=== PATIENT | male | born 1955 | race Caucasian/White ===

== ENCOUNTER → 2020-07-23 14:02 | Outpatient (BNVA) | payer OTHER, SELFPAY | PROVIDERS: PCP Internal Medicine; Visit Provider Internal Medicine Endocrinology, Diabetes & Metabolism | DX: E11.65 Type 2 diabetes mellitus with hyperglycemia (principal); E11.42 Type 2 diabetes mellitus with diabetic polyneuropathy; E78.5 Hyperlipidemia, unspecified; I10 Essential (primary) hypertension; E66.9 Obesity, unspecified | CPT/HCPCS: 82947; 99212 ==

== ENCOUNTER 2021-02-16 08:20 | Outpatient (REF) | payer MEDICARE, OTHER, SELFPAY ==
[2021-02-16 10:05] LABS: Alanine Aminotransferase 39 U/L (0-40); Albumin Level 4.1 g/dL (3.5-5.0); Alkaline Phosphatase 95 U/L (39-117); Anion Gap 13 (12-20); Aspartate Amino Transferase 29 U/L (5-37); Bilirubin Total 0.9 mg/dL (0.0-1.0); Blood Urea Nitrogen 14 mg/dL (9-16); Calcium 8.7 mg/dL (8.4-10.2); Carbon Dioxide 24 mmol/L (22-29); Chloride 108 mmol/L (96-108); Cholesterol 92 mg/dL; Estimated Glomerular Filt Rate > 60; Glucose Random 125 mg/dL (60-115); HDL Cholesterol 35 mg/dL; LDL Cholesterol Calculated 45 mg/dl; Potassium 4.4 mmol/L (3.3-5.1); Sodium 141 mmol/L (135-145); Total Protein 6.4 g/dL (6.5-8.0); Triglycerides 60 mg/dL
[2021-02-16 10:33] LABS: Creatinine Urine 103.01 mg/dL; Microalbum/Creatinine Ratio Ur 4.8 ug/mg cr
[2021-02-18 09:41] LABS: LDL Cholesterol Direct 45 mg/dL (<100)
== END 2021-02-16 08:21 | disposition home or self-care (01) ==
LOC: HO.LAB 08:20
PROVIDERS: PCP Internal Medicine; Visit Provider Internal Medicine Endocrinology, Diabetes & Metabolism
DX: E11.65 Type 2 diabetes mellitus with hyperglycemia (principal); E11.42 Type 2 diabetes mellitus with diabetic polyneuropathy; I12.9 Hypertensive chronic kidney disease with stage 1 through stage 4 chronic kidney disease, or unspecified chronic kidney disease; E78.5 Hyperlipidemia, unspecified; E66.9 Obesity, unspecified; Z68.32 Body mass index [BMI] 32.0-32.9, adult; Z79.84 Long term (current) use of oral hypoglycemic drugs; Z79.82 Long term (current) use of aspirin; Z79.899 Other long term (current) drug therapy
CPT/HCPCS: 36415; 80053; 80061; 82043; 82947; 83721; 99212

== ENCOUNTER → 2021-03-12 08:22 | Outpatient (REF) | payer MEDICARE, OTHER, SELFPAY ==
--- NOTE | ~2021-03-12 | NM_ITS ---
Lexiscan Myocardial perfusion study Indication: Coronary artery disease, history of bypass, assess for ischemia Technique: The patient was brought in for a Lexiscan perfusion study on 03/12/2021 and was injected 0.4 mg of Lexiscan intravenously. Within a minute of this injection 40 mCi of sestamibi was given intravenously. Images were obtained using the SPECT gamma camera interlaced with the gating device. Images were obtained in supine position. Resting perfusion study was performed on 03/13/2021. Patient was administered 40 mCi of sestamibi intravenously at rest. Images were then obtained in supine position. Total DLP 124mGy-cm. Images were processed with the software and compared side to side in short axis, horizontal long axis and vertical long axis views. Findings: Raw acquisition was reviewed. The stress perfusion study showed mildly diminished tracer uptake along the inferolateral wall. There is improvement with CT attenuation correction and hence suggestive of diaphragmatic attenuation artifact. The gated study shows normal LV systolic function with calculated LVEF of 64%. LV cavity is normal in size. The gated study shows normal wall thickening and contraction of segments. Resting study shows diminished tracer uptake along the inferolateral wall. Improvement with CT attenuation correction suggestive of diaphragmatic attenuation artifact. Gating at rest reveals normal wall motion with ejection fraction at 60%. The findings are consistent with no reversible defects. Fixed defect in the inferolateral wall suggestive of diaphragmatic artifact. NM/NM finesse perf SPECT rest & str Impression: 1. Myocardial perfusion imaging study shows likely normal perfusion. 2. Gated LVEF is 60% during stress and 60% during rest. 3. Transient ischemic dilatation not present. EKG component of the test reported separately.
--- NOTE | 2021-03-12 08:30 | CA_ITS ---
Transthoracic Echocardiogram Patient (Last, First, Middle): Dionne Haynes, Gender: Male Date of : 1955 Age: 65 Procedure Date: 03/12/2021 Procedure Type: Transthoracic Echocardiogram Location: OP Height: 185.42 cm Weight: 108.86 kg BSA: 2.33 m2 Heart Rate: bpm BP: 126 / 56 mmHg Cherry Cutter: Referring MD: Norberto Jacobson MD Symptoms: I25.10 CAD, I10 HTN, Z95.1 S/P CABG X 5 Study Quality: Fair ECG Rhythm: Sinus Conclusions: - The left ventricular systolic function is normal. The calculated ejection fraction is 56% by biplane method. - There is mildly decreased right ventricular systolic function. - There is mild calcification of the aortic valve. - There is mild mitral annular calcification. Findings Left Ventricle Normal left ventricular cavity size. There is mildly increased left ventricular wall thickness. The left ventricular systolic function is normal. The calculated ejection fraction is 56% by biplane method. There is no evidence of regional wall motion abnormalities. Diastolic function is normal for age. LV peak GLS -17.9%. Right Ventricle Normal right ventricular cavity size. There is mildly decreased right ventricular systolic function. TAPSE 1.42cm. Atria Both atria are normal in size. Aortic Valve There is a normal trileaflet aortic valve. There is mild calcification of the aortic valve. There is no aortic valve stenosis. There is no aortic valve regurgitation. Mitral Valve There is mild mitral annular calcification. There is trace mitral valve regurgitation. There is no mitral valve stenosis. Pulmonic Valve The pulmonic valve was not well visualized. Tricuspid Valve There is trace tricuspid valve regurgitation. The pulmonary artery systolic pressure is normal. Great Vessels The asc aorta is normal in size. Venous The inferior vena cava is normal in size and collapses greater than 50% with inspiration. Pericardium/Pleural There is no evidence of pericardial effusion. Prior Study Comparison Changes noted compared to prior study dated: 05/26/2018. Improved diastolic function. Measurements 2D Linear Measurements RVIDd: 3.10 RVIDd Index: 1.33 IVSd: 1.10 0.6-0.9/0.6-1.0 cm LVIDd: 5.33 3.9-5.3/4.2-5.9 cm LVIDd Index: 2.29 2.4-3.2/2.2-3.1 cm/m2 LVIDs: 3.64 2.0-3.6 cm LVPWd: 1.03 0.7-1.1 cm Ao Root: 4.00 2.1-3.5 cm LA Diam: 4.70 2.7-3.8/3.0-4.0 cm LAIDs Index: 2.02 1.5-2.3 cm/m2 LV Mass: 274.29 67-162/88-224 g LV Mass Index: 117.72 43-95/49-115 g/m2 LVOT Diam: 2.40 3.0+(-)1.3 cm 2D Systolic Function EF 4C: 51.10 >55% EF 2C: 64.60 >55% EF BiP: 56.40 >55% Mitral Valve MV Pk E: 0.75 MV PK A: 0.81 MV Decel Time: 295.00 E/A: 0.90 E'Lateral: 9.79 E'Medial: 6.42 E/E' Med: 11.70 E/E' Lat: 7.70 Aortic Valve AoV Pk Myles: 1.00 AoV Mn Myles: 0.73 AoV VTI: 0.18 AoV Pk Grad: 4.00 Aov Mn Grad: 2.00 ADDISON Cont.VTI: 4.64 LVOT LVOT Pk Myles: 0.78 LVOT Mn Myles: 0.56 LVOT VTI: 0.19 LVOT Pk Grad: 2.00 LVOT Mn Grad: 1.00 LVOT Diam: 2.40 LVOT Area: 4.52 Diastolic Function MV Pk E: 0.75 MV Pk A: 0.81 E/A: 0.90 E'Medial: 6.42 E/E' Med: 11.70 E' Laterial: 9.79 E/E' Lat: 7.70 Tricuspid Valve RA Press: 3.00 Great Vessels Aorta Ao Root-2D: 4.00 2.0-3.7 cm Ao Asc: 3.60 2.1-3.4 cm Ao Arch: 3.30 Updated in Other Vendor System with Status of Final Valentino Solano MD electronically signed on 03/12/2021 2:02:16 PM with status of Final
--- NOTE | 2021-03-12 09:30 | CA_ITS ---
Acquisition Time: 2021-03-12 09:35:41 Total Exercise Time: 00:09:00 Test Indications: Screening for CAD Medications: AMLODIPINE ASA ATORVASTATIN JARDIANCE LISINOPRIL/HCTZ METFORMIN METOPROLOL RYBELSUS Protocol: [place] Max HR: 116 BPM 74% of Pred: 155 BPM Max BP: 206/064 mmHG Max Work Load: 10.1 METS Exercise stress test with exercise 9 min of [place] protocol, achieving 72% MPHR, without anginal symptoms, with isolated PACs and one short run of atrial tachycardia, with hypertensive response to exercise with max BP 206/64, with nondiagnostic EKG for ischemia due to subotimal heart rate ( took Metoprolol this am). He was assisted to sitting position and when BP improved, testing changed to a pharmacological stress test with Lexsican injection, while kicking his legs, without anginal symptoms, without arrythmia, with normotensive response to injection, with nondiagnostic EKG for ischemia. Nuclear images pending. Test reviewed with Dr Ochoa. Referred By: Norberto Jacobson Overread By: PADDY MORSE
== END ==
LOC: HO.CARD 08:22
PROVIDERS: Visit Provider Internal Medicine Cardiovascular Disease
DX: I25.10 Atherosclerotic heart disease of native coronary artery without angina pectoris (principal); I10 Essential (primary) hypertension; E11.8 Type 2 diabetes mellitus with unspecified complications; Z95.1 Presence of aortocoronary bypass graft
CPT/HCPCS: 78452; 93017; 93306; 93356; A9500; J0280; J2785

== ENCOUNTER → 2021-04-02 10:18 | Outpatient (BNVA) | payer MEDICARE, OTHER, SELFPAY | PROVIDERS: PCP Internal Medicine; Referring Provider Internal Medicine; Visit Provider Internal Medicine Cardiovascular Disease | DX: I25.10 Atherosclerotic heart disease of native coronary artery without angina pectoris (principal); I10 Essential (primary) hypertension | CPT/HCPCS: 93005; 99212 ==

== ENCOUNTER → 2021-06-18 07:58 | Outpatient (BNVA) | payer MEDICARE, OTHER, SELFPAY | PROVIDERS: PCP Internal Medicine; Visit Provider Nurse Practitioner Gerontology | DX: E11.65 Type 2 diabetes mellitus with hyperglycemia (principal); E11.42 Type 2 diabetes mellitus with diabetic polyneuropathy; E78.5 Hyperlipidemia, unspecified; E66.9 Obesity, unspecified; I10 Essential (primary) hypertension | CPT/HCPCS: 82947; 83036; 99212 ==

== ENCOUNTER → 2021-06-24 07:55 | Outpatient (BNVA) | payer MEDICARE, OTHER, SELFPAY | PROVIDERS: PCP Internal Medicine; Visit Provider Registered Nurse Diabetes Educator | DX: E11.65 Type 2 diabetes mellitus with hyperglycemia (principal) | CPT/HCPCS: 99211 ==

== ENCOUNTER → 2021-09-02 08:02 | Outpatient (BNVA) | payer MEDICARE, OTHER, SELFPAY | PROVIDERS: PCP Internal Medicine; Visit Provider Registered Nurse Diabetes Educator | DX: E11.65 Type 2 diabetes mellitus with hyperglycemia (principal) | CPT/HCPCS: 99211 ==

== ENCOUNTER 2021-09-06 10:01 | Inpatient (IN) | payer OTHER, SELFPAY ==
--- NOTE | ~2021-09-06 | XR_ITS ---
EXAMINATION: 1. RADIOGRAPHS CHEST 2. RADIOGRAPHS RIGHT KNEE CLINICAL INFORMATION: Medical clearance. Right knee pain. Possible quadriceps tendon rupture. COMPARISON: Chest x-ray 10/07/2014 and right knee x-rays 10/04/2006 TECHNIQUE: Frontal view of the chest and 4 views of the right knee were obtained. FINDINGS: Chest: The cardiac silhouette is enlarged. Patient is status post sternotomy. The lungs are mildly hypoinflated. There is no lobar consolidation. No pleural effusion or pneumothorax. Degenerative changes of the spine and shoulders. Right knee: no fracture or dislocation. Joint spaces are well-maintained. Small suprapatellar joint effusion. Prominent osteophytes noted along the superior and inferior patellar poles. Small osteophytes noted involving the medial and lateral joint compartments. Vascular calcifications noted. XR/XR chest 1V IMPRESSION: -No acute pulmonary pathology. -Small suprapatellar joint effusion with degenerative changes of the knee.
--- NOTE | ~2021-09-06 | XR_ITS ---
EXAMINATION: 1. RADIOGRAPHS CHEST 2. RADIOGRAPHS RIGHT KNEE CLINICAL INFORMATION: Medical clearance. Right knee pain. Possible quadriceps tendon rupture. COMPARISON: Chest x-ray 10/07/2014 and right knee x-rays 10/04/2006 TECHNIQUE: Frontal view of the chest and 4 views of the right knee were obtained. FINDINGS: Chest: The cardiac silhouette is enlarged. Patient is status post sternotomy. The lungs are mildly hypoinflated. There is no lobar consolidation. No pleural effusion or pneumothorax. Degenerative changes of the spine and shoulders. Right knee: no fracture or dislocation. Joint spaces are well-maintained. Small suprapatellar joint effusion. Prominent osteophytes noted along the superior and inferior patellar poles. Small osteophytes noted involving the medial and lateral joint compartments. Vascular calcifications noted. XR/XR knee RT 4V IMPRESSION: -No acute pulmonary pathology. -Small suprapatellar joint effusion with degenerative changes of the knee.
[2021-09-06 10:06] VITALS: BP 142/55; PULSE 66; RESP 19; O2SAT 97; BMI 31.6
--- NOTE | 2021-09-06 10:53 | ED_ITS ---
HPI - Extremity Injury (Lower) General Chief Complaint: Extremity Injury, Lower Stated Complaint: fall Time Seen by Provider: 09/06/21 10:17 Source: patient and RN notes reviewed Mode of arrival: wheelchair Limitations: no limitations History of Present Illness HPI Narrative: Pt clearing deck this morning of snow and right leg slipped forward and twisted. pt fell tightness and pain in lower right thigh. pt. fell to the ground and unable to ambulate after. Brother helped slide him to truck and brought him to the ED. pt can not extend right lower leg. Other symptoms: none Related Data Home Medications Medication Instructions Recorded Confirmed aspirin 81 mg tablet,delayed 81 mg PO DAILY 07/23/20 09/06/21 release multivitamin 1 tab PO DAILY 09/06/21 09/06/21 Previous Rx's Medication Instructions Recorded lisinopril 20 1 tab PO DAILY #90 tab 07/28/20 mg-hydrochlorothiazide 12.5 mg tablet metoprolol succinate 100 mg 100 mg PO DAILY #90 tab 07/28/20 tablet,extended release 24 hr (Toprol XL) flash glucose sensor (FreeStyle #2 ea 10/21/20 Bo 14 Day Sensor) amlodipine 5 mg tablet 5 mg PO DAILY #90 tab 10/30/20 atorvastatin 80 mg tablet 80 mg PO BEDTIME #90 tab 10/30/20 blood sugar diagnostic (FreeStyle #100 ea 02/16/21 Lite Strips) lancets 28 gauge (FreeStyle #100 ea 02/16/21 Lancets) metformin 500 mg 24 hr 1,000 mg PO BID 90 Days #360 tab 02/16/21 tablet,extended release semaglutide 7 mg tablet (Rybelsus) 7 mg PO DAILY 90 Days #90 tab 02/16/21 empagliflozin 25 mg tablet 25 mg PO DAILY 90 Days #90 tab 09/03/21 (Jardiance) Allergies Allergy/AdvReac Type Severity Reaction Status Date / Time No Known Allergies Allergy Verified 06/18/21 08:21 [No Known Allergies*] N.K.D.A. Allergy Unknown Unknown Uncoded 06/18/21 08:21 Review of Systems Verdana 4l Review of Systems: Verdana 4d Verdana 4d Constitutional : No trauma, No Weight loss, No Fever, No Chills, ENT/Mouth : No Hearing loss, No Ear Pain, No Nasal Congestion, No Sinus Pain, No Hoarseness, No sore throat, No Rhinorrhea, No Swallowing Difficulty Cardiovascular : No ChestChest Pain, No SOB Respiratory : No Cough, No Dyspnea Gastrointestinal : No Nausea, No Vomiting, No Diarrhea, No abdominal Pain, Genitourinary : No Dysuria, No Urinary Frequency, No Hematuria, No Urinary or Bowel Incontinence/retention? Musculoskeletal : no Back pain, No neck pain, rigth LE pain and unable to extend rigth LE Skin : No Skin Lesions, No rash or signs of infection Neuro : No Weakness, No radiation, No Numbness, No Paresthesias, No headache, no loss of bowel or bladder incontinence, Psych : No SI/HI/thoughts of self injury Yes all other systems are reviewed and are negative PMFSH Past Medical History Attestation statement: The following information was validated with the patient. Medical History CAD (coronary artery disease) Diabetes type 2, uncontrolled Diabetic polyneuropathy associated with type 2 diabetes mellitus Dyslipidemia Hypertension Obesity (BMI 30-39.9) Surgical History H/O wisdom tooth extraction Hx of hernia repair Hx of removal of cyst Hx of umbilical hernia repair S/P CABG x 5 Family History Family History Mother Type 2 diabetes mellitus Father H/O heart artery stent Social History Social History Alcohol intake: never Patient Tobacco Use Status: Never used Tobacco Use of substances other than those prescribed or required for medical reasons: No Advance Directives: No Advance Directives Information Provided: No Physical Exam Verdana 4l Vital Signs: Verdana 4d Verdana 4d Vital Signs: Verdana 4d Verdana 4Bd Last Vital Signs Verdana 4d Customer Logistics Manager New 4d Customer Logistics Manager New 4d Pulse 66 09/06/21 10:06 Customer Logistics Manager New 4d Resp 19 09/06/21 10:06 Customer Logistics Manager New 4d BP 142/55 H 09/06/21 10:06 Pulse Ox 97 09/06/21 10:06 BMI result Body Mass Index 31.6 vital signs have been reviewed as normal and appeared to be correct.? Blood pressure elevated.? Heart rate normal.? Respiration rate normal.? Temperature normal.? Oxygen saturation normal. Appearance: Alert. Oriented X3. No acute distress. ? Head: Normal external exam. Normocephalic. Atraumatic.? Eyes: PERRLA. EOMI. Conjunctiva and sclera normal. Eyelids normal. ? ENT: EAC normal. Pharynx normal. Uvula midline. Moist mucous membranes. ? No trismus noted.? No drooling noted.? No muffled voice noted. Neck: Normal inspection. Neck supple. Normal ROM. CVS: Normal heart rate and rhythm. Heart sound normal. No murmurs noted. Respiratory: No respiratory distress. Painless inspiration. Breath sounds normal. No wheezes/rales/rhonchi noted. Chest nontender. ? No accessory muscle usage noted or decreased air movement noted. Abdomen: Soft and nontender. Back: ?.? Full range of motion noted. Skin: Skin warm and dry.? Normal skin color.? Normal skin turgor. No rashes/lesions/lacerations noted. Extremities: No lower extremity edema. ? Step off just proximal to right patella, mild tendernss, pt unable extend R lower extremity. Pt able to flex R lower extremity. Good pedal pulses equal bilat Neuro: Oriented X 3.? No motor deficit noted. No sensory deficit noted. Course Course Course Narrative: Discussed case with Dr. Lee who also saw the patient. Will consult with ortho for probable quadriceps tendon rupture, left. Pt in no pain and declines pain medication. 11am. [facility] 11: devorah pierre (ortho PA)in to see pt. Pt will be admitted awaiting surgery tomorrow. MDM - Extremity Injury (Lower) Lab Data Result diagrams: 09/06/21 11:40 09/06/21 11:40 Discharge Plan Discharge Clinical Impression: Quadriceps tendon rupture Patient Disposition: Admitted As Inpatient
--- NOTE | 2021-09-06 11:22 | ECG_ITS ---
Test Reason : Medical clearance Blood Pressure : / mmHG Vent. Rate : 056 BPM Atrial Rate : 056 BPM P-R Int : 292 ms QRS Dur : 098 ms QT Int : 464 ms P-R-T Axes : 024 -06 -03 degrees QTc Int : 447 ms Artifact in tracing Sinus bradycardia with 1st degree A-V block Inferior infarct (cited on or before 01-APR-2016) Intra-ventricular conduction delay Cannot exclude old anterior infarct Abnormal ECG When compared with ECG of 01-APR-2016 15:19, due to artifact, cannot compare Referred By: Renetta Puente Electronically Signed By:MERCEDES CARMEN
[2021-09-06 11:54] LABS: MANUAL DIFF FLAG NO
[2021-09-06 11:57] LABS: Basophils Absolute Auto 0.1 X10*3/uL (0.0-0.2); Basophils Percent Auto 0.7 % (0-2); Eosinophils Absolute Auto 0.2 X10*3/uL (0.0-0.4); Eosinophils Percent Auto 3.3 % (0-4); Hematocrit 43.3 % (42.0-52.0); Imm Gran Abs Auto 0.03 X10*3/uL (0.00-0.03); Imm Gran Pct Auto 0.4 % (0.0-0.4); Lymphocytes Absolute Auto 1.4 X10*3/uL (1.2-4.9); Lymphocytes Percent Auto 20.7 % (20-40); Mean Corpuscular HGB Conc 34.6 g/dl (31.0-36.0); Mean Corpuscular Hemoglobin 28.3 pg (27.0-33.0); Mean Corpuscular Volume 81.7 fL (80.0-98.0); Mean Platelet Volume 10.3 fL (9.4-12.4); Monocytes Absolute Auto 0.6 X10*3/uL (0.1-1.2); Monocytes Percent Auto 8.5 % (2-11); Neutrophils Absolute Auto 4.5 x10*3/uL (2.0-8.3); Neutrophils Percent Auto 66.4 % (45-73); Platelet Count 146 X10*3/uL (160-400); Red Cell Distribution Width 13.2 % (11.0-16.0); White Blood Count 6.7 X10*3/uL (4.8-10.8)
--- NOTE | 2021-09-06 11:57 | PHA.MEDREC ---
med rec complete, no issues Pharmacy Consult ? Medication Reconciliation Pharmacy has completed the medication reconciliation.
--- NOTE | 2021-09-06 12:00 | PC.NURSE ---
Patient to ER after stepping wrong while shoveling and reports tear. Patient had similar thing happen to left leg. Patient reports minimal pain at this time. Alert and oriented, respirations regular and even. Skin PWD. Ortho at bedside to assess. Patient to be admitted and to likely have surgery tomorrow. IV established and labs drawn. Patient reports comfort at this time. Will alert this RN if that changes.
[2021-09-06 12:03] LABS: Prothrombin Time 11.7 SEC (9.9-13.0)
[2021-09-06 12:17] LABS: Alanine Aminotransferase 58 U/L (0-40); Albumin Level 4.1 g/dL (3.5-5.0); Alkaline Phosphatase 84 U/L (39-117); Anion Gap 12 (12-20); Aspartate Amino Transferase 37 U/L (5-37); Bilirubin Total 1.1 mg/dL (0.0-1.0); Blood Urea Nitrogen 14 mg/dL (9-16); Calcium 9.3 mg/dL (8.4-10.2); Carbon Dioxide 26 mmol/L (22-29); Chloride 105 mmol/L (96-108); Creatinine Clr Calc Pharmacy 84.7; Estimated Glomerular Filt Rate > 60; Glucose Random 142 mg/dL (60-115); Potassium 4.3 mmol/L (3.3-5.1); Sodium 139 mmol/L (135-145); Total Protein 6.6 g/dL (6.5-8.0)
[2021-09-06 12:22] LABS: COVID-19 Test Negative (Negative)
--- NOTE | 2021-09-06 12:41 | P.HPOP_ITS ---
History of Present Illness History of Present Illness Date of Service: 09/06/21 Chief complaint: right quad tendon rupture Narrative: Dionne Haynes is a 66 year old male who presented to the ED after sustaining a fall onto his knees this morning while shoveling. He was unable to get up, so a friend helped him up and into a vehicle and brought him to the ED. While in the ED, he was unable to SLR and had a palpable defect. Orthopedics was called for consultation. He has a [facility] DMII A1C approx. 7. He almost mentions he had CABG x5 approx 4 years ago. He is retired. He is active. He had left quad tendon repair about 12 years ago. He will be admitted to Orthopedic service for surgical planning. Review of Systems Verdana 4l Review of Systems: Verdana 4d Negative , as per Verdana 4d HPI Verdana 4d [facility] Past Medical History Medical History CAD (coronary artery disease) Diabetes type 2, uncontrolled Diabetic polyneuropathy associated with type 2 diabetes mellitus Dyslipidemia Hypertension Obesity (BMI 30-39.9) Family History Family History Mother Type 2 diabetes mellitus Father H/O heart artery stent Surgical History Surgical History H/O wisdom tooth extraction Hx of hernia repair Hx of removal of cyst Hx of umbilical hernia repair S/P CABG x 5 Social History Social History Alcohol intake: never Patient Tobacco Use Status: Never used Tobacco Use of substances other than those prescribed or required for medical reasons: No Advance Directives: No Advance Directives Information Provided: No Meds Allergies Allergy/AdvReac Type Severity Reaction Status Date / Time No Known Allergies Allergy Verified 06/18/21 08:21 [No Known Allergies*] N.K.D.A. Allergy Unknown Unknown Uncoded 06/18/21 08:21 Active Medications: Current Medications Pharmacy Consult (Consult Rx Perform Med Rec) 1 each MISCELLANE ONCE PRN PRN Reason: Consult order Home Medications Medication Instructions Recorded Confirmed Last Taken Type aspirin 81 mg 81 mg PO DAILY 07/23/20 09/06/21 09/06/21 History tablet,delayed release multivitamin 1 tab PO DAILY 09/06/21 09/06/21 09/06/21 History Physical Exam Verdana 4l Vital Signs: Verdana 4d Verdana 4d Vital Signs: Verdana 4d Verdana 4Bd Last Vital Signs Verdana 4d Casing Crew Pusher New 4d Casing Crew Pusher New 4d Pulse 66 09/06/21 10:06 Casing Crew Pusher New 4d Resp 19 09/06/21 10:06 Casing Crew Pusher New 4d BP 142/55 H 09/06/21 10:06 Pulse Ox 97 09/06/21 10:06 BMI result Body Mass Index 31.6 Const: General: cooperative, healthy appearing, comfortable, no acute distress, well developed and alert Orientation/consciousness: patient oriented x3 HENMT: Head: Yes normal to inspection, Yes normocephalic and Yes atraumatic Eyes: General: appearance normal, both eyes and all related structures Neck: Neck: Yes normal visual inspection and Yes no lymphadenopathy Resp: Effort & Inspection: normal respiratory effort and able to speak in complete sentences Cardio: Rate: regular rate Peripheral pulses: Peripheral pulses 2+ throughout GI: Inspection: Yes normal to inspection Palpation (GI): Soft to palpation Skin: General skin exam: no rashes or lesions noted Neuro: General: patient oriented x3 Extrem: Other: Left knee surgical scar present Right knee skin intact, no open wounds. There is a palpable defect just above the patella and he is unable to SLR. Calf supple non tender, NVI. Psych: Appearance: grossly normal Mental Status: mental status grossly normal Results Labs Result Diagrams: 09/06/21 11:40 09/06/21 11:40 Labs: Abnormal lab results 09/06/21 09/06/21 Range/Units 11:40 11:40 Plt Count 146 L (160-400) X10*3/uL Random Glucose 142 H (60-115) mg/dL Total Bilirubin 1.1 H (0.0-1.0) mg/dL ALT 58 H (0-40) U/L H & H 09/06/21 Range/Units 11:40 Hgb 15.0 (14.0-18.0) g/dl Hct 43.3 (42.0-52.0) % Coagulation 09/06/21 Range/Units 11:40 INR 1.0 (0.9-1.1) All other labs normal. Diagnostic results Knee x-ray: image reviewed (small suprapatellar effusion with OA ) Assessment and Plan (1) Rupture of right quadriceps tendon: Status: Acute Plan I discussed the case with Dr Lopez and explained the extent of the injury to the patient and options available which include surgical intervention. I explained the procedure in detail along with the length of recovery and rehab course. I explained the risk, benefits and alternatives. Risk including, but not limited to infection, blood clots, bleeding, non union or malunion and nerv e/tissue damage to surrounding areas. I answered all their questions and with their understanding they have consented to move forward with Right quad tendon repair . The patient will be T&S, med clearance obtained and NPO after midnight. Quality Stroke Does the patient have a stroke diagnosis?: No VTE Prior VTE?: No VTE Risk Level:: Surgical - high VTE Device Contraindication: N/A - Device Ordered VTE Drug Contraindication: Treatment Not Indicated Procedures Date of Service Date of Service: 09/06/21
--- NOTE | 2021-09-06 13:19 | P.HPHOSP_ITS ---
History of Present Illness Date of Service: 09/06/21 Chief Complaint: knee tendon repture 66-year-old male who came to the hospital due tosliiped on ice and fall - has right knee pain, on x-ray found todjd- patient 15 years ago similar situation heparin with his left knee and he required repair that time. Patient denies any chest pain or shortness of breath or abdominal pain or fever or chills or cough or phlegm or palpitations or weakness or numbness. He has history of CAD and CABG- stress test last year was negative, patient is currently asymptomatic. He said he can walk without short of breath and can walk more than 6 blocks. can climbs 4flights of stairs. he also has sleep apnea and uses CPAP at home. Currently denies any respiratory issues. Past medical history: Diabetes, hypertension, hypercholesteremia, CAD, CABG, sleep apnea on CPAP. Social history: Denies any smoking history, recreational drug use. Occasionally uses alcohol. She he lives with his daughter currently, totally independent does not need any help with ADLs. Review of Systems Verdana 4l Review of Systems: Verdana 4d Verdana 4d as above. Verdana 4d [facility] Medical History CAD (coronary artery disease) Diabetes type 2, uncontrolled Diabetic polyneuropathy associated with type 2 diabetes mellitus Dyslipidemia Hypertension Obesity (BMI 30-39.9) Family History Mother Type 2 diabetes mellitus Father H/O heart artery stent Surgical History H/O wisdom tooth extraction Hx of hernia repair Hx of removal of cyst Hx of umbilical hernia repair S/P CABG x 5 Social History Alcohol intake: never Patient Tobacco Use Status: Never used Tobacco Use of substances other than those prescribed or required for medical reasons: No Advance Directives: No Advance Directives Information Provided: No Meds Allergies Allergy/AdvReac Type Severity Reaction Status Date / Time No Known Allergies Allergy Verified 06/18/21 08:21 [No Known Allergies*] N.K.D.A. Allergy Unknown Unknown Uncoded 06/18/21 08:21 Active Medications: Current Medications Pharmacy Consult (Consult Rx Perform Med Rec) 1 each MISCELLANE ONCE PRN PRN Reason: Consult order Home Medications Medication Instructions Recorded Confirmed Last Taken Type aspirin 81 mg 81 mg PO DAILY 07/23/20 09/06/21 09/06/21 History tablet,delayed release multivitamin 1 tab PO DAILY 09/06/21 09/06/21 09/06/21 History Physical Exam Verdana 4l Vital Signs and Narrative: Verdana 4d Verdana 4d Vital Signs: Verdana 4d Verdana 4Bd Last Vital Signs Verdana 4d Pipeline Dispatcher New 4d Pipeline Dispatcher New 4d Pulse 66 09/06/21 10:06 Pipeline Dispatcher New 4d Resp 19 09/06/21 10:06 Pipeline Dispatcher New 4d BP 142/55 H 09/06/21 10:06 Pulse Ox 97 09/06/21 10:06 BMI result Body Mass Index 31.6 Appearance: Alert.? Oriented X3.? not in distress.? Eyes: Pupils equal, round and reactive to light.? Sclera nonicteric.? ENT: Pharynx normal.? Moist mucous membranes. cvs: rrr, [id number] , no murmur res: clear to auscultation ,no rhonchii or wheezing abd: no rebound or guarding ,nt, bs present. ext pulses present , no cyanosis, right Lower extremity can move from side to side but can not able to lift yet Due to pain. neuro: axo3 , nonfocal. Results Labs CBC and Chem 7: 09/06/21 11:40 09/06/21 11:40 Labs: Laboratory Results - last 24 hr 09/06/21 09/06/21 09/06/21 11:40 11:40 11:40 MCV 81.7 MCH 28.3 MCHC 34.6 RDW 13.2 Plt Count 146 L MPV 10.3 Immature Gran % (Auto) 0.4 Neut % (Auto) 66.4 Lymph % (Auto) 20.7 [place] % (Auto) 8.5 Eos % (Auto) 3.3 Baso % (Auto) 0.7 Lymph # (Auto) 1.4 [place] # (Auto) 0.6 Eos # (Auto) 0.2 Baso # (Auto) 0.1 Abs Immat Gran (auto) 0.03 Absolute Neuts (auto) 4.5 Absolute Nucleated RBC 0.000 Nucleated RBC % (auto) 0.0 PT INR APTT Anion Gap 12 Estim Creat Clear Calc 84.7 Estimated GFR > 60 Random Glucose 142 H Calcium 9.3 D Total Bilirubin 1.1 H AST 37 ALT 58 H Alkaline Phosphatase 84 Total Protein 6.6 Albumin 4.1 COVID-19 (ZULMA) COVID-19 Clin Com Blood Type O Positive Antibody Screen NEGATIVE 09/06/21 09/06/21 11:40 11:47 MCV MCH MCHC RDW Plt Count MPV Immature Gran % (Auto) Neut % (Auto) Lymph % (Auto) [place] % (Auto) Eos % (Auto) Baso % (Auto) Lymph # (Auto) [place] # (Auto) Eos # (Auto) Baso # (Auto) Abs Immat Gran (auto) Absolute Neuts (auto) Absolute Nucleated RBC Nucleated RBC % (auto) PT 11.7 INR 1.0 APTT 32.0 Anion Gap Estim Creat Clear Calc Estimated GFR Random Glucose Calcium Total Bilirubin AST ALT Alkaline Phosphatase Total Protein Albumin COVID-19 (ZULMA) Negative COVID-19 Clin Com See Note Blood Type Antibody Screen ECG Attestation: I personally reviewed and interpreted this ECG as follows: ( seems similar to previous EKG, but poor baseline) Imaging Radiologist's Impressions: Impressions Knee X-Ray 09/06/21 11:25 IMPRESSION: -No acute pulmonary pathology. -Small suprapatellar joint effusion with degenerative changes of the knee. Chest X-Ray 09/06/21 11:30 IMPRESSION: -No acute pulmonary pathology. -Small suprapatellar joint effusion with degenerative changes of the knee. Assessment and Plan Plan 66-year-old male with history of diabetes, hypertension, hyperlipidemia, CAD, CABG, sleep apnea on CPAP.status post fall after slipping on the ice. 1. Right knee pain: X-ray shows:Small suprapatellar joint effusion with degenerative changes of the knee. pain control Patient has CAD and CABG but asymptomatic and stress test wasfine last year, EKG poor baseline but seems similar to before. Sleep apnea ramirez chest x-ray seems fine and patient is asymptomatic. his functional status also seems fine. patient is intermediate risk for given surgical procedure. 2. CAD/CABG:continue asa , statin , bb. 3. Hypertension:continue amlodipine , bb. 4. Diabetes:dm diet insulin with sliding scale coverage. 5. hlp:continue statin DVT prophylaxis: Quality Stroke Does the patient have a stroke diagnosis?: No VTE Prior VTE?: No VTE Risk Level:: Surgical - high VTE Device Contraindication: N/A - Device Ordered VTE Drug Contraindication: Treatment Not Indicated
--- NOTE | 2021-09-06 13:47 | PC.NURSE ---
Patient reports continued comfort. Given sandwich and water at this time. Will continue to monitor.
--- NOTE | 2021-09-06 16:46 | P.CONIM_ITS ---
History of Present Illness Data of Consult Service Date: 09/06/21 Requesting physician: Patel Lopez Primary Care Provider: Parker Peace MD [facility] Reason for consult: knee pain Chief Complaint: knee tendon repture ? 66-year-old male who came to the hospital due tosliiped on ice and fall - has right knee pain, on x-ray found todjd- patient? 15 years ago similar situation heparin with his left knee and he required repair that time. ? Patient denies any chest pain or shortness of breath or abdominal pain or fever or chills or cough or phlegm or palpitations or weakness or numbness. ? He has history of CAD and CABG- stress test last year was negative,? patient is currently asymptomatic.? He said he can walk? without short of breath and can walk more than? 6 blocks. ?can climbs 4flights of stairs. ?he also has sleep apnea and uses CPAP at home.? Currently denies any respiratory issues. ? Past medical history:? Diabetes, hypertension, hypercholesteremia, CAD, CABG, sleep apnea on CPAP. ? Social history:? Denies any smoking history,? recreational drug use. ? Occasionally uses alcohol. ? She he lives with his daughter currently, totally independent does not need any help with ADLs Review of Systems Verdana 4l Review of Systems: Verdana 4d Verdana 4d as above. Verdana 4d [facility] Medical History CAD (coronary artery disease) Diabetes type 2, uncontrolled Diabetic polyneuropathy associated with type 2 diabetes mellitus Dyslipidemia Hypertension Obesity (BMI 30-39.9) Family History Mother Type 2 diabetes mellitus Father H/O heart artery stent Pertinent family history: father and mother hx of heart dis. Surgical History H/O wisdom tooth extraction Hx of hernia repair Hx of removal of cyst Hx of umbilical hernia repair S/P CABG x 5 Social History Alcohol intake: never Patient Tobacco Use Status: Never used Tobacco Use of substances other than those prescribed or required for medical reasons: No Advance Directives: No Advance Directives Information Provided: No Meds Allergies Allergy/AdvReac Type Severity Reaction Status Date / Time No Known Allergies Allergy Verified 06/18/21 08:21 [No Known Allergies*] N.K.D.A. Allergy Unknown Unknown Uncoded 06/18/21 08:21 Active Medications: Current Medications Amlodipine Besylate (Amlodipine Besylate 5 Mg Tablet) 5 mg PO DAILY [facility]; Protocol Aspirin (Aspirin Enteric Coated 81 Mg Tablet.Dr) 81 mg PO DAILY [facility] Dextrose (Dextrose 50 % 25 Gm/50 Ml Syringe) 25 gm IVPUSH Q15M PRN; Protocol PRN Reason: per Hypoglycemia Standing Ord. Glucose (Glucose Gel 15 Gm Gel..Gram.) 15 gm PO Q15M PRN; Protocol PRN Reason: per Hypoglycemia Standing Ord. Insulin Human Lispro (Insulin Lispro 100 Unit/Ml 3 Ml Vial) 0 unit SUBCUT QIDACHS [facility]; Protocol Metoprolol Succinate (Metoprolol Succinate Er 100 Mg Tab.Er.24h) 100 mg PO DAILY [facility]; Protocol Multivitamins/Vitamin C (Multivitamin Tablet) 1 tab PO DAILY [facility] Non-Formulary Medication (Empagliflozin [Jardiance]) 25 mg PO DAILY [facility] Non-Formulary Medication (Semaglutide [Rybelsus]) 7 mg PO DAILY [facility] Pharmacy Consult (Consult Rx Perform Med Rec) 1 each MISCELLANE ONCE PRN PRN Reason: Consult order Pharmacy Consult (Consult Rx Perform Med Rec) 1 each MISCELLANE ONCE PRN PRN Reason: Consult order Home Medications Medication Instructions Recorded Confirmed Last Taken Type aspirin 81 mg 81 mg PO DAILY 07/23/20 09/06/21 09/06/21 History tablet,delayed release multivitamin 1 tab PO DAILY 09/06/21 09/06/21 09/06/21 History Physical Exam Verdana 4l Vital Signs and Narrative: Verdana 4d Verdana 4d Vital Signs: Verdana 4d Verdana 4Bd Last Vital Signs Verdana 4d Calender Machine Operator Helper New 4d Calender Machine Operator Helper New 4d Pulse 66 09/06/21 10:06 Calender Machine Operator Helper New 4d Resp 19 09/06/21 10:06 Calender Machine Operator Helper New 4d BP 142/55 H 09/06/21 10:06 Pulse Ox 97 09/06/21 10:06 BMI result Body Mass Index 31.6 Appearance: Alert.? Oriented X3.? not in distress.? Eyes: Pupils equal, round and reactive to light.? Sclera nonicteric.? ENT: Pharynx normal.? Moist mucous membranes. cvs: rrr, [id number] , no murmur res: clear to auscultation ,no rhonchii or wheezing abd: no rebound or guarding ,nt, bs present. ext pulses present , no cyanosis, right ? Lower extremity can move from side to side but can not able to lift yet? Due to pain. neuro: axo3 , nonfocal. Results Labs CBC and Chem 7: 09/06/21 11:40 09/06/21 11:40 Labs: Laboratory Results - last 24 hr 09/06/21 09/06/21 09/06/21 11:40 11:40 11:40 MCV 81.7 MCH 28.3 MCHC 34.6 RDW 13.2 Plt Count 146 L MPV 10.3 Immature Gran % (Auto) 0.4 Neut % (Auto) 66.4 Lymph % (Auto) 20.7 [place] % (Auto) 8.5 Eos % (Auto) 3.3 Baso % (Auto) 0.7 Lymph # (Auto) 1.4 [place] # (Auto) 0.6 Eos # (Auto) 0.2 Baso # (Auto) 0.1 Abs Immat Gran (auto) 0.03 Absolute Neuts (auto) 4.5 Absolute Nucleated RBC 0.000 Nucleated RBC % (auto) 0.0 PT INR APTT Anion Gap 12 Estim Creat Clear Calc 84.7 Estimated GFR > 60 Random Glucose 142 H Calcium 9.3 D Total Bilirubin 1.1 H AST 37 ALT 58 H Alkaline Phosphatase 84 Total Protein 6.6 Albumin 4.1 COVID-19 (ZULMA) COVID-19 Clin Com Blood Type O Positive Antibody Screen NEGATIVE 09/06/21 09/06/21 11:40 11:47 MCV MCH MCHC RDW Plt Count MPV Immature Gran % (Auto) Neut % (Auto) Lymph % (Auto) [place] % (Auto) Eos % (Auto) Baso % (Auto) Lymph # (Auto) [place] # (Auto) Eos # (Auto) Baso # (Auto) Abs Immat Gran (auto) Absolute Neuts (auto) Absolute Nucleated RBC Nucleated RBC % (auto) PT 11.7 INR 1.0 APTT 32.0 Anion Gap Estim Creat Clear Calc Estimated GFR Random Glucose Calcium Total Bilirubin AST ALT Alkaline Phosphatase Total Protein Albumin COVID-19 (ZULMA) Negative COVID-19 Clin Com See Note Blood Type Antibody Screen ECG Attestation: I personally reviewed and interpreted this ECG as follows: (seems similar to previous EKG, but poor baseline)) Imaging Radiologist's Impressions: Impressions Knee X-Ray 09/06/21 11:25 IMPRESSION: -No acute pulmonary pathology. -Small suprapatellar joint effusion with degenerative changes of the knee. Chest X-Ray 09/06/21 11:30 IMPRESSION: -No acute pulmonary pathology. -Small suprapatellar joint effusion with degenerative changes of the knee. Assessment and Plan (1) CAD (coronary artery disease): Status: Acute (2) Obesity (BMI 30-39.9): Status: Acute (3) Hypertension: Status: Acute (4) Dyslipidemia: Status: Acute (5) Diabetic polyneuropathy associated with type 2 diabetes mellitus: Status: Acute Plan 66-year-old male with history of? diabetes, hypertension, hyperlipidemia, CAD, CABG,? sleep apnea on CPAP.status post fall after slipping on the ice. 1. ? Right knee? pain: ? X-ray shows:Small suprapatellar joint effusion with degenerative changes of the knee. ?pain control ? Patient has CAD and CABG but asymptomatic and stress test wasfine? last year,? EKG poor baseline but seems similar to before. Sleep apnea ramirez chest x-ray seems fine and patient is asymptomatic. ?his functional status also seems fine. ?patient is intermediate risk for given surgical procedure. 2.? CAD/CABG:continue asa , statin , bb. 3. ? Hypertension:continue amlodipine , bb. 4. ? Diabetes:dm diet insulin with sliding scale coverage. 5. ? hlp:continue statin. 6. obesity: advised to lose weight, consider outpatient bariatric .evaluation. ? DVT prophylaxis:
[2021-09-06 17:35] LABS: Glucose, Whole Blood 142 mg/dL (60-115)
[2021-09-06 20:12] VITALS: BP 155/70; PULSE 56; RESP 16; TEMP 36.6; O2SAT 96
[2021-09-06 20:53] VITALS: BP 143/64; PULSE 57; RESP 18; TEMP 36.9; O2SAT 96
[2021-09-06 21:07] LABS: Glucose, Whole Blood 156 mg/dL (60-115)
[2021-09-06] MEDS: Sodium Chloride 0.45 % 1,000 ML 80 ML IVCONT (21:30)
[2021-09-06] MEDS: Docusate Sodium 100 MG CAPSULE PO (23:16)
[2021-09-07] VITALS (15 sets, daily range): BP systolic 123–165; BP diastolic 57–71; PULSE 50–73; RESP 14–20; TEMP 35.8–37.2; O2SAT 94–99
[2021-09-07 06:17] LABS: MANUAL DIFF FLAG NO
[2021-09-07 06:36] LABS: Anion Gap 10 (12-20); Blood Urea Nitrogen 15 mg/dL (9-16); Calcium 9.2 mg/dL (8.4-10.2); Carbon Dioxide 30 mmol/L (22-29); Chloride 105 mmol/L (96-108); Creatinine Clr Calc Pharmacy 84.7; Estimated Glomerular Filt Rate > 60; Glucose Fasting 117 mg/dL (60-99); Potassium 4.3 mmol/L (3.3-5.1); Sodium 141 mmol/L (135-145)
[2021-09-07 06:39] LABS: Basophils Absolute Auto 0.1 X10*3/uL (0.0-0.2); Basophils Percent Auto 0.9 % (0-2); Eosinophils Absolute Auto 0.3 X10*3/uL (0.0-0.4); Hematocrit 43.3 % (42.0-52.0); Imm Gran Abs Auto 0.03 X10*3/uL (0.00-0.03); Imm Gran Pct Auto 0.5 % (0.0-0.4); Lymphocytes Absolute Auto 1.8 X10*3/uL (1.2-4.9); Lymphocytes Percent Auto 26.8 % (20-40); Mean Corpuscular HGB Conc 34.6 g/dl (31.0-36.0); Mean Corpuscular Hemoglobin 28.5 pg (27.0-33.0); Mean Corpuscular Volume 82.2 fL (80.0-98.0); Mean Platelet Volume 10.8 fL (9.4-12.4); Monocytes Absolute Auto 0.7 X10*3/uL (0.1-1.2); Neutrophils Absolute Auto 3.7 x10*3/uL (2.0-8.3); Neutrophils Percent Auto 56.8 % (45-73); Platelet Count 150 X10*3/uL (160-400); Red Blood Count 5.27 X10*6/uL (4.60-5.80); Red Cell Distribution Width 13.2 % (11.0-16.0); White Blood Count 6.5 X10*3/uL (4.8-10.8)
[2021-09-07 07:43] LABS: Glucose, Whole Blood 136 mg/dL (60-115)
--- NOTE | 2021-09-07 08:08 | ECG_ITS ---
Test Reason : MED CLEARANCE Blood Pressure : / mmHG Vent. Rate : 055 BPM Atrial Rate : 055 BPM P-R Int : 314 ms QRS Dur : 108 ms QT Int : 394 ms P-R-T Axes : 007 -03 012 degrees QTc Int : 376 ms Sinus bradycardia with 1st degree A-V block Inferior infarct (cited on or before 01-APR-2016) Anterior infarct (cited on or before 06-SEP-2021) Abnormal ECG When compared with ECG of 06-SEP-2021 14:36, No significant changes seen Referred By: Renetta Puente Electronically Signed By:MERCEDES CARMEN
--- NOTE | 2021-09-07 09:37 | MHC.CM.PN ---
IMM 09/07/21, EMR REVIEWED PT ADMITTED W/R QUAD TENDON RUPTURE, PLAN FOR SURGERY TODAY, CM MET W/PT WHO IS A&OX4, PT REPORTS HIS DTR IS LIVING W/HIM SHE IS TAKING CARE OF PT'S 92YO MOTHER WHO LIVES NEXT DOOR, PT REPORTS HE USES A CPAP AND NO OTHER DME AND NO HOME SERVICES, PT REPORTS HE WOULD LIKE TO GO HOME AND DO THE OUTPT PT ONCE HE IS ABLE LIKE HE DID WHEN HE HAD A SIMILAR INJURY TO THE LEFT LEG. PT VERIFIES PCP ARIANA SMILEY AND UNSURE IF HE HAS A HCP HOWEVER REPORTED HE WILL CONSIDER COMPLETING A NEW HCP PRIOR TO D/C HOWEVER WANTED TIME TO THINK ABOUT IT, CM WILL REVISIT. D/C PLAN: HOME VS HOME W/SERVICES, FAMILY FOR TRANSPORT
[2021-09-07 10:51] LABS: Glucose, Whole Blood 141 mg/dL (60-115)
--- NOTE | 2021-09-07 12:50 | P.CONAN_ITS ---
[facility] Active Problems Active Problems: All Active Problems (Updated 09/06/21 @ 17:41 by LULI Michael) Quadriceps tendon rupture (Acute) Rupture of right quadriceps tendon (Acute) CAD (coronary artery disease) (Acute) Obesity (BMI 30-39.9) (Acute) Hypertension (Acute) Dyslipidemia (Acute) Diabetic polyneuropathy associated with type 2 diabetes mellitus (Acute) Diabetes type 2, uncontrolled (Acute) Past Medical History Medical History CAD (coronary artery disease) Diabetes type 2, uncontrolled Diabetic polyneuropathy associated with type 2 diabetes mellitus Dyslipidemia Hypertension Obesity (BMI 30-39.9) Family History Family History Mother Type 2 diabetes mellitus Father H/O heart artery stent Family history of problems with anesthesia: No Surgical History Surgical History H/O wisdom tooth extraction Hx of hernia repair Hx of removal of cyst Hx of umbilical hernia repair S/P CABG x 5 History of Problems with Anesthesia: No Social History Social History Household Members: Family Housing: House Alcohol intake: never Patient Tobacco Use Status: Never used Tobacco service: Yes Current occupational status: retired [employer] Allergies Allergy/AdvReac Type Severity Reaction Status Date / Time No Known Allergies Allergy Verified 06/18/21 08:21 [No Known Allergies*] N.K.D.A. Allergy Unknown Unknown Uncoded 06/18/21 08:21 Active Medications: Current Medications Acetaminophen (Acetaminophen 325 Mg Tablet) 650 mg PO Q6H PRN PRN Reason: Pain, Mild (Pain Scale 1-3) Amlodipine Besylate (Amlodipine Besylate 5 Mg Tablet) 5 mg PO DAILY [facility]ONATHAN; Protocol Last Admin: 09/07/21 09:33 Dose: Not Given Documented by: Aspirin (Aspirin Enteric Coated 81 Mg Tablet.) 81 mg PO DAILY [facility] Last Admin: 09/07/21 09:33 Dose: Not Given Documented by: Dextrose (Dextrose 50 % 25 Gm/50 Ml Syringe) 25 gm IVPUSH Q15M PRN; Protocol PRN Reason: per Hypoglycemia Standing Ord. Docusate Sodium (Docusate Sodium 100 Mg Capsule) 100 mg PO BID [facility] Last Admin: 09/07/21 09:34 Dose: Not Given Documented by: Glucose (Glucose Gel 15 Gm Gel..Gram.) 15 gm PO Q15M PRN; Protocol PRN Reason: per Hypoglycemia Standing Ord. Sodium Chloride () 1,000 mls @ 80 mls/hr IVCONT .[id number] [facility] Last Admin: 09/07/21 09:33 Dose: Not Given Documented by: Insulin Human Lispro (Insulin Lispro 100 Unit/Ml 3 Ml Vial) 0 unit SUBCUT QIDACHS [facility]; Protocol Last Admin: 09/07/21 11:12 Dose: Not Given Documented by: Metoprolol Succinate (Metoprolol Succinate Er 100 Mg Tab.Er.24h) 100 mg PO DAILY [facility]; Protocol Last Admin: 09/07/21 09:34 Dose: Not Given Documented by: Multivitamins/Vitamin C (Multivitamin Tablet) 1 tab PO DAILY [facility] Last Admin: 09/07/21 09:34 Dose: Not Given Documented by: Non-Formulary Medication (Empagliflozin [Jardiance]) 25 mg PO DAILY [facility] Non-Formulary Medication (Semaglutide [Rybelsus]) 7 mg PO DAILY [facility] Ondansetron HCl (Ondansetron Hcl 4 Mg/2 Ml Vial) 4 mg IVPUSH Q8H PRN PRN Reason: Nausea and Vomiting Oxycodone HCl (Oxycodone Hcl Immed Release 5 Mg Tablet) 5 mg PO Q4H PRN PRN Reason: Pain, Moderate (Pain Scale 4-6 Pharmacy Consult (Consult Rx Perform Med Rec) 1 each MISCELLANE ONCE PRN PRN Reason: Consult order Pharmacy Consult (Consult Rx Perform Med Rec) 1 each MISCELLANE ONCE PRN PRN Reason: Consult order Sodium Chloride (0.9 % Sodium Chloride Flush 3 Ml Syringe) 3 ml IVFLUSH QSHIFT [facility] Last Admin: 09/07/21 09:33 Dose: Not Given Documented by: Home Medications Medication Instructions Recorded Confirmed Last Taken Type aspirin 81 mg 81 mg PO DAILY 07/23/20 09/06/21 09/06/21 History tablet,delayed release multivitamin 1 tab PO DAILY 09/06/21 09/06/21 09/06/21 History Exam Exam Date and Time: September 07, 2021 1250 Height,Weight and Vital Signs: Height 6 ft 1 in Weight 108.862 kg Last Vital Signs Temp 98.1 F 09/07/21 12:46 Pulse 62 09/07/21 12:46 Resp 18 09/07/21 12:46 BP 155/67 H 09/07/21 12:46 Pulse Ox 97 09/07/21 12:46 Pertinent Lab Results Pertinent Lab Results: Laboratory Tests 09/06/21 09/06/21 09/06/21 11:40 11:40 11:40 WBC 6.7 RBC 5.30 Hgb 15.0 Hct 43.3 MCV 81.7 MCH 28.3 MCHC 34.6 RDW 13.2 Plt Count 146 L MPV 10.3 Immature Gran % (Auto) 0.4 Neut % (Auto) 66.4 Lymph % (Auto) 20.7 [place] % (Auto) 8.5 Eos % (Auto) 3.3 Baso % (Auto) 0.7 Lymph # (Auto) 1.4 [place] # (Auto) 0.6 Eos # (Auto) 0.2 Baso # (Auto) 0.1 Abs Immat Gran (auto) 0.03 Absolute Neuts (auto) 4.5 Absolute Nucleated RBC 0.000 Nucleated RBC % (auto) 0.0 PT INR APTT Sodium 139 Potassium 4.3 Chloride 105 Carbon Dioxide 26 Anion Gap 12 BUN 14 Creatinine 1.11 Estim Creat Clear Calc 84.7 Estimated GFR > 60 POC Glucose Random Glucose 142 H Fasting Glucose Calcium 9.3 D Total Bilirubin 1.1 H AST 37 ALT 58 H Alkaline Phosphatase 84 Total Protein 6.6 Albumin 4.1 COVID-19 (ZULMA) COVID-19 Clin Com Blood Type O Positive Antibody Screen NEGATIVE 09/06/21 09/06/21 09/06/21 11:40 11:47 17:24 WBC RBC Hgb Hct MCV MCH MCHC RDW Plt Count MPV Immature Gran % (Auto) Neut % (Auto) Lymph % (Auto) [place] % (Auto) Eos % (Auto) Baso % (Auto) Lymph # (Auto) [place] # (Auto) Eos # (Auto) Baso # (Auto) Abs Immat Gran (auto) Absolute Neuts (auto) Absolute Nucleated RBC Nucleated RBC % (auto) PT 11.7 INR 1.0 APTT 32.0 Sodium Potassium Chloride Carbon Dioxide Anion Gap BUN Creatinine Estim Creat Clear Calc Estimated GFR POC Glucose 142 H Random Glucose Fasting Glucose Calcium Total Bilirubin AST ALT Alkaline Phosphatase Total Protein Albumin COVID-19 (ZULMA) Negative COVID-19 [employer] See Note Blood Type Antibody Screen 09/06/21 09/07/21 09/07/21 21:02 05:13 05:13 WBC 6.5 RBC 5.27 Hgb 15.0 Hct 43.3 MCV 82.2 MCH 28.5 MCHC 34.6 RDW 13.2 Plt Count 150 L MPV 10.8 Immature Gran % (Auto) 0.5 H Neut % (Auto) 56.8 Lymph % (Auto) 26.8 [place] % (Auto) 11.0 Eos % (Auto) 4.0 Baso % (Auto) 0.9 Lymph # (Auto) 1.8 [place] # (Auto) 0.7 Eos # (Auto) 0.3 Baso # (Auto) 0.1 Abs Immat Gran (auto) 0.03 Absolute Neuts (auto) 3.7 Absolute Nucleated RBC 0.000 Nucleated RBC % (auto) 0.0 PT INR APTT Sodium 141 Potassium 4.3 Chloride 105 Carbon Dioxide 30 H Anion Gap 10 L BUN 15 Creatinine 1.11 Estim Creat Clear Calc 84.7 Estimated GFR > 60 POC Glucose 156 H Random Glucose Fasting Glucose 117 H Calcium 9.2 Total Bilirubin AST ALT Alkaline Phosphatase Total Protein Albumin COVID-19 (ZULMA) COVID-[employer] Compare Blood Type Antibody Screen 09/07/21 09/07/21 07:29 10:43 WBC RBC Hgb Hct MCV MCH MCHC RDW Plt Count MPV Immature Gran % (Auto) Neut % (Auto) Lymph % (Auto) [place] % (Auto) Eos % (Auto) Baso % (Auto) Lymph # (Auto) [place] # (Auto) Eos # (Auto) Baso # (Auto) Abs Immat Gran (auto) Absolute Neuts (auto) Absolute Nucleated RBC Nucleated RBC % (auto) PT INR APTT Sodium Potassium Chloride Carbon Dioxide Anion Gap BUN Creatinine Estim Creat Clear Calc Estimated GFR POC Glucose 136 H 141 H Random Glucose Fasting Glucose Calcium Total Bilirubin AST ALT Alkaline Phosphatase Total Protein Albumin COVID-19 (ZULMA) [employer] Blood Type Antibody Screen Airway Mallampati Class: II TM Dist: >3cm Neck ROM: Full Heart: rrr Lungs: cts Assessment and Plan Assessment Anesthesia Assessment: Anesthesia Plan Discussed and Chart Reviewed Final Anesthetic Review Family History of Problems with Anesthesia: No History of Problems with Anesthesia: No NPO: Yes ASA Class: III Final Preanesthetic Review: No Changes in Pt Med Stat, Meds/Allgs Chart Reviewed and Consent Obtained/Reviewed Patient Risk: Intermediate Procedure Risk: Intermediate Anesthetic Plan Anesthetic Plan: GA Disposition: Standard PACU
--- NOTE | 2021-09-07 13:26 | MHC.SHP ---
Pre-Procedural Eval Section A Date of Service: 09/07/21 The patient is an INPATIENT: Yes Changes since office visit: Yes Patient answered all questions; No Cold of Flu in the past 2 weeks, No New Medical Problems and No Changes in Medication The History & Physical has been completed within 30 days and I have reviewed it.: Yes Section B Chief Complaint: right quad tendon rupture Allergies: Allergies Allergy/AdvReac Type Severity Reaction Status Date / Time No Known Allergies Allergy Verified 06/18/21 08:21 [No Known Allergies*] N.K.D.A. Allergy Unknown Unknown Uncoded 06/18/21 08:21 Plan I have reviewed the history and physical and performed a pertinent physical examination on my patient. No changes have occurred unless specified.
--- NOTE | 2021-09-07 14:17 | P.PNIM_ITS ---
Subjective Subjective Date of Service: 09/07/21 Interval History: knee pain Review of Systems Still has knee pain, denies any chest pain or shortness of breath or abdominal pain or fever chills or cough or phlegm. Denies any new complaint of chest pain or shortness of breath or abdominal pain or fever or chills or nausea or vomiting Denies any cough Denies any weakness or numbness. Physical Exam Verdana 4l Vital Signs: Verdana 4d Verdana 4d Vital Signs: Verdana 4d Verdana 4Bd Last Vital Signs Verdana 4d It Support Technician New 4d It Support Technician New 4d Temp 98.1 F 09/07/21 12:46 It Support Technician New 4d Pulse 62 09/07/21 12:46 It Support Technician New 4d Resp 18 09/07/21 12:46 BP 155/67 H 09/07/21 12:46 Pulse Ox 97 09/07/21 12:46 BMI result Body Mass Index 31.6 Appearance: Alert.? Oriented X3.? not in distress.? Eyes: Pupils equal, round and reactive to light.? Sclera nonicteric.? ENT: Pharynx normal.? Moist mucous membranes. cvs: rrr, [id number] , no murmur res: clear to auscultation ,no rhonchii or wheezing abd: no rebound or guarding ,nt, bs present. ext pulses present , no cyanosis, right ? Lower extremity can move from side to side but can not able to lift yet? Due to pain. neuro: axo3 , nonfocal. Objective Data Active Medications Acetaminophen (Acetaminophen 325 Mg Tablet) 650 mg PO Q6H PRN PRN Reason: Pain, Mild (Pain Scale 1-3) Amlodipine Besylate (Amlodipine Besylate 5 Mg Tablet) 5 mg PO DAILY [facility]; Protocol Last Admin: 09/07/21 09:33 Dose: Not Given Documented by: DOMONIQUE Non-Admin Reason: NPO Aspirin (Aspirin Enteric Coated 81 Mg Tablet.) 81 mg PO DAILY [facility] Last Admin: 09/07/21 09:33 Dose: Not Given Documented by: DOMONIQUE Non-Admin Reason: NPO Dextrose (Dextrose 50 % 25 Gm/50 Ml Syringe) 25 gm IVPUSH Q15M PRN; Protocol PRN Reason: per Hypoglycemia Standing Ord. Docusate Sodium (Docusate Sodium 100 Mg Capsule) 100 mg PO BID [facility] Last Admin: 09/07/21 09:34 Dose: Not Given Documented by: DOMONIQUE Non-Admin Reason: NPO Fentanyl (Fentanyl Citrate/Pf 100 Mcg/2 Ml Vial) 50 mcg IVPUSH Q5M PRN; Protocol PRN Reason: Pain, Severe (Pain Scale 7-10) Glucose (Glucose Gel 15 Gm Gel..Gram.) 15 gm PO Q15M PRN; Protocol PRN Reason: per Hypoglycemia Standing Ord. Sodium Chloride () 1,000 mls @ 80 mls/hr IVCONT .[id number] [facility] Last Admin: 09/07/21 09:33 Dose: Not Given Documented by: DOMONIQUE Non-Admin Reason: IV Running Lactated Ringer's (Lr) 1,000 mls @ 50 mls/hr IVCONT .Q20H [facility] Promethazine HCl 12.5 mg/ (Sodium Chloride) 50.5 mls @ 202 mls/hr IV ONCE PRN PRN Reason: Nausea and Vomiting Insulin Human Lispro (Insulin Lispro 100 Unit/Ml 3 Ml Vial) 0 unit SUBCUT QIDACHS [facility]; Protocol Last Admin: 09/07/21 11:12 Dose: Not Given Documented by: DOMONIQUE Non-Admin Reason: No Insulin Coverage Metoprolol Succinate (Metoprolol Succinate Er 100 Mg Tab.Er.24h) 100 mg PO DAILY [facility]; Protocol Last Admin: 09/07/21 09:34 Dose: Not Given Documented by: DOMONIQUE Non-Admin Reason: NPO Multivitamins/Vitamin C (Multivitamin Tablet) 1 tab PO DAILY [facility] Last Admin: 09/07/21 09:34 Dose: Not Given Documented by: DOMONIQUE Non-Admin Reason: NPO Non-Formulary Medication (Empagliflozin [Jardiance]) 25 mg PO DAILY [facility] Non-Formulary Medication (Semaglutide [Rybelsus]) 7 mg PO DAILY [facility] Ondansetron HCl (Ondansetron Hcl 4 Mg/2 Ml Vial) 4 mg IVPUSH Q8H PRN PRN Reason: Nausea and Vomiting Oxycodone HCl (Oxycodone Hcl Immed Release 5 Mg Tablet) 5 mg PO Q4H PRN PRN Reason: Pain, Moderate (Pain Scale 4-6 Oxycodone HCl (Oxycodone Hcl Immed Release 5 Mg Tablet) 5 mg PO ONCE PRN PRN Reason: Pain, Severe (Pain Scale 7-10) Pharmacy Consult (Consult Rx Perform Med Rec) 1 each MISCELLANE ONCE PRN PRN Reason: Consult order Pharmacy Consult (Consult Rx Perform Med Rec) 1 each MISCELLANE ONCE PRN PRN Reason: Consult order Sodium Chloride (0.9 % Sodium Chloride Flush 3 Ml Syringe) 3 ml IVFLUSH QSHIFT [facility] Last Admin: 09/07/21 09:33 Dose: Not Given Documented by: DOMONIQUE Non-Admin Reason: IV Running Labs CBC & Chem 7: 09/07/21 05:13 09/07/21 05:13 Labs: Laboratory Results - last 24 hr 09/06/21 09/06/21 09/07/21 17:24 21:02 05:13 MCV 82.2 MCH 28.5 MCHC 34.6 RDW 13.2 Plt Count 150 L MPV 10.8 Immature Gran % (Auto) 0.5 H Neut % (Auto) 56.8 Lymph % (Auto) 26.8 [place] % (Auto) 11.0 Eos % (Auto) 4.0 Baso % (Auto) 0.9 Lymph # (Auto) 1.8 [place] # (Auto) 0.7 Eos # (Auto) 0.3 Baso # (Auto) 0.1 Abs Immat Gran (auto) 0.03 Absolute Neuts (auto) 3.7 Absolute Nucleated RBC 0.000 Nucleated RBC % (auto) 0.0 Anion Gap Estim Creat Clear Calc Estimated GFR POC Glucose 142 H 156 H Fasting Glucose Calcium 09/07/21 09/07/21 09/07/21 05:13 07:29 10:43 MCV MCH MCHC RDW Plt Count MPV Immature Gran % (Auto) Neut % (Auto) Lymph % (Auto) [place] % (Auto) Eos % (Auto) Baso % (Auto) Lymph # (Auto) [place] # (Auto) Eos # (Auto) Baso # (Auto) Abs Immat Gran (auto) Absolute Neuts (auto) Absolute Nucleated RBC Nucleated RBC % (auto) Anion Gap 10 L Estim Creat Clear Calc 84.7 Estimated GFR > 60 POC Glucose 136 H 141 H Fasting Glucose 117 H Calcium 9.2 Assessment and Plan (1) Rupture of right quadriceps tendon: Status: Acute (2) CAD (coronary artery disease): Status: Acute (3) Hypertension: Status: Acute (4) Dyslipidemia: Status: Acute Plan 66-year-old male with history of? diabetes, hypertension, hyperlipidemia, CAD, CABG,? sleep apnea on CPAP.status post fall after slipping on the ice. 1. ? Right knee? pain: ? X-ray shows:Small suprapatellar joint effusion with degenerative changes of the knee. ?pain control ? incentive geri. avoid agressive fluid rescusitation 2.? CAD/CABG:continue asa , statin , bb. 3. ? Hypertension:continue amlodipine , bb. 4. ? Diabetes:dm diet insulin with sliding scale coverage. 5. ? hlp:continue statin. 6. obesity: advised to lose weight, consider outpatient bariatric .evaluation. ? DVT prophylaxis: Quality Stroke Does the patient have a stroke diagnosis?: No VTE Prior VTE?: No VTE Risk Level:: Surgical - high VTE Device Contraindication: N/A - Device Ordered VTE Drug Contraindication: Treatment Not Indicated
--- NOTE | 2021-09-07 14:35 | P.BOP_ITS ---
Brief Operative Note Date of Service: 09/07/21 Pre-op diagnosis: right quad rupture Post-op diagnosis: same Procedure: right quad repair Implants: Crawford and nephew 4.75 helacoil x2 Surgeon: Patel Lopez MD Anesthesia: GETA and local Was an Webfed Offset Press Operator used for this Procedure?: No Estimated blood loss (mL): 100 IV fluids (mL): 800 Pathology: none sent Condition: stable Disposition: PACU
[2021-09-07] MEDS: Acetaminophen 325 MG TABLET 650 MG PO ×2 (14:53→23:11)
[2021-09-07] MEDS: oxyCODONE HCl Immed Release 5 MG TABLET PO (14:54)
[2021-09-07] MEDS: fentaNYL citrate/PF 100 MCG/2 ML VIAL 50 MCG IVPUSH ×2 (14:54→15:01)
[2021-09-07 16:11] LABS: Glucose, Whole Blood 146 mg/dL (60-115)
[2021-09-07] MEDS: 0.9 % Sodium Chloride Flush 3 ML SYRINGE IVFLUSH ×2 (16:43→23:17)
[2021-09-07 19:59] LABS: Glucose, Whole Blood 266 mg/dL (60-115)
[2021-09-07] MEDS: Docusate Sodium 100 MG CAPSULE PO (23:11)
[2021-09-07] MEDS: Insulin Lispro 100 UNIT/ML 3 ML VIAL SUBCUT (23:12)
[2021-09-08 02:56] VITALS: BP 143/66; PULSE 57; RESP 16; TEMP 36.4; O2SAT 98
[2021-09-08 05:52] LABS: MANUAL DIFF FLAG NO
[2021-09-08 06:12] LABS: Basophils Percent Auto 0.2 % (0-2); Eosinophils Percent Auto 0.1 % (0-4); Hematocrit 41.6 % (42.0-52.0); Hemoglobin 14.2 g/dl (14.0-18.0); Imm Gran Abs Auto 0.03 X10*3/uL (0.00-0.03); Imm Gran Pct Auto 0.3 % (0.0-0.4); Lymphocytes Absolute Auto 1.1 X10*3/uL (1.2-4.9); Mean Corpuscular HGB Conc 34.1 g/dl (31.0-36.0); Mean Corpuscular Hemoglobin 28.1 pg (27.0-33.0); Mean Corpuscular Volume 82.4 fL (80.0-98.0); Mean Platelet Volume 10.7 fL (9.4-12.4); Monocytes Absolute Auto 0.8 X10*3/uL (0.1-1.2); Monocytes Percent Auto 9.1 % (2-11); Neutrophils Absolute Auto 7.1 x10*3/uL (2.0-8.3); Neutrophils Percent Auto 78.3 % (45-73); Platelet Count 150 X10*3/uL (160-400); Red Blood Count 5.05 X10*6/uL (4.60-5.80); Red Cell Distribution Width 13.2 % (11.0-16.0); White Blood Count 9.1 X10*3/uL (4.8-10.8)
[2021-09-08 06:14] LABS: Anion Gap 10 (12-20); Blood Urea Nitrogen 13 mg/dL (9-16); Calcium 8.7 mg/dL (8.4-10.2); Carbon Dioxide 28 mmol/L (22-29); Chloride 105 mmol/L (96-108); Creatinine Clr Calc Pharmacy 85.4; Estimated Glomerular Filt Rate > 60; Glucose Fasting 148 mg/dL (60-99); Potassium 4.2 mmol/L (3.3-5.1); Sodium 139 mmol/L (135-145)
[2021-09-08 07:00] VITALS: BP 154/72; PULSE 58; RESP 20; TEMP 36.7; O2SAT 96
[2021-09-08 07:28] LABS: Glucose, Whole Blood 143 mg/dL (60-115)
--- NOTE | 2021-09-08 07:42 | P.PNOP_ITS ---
Subjective Subjective Date of Service: 09/08/21 Interval history: POD1 s/p Rt quad tendon repair with Dr. Lopez. Patient is resting comfortably in bed. No overnight events. Pain is well managed. No additional complaints. Physical Exam 2 Verdana 4l Vital Signs: Verdana 4d Verdana 4d Vital Signs: Verdana 4d Verdana 4Bd Last Vital Signs Verdana 4d Clinical Pharmacist New 4d Clinical Pharmacist New 4d Temp 98.0 F 09/08/21 07:00 Clinical Pharmacist New 4d Pulse 58 09/08/21 07:00 Clinical Pharmacist New 4d Resp 20 09/08/21 07:00 BP 154/72 H 09/08/21 07:00 Pulse Ox 96 09/08/21 07:00 BMI result Body Mass Index 31.6 Const: General: cooperative, healthy appearing and no acute distress Resp: Effort & Inspection: normal respiratory effort and able to speak in complete sentences Cardio: Rate: regular rate Peripheral pulses: Peripheral pulses 2+ throughout GI: Palpation (GI): Soft to palpation Skin: Lesions: no lesions Rashes: no rashes Extrem: Other: Right knee brace locked in extension. [place] intact. Aquacel is clean. dry, and in tact. Patient is able to move all digits. Sensation intact. Pedal pulse intact. Procedures Date of Service Date of Service: 09/08/21 Progress Note: A&P Assessment and plan (1) Quadriceps tendon rupture: Status: Acute Plan Continue pain mgmnt Begin Xerelto 10 po qd for dvt ppx begin PT for rt quad tendon repair Dispo planning-Pending PT eval, pain mgmnt Fall Risk Details Current Medications: Current Medications Acetaminophen (Acetaminophen 325 Mg Tablet) 650 mg PO Q6H PRN PRN Reason: Pain, Mild (Pain Scale 1-3) Last Admin: 09/07/21 23:11 Dose: 650 mg Documented by: Amlodipine Besylate (Amlodipine Besylate 5 Mg Tablet) 5 mg PO DAILY [facility]; Protocol Last Admin: 09/07/21 09:33 Dose: Not Given Documented by: Dextrose (Dextrose 50 % 25 Gm/50 Ml Syringe) 25 gm IVPUSH Q15M PRN; Protocol PRN Reason: per Hypoglycemia Standing Ord. Docusate Sodium (Docusate Sodium 100 Mg Capsule) 100 mg PO BID [facility] Last Admin: 09/07/21 23:11 Dose: 100 mg Documented by: Glucose (Glucose Gel 15 Gm Gel..Gram.) 15 gm PO Q15M PRN; Protocol PRN Reason: per Hypoglycemia Standing Ord. Cefazolin Sodium/Dextrose (Ancef) 2 gm in 50 mls @ 100 mls/hr IV POSTOP [facility] Insulin Human Lispro (Insulin Lispro 100 Unit/Ml 3 Ml Vial) 0 unit SUBCUT QIDACHS [facility]; Protocol Last Admin: 09/07/21 23:12 Dose: 6 unit Documented by: Metoprolol Succinate (Metoprolol Succinate Er 100 Mg Tab.Er.24h) 100 mg PO DAILY [facility]; Protocol Last Admin: 09/07/21 09:34 Dose: Not Given Documented by: Multivitamins/Vitamin C (Multivitamin Tablet) 1 tab PO DAILY [facility] Last Admin: 09/07/21 09:34 Dose: Not Given Documented by: Non-Formulary Medication (Empagliflozin [Jardiance]) 25 mg PO DAILY [facility] Non-Formulary Medication (Semaglutide [Rybelsus]) 7 mg PO DAILY [facility] Ondansetron HCl (Ondansetron Hcl 4 Mg/2 Ml Vial) 4 mg IVPUSH Q8H PRN PRN Reason: Nausea and Vomiting Oxycodone HCl (Oxycodone Hcl Immed Release 5 Mg Tablet) 5 mg PO Q4H PRN PRN Reason: Pain, Moderate (Pain Scale 4-6 Pharmacy Consult (Consult Rx Perform Med Rec) 1 each MISCELLANE ONCE PRN PRN Reason: Consult order Pharmacy Consult (Consult Rx Perform Med Rec) 1 each MISCELLANE ONCE PRN PRN Reason: Consult order Sodium Chloride (0.9 % Sodium Chloride Flush 3 Ml Syringe) 3 ml IVFLUSH [facility] Last Admin: 09/07/21 23:17 Dose: 3 ml Documented by: Sodium Chloride (0.9 % Sodium Chloride Flush 3 Ml Syringe) 3 ml IVFLUSH [facility] Last Admin: 09/08/21 01:33 Dose: Not Given Documented by: Time Spent With Patient Time: Total time spent is greater than 50% in coordination of care (as documented) at patient's floor/unit and/or counseling patient: Time with patient: less than 15 minutes Quality Stroke Does the patient have a stroke diagnosis?: No VTE Prior VTE?: No VTE Risk Level:: Surgical - high VTE Device Contraindication: N/A - Device Ordered VTE Drug Contraindication: Treatment Not Indicated
[2021-09-08] MEDS: amLODIPine Besylate 5 MG TABLET PO (07:52)
[2021-09-08] MEDS: Acetaminophen 325 MG TABLET 650 MG PO ×2 (07:52→14:55)
[2021-09-08] MEDS: Docusate Sodium 100 MG CAPSULE PO ×2 (07:53→20:10)
[2021-09-08] MEDS: 0.9 % Sodium Chloride Flush 3 ML SYRINGE IVFLUSH ×2 (07:53→16:44)
[2021-09-08] MEDS: Multivitamin TABLET 1 TAB PO (07:53)
[2021-09-08 11:00] VITALS: BP 128/76; PULSE 82; RESP 20; TEMP 37; O2SAT 96
[2021-09-08 11:20] LABS: Glucose, Whole Blood 249 mg/dL (60-115)
[2021-09-08] MEDS: Insulin Lispro 100 UNIT/ML 3 ML VIAL SUBCUT ×3 (11:56→20:28)
[2021-09-08] MEDS: oxyCODONE HCl Immed Release 5 MG TABLET PO ×2 (11:56→20:10)
--- NOTE | 2021-09-08 12:22 | MHC.CM.PN ---
REFERRAL SENT TO [facility] W/PT PERMISSION OT IS RECOMMENDING HOME W/SERVICES. PT WILL BE STAYING W/HIS MOTHER WHO LIVES NEXT DOOR ONCE HE IS DISCHARGED SO HE CAN STAY ON FIRST FLOOR AND UTILIZE ACEESIBLE BR, CM TO VERIFIY ADDRESS.
--- NOTE | 2021-09-08 13:57 | HO.POSTANES ---
Post Anesthesia Evaluation Post Anesthesia Evaluation Vital Signs: Vital Signs Temp Pulse Resp BP Pulse Ox 09/08/21 11:00 98.6 F 82 20 128/76 96 09/08/21 07:00 98.0 F 58 20 154/72 H 96 09/08/21 02:56 97.5 F 57 16 143/66 H 98 Anesthesia: General Mental Status: Awake Pain Control: Satisfactory Nausea/Vomiting: None Hydration: Adequate Anesthesia-Related Issues: No Anes. Related Issues
--- NOTE | 2021-09-08 14:29 | HE.PHANOTE ---
[facility] contacted RN, Constance, to see if patient could bring in Rybelsus and Jardiance. We do not have these medications on formulary.
[2021-09-08] MEDS: Rivaroxaban 10 MG TABLET PO (14:55)
[2021-09-08 15:56] VITALS: BP 144/67; PULSE 63; RESP 16; TEMP 36.6; O2SAT 95
[2021-09-08 16:37] LABS: Glucose, Whole Blood 156 mg/dL (60-115)
[2021-09-08 19:00] VITALS: BP 159/71; PULSE 65; RESP 17; TEMP 37; O2SAT 93
[2021-09-08 20:20] LABS: Glucose, Whole Blood 155 mg/dL (60-115)
[2021-09-08 23:00] VITALS: BP 151/69; PULSE 61; RESP 16; TEMP 36.8; O2SAT 97
[2021-09-09] MEDS: 0.9 % Sodium Chloride Flush 3 ML SYRINGE IVFLUSH ×2 (00:02→08:32)
[2021-09-09] MEDS: Acetaminophen 325 MG TABLET 650 MG PO (00:19)
[2021-09-09] MEDS: oxyCODONE HCl Immed Release 5 MG TABLET PO (00:19)
[2021-09-09 03:00] VITALS: BP 159/68; PULSE 61; RESP 18; TEMP 36.6; O2SAT 97
[2021-09-09 05:57] LABS: MANUAL DIFF FLAG NO
[2021-09-09 06:09] LABS: Basophils Percent Auto 0.7 % (0-2); Eosinophils Absolute Auto 0.1 X10*3/uL (0.0-0.4); Eosinophils Percent Auto 1.3 % (0-4); Hematocrit 39.2 % (42.0-52.0); Hemoglobin 13.3 g/dl (14.0-18.0); Imm Gran Abs Auto 0.02 X10*3/uL (0.00-0.03); Imm Gran Pct Auto 0.3 % (0.0-0.4); Lymphocytes Absolute Auto 1.7 X10*3/uL (1.2-4.9); Lymphocytes Percent Auto 28.9 % (20-40); Mean Corpuscular HGB Conc 33.9 g/dl (31.0-36.0); Mean Corpuscular Hemoglobin 28.2 pg (27.0-33.0); Mean Corpuscular Volume 83.2 fL (80.0-98.0); Mean Platelet Volume 10.1 fL (9.4-12.4); Monocytes Absolute Auto 0.8 X10*3/uL (0.1-1.2); Monocytes Percent Auto 12.5 % (2-11); Neutrophils Absolute Auto 3.4 x10*3/uL (2.0-8.3); Neutrophils Percent Auto 56.3 % (45-73); Platelet Count 128 X10*3/uL (160-400); Red Blood Count 4.71 X10*6/uL (4.60-5.80); Red Cell Distribution Width 13.4 % (11.0-16.0)
[2021-09-09 06:24] LABS: Anion Gap 9 (12-20); Blood Urea Nitrogen 15 mg/dL (9-16); Calcium 8.6 mg/dL (8.4-10.2); Carbon Dioxide 31 mmol/L (22-29); Chloride 104 mmol/L (96-108); Creatinine Clr Calc Pharmacy 83.2; Estimated Glomerular Filt Rate > 60; Glucose Fasting 120 mg/dL (60-99); Sodium 140 mmol/L (135-145)
[2021-09-09 06:30] VITALS: RESP 18
[2021-09-09 07:19] LABS: Glucose, Whole Blood 133 mg/dL (60-115)
[2021-09-09 07:34] VITALS: BP 157/69; PULSE 67; RESP 20; TEMP 36.2; O2SAT 95
--- NOTE | 2021-09-09 07:59 | P.DS_ITS ---
DS: Providers Provider Date of Service: 09/09/21 Date of admission: 09/06/21 11:16 Primary care physician: Parker Peace MD Consults: 09/06/21 11:16 Consult to Hospitalist Routine Consulting Provider: Hospitalist Reason For Exam: DIABETES, H/O CARDIAC BYPASS SURG, PRE OP CLEAR DS: Diagnosis Discharge Diagnosis (1) Quadriceps tendon rupture: Status: Acute DS: Summary Hospital Course Hospital Course: The patient underwent a successful right quad tendon repair, they were transferred to PACU and then to the floor to recover. During their stay, their vitals were stable, afebrile at 97.2. Labs were unremarkable, H/H 13.3/39.2. POD 1 they were started on Xarelto 10mg po QD for DVT ppx, they also received Physical Therapy services twice a day. Prior to discharge, their dressing was changed, incision clean dry and intact, new Aquacel dressing applied and the plan was to be discharged home. Time Spent with Patient Time attestation: Total time spent providing and/or coordinating discharge services: Discharge coordination time: Less than 30 minutes Quality: Stroke Does the patient have a stroke diagnosis?: No Physical Exam Verdana 4l Vital Signs: Verdana 4d Verdana 4d Vital Signs: Verdana 4d Verdana 4Bd Last Vital Signs Verdana 4d Comfort Station Supervisor New 4d Comfort Station Supervisor New 4d Temp 97.2 F 09/09/21 07:34 Comfort Station Supervisor New 4d Pulse 67 09/09/21 07:34 Comfort Station Supervisor New 4d Resp 20 09/09/21 07:34 BP 157/69 H 09/09/21 07:34 Pulse Ox 95 09/09/21 07:34 BMI result Body Mass Index 31.6 Const: General: cooperative, healthy appearing and no acute distress Resp: Effort & Inspection: normal respiratory effort and able to speak in complete sentences Cardio: Rate: regular rate Peripheral pulses: Peripheral pulses 2+ throughout GI: Palpation (GI): Soft to palpation Skin: Lesions: no lesions Rashes: no rashes Extrem: Other: Right knee incision is clean. dry, and intact. [place] intact. New Aquacel dressing applied. NVI. DS: Data Data Completed and Pending Labs on day of discharge: Laboratory Results - last 24 hr 09/08/21 09/08/21 09/08/21 11:14 16:05 19:59 WBC RBC Hgb Hct MCV MCH MCHC RDW Plt Count MPV Immature Gran % (Auto) Neut % (Auto) Lymph % (Auto) [place] % (Auto) Eos % (Auto) Baso % (Auto) Lymph # (Auto) [place] # (Auto) Eos # (Auto) Baso # (Auto) Abs Immat Gran (auto) Absolute Neuts (auto) Absolute Nucleated RBC Nucleated RBC % (auto) Sodium Potassium Chloride Carbon Dioxide Anion Gap BUN Creatinine Estim Creat Clear Calc Estimated GFR POC Glucose 249 H 156 H 155 H Fasting Glucose Calcium 09/09/21 09/09/21 09/09/21 05:34 05:34 07:07 WBC 6.0 RBC 4.71 Hgb 13.3 L Hct 39.2 L MCV 83.2 MCH 28.2 MCHC 33.9 RDW 13.4 Plt Count 128 L MPV 10.1 Immature Gran % (Auto) 0.3 Neut % (Auto) 56.3 Lymph % (Auto) 28.9 [place] % (Auto) 12.5 H Eos % (Auto) 1.3 Baso % (Auto) 0.7 Lymph # (Auto) 1.7 [place] # (Auto) 0.8 Eos # (Auto) 0.1 Baso # (Auto) 0.0 Abs Immat Gran (auto) 0.02 Absolute Neuts (auto) 3.4 Absolute Nucleated RBC 0.000 Nucleated RBC % (auto) 0.0 Sodium 140 Potassium 4.0 Chloride 104 Carbon Dioxide 31 H Anion Gap 9 L BUN 15 Creatinine 1.13 Estim Creat Clear Calc 83.2 Estimated GFR > 60 POC Glucose 133 H Fasting Glucose 120 H Calcium 8.6 Discharge Plan Discharge Patient Disposition: Home Health Service Discharge Diagnosis: s/p rt quad tendon repair Referrals: Parker Peace MD [Primary Care Provider] - 1 Week Nikia Gomes PA-C [Physician Plastics Bench Mechanic] - 2 Weeks (09/21/21 09:00 [facility] Nikia Gomes PA-C) Discharge Medications: New Xarelto 10 mg Tablet 10 mg PO DAILY@1400 42 Days Qty: 42 0RF acetaminophen 325 mg Tablet 650 mg PO Q6H PRN (Reason: Pain, Mild (Pain Scale 1-3)) 30 Days Qty: 240 0RF docusate sodium 100 mg Capsule 100 mg PO BID 30 Days Qty: 60 0RF oxycodone-acetaminophen [Percocet] 5-325 mg tablet 1 tab PO Q6H PRN (Reason: pain (scale score 7-10)) 7 Days Qty: 42 0RF Continued lisinopril-hydrochlorothiazide 20-12.5 mg tablet 1 tab PO DAILY Qty: 90 8RF metoprolol succinate [Toprol XL] 100 mg tablet extended release 24 hr 100 mg PO DAILY Qty: 90 8RF (DME) FreeStyle Bo 14 Day Sensor Kit See Rx Instructions .MEDSUPPLY Qty: 2 11RF Rx Instructions: every 14 days amlodipine 5 mg tablet 5 mg PO DAILY Qty: 90 8RF atorvastatin 80 mg tablet 80 mg PO BEDTIME Qty: 90 8RF Jardiance 25 mg tablet 25 mg PO DAILY 90 Days Qty: 90 1RF multivitamin Tablet 1 tab PO DAILY 0RF (DME) FreeStyle Lite Strips Strip See Rx Instructions .MEDSUPPLY Qty: 100 6RF Rx Instructions: 3 times a day metformin 500 mg tablet,ER adria.retention 24 hr 1,000 mg PO BID 90 Days Qty: 360 8RF Rybelsus 7 mg tablet 7 mg PO DAILY 90 Days Qty: 90 1RF (DME) lancets [FreeStyle Lancets] 28 gauge misc See Rx Instructions .MEDSUPPLY Qty: 100 5RF Rx Instructions: 3 times a day Discontinued aspirin 81 mg tablet,delayed release (DR/EC) 81 mg PO DAILY 0RF Discharge Orders: Discharge Order (Routine); Ordered 09/09/21 Ordered By: Mindi Park Diet: advance to usual diet Activity on Discharge: Use cane or walker Stand Alone Forms: Patient Portal Discharge page Care Plan Goals: restore fxn o right knee Health Concerns: None Plan of Treatment: Use walker for ambulation Limit stair climbing, No shower, No tub bath, No driving Continue anticoagulant Xarelto 10mg daily for 6 weeks Okay to wbat with brace locked in extension ---Brace 0-15 deg when not walking ( increase 15 degrees every week starting 09/21/21) ---slr/isometric quad sets Keep Aquacel dressing clean, dry and intact. Follow up with orthopedics in 2 weeks Assessment: stable for d/c
[2021-09-09] MEDS: Multivitamin TABLET 1 TAB PO (08:31)
[2021-09-09] MEDS: Metoprolol Succinate ER 100 MG TAB.ER.24H PO (08:31)
[2021-09-09] MEDS: amLODIPine Besylate 5 MG TABLET PO (08:31)
[2021-09-09] MEDS: Docusate Sodium 100 MG CAPSULE PO (08:31)
--- NOTE | 2021-09-09 08:58 | W.MHC.F2F ---
Service Date Service Date: 09/09/21 Encounter Date of encounter: 09/09/21 Reasons for Services Signs and symptoms assessed: Right knee pain, swelling , diff with ambulation Reason for physical therapy: home safety and mobility, therapeutic exercises, restore joint function, gait/transfer training, ADL training and energy conservation Reason for occupational therapy: home safety and mobility, therapeutic exercises, restore joint function, gait/transfer training, ADL training and energy conservation Overseeing Care: Patel Lopez Homebound: Leaving the home is medically contraindicated at this time without the asist of a device and/or another person due th the listed conditions above and below. Reason homebound: unsteady gait / fall risk, leg weakness, pain with ambulation, pain with transfers, poor balance / fall risk and unable to drive Homebound supporting statement: Pt. is considered home bound due to recent surgery. Unable to drive, poor balance, poor gait mechanics. Certification: Based on the above findings, I certify that this patient is confined to the home and needs intermittent intermediate care, physical therapy and/or speech therapy, or continues to need occupational therapy. The patient is under my care, and I have initiated the establishment of the plan of care. The patient will be followed by a physician who will periodically review the plan of care.
[2021-09-09 11:26] LABS: Glucose, Whole Blood 183 mg/dL (60-115)
[2021-09-09] MEDS: Insulin Lispro 100 UNIT/ML 3 ML VIAL SUBCUT (11:54)
[2021-09-09 12:00] VITALS: BP 120/65; PULSE 92; RESP 20; TEMP 36.2; O2SAT 96
--- NOTE | 2021-10-14 15:14 | P.OP_ITS ---
Operative Note Operative Note Date of Service: 09/09/21 Narrative: Pre-op diagnosis: right quad rupture Post-op diagnosis: same Procedure: right quad repair Implants: Crawford and nephew 4.75 helacoil x2 Surgeon: Patel Lopez MD Anesthesia: GETA and local Was an Tank Builder And Erector used for this Procedure?: No Estimated blood loss (mL): 100 IV fluids (mL): 800 Pathology: none sent Condition: stable Disposition: PACU Patient was brought to the operating room and placed supine on the surgical tab le. He was prepped and draped in standard sterile fashion and a time out was called to identify proper site, proper procedure and IV antibiotics per weight were administered. I began by making a midline incision form the middle of the patella proximal for about 8 cm. Copious hematoma and a avulsed quadriceps tendon was encountered upon incision. I debrided the patella and the tendon and then placed 2 helacoil double loaded Crawford and Nephew suture anchors into the body of the patella. Using a free needle a strand of each suture was stitched up and then back down the tendon using a Bee stitch. I then tied the sutures with the knee in hyper-extension. I then over sewed the tendon to the remaining fibers on the patella. The retinaculum was then closed where it had avulsed and the the knee was taken through ROM. Full extension and 120 deg of flexion without difficulty was obtained. I then irrigated copiously and closed with absorbable suture and dandre. The patietn was then placed in sterile dressing and a hinged knee brace locked in extension and extubated and brought to the recovery room in stable condition. There were no known complications.
== END 2021-09-09 12:39 | disposition home health service (06) | DRG 502 ==
LOC: HO.ED 10:34 → HO.EDOVER 11:29 → HO.S3 19:21
PROVIDERS: Physician Assistant; Physician Assistant Medical; Admitting Provider Orthopaedic Surgery; Emergency Provider Emergency Medicine; PCP Internal Medicine; Visit Provider Orthopaedic Surgery
PROC: 0LML0ZZ Reattachment of Right Upper Leg Tendon, Open Approach (ICD-10-PCS; principal; 2021-09-07 13:30)
DX: S76.111A Strain of right quadriceps muscle, fascia and tendon, initial encounter (principal); W00.0XXA Fall on same level due to ice and snow, initial encounter; Y93.H1 Activity, digging, shoveling and raking; I25.10 Atherosclerotic heart disease of native coronary artery without angina pectoris; E11.42 Type 2 diabetes mellitus with diabetic polyneuropathy; Z95.1 Presence of aortocoronary bypass graft; G47.30 Sleep apnea, unspecified; E78.5 Hyperlipidemia, unspecified; I10 Essential (primary) hypertension; E66.9 Obesity, unspecified; Z68.31 Body mass index [BMI] 31.0-31.9, adult; Z99.89 Dependence on other enabling machines and devices; Z20.822 Contact with and (suspected) exposure to COVID-19; Z79.84 Long term (current) use of oral hypoglycemic drugs; Z79.899 Other long term (current) drug therapy
CPT/HCPCS: 36415; 71045; 73564; 80048; 80053; 82947; 85025; 85610; 85730; 86850; 86900; 86901; 87635; 93005; 97110; 97116; 97162; 97165; 99285; C1713; J0690; J1100; J2250; J2405; J3010

== ENCOUNTER → 2021-09-21 08:54 | Outpatient (BNVA) | payer MEDICARE, OTHER, SELFPAY | PROVIDERS: PCP Internal Medicine; Visit Provider Physician Assistant | DX: S76.111D Strain of right quadriceps muscle, fascia and tendon, subsequent encounter (principal) | CPT/HCPCS: 99212 ==

== ENCOUNTER → 2021-10-08 08:02 | Outpatient (BNVA) | payer MEDICARE, OTHER, SELFPAY | PROVIDERS: PCP Internal Medicine; Visit Provider Nurse Practitioner Gerontology | DX: E11.65 Type 2 diabetes mellitus with hyperglycemia (principal); E11.42 Type 2 diabetes mellitus with diabetic polyneuropathy; E78.5 Hyperlipidemia, unspecified; E66.9 Obesity, unspecified; I10 Essential (primary) hypertension; Z68.30 Body mass index [BMI] 30.0-30.9, adult | CPT/HCPCS: 82947; 83036; 99212 ==

== ENCOUNTER → 2021-10-22 10:56 | Outpatient (BNVA) | payer MEDICARE, OTHER, SELFPAY | PROVIDERS: PCP Internal Medicine; Visit Provider Physician Assistant | DX: S76.111D Strain of right quadriceps muscle, fascia and tendon, subsequent encounter (principal) | CPT/HCPCS: 99212 ==

== ENCOUNTER → 2021-12-03 12:44 | Outpatient (BNVA) | payer MEDICARE, OTHER, SELFPAY | PROVIDERS: PCP Internal Medicine; Visit Provider Physician Assistant | DX: S76.111D Strain of right quadriceps muscle, fascia and tendon, subsequent encounter (principal) | CPT/HCPCS: 99212 ==

== ENCOUNTER 2022-01-05 08:36 | Outpatient (REF) | payer MEDICARE, OTHER, SELFPAY ==
[2022-01-05 10:32] LABS: Creatinine Urine 85.28 mg/dL; Microalbumin Urine < 5.0 mg/L
[2022-01-05 10:47] LABS: Alanine Aminotransferase 66 U/L (0-40); Albumin Level 4.1 g/dL (3.5-5.0); Alkaline Phosphatase 96 U/L (39-117); Anion Gap 14 (12-20); Aspartate Amino Transferase 36 U/L (5-37); Bilirubin Total 0.8 mg/dL (0.0-1.0); Blood Urea Nitrogen 17 mg/dL (9-16); Calcium 9.3 mg/dL (8.4-10.2); Carbon Dioxide 24 mmol/L (22-29); Chloride 106 mmol/L (96-108); Cholesterol 95 mg/dL; Estimated Glomerular Filt Rate > 60; Glucose Fasting 135 mg/dL (60-99); HDL Cholesterol 32 mg/dL; LDL Cholesterol Calculated 50 mg/dl; Potassium 4.7 mmol/L (3.3-5.1); Sodium 139 mmol/L (135-145); Total Protein 6.7 g/dL (6.5-8.0); Triglycerides 68 mg/dL
[2022-01-05 11:05] LABS: Prostate Specific Antigen Scr 0.55 ng/mL (<0.05-4.0); Thyroid Stimulating Hormone 1.99 uIU/mL (0.32-4.0)
[2022-01-06 09:57] LABS: LDL Cholesterol Direct 48 mg/dL (<100)
== END 2022-01-05 08:37 | disposition home or self-care (01) ==
LOC: HO.LAB 08:36
PROVIDERS: Absent Provider Nurse Practitioner Gerontology; PCP Internal Medicine; Visit Provider Internal Medicine
DX: Z00.00 Encounter for general adult medical examination without abnormal findings (principal); E11.65 Type 2 diabetes mellitus with hyperglycemia; Z12.5 Encounter for screening for malignant neoplasm of prostate
CPT/HCPCS: 36415; 80053; 80061; 82043; 83721; 84153; 84439; 84443

== ENCOUNTER 2022-01-12 09:00 | Outpatient (RCR) | payer MEDICARE, OTHER, SELFPAY ==
--- NOTE | 2021-09-21 10:58 | MHC.PT.EP ---
[facility] [place] Office [place] Office [place] Office [address] Bina Bowden [address] [phone] F: [phone] F: [phone] F: [phone] F: [phone] Physical Therapy Plan of Care Date of Evaluation: Date of Surgery: 09/09/21 Diagnosis: RIGHT QUAD RUPTURE AND REPAIR Assessment: Pt IS A PLEASANT 66 YO GENTLEMAN WHO PRESENTS S/P QUAD REPAIR 09/09/21. UPON EXAM HE DEMONSTRATES THE EXPECTED ROM AND STRENGTH DEFICITS, INCREASED EDEMA AND PAIN. FUNCTIONAL DEFICITS INCLUDE DECREASED ABILITY TO PERFORM AMBULATION, STAIRS, STATIC STANDING. HE REPORTS DECREASED ABILITY TO PERFORM HOMEMAKING AND SELF CARE TASKS, DECREASED ABILITY TO PERFORM COMMUNITY AND RECREATIONAL ACTIVITIES. Frequency and Duration: The patient will be seen 2 X WEEK FOR 12 WEEKS Short Term Goals: INITIATE HEP AND PROMOTE SELF MANAGEMENT OF SYMPTOMS General Intern Goals: FULL KNEE ROM IN 12 WEEKS FULL LE STRENGTH, EQUAL FRED, IN 12 WEEKS AMBULATION AD CHERRIE ON MULTIPLE SURFACES AND NO AD IN 12 WEEKS LEFS SCORE OF LESS THAN 20% DISABILITY Treatment Plan: Modalities to reduce pain, spasms and effusion. Manual therapy to restore motion and function. Therapeutic exercise to improve strength and flexibility. Neuromuscular re-education for posture and balance. Therapeutic activities to return to functional activities of daily living. Electronically signed by: CARMELA DUBOSE PT, DPT Please sign and return to therapist. Thank you for your referral.
--- NOTE | 2021-12-02 11:17 | MHC.PT.PR ---
[facility] [place] Office [place] Office [place] Office [address] Bina Bowden [address] [phone] F: [phone] F: [phone] F: [phone] F: [phone] Physical Therapy Progress Note Diagnosis: RIGHT QUAD RUPTURE AND REPAIR Date of Surgery: 09/07/21 Date of Evaluation: 09/21/21 Treatments to Date: 15 Cancellations to Date: 0 No Shows to Date: 0 Subjective: He reports not using brace at home anymore. He is going to the gym and using bike there as well. Pain Score and Location: 0 R knee Objective Measures: AROM: 0-5- 116* SLR: inconsistent and intermittent slight lag All exercises performed without brace Assessment: He continues to need cues to stay on task and perform SLR slowly with control. He will have an intermittent slight quad lag with SLR but not consistently. He has a small indentation proximal to patella which has been there since before surgery (per patient) and with quad set, there is no muscle hypertrophy there. However he demonstrates good VMMO activation and lateral quad still. We discussed HEP compliance and progressing weight as tolerated. He also lacks ~5 degrees knee extension now, which may be due to excessive genu varus with gait and static postures. Updated HEP and educated pt to trial leg press at gym as well with only body weight. He has f/u with ortho tomorrow. PT Plan: Continue with PT Frequency and Duration: The patient will be seen 2x/week for 5 more weeks Treatment Plan: Therapeutic Exercise Dynamic Therapeutic Activities Neuromuscular Re-ed Manual Therapies Joint Mobilization Taping Gait Home Exercise Program Patient Education Electrical Stimulation Hot or Cold Pack Reviewed/ Agreed with Student Documentation: Therapist: Thank you once again for your referral.
--- NOTE | 2022-02-24 08:49 | MHC.PT.DC ---
[facility] [place] Office [place] Office [place] Office [address] Bina Bowden [address] [phone] F: [phone] F: [phone] F: [phone] F: [phone] Physical Therapy Discharge Report Diagnosis: RIGHT QUAD RUPTURE AND REPAIR Date of Surgery: 09/07/21 Date of Evaluation: 09/21/21 Date of Discharge: 02/24/22 Treatments to Date: 20 Cancellations to Date: 0 No Shows to Date: 0 Discharge Status: Achieved Goals Improved Function Independent with HEP Discharge Summary: Pt appropriate for d/c secondary to meeting goals and I with HEP Electronically signed by: Shilpa Darden PT Please sign and return to therapist. Thank you for your referral.
== END 2022-02-24 08:50 | disposition home or self-care (01) ==
LOC: HO.PT 09:00
PROVIDERS: Visit Provider Physician Assistant
DX: S76.111D Strain of right quadriceps muscle, fascia and tendon, subsequent encounter (principal)
CPT/HCPCS: 97110; 97140; 97161; 97530

== ENCOUNTER → 2022-06-11 13:50 | Outpatient (BNVA) | payer MEDICARE, OTHER, SELFPAY | PROVIDERS: PCP Internal Medicine; Visit Provider Internal Medicine Cardiovascular Disease | DX: I25.10 Atherosclerotic heart disease of native coronary artery without angina pectoris (principal); I10 Essential (primary) hypertension | CPT/HCPCS: 93005; 99212 ==

== ENCOUNTER 2022-07-06 08:55 | Outpatient (REF) | payer MEDICARE, OTHER, SELFPAY ==
[2022-07-06 11:32] LABS: Cholesterol 112 mg/dL; HDL Cholesterol 37 mg/dL; LDL Cholesterol Calculated 58 mg/dl; Triglycerides 85 mg/dL
== END 2022-07-06 08:56 | disposition home or self-care (01) ==
LOC: HO.LAB 08:55
PROVIDERS: PCP Internal Medicine; Visit Provider Internal Medicine Cardiovascular Disease
DX: I25.10 Atherosclerotic heart disease of native coronary artery without angina pectoris (principal)
CPT/HCPCS: 36415; 80061

== ENCOUNTER 2023-03-21 10:23 | Outpatient (REF) | payer MEDICARE, OTHER, SELFPAY ==
[2023-03-21 10:38] LABS: MANUAL DIFF FLAG NO
[2023-03-21 10:48] LABS: Basophils Absolute Auto 0.1 X10*3/uL (0.0-0.2); Basophils Percent Auto 1.3 % (0-2); Eosinophils Absolute Auto 0.3 X10*3/uL (0.0-0.4); Eosinophils Percent Auto 5.4 % (0-4); Hematocrit 45.2 % (42.0-52.0); Hemoglobin 15.4 g/dl (14.0-18.0); Imm Gran Abs Auto 0.01 X10*3/uL (0.00-0.03); Imm Gran Pct Auto 0.2 % (0.0-0.4); Lymphocytes Absolute Auto 1.8 X10*3/uL (1.2-4.9); Lymphocytes Percent Auto 33.1 % (20-40); Mean Corpuscular HGB Conc 34.1 g/dl (31.0-36.0); Mean Corpuscular Hemoglobin 28.8 pg (27.0-33.0); Mean Corpuscular Volume 84.5 fL (80.0-98.0); Mean Platelet Volume 10.8 fL (9.4-12.4); Monocytes Absolute Auto 0.5 X10*3/uL (0.1-1.2); Monocytes Percent Auto 9.6 % (2-11); Neutrophils Absolute Auto 2.7 x10*3/uL (2.0-8.3); Neutrophils Percent Auto 50.4 % (45-73); Platelet Count 147 X10*3/uL (160-400); Red Blood Count 5.35 X10*6/uL (4.60-5.80); Red Cell Distribution Width 13.5 % (11.0-16.0); White Blood Count 5.3 X10*3/uL (4.8-10.8)
[2023-03-21 11:26] LABS: Estimated Average Glucose 163 mg/dL; Hemoglobin A1c % 7.3 %
[2023-03-21 11:57] LABS: Alanine Aminotransferase 33 U/L (0-40); Albumin Level 4.2 g/dL (3.5-5.0); Alkaline Phosphatase 101 U/L (39-117); Anion Gap 12 (12-20); Aspartate Amino Transferase 25 U/L (5-37); Bilirubin Total 0.7 mg/dL (0.0-1.0); Blood Urea Nitrogen 18 mg/dL (9-16); Calcium 9.4 mg/dL (8.4-10.2); Carbon Dioxide 26 mmol/L (22-29); Chloride 108 mmol/L (96-108); Cholesterol 118 mg/dL; Estimated Glomerular Filt Rate 55; Glucose Fasting 178 mg/dL (60-99); HDL Cholesterol 36 mg/dL; LDL Cholesterol Calculated 56 mg/dl; Potassium 4.2 mmol/L (3.3-5.1); Sodium 142 mmol/L (135-145); Triglycerides 130 mg/dL
[2023-03-21 13:06] LABS: Creatinine Urine 78.64 mg/dL; Microalbumin Urine < 5.0 mg/L
== END 2023-03-21 10:24 | disposition home or self-care (01) ==
LOC: HO.LAB 10:23
PROVIDERS: PCP Internal Medicine; Visit Provider Internal Medicine
DX: Z13.0 Encounter for screening for diseases of the blood and blood-forming organs and certain disorders involving the immune mechanism (principal); E78.5 Hyperlipidemia, unspecified; E11.69 Type 2 diabetes mellitus with other specified complication; E66.01 Morbid (severe) obesity due to excess calories; I10 Essential (primary) hypertension
CPT/HCPCS: 36415; 80053; 80061; 82043; 83036; 85025

== ENCOUNTER 2023-04-05 09:49 | Outpatient (AMB) | payer MEDICARE, OTHER, SELFPAY ==
--- NOTE | 2023-04-05 09:53 | A.OFFVIS_ITS ---
Intake Vital Signs 04/05/23 10:04 Height 6 ft 1 in Weight 238 lb BMI 31.4 BP 143/65 H Blood Pressure Location Rt brachial Position Sitting Pulse 61 Intake Visit Reasons: Sebaceous cyst Intake Note: Patient referred for cysts Lt post shoulder and lt lower back. Reports cyst on Lt post shoulder got infected 2wks ago. Completed Cephalexin course. Civil Engineering Assistant Required: No Accompanied by: Self / Same As Patient Allergies No Known Allergies [No Known Allergies*] Allergy (Verified 04/05/23 10:00) HPI HPI Comments History of Present Illness Details Patient has 2 sebaceous cysts involving his left upper lower back respectively. There are increasing size, become more symptomatic. He was to have them removed. The lower 1 was attempted to be removed at a [place] facility fee a few years ago but has recurred. Chart was reviewed patient evaluated. Status post CABG x4 4 years ago PFSH Medical History CAD (coronary artery disease) Diabetes type 2, uncontrolled Diabetic polyneuropathy associated with type 2 diabetes mellitus Dyslipidemia Hypertension Obesity (BMI 30-39.9) Quadriceps tendon rupture Surgical History H/O wisdom tooth extraction History of knee surgery Hx of hernia repair Hx of removal of cyst Hx of umbilical hernia repair S/P CABG x 5 Family History Mother Type 2 diabetes mellitus Father H/O heart artery stent Social History Household Members: Family Housing: House Alcohol intake: never Patient Tobacco Use Status: Never used Tobacco e-Cigarette/Vaping Use: Never Used Second Hand Smoke Exposure: No service: Yes Current occupational status: retired Current occupation: Rt handed Cognitive needs: Yes (cane) Hearing needs: No Vision needs: Yes (glasses) Physical Exam Vital Signs: Last Vital Signs Pulse 61 04/05/23 10:04 BP 143/65 H 04/05/23 10:04 BMI result Body Mass Index 31.4 Chest Other: Chest breath sounds bilaterally, HS 1 in 2 GI Other: Abdomen soft, corpulent, benign Back/Spine/Pelvis Other: Left upper back demonstrates approximately 4 x 3 cm large sebaceous cyst. Left lower back demonstrates approximately 3 x 2 cm sebaceous cyst with an overlying scar from previous excision attempt. Assessment & Plan Assessment & Plan (1) Sebaceous cyst: Code(s): L72.3 - Sebaceous cyst Plan Risks, benefits, alternatives of excision of sebaceous cyst of back x2 were revi ewed with the patient and included but not limited to bleeding, infection, recurrence, numbness, pain, scarring, seroma formation, wound dehiscence and the patient was to proceed. All questions were answered. Arrangements made for this. Coding Level of Care Code New Pt Level 4 (56967) Diagnoses Sebaceous cyst L72.3
[2023-04-05 10:04] VITALS: BP 143/65; PULSE 61; BMI 31.4
== END 2023-04-05 10:08 | disposition home or self-care (01) ==
PROVIDERS: PCP Internal Medicine; Visit Provider Surgery
DX: L72.3 Sebaceous cyst (principal)
CPT/HCPCS: 99204

== ENCOUNTER → 2023-04-05 09:49 | Outpatient (BNVA) | payer MEDICARE, OTHER, SELFPAY | PROVIDERS: PCP Internal Medicine; Visit Provider Surgery | DX: L72.3 Sebaceous cyst (principal) | CPT/HCPCS: 99202 ==

== ENCOUNTER 2023-04-14 08:43 | Day surgery (SDC) | payer MEDICARE, OTHER, SELFPAY ==
--- NOTE | 2023-04-13 10:11 | P.CONAN_ITS ---
Documented by User: Lacy Mcdonald NP 04/13/23 10:14 HPI - Anesthesia Eval Consult details Narrative: 67yo M for Left Wide Local Excision Sebaceous Cyst back X2 06/2022 Cardiology eval = stable with CAD and HTN optimized 03/2023 PCP eval = stable without changes to rx/tx PMFSH Active Problems Active Problems: All Active Problems (Updated 03/23/23 @ 10:57 by Parker Peace MD) Sebaceous cyst (Acute) Encounter for initial annual wellness visit (AWV) in Medicare patient (Acute) CAD (coronary artery disease) (Acute) Low back pain (Acute) Type 2 diabetes mellitus with hyperlipidemia (Acute) Obesity (Acute) Physical exam (Acute) Diabetic polyneuropathy associated with type 2 diabetes mellitus (Acute) Dyslipidemia (Acute) Hypertension (Acute) Rupture of right quadriceps tendon (Acute) Diabetes type 2, uncontrolled (Acute) Past Medical History Medical History Quadriceps tendon rupture CAD (coronary artery disease) Obesity (BMI 30-39.9) Hypertension Dyslipidemia Diabetic polyneuropathy associated with type 2 diabetes mellitus Diabetes type 2, uncontrolled Family History Family History Mother Type 2 diabetes mellitus Father H/O heart artery stent Family history of problems with anesthesia: No Surgical History Surgical History History of knee surgery Hx of umbilical hernia repair Hx of hernia repair H/O wisdom tooth extraction Hx of removal of cyst S/P CABG x 5 History of Problems with Anesthesia: No Social History Social History Household Members: Family Housing: House Alcohol intake: never Patient Tobacco Use Status: Never used Tobacco e-Cigarette/Vaping Use: Never Used Second Hand Smoke Exposure: No Use of substances other than those prescribed or required for medical reasons: No Are you DNR?: No Advance Directives: No Advance Directives Information Provided: Yes service: Yes Current occupational status: retired Current occupation: Rt handed Cognitive needs: Yes (cane) Hearing needs: No Vision needs: Yes (glasses) Meds Allergies Allergy/AdvReac Type Severity Reaction Status Date / Time No Known Allergies Allergy Verified 04/05/23 10:00 [No Known Allergies*] Home Medications Medication Instructions Recorded Confirmed Last Taken Type multivitamin 1 tab PO DAILY 09/06/21 03/23/23 09/06/21 History garlic 100 mg tablet 100 mg PO DAILY 04/05/23 Unknown History Exam Exam Date and Time: April 13, 2023 1011 Pertinent Lab Results Pertinent Lab Results: Laboratory Tests 03/21/23 03/21/23 10:36 10:36 WBC 5.3 Hgb 15.4 Hct 45.2 Plt Count 147 L Sodium 142 Potassium 4.2 Chloride 108 Carbon Dioxide 26 BUN 18 H Creatinine 1.30 Narrative Narrative: EKG 06/2022 normal sinus rhythm first-degree AV block with poor R-wave progression due to lead placement ECHO 2020 Conclusions: - The left ventricular systolic function is normal.? The ? calculated ejection fraction is 56% by biplane method. ? - There is mildly decreased right ventricular systolic function. - There is mild calcification of the aortic valve. ? - There is mild mitral annular calcification.?? NM finesse perf SPECT rest & str 2020 Impression: ? 1.? Myocardial perfusion imaging study shows likely normal perfusion. 2.? Gated LVEF is 60% during stress and 60% during rest. 3. Transient ischemic dilatation not present. ? EKG component of the test reported separately. Assessment and Plan Assessment Anesthesia Assessment: Chart Reviewed Final Anesthetic Review Family History of Problems with Anesthesia: No History of Problems with Anesthesia: No Documented by User: Hank Mina MD 04/14/23 10:42 [facility] Past Medical History Medical History Quadriceps tendon rupture CAD (coronary artery disease) Obesity (BMI 30-39.9) Hypertension Dyslipidemia Diabetic polyneuropathy associated with type 2 diabetes mellitus Diabetes type 2, uncontrolled Family History Family History Mother Type 2 diabetes mellitus Father H/O heart artery stent Surgical History Surgical History History of knee surgery Hx of umbilical hernia repair Hx of hernia repair H/O wisdom tooth extraction Hx of removal of cyst S/P CABG x 5 Social History Social History Household Members: Family Housing: House Alcohol intake: never Patient Tobacco Use Status: Never used Tobacco e-Cigarette/Vaping Use: Never Used Second Hand Smoke Exposure: No Use of substances other than those prescribed or required for medical reasons: No Are you DNR?: No Advance Directives: No Advance Directives Information Provided: Yes service: Yes Current occupational status: retired Current occupation: Rt handed Cognitive needs: Yes (cane) Hearing needs: No Vision needs: Yes (glasses) Meds Allergies Allergy/AdvReac Type Severity Reaction Status Date / Time No Known Allergies Allergy Verified 04/05/23 10:00 [No Known Allergies*] Home Medications Medication Instructions Recorded Confirmed Last Taken Type multivitamin 1 tab PO DAILY 09/06/21 03/23/23 09/06/21 History garlic 100 mg tablet 100 mg PO DAILY 04/05/23 Unknown History Exam Airway Mallampati Class: II TM Dist: >3cm Neck ROM: Full Loose/Missing/Broken Teeth: No Assessment and Plan Assessment Anesthesia Assessment: Anesthesia Plan Discussed Final Anesthetic Review NPO: Yes ASA Class: III Final Preanesthetic Review: No Changes in Pt Med Stat, Meds/Allgs Chart Reviewed, Consent Obtained/Reviewed and Anes Risks/Benef Reviewed Patient Risk: Intermediate Procedure Risk: Low Anesthetic Plan Anesthetic Plan: MAC: Disposition: Standard PACU
[2023-04-14 09:03] VITALS: BMI 32.1
[2023-04-14 09:09] VITALS: BP 142/56; PULSE 52; RESP 16; TEMP 36.4; O2SAT 95
[2023-04-14] MEDS: Lactated Ringers 1,000 ML 100 ML IVCONT (09:28)
[2023-04-14 09:32] LABS: Glucose, Whole Blood 156 mg/dL (60-115)
--- NOTE | 2023-04-14 11:49 | MHC.SHP ---
Pre-Procedural Eval Section A Date of Service: 04/14/23 The patient is an INPATIENT: No Changes since office visit: No Cold of Flu in the past 2 weeks, No New Medical Problems, No Changes in Medication and No Patient answered all questions The History & Physical has been completed within 30 days and I have reviewed it.: Yes Section B Chief Complaint: Sebaceous cyst Allergies: Allergies Allergy/AdvReac Type Severity Reaction Status Date / Time No Known Allergies Allergy Verified 04/05/23 10:00 [No Known Allergies*] Plan I have reviewed the history and physical and performed a pertinent physical examination on my patient. No changes have occurred unless specified. Time Spent With Patient Time: Total time managing care of this patient today ____ minutes.
--- NOTE | 2023-04-14 11:50 | P.OP_ITS ---
Operative Note Operative Note Date of Service: 04/14/23 Narrative: Preoperative diagnosis: [] sebaceous cyst left back x2 Postop diagnosis: [] same Procedure [] excision sebaceous cyst left back x2 Surgeon: [] Yobani Shuttle Veneering Supervisor: [] Type of Anesthesia: [] mass Indication for surgery: [] upper back lesion measured Approximately 5 x 3 cm. Lower back lesion measured approximately 5 x 3 cm. Findings: [] patient brought to the operating room, placed on operative table supine position, after adequate level of MAC anesthesia was induced, patient was placed in the right lateral decubitus position. Left back was prepped and draped in usual sterile fashion and each proposed incision site was infiltrated with 1% lidocaine/ 0.5% Marcaine.. Each sebaceous cyst was approached using a transverse bi- elliptical incision and carried down through skin, subcutaneous tissue, and undermined using Bovie. S each specimen was separately sent to pathology for permanent specimen taken. Wounds we were respectively irrigated, secured hemostasis, and closed using interrupted inverted dermal 3-0 Vicryl sutures followed by Steri-Strips and sterile dressings. Sponge, needle, and instrument counts reported correct. Patient tolerated the procedure well and emerged anesthesia stable condition. EBL minimal
[2023-04-14 11:55] VITALS: BP 135/50; PULSE 50; RESP 18; TEMP 37.2; O2SAT 96
[2023-04-14 12:10] VITALS: BP 135/56; PULSE 51; RESP 16; O2SAT 96
[2023-04-14 12:22] VITALS: BP 126/58; PULSE 50; RESP 16; TEMP 36.2; O2SAT 96
== END 2023-04-14 12:58 | disposition home or self-care (01) ==
PROVIDERS: PCP Internal Medicine; Visit Provider Surgery
PROC: (CPT 11406; principal; 2023-04-14 10:30)
DX: L72.0 Epidermal cyst (principal); I25.10 Atherosclerotic heart disease of native coronary artery without angina pectoris; I10 Essential (primary) hypertension; Z95.1 Presence of aortocoronary bypass graft; E11.42 Type 2 diabetes mellitus with diabetic polyneuropathy; Z79.84 Long term (current) use of oral hypoglycemic drugs; E66.9 Obesity, unspecified; Z68.31 Body mass index [BMI] 31.0-31.9, adult
CPT/HCPCS: 11406 ×2; 82947; 88304; J0690

== ENCOUNTER → 2023-04-14 08:43 | Outpatient (BNV) | payer MEDICARE, OTHER, SELFPAY | PROVIDERS: PCP Internal Medicine; Visit Provider Surgery | DX: L72.0 Epidermal cyst (principal) | CPT/HCPCS: 11406 ==

== ENCOUNTER 2023-04-25 09:59 | Outpatient (AMB) | payer MEDICARE, OTHER, SELFPAY ==
[2023-04-25 10:06] VITALS: BP 145/63; PULSE 60
--- NOTE | 2023-04-25 10:06 | MHC.OFFVIS ---
Intake Vital Signs 04/25/23 10:06 Weight 239 lb BP 145/63 H Blood Pressure Location Rt brachial Position Sitting Pulse 60 Intake Visit Reasons: S/P WLE sebaceous cyst Lt back x2 Intake Note: Patient here s/o exc on back X2. Reports both site on upper and lower back healing well. Denies oozing, pain or itch. Split Leather Mosser Required: No Accompanied by: Self / Same As Patient Allergies No Known Allergies [No Known Allergies*] Allergy (Verified 04/25/23 10:07) HPI HPI Comments History of Present Illness Details Patient presents for follow-up. He has no wound issues or complaints. Pathology was reviewed. [facility] Medical History Quadriceps tendon rupture CAD (coronary artery disease) Obesity (BMI 30-39.9) Hypertension Dyslipidemia Diabetic polyneuropathy associated with type 2 diabetes mellitus Diabetes type 2, uncontrolled Surgical History Hx of surgical procedure (04/14/23) History of knee surgery Hx of umbilical hernia repair Hx of hernia repair H/O wisdom tooth extraction Hx of removal of cyst S/P CABG x 5 Family History Mother Type 2 diabetes mellitus Father H/O heart artery stent Social History Household Members: Family Housing: House Alcohol intake: never Patient Tobacco Use Status: Never used Tobacco e-Cigarette/Vaping Use: Never Used Second Hand Smoke Exposure: No service: Yes Current occupational status: retired Current occupation: Rt handed Cognitive needs: Yes (cane) Hearing needs: No Vision needs: Yes (glasses) Physical Exam Vital Signs: Last Vital Signs Pulse 60 04/25/23 10:06 BP 145/63 H 04/25/23 10:06 Back/Spine/Pelvis Other: Both wounds clean dry and intact, healing very well, uneventfully. Assessment & Plan Assessment & Plan (1) Sebaceous cyst: Code(s): L72.3 - Sebaceous cyst Plan Patient has been given local instructions including avoiding strenuous activities for next 2-3 weeks and will otherwise follow up p.r.n.. Coding Level of Care Code Global (84207) Diagnoses Sebaceous cyst L72.3
== END 2023-04-25 10:21 | disposition home or self-care (01) ==
PROVIDERS: PCP Internal Medicine; Visit Provider Surgery
DX: L72.3 Sebaceous cyst (principal)
CPT/HCPCS: 99024

== ENCOUNTER → 2023-04-25 09:59 | Outpatient (BNVA) | payer MEDICARE, OTHER, SELFPAY | PROVIDERS: PCP Internal Medicine; Visit Provider Surgery ==

== ENCOUNTER 2023-04-26 14:06 | Emergency (ER) | payer MEDICARE, OTHER, SELFPAY ==
--- NOTE | ~2023-04-26 | XR_ITS ---
EXAMINATION: XR HAND, RIGHT CLINICAL INFORMATION: Laceration extends 10 COMPARISON: None available. TECHNIQUE: PA, lateral, and oblique views of the right hand. FINDINGS: Soft tissue injury base of thumb with tiny nonmetallic densities. No definite cortical disruption or displaced fracture. No dislocation or erosions. Mild interphalangeal joint space narrowings. Mild degenerative changes first carpometacarpal joint. Mild sclerosis and narrowing radiocarpal joint. Alignment maintained. XR/XR hand RT min 3V IMPRESSION: Thumb base laceration with small radiodensities. No definite bony involvement.
[2023-04-26 14:19] VITALS: BP 127/57; PULSE 59; RESP 15; TEMP 36.9; O2SAT 96
[2023-04-26 14:33] VITALS: BP 127/57; PULSE 59; RESP 15; TEMP 36.9; O2SAT 96; BMI 32.1
--- NOTE | 2023-04-26 14:39 | ED.UPPEXIN ---
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 Admits to taking ASA 81. Denies injury to other area, numbness, tingling, weakness. Tetanus up-to-date. MD complaint: injury to: hand Related Data Home Medications Medication Instructions Recorded Confirmed multivitamin 1 tab PO DAILY 09/06/21 03/23/23 garlic 100 mg tablet 100 mg PO DAILY 04/05/23 Previous Rx's Medication Instructions Recorded blood sugar diagnostic (FreeStyle #100 ea 02/16/21 Lite Strips) lancets 28 gauge (FreeStyle #100 ea 02/16/21 Lancets) acetaminophen 325 mg tablet 650 mg (2 x 325 mg) PO Q6H PRN 09/08/21 Pain, Mild (Pain Scale 1-3) 30 days #240 tabs metformin 500 mg 24 hr 1,000 mg (2 x 500 mg) PO BID 90 05/05/22 tablet,extended release days #360 tabs atorvastatin 80 mg tablet 80 mg PO BEDTIME #90 tabs 06/01/22 metoprolol succinate 100 mg 100 mg PO DAILY #90 tabs 09/01/22 tablet,extended release 24 hr (Toprol XL) amlodipine 5 mg tablet 5 mg PO DAILY #90 tabs 01/12/23 lisinopril 20 1 tab PO DAILY #90 tabs 01/12/23 mg-hydrochlorothiazide 12.5 mg tablet empagliflozin 25 mg tablet 25 mg PO DAILY 90 days #90 tabs 03/23/23 (Jardiance) flash glucose sensor (FreeStyle #2 ea 03/23/23 Bo 14 Day Sensor kit) cephalexin 500 mg capsule 500 mg PO QID 7 days #28 caps 04/26/23 Allergies Allergy/AdvReac Type Severity Reaction Status Date / Time No Known Allergies Allergy Verified 04/25/23 10:07 [No Known Allergies*] Review of Systems Review of Systems: Constitutional: No Fever, No Chills ENT/Mouth: No Ear Pain, No Nasal Congestion, No sore throat Cardiovascular: No Chest Pain, No SOB Respiratory: No Cough Gastrointestinal: No Nausea, No Vomiting, No Abdominal pain Genitourinary: No Dysuria, No Urinary Frequency, No Hematuria, No Flank Pain Musculoskeletal: +joint pain, No Myalgias, No Joint Swelling Skin: +laceration, No rash Neuro: No Weakness, No Numbness, No Paresthesias Yes all other systems are reviewed and are negative Constitutional: Constitutional: Reports as per [facility] Past Medical History Attestation statement: The following information was validated with the patient. Source: old records reviewed Medical History Quadriceps tendon rupture CAD (coronary artery disease) Obesity (BMI 30-39.9) Hypertension Dyslipidemia Diabetic polyneuropathy associated with type 2 diabetes mellitus Diabetes type 2, uncontrolled Surgical History Hx of surgical procedure (04/14/23) History of knee surgery Hx of umbilical hernia repair Hx of hernia repair H/O wisdom tooth extraction Hx of removal of cyst S/P CABG x 5 Family History Family History Mother Type 2 diabetes mellitus Father H/O heart artery stent Social History Social History Household Members: Family Housing: House Alcohol intake: never Patient Tobacco Use Status: Never used Tobacco e-Cigarette/Vaping Use: Never Used Second Hand Smoke Exposure: No service: Yes Current occupational status: retired Current occupation: Rt handed Cognitive needs: Yes (cane) Hearing needs: No Vision needs: Yes (glasses) Physical Exam Vital Signs: Vital Signs: Last Vital Signs Temp 98.4 F 04/26/23 14:33 Pulse 59 04/26/23 14:33 Resp 15 04/26/23 14:33 BP 127/57 L 04/26/23 14:33 Pulse Ox 96 04/26/23 14:33 O2 Del Method Room Air 04/26/23 14:33 BMI result Body Mass Index 32.1 Const: General: cooperative, healthy appearing and no acute distress Orientation/consciousness: patient oriented x3 Limitations: no limitations HEENT: Head: Yes normal to inspection and Yes atraumatic Ears: hearing grossly normal bilaterally General nose exam: Normal external nose present Face and sinus: Yes normal facial exam Eyes: General: appearance normal, both eyes and all related structures EOM: EOMs intact bilaterally Neck: Neck: Yes normal visual inspection and Yes no meningeal signs Resp: Effort & Inspection: normal respiratory effort and no respiratory distress Cardio: Rate: regular rate Peripheral pulses: radial pulses present and ulnar radial pulses present Skin: Rashes: no rashes Neuro: General: patient oriented x3, tone normal and no meningeal signs Cranial nerves: Yes CN's II-XII intact bilaterally Gait exam (Neuro): Normal gait present Extrem: Other: 6cm linear laceration noted to right MCP as depicted above. Tendon visible and disrupted. Bleeding controlled. PIP extension absent. Neurovascularly intact. Distal pulses intact. Cap refill WNL Course Course Course Narrative: - spoke with orthopedic LULI Obregon who recommended x-ray, irrigate, & close wound. Scheduled patient for an appointment in the office tomorrow at 08:45AM followed by surgery on XR hand RT min 3V IMPRESSION: Thumb base laceration with small radiodensities. No definite bony involvement. -Sutures placed by LULI Ayala. finger splint applied. Is to follow-up in the orthopedic office tomorrow. 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 on exam vital signs stable, NAD, nontoxic appearing, physical exam as noted above. Please refer to image. Laceration noted to right MCP with extensor tendon Lacerated. Neurovascular intact. Tetanus up-to-date plan: X-ray, consult Orthopedics Please refer to course for remaining clinical decision making, interpretation of labs/imaging results, and discussions with consultants and/or family members. Differential Diagnosis Differential Diagnoses: The differential diagnosis associated with the presentation includes As above Admission/Observation Consideration of admission/observation: Escalation of care including admission/observation considered Consult Healthcare Provider Management of the patient was discussed with: Senior Media Planner ( orthopedics) External Record Review External record reviewed: Inpatient record, Office record, Outpatient record, Prior outpatient labs, Prior outpatient radiology, Primary care record and Outside ED record Tests considered The following testing was considered but not selected: As above Prescription Management I considered prescription management with: Pain Medication and Antibiotic Chronic Conditions Patient?s care impacted by: Diabetes Procedures Laceration Laceration 1: Site: hand Side (If applicable): right Size (cm): 6 Description: linear Depth: simple, single layer Local Anesthetic: lidocaine 1% Amount of anesthesia used (mL): 5 Pre-repair: wound explored Skin layer closed with: nylon Size (cm): 4-0 Number of sutures: 10 Technique: simple, interrupted Discharge Plan Discharge Clinical Impression: Extensor tendon laceration, hand, open wound Patient Disposition: Home, Self-Care Instructions: Tendon Laceration (ED) Additional Instructions: you lacerated your extensor tendon your x-ray does not show any fracture YOU AN APPOINTMENT TOMORROW AT 08:45 IN THE ORTHOPEDIC OFFICE. SURGERY IS PLANNED FOR TUESDAY PLEASE TAKE KEFLEX WHICH IS AN ANTIBIOTIC PRESCRIBED Prescriptions: New cephalexin 500 mg capsule 500 mg PO QID 7 Days Qty: 28 0RF No Action metformin 500 mg tablet,ER adria.retention 24 hr 1,000 mg PO BID 90 Days Qty: 360 8RF atorvastatin 80 mg tablet 80 mg PO BEDTIME Qty: 90 8RF metoprolol succinate [Toprol XL] 100 mg tablet extended release 24 hr 100 mg PO DAILY Qty: 90 6RF amlodipine 5 mg tablet 5 mg PO DAILY Qty: 90 8RF lisinopril-hydrochlorothiazide 20-12.5 mg tablet 1 tab PO DAILY Qty: 90 8RF Jardiance 25 mg tablet 25 mg PO DAILY 90 Days Qty: 90 1RF multivitamin Tablet 1 tab PO DAILY acetaminophen 325 mg Tablet 650 mg PO Q6H PRN (Reason: Pain, Mild (Pain Scale 1-3)) 30 Days Qty: 240 0RF (DME) FreeStyle Bo 14 Day Sensor Kit See Rx Instructions .MEDSUPPLY Qty: 2 11RF Rx Instructions: every 14 days (DME) FreeStyle Lite Strips Strip See Rx Instructions .MEDSUPPLY Qty: 100 6RF Rx Instructions: 3 times a day (DME) lancets [FreeStyle Lancets] 28 gauge misc See Rx Instructions .MEDSUPPLY Qty: 100 5RF Rx Instructions: 3 times a day garlic 100 mg tablet 100 mg PO DAILY Referrals: [facility] Orthopedic Surgeons [Provider Group] - 1 day ( tomorrow in office)
--- NOTE | 2023-04-26 14:49 | PC.NURSE ---
wound was cleansed with NS, patted dry, covered with saline soaked gauze, bleeding controlled.
[2023-04-26] MEDS: Lidocaine HCl 1 % MPF 5 ML VIAL INFILTRATI (15:19)
== END 2023-04-26 17:12 | disposition home or self-care (01) ==
PROVIDERS: Emergency Provider Emergency Medicine; PCP Internal Medicine
DX: S66.221A Laceration of extensor muscle, fascia and tendon of right thumb at wrist and hand level, initial encounter (principal); S61.411A Laceration without foreign body of right hand, initial encounter; W29.3XXA Contact with powered garden and outdoor hand tools and machinery, initial encounter; E11.9 Type 2 diabetes mellitus without complications; I10 Essential (primary) hypertension; E78.5 Hyperlipidemia, unspecified; Y93.89 Activity, other specified; Y92.9 Unspecified place or not applicable; Y99.9 Unspecified external cause status
CPT/HCPCS: 12002; 29130; 73130; 99282; 99284

== ENCOUNTER 2023-04-27 08:40 | Outpatient (AMB) | payer MEDICARE, OTHER, SELFPAY ==
--- NOTE | 2023-04-27 08:44 | A.OFFVIS_ITS ---
Intake Vital Signs 04/27/23 08:57 Height 6 ft 1 in Weight 243 lb BMI 32.1 Intake Visit Reasons: FC - Right Thumb Exstensor Tendon - 04/26/23 Intake Note: Dionne a 67 year old right hand dominant male who presents today for an ED follow up of right thumb laceration. Patient reports while he was trimming branches his hand slipped causing a laceration to right hand. Currently he has mild pain. Denies numbness or tingling. Finds relief with ibuprofen. Allergies No Known Allergies [No Known Allergies*] Allergy (Verified 04/27/23 08:57) HPI FC - Right Thumb Exstensor Tendon - 04/26/23 HPI Details 67-year-old right hand dominant male who presents to the office today for an ED follow-up of right thumb injury s/p trimming branches with a chain saw when his hand slipped, causing a laceration on his right hand, 04/26/23. He continues to have swelling and mild pain in his thumb which is aggravated with ROM. He denies any numbness or tingling. He finds relief with ibuprofen. [facility] Medical History Quadriceps tendon rupture CAD (coronary artery disease) Obesity (BMI 30-39.9) Hypertension Dyslipidemia Diabetic polyneuropathy associated with type 2 diabetes mellitus Diabetes type 2, uncontrolled Surgical History Hx of surgical procedure (04/14/23) History of knee surgery Hx of umbilical hernia repair Hx of hernia repair H/O wisdom tooth extraction Hx of removal of cyst S/P CABG x 5 Family History Mother Type 2 diabetes mellitus Father H/O heart artery stent Social History Household Members: Family Housing: House Alcohol intake: never Patient Tobacco Use Status: Never used Tobacco e-Cigarette/Vaping Use: Never Used Second Hand Smoke Exposure: No service: Yes Current occupational status: retired Current occupation: Rt handed Cognitive needs: Yes (cane) Hearing needs: No Vision needs: Yes (glasses) Review of Systems Const All systems reviewed & are unremarkable except as noted in HPI and below Physical Exam Vital Signs: BMI result Body Mass Index 32.1 Extrem Other: Right thumb: Has a laceration with sutures over the dorsum in line with the radius. No active drainage, no redness. He is unable to abduct the thumb. He does have opposition intact. NVI. Results Reviewed Results Reviewed: xrays of the right hand show a sublte lucency along the thumb which may represent fracture Assessment & Plan Assessment & Plan (1) Laceration of extensor or abductor muscles, fascia and tendons of right thumb at forearm level, initial encounter: Code(s): S56.321A - Laceration of extensor or abductor muscles, fascia and tendons of right thumb at forearm level, initial encounter Plan I reviewed the case with Dr. Kaufman and this is something that would require surgical intervention to repair. I explained the extent of the injury and options to the patient which includes repair of the right thumb tendon. I did explain to her that this takes anywhere from 6-12 weeks to fully recover from as there needs to be a period of immobilization and then some potential physical therapy. I discussed with him the risks, benefits and alternatives to the procedure. Risks including, but not limited to infection, re-rupture of the tendon, stiffness. He does understand all this and would like to proceed with exploration right thumb tendon repair with irrigation and debridement with Dr. Ayana vallejo. He will be booked accordingly. Patient Instructions: Scribed for Nikia Gomes PA-C, by Baldemar Monroy medical office receptionist, on 04/27/2023 at 8:45 AM EULALIA. Nikia Bowles PA-C, have personally reviewed and agree with the information entered by the scribe. Coding Level of Care Code Est Pt Level 4 (02351) Diagnoses Laceration of extensor or abductor muscles, fascia and tendons of right thumb at forearm level, initial encounter S56.321A
[2023-04-27 08:57] VITALS: BMI 32.1
== END 2023-04-27 09:47 | disposition home or self-care (01) ==
PROVIDERS: PCP Internal Medicine; Visit Provider Physician Assistant
DX: S56.321A Laceration of extensor or abductor muscles, fascia and tendons of right thumb at forearm level, initial encounter (principal)
CPT/HCPCS: 99214

== ENCOUNTER → 2023-04-27 08:40 | Outpatient (BNVA) | payer MEDICARE, OTHER, SELFPAY | PROVIDERS: PCP Internal Medicine; Visit Provider Physician Assistant | DX: S56.321A Laceration of extensor or abductor muscles, fascia and tendons of right thumb at forearm level, initial encounter (principal) | CPT/HCPCS: 99212 ==

== ENCOUNTER 2023-04-28 05:57 | Day surgery (SDC) | payer MEDICARE, OTHER, SELFPAY ==
--- NOTE | 2023-04-27 12:27 | P.CONAN_ITS ---
Documented by User: Lacy Mcdonald NP 04/27/23 12:28 HPI - Anesthesia Eval Consult details Narrative: 67yo M for Right Thumb Exploration w/Extensor Tendon Repair, Right w/ irrigation and debriment s/p back cyst excision 04/15/23 with MAC 06/2022 Cardiology eval = stable with CAD and HTN optimized 03/2023 PCP eval = stable without changes to rx/tx PMFSH Active Problems Active Problems: All Active Problems (Updated 04/27/23 @ 09:20 by Nikia Gomes PA-C) Laceration of extensor or abductor muscles, fascia and tendons of right thumb at forearm level, initial encounter (Acute) Sebaceous cyst (Acute) Encounter for initial annual wellness visit (AWV) in Medicare patient (Acute) CAD (coronary artery disease) (Acute) Low back pain (Acute) Type 2 diabetes mellitus with hyperlipidemia (Acute) Obesity (Acute) Physical exam (Acute) Diabetic polyneuropathy associated with type 2 diabetes mellitus (Acute) Dyslipidemia (Acute) Hypertension (Acute) Rupture of right quadriceps tendon (Acute) Diabetes type 2, uncontrolled (Acute) Past Medical History Medical History Hx of sleep apnea Quadriceps tendon rupture CAD (coronary artery disease) Obesity (BMI 30-39.9) Hypertension Dyslipidemia Diabetic polyneuropathy associated with type 2 diabetes mellitus Diabetes type 2, uncontrolled Family History Family History Mother Type 2 diabetes mellitus Father H/O heart artery stent Family history of problems with anesthesia: No Surgical History Surgical History Hx of surgical procedure (04/14/23) History of knee surgery Hx of umbilical hernia repair Hx of hernia repair H/O wisdom tooth extraction Hx of removal of cyst S/P CABG x 5 History of Problems with Anesthesia: No Social History Social History Household Members: Family Housing: House Alcohol intake: never Patient Tobacco Use Status: Never used Tobacco e-Cigarette/Vaping Use: Never Used Second Hand Smoke Exposure: No Use of substances other than those prescribed or required for medical reasons: No Are you DNR?: No Advance Directives: No Advance Directives Information Provided: Yes service: Yes Current occupational status: retired Current occupation: Rt handed Cognitive needs: Yes (cane) Hearing needs: No Vision needs: Yes (glasses) Meds Allergies Allergy/AdvReac Type Severity Reaction Status Date / Time No Known Allergies Allergy Verified 04/28/23 06:14 [No Known Allergies*] Home Medications Medication Instructions Recorded Confirmed Last Taken Type multivitamin 1 tab PO DAILY 09/06/21 04/28/23 09/06/21 History garlic 100 mg tablet 100 mg PO DAILY 04/05/23 04/28/23 Unknown History Exam Exam Date and Time: April 27, 2023 1227 Pertinent Lab Results Pertinent Lab Results: Laboratory Tests 03/21/23 03/21/23 10:36 10:36 WBC 5.3 Hgb 15.4 Hct 45.2 Plt Count 147 L Sodium 142 Potassium 4.2 Chloride 108 Carbon Dioxide 26 BUN 18 H Creatinine 1.30 Narrative Narrative: EKG 06/2022 normal sinus rhythm first-degree AV block with poor R-wave progression due to lead placement ECHO 2020 Conclusions: - The left ventricular systolic function is normal.? The ? calculated ejection fraction is 56% by biplane method. ? - There is mildly decreased right ventricular systolic function. - There is mild calcification of the aortic valve. ? - There is mild mitral annular calcification.?? NM finesse perf SPECT rest & str 2020 Impression: ? 1.? Myocardial perfusion imaging study shows likely normal perfusion. 2.? Gated LVEF is 60% during stress and 60% during rest. 3. Transient ischemic dilatation not present. ? EKG component of the test reported separately. Assessment and Plan Assessment Anesthesia Assessment: Chart Reviewed Final Anesthetic Review Family History of Problems with Anesthesia: No History of Problems with Anesthesia: No Documented by User: Blossom Alaniz MD 04/28/23 07:35 [facility] Past Medical History Medical History Hx of sleep apnea Quadriceps tendon rupture CAD (coronary artery disease) Obesity (BMI 30-39.9) Hypertension Dyslipidemia Diabetic polyneuropathy associated with type 2 diabetes mellitus Diabetes type 2, uncontrolled Family History Family History Mother Type 2 diabetes mellitus Father H/O heart artery stent Surgical History Surgical History Hx of surgical procedure (04/14/23) History of knee surgery Hx of umbilical hernia repair Hx of hernia repair H/O wisdom tooth extraction Hx of removal of cyst S/P CABG x 5 Social History Social History Household Members: Family Housing: House Alcohol intake: never Patient Tobacco Use Status: Never used Tobacco e-Cigarette/Vaping Use: Never Used Second Hand Smoke Exposure: No Use of substances other than those prescribed or required for medical reasons: No Are you DNR?: No Advance Directives: No Advance Directives Information Provided: Yes service: Yes Current occupational status: retired Current occupation: Rt handed Cognitive needs: Yes (cane) Hearing needs: No Vision needs: Yes (glasses) Meds Allergies Allergy/AdvReac Type Severity Reaction Status Date / Time No Known Allergies Allergy Verified 04/28/23 06:14 [No Known Allergies*] Home Medications Medication Instructions Recorded Confirmed Last Taken Type multivitamin 1 tab PO DAILY 09/06/21 04/28/23 09/06/21 History garlic 100 mg tablet 100 mg PO DAILY 04/05/23 04/28/23 Unknown History Exam Airway Heart: rrr Lungs: cta Assessment and Plan Assessment Anesthesia Assessment: Anesthesia Plan Discussed Final Anesthetic Review NPO: Yes ASA Class: III Final Preanesthetic Review: No Changes in Pt Med Stat, Meds/Allgs Chart Reviewed, Consent Obtained/Reviewed and Anes Risks/Benef Reviewed Patient Risk: Intermediate Procedure Risk: Low Anesthetic Plan Anesthetic Plan: GA Disposition: Standard PACU
[2023-04-28] VITALS (7 sets, daily range): BP systolic 116–142; BP diastolic 54–60; PULSE 47–54; RESP 15–17; TEMP 36.4–36.5; O2SAT 91–98; BMI 31.7
[2023-04-28 06:47] LABS: Glucose, Whole Blood 131 mg/dL (60-115)
--- NOTE | 2023-04-28 09:45 | MHC.SHP ---
Pre-Procedural Eval Section A Date of Service: 04/28/23 The patient is an INPATIENT: No Changes since office visit: No Cold of Flu in the past 2 weeks, No New Medical Problems, No Changes in Medication and No Patient answered all questions The History & Physical has been completed within 30 days and I have reviewed it.: Yes Section B Chief Complaint: Laceration of extensor or abductor muscles, fascia Allergies: Allergies Allergy/AdvReac Type Severity Reaction Status Date / Time No Known Allergies Allergy Verified 04/28/23 06:14 [No Known Allergies*] Plan I have reviewed the history and physical and performed a pertinent physical examination on my patient. No changes have occurred unless specified. Time Spent With Patient Time: Total time managing care of this patient today ____ minutes.
--- NOTE | 2023-04-28 09:46 | W.PM.OPN ---
Operative Note Operative Note Date of Service: 04/28/23 Narrative: Operative Note Narrative: Preop diagnosis: Chainsaw injury to the radial aspect of his right hand with: 1. Extensor tendon lacerations to the thumb 2. Likely open fracture of the 1st metacarpal Postop diagnosis: Chainsaw injury to the radial aspect of his right hand with: 1. Extensor pollicis longus tendon laceration 2. Extensor pollicis brevis tendon laceration? 3. Open cortical fracture of the 1st metacarpal shaft Procedure: 1. I and D of wound including open 1st metacarpal shaft fracture 2. Repair of extensor pollicis longus tendon laceration 3. Repair of extensor pollicis brevis tendon laceration 4. Repair of 4 cm long laceration Surgeon: Shereen Kaufman MD Anesthesia: General Anesthesia [plus regional block] Findings: Lacerations of the EPL and EPB tendons. There was also an obliquely oriented cortical defect/fracture in the dorsal aspect of the 1st metacarpal caused by the chain saw. The wound appeared to be clean of debris. Implants: None Tourniquet time: 36 minutes EBL: 5.0 ml Specimen: None Drains: None Complications: None Disposition: Brought to the recovery room in stable condition Plan: Because of the open fracture I am extending his oral antibiotics Follow-up in about 7-10 days for wound check and possible suture removal. He will need to be placed in a short-arm thumb spica cast with the thumb placed and some extension until about 6 weeks postop Indications: The patient is a 67 year old man with a chain saw injury to the radial aspect of his right hand with clear tendon involvement and likely open fracture of the 1st metacarpal . The risks and benefits of operative treatment, including but not limited to risk of damage to blood vessels, nerves, tendons, infection, recurrence, persistent pain or numbness, incomplete resolution of preoperative symptoms, or need for further surgery were discussed with the patient and they wished to proceed with surgery. Procedure: Once consent was obtained patient was brought back to the operating suite and placed in the operating table in a supine position. . Perioperative antibiotics and anesthesia was administered by the anesthesia team. A tourniquet was applied to the proximal aspect of the right upper extremity and the limb was prepped and draped in a standard surgical fashion. The limb was elevated exsanguinated with Esmarch bandage and the tourniquet inflated to 250 mm of mercury for a total tourniquet time of 36 minutes. The sutures were removed from the 4.5 cm oblique laceration over the dorsal aspect of the patient's right 1st metacarpal. I then explored the wound and found the EPL and EPB tendons to be lacerated. The proximal ends of the tendon had withdrawn proximally. The wound extended down to the dorsal cortex of the 1st metacarpal. There was an oblique of violation of the a dorsal cortex of the 1st metacarpal where the changed soft struck the bone causing an open fracture. I made a carolina incision extending proximally creating a dorsally based flap of tissue through which 2 explore and identify the proximal ends of the tendons. This was done using a 15. Blade through the skin to the subcutaneous tissues. I then carefully dissected down into the subcutaneous layer using tenotomy scissors. Care was taken not to disturb any of the neurovascular structures. The proximal ends of the EPL and EPB tendons were withdrawn approximately 3 cm. These were then mobilized for repair. The wound was copiously irrigated and I debrided the soft tissues of the small amount of nonviable tissue. I also used a curette to debride the 1st metacarpal fracture. The wound was again copiously irrigated. Once satisfied with our I and D of then moved on to the repair of our 2 tendons. The EPL tendon was 1st brought out to length and secured there with a 25 gauge needle. I then performed a tendon repair using some 3-0 Ethibond suture and a 4 core suture technique. I then turned my attention to the EPB tendon which was more slender. This was also repaired using some 3-0 Ethibond using a modified Echols technique. At this point the tourniquet was deflated and hemostasis obtained with a brief period of local pressure and bipolar electrocautery. The wound was Againcopiously irrigated with normal saline. The skin edges were reapproximated with 5-0 nylon suture. The wound was infiltrated with some 0.5% plain ropivacaine for postop pain control and a sterile dressing and thumb spica splint holding the thumb in extension was applied. The patient appears to have tolerated the procedure well and with no complications. All digits were well vascularized conclusion of the case.
== END 2023-04-28 10:50 | disposition home or self-care (01) ==
PROVIDERS: PCP Internal Medicine; Visit Provider Orthopaedic Surgery
PROC: (CPT 26410; principal; 2023-04-28 07:30)
PROC: (CPT 26410; 2023-04-28 07:30)
DX: S56.321A Laceration of extensor or abductor muscles, fascia and tendons of right thumb at forearm level, initial encounter (principal); S62.24 Fracture of shaft of first metacarpal bone; W29.3XXA Contact with powered garden and outdoor hand tools and machinery, initial encounter; Y93.H2 Activity, gardening and landscaping; Y92.9 Unspecified place or not applicable; Y99.8 Other external cause status; I25.10 Atherosclerotic heart disease of native coronary artery without angina pectoris; I10 Essential (primary) hypertension; Z95.1 Presence of aortocoronary bypass graft; E78.5 Hyperlipidemia, unspecified; E11.42 Type 2 diabetes mellitus with diabetic polyneuropathy; Z79.84 Long term (current) use of oral hypoglycemic drugs; Z79.899 Other long term (current) drug therapy
CPT/HCPCS: 26410 ×2; 11044; 82947; J0131; J0690; J1100; J1885; J2405; J2795; J3010

== ENCOUNTER → 2023-04-28 05:57 | Outpatient (BNV) | payer MEDICARE, OTHER, SELFPAY | PROVIDERS: PCP Internal Medicine; Visit Provider Orthopaedic Surgery | DX: S66.221A Laceration of extensor muscle, fascia and tendon of right thumb at wrist and hand level, initial encounter (principal); S62.201B Unspecified fracture of first metacarpal bone, right hand, initial encounter for open fracture | CPT/HCPCS: 11010; 26418 ==

== ENCOUNTER 2023-05-04 13:55 | Outpatient (AMB) | payer MEDICARE, OTHER, SELFPAY ==
--- NOTE | 2023-05-04 14:00 | A.OFFVIS_ITS ---
Intake Vital Signs 05/04/23 14:01 Height 6 ft 1 in Weight 243 lb BMI 32.1 Intake Visit Reasons: PO RT thumb w/exten. tend. repair 04/28/23AR Intake Note: Dionne 67 yr old male presents today for his P/O visit of his right thumb w/ exten. tend. repair from 04/28/23. States he has no pain just little discomfort. Allergies No Known Allergies [No Known Allergies*] Allergy (Verified 05/04/23 14:01) HPI PO RT thumb w/exten. tend. repair 04/28/23AR HPI Details Dionne is a 67 year old right hand dominant man presents S/P right thumb open fracture I&D, EPL tendon repair, EPB tendon repair, and laceration repair, DOS: 04/28/23. This injury occurred from a chainsaw, DOI: 04/26/23. He says he is doing well and has only minimal discomfort. He says he managed his pain with ice and NSAIDs, and did not need any narcotic medication provided after surgery. He continues to take his oral Abx as instructed. He denies any numbness or tingling. He denies any fever or chills. [facility] Medical History Hx of sleep apnea Quadriceps tendon rupture CAD (coronary artery disease) Obesity (BMI 30-39.9) Hypertension Dyslipidemia Diabetic polyneuropathy associated with type 2 diabetes mellitus Diabetes type 2, uncontrolled Surgical History Hx of surgical procedure (04/14/23) History of knee surgery Hx of umbilical hernia repair Hx of hernia repair H/O wisdom tooth extraction Hx of removal of cyst S/P CABG x 5 Family History Mother Type 2 diabetes mellitus Father H/O heart artery stent Social History Household Members: Family Housing: House Alcohol intake: never Patient Tobacco Use Status: Never used Tobacco e-Cigarette/Vaping Use: Never Used Second Hand Smoke Exposure: No service: Yes Current occupational status: retired Current occupation: Rt handed Cognitive needs: Yes (cane) Hearing needs: No Vision needs: Yes (glasses) Review of Systems Const All systems reviewed & are unremarkable except as noted in HPI and below Physical Exam Vital Signs: BMI result Body Mass Index 32.1 Const General: cooperative, healthy appearing and no acute distress Orientation/consciousness: patient oriented x3 HEENT Head: Yes normocephalic and Yes atraumatic Eyes EOM: EOMs intact bilaterally Resp Effort & Inspection: normal respiratory effort and able to speak in complete sentences Cardio Jugular venous distension: no JVD Skin General skin exam: turgor normal Rashes: no rashes Neuro General: patient oriented x3 Extrem Other: The patient was alert oriented and in no acute distress The incision is healing well with no erythema drainage or evidence of infection. Good active flexion and extension of the fingers. We did not have him actively move the thumb today. Sensation is intact to the tips of the digits Cap refill is brisk Psych Appearance: grossly normal Affect: normal affect Attitude: cooperative Assessment & Plan Assessment & Plan (1) Laceration of extensor or abductor muscles, fascia and tendons of right thumb at forearm level, initial encounter: Code(s): S56.321A - Laceration of extensor or abductor muscles, fascia and tendons of right thumb at forearm level, initial encounter (2) Open fracture of first metacarpal bone of right hand: Code(s): S62.201B - Unspecified fracture of first metacarpal bone, right hand, initial encounter for open fracture Plan Assessment & Plan: 1. Right thumb 1st metacarpal shaft fracture, open cortical 2. Right thumb EPL tendon laceration 3. Right thumb EPB tendon laceration S/P: a. I&D b. EPL tendon repair c. EPB tendon repair d. Laceration repair DOS: 04/28/23 This was from a chainsaw injury, DOI: 04/26/23 The patient appears to be doing well post-operatively I educated him about the post-operative course I explained the signs and symptoms of infection, if the patient develops any new or worsening erythema, drainage, pain, or warmth they should contact the clinic or attend the ED. He will continue to take his PO Abx as instructed I discussed activity modifications, he is to lift nothing heavier than a cellphone for the next 5 weeks He was fitted for a new dressing and thumb spica splint, to be worn like a cast, for the next week He will perform finger ROM exercises at home. He is not to move his thumb at this time He will follow up next week for suture removal He should than be placed in a short arm thumb spica cast with his thumb held in extension for 4 more weeks. The cast should come just distal to the IP joint of the thumb to only allow little bit a wiggle at the IP joint No radiographs are needed for next visit. Let us get new radiographs three views of the right hand with attention to the thumb when he follows to have his cast removed. Scribed for Shereen Kaufman MD by Alex Samuel, medical service technician, on 05/04/23 at 2:30 PM, EST. Coding Level of Care Code Global (81197) Diagnoses Laceration of extensor or abductor muscles, fascia and tendons of right thumb at forearm level, initial encounter S56.321A Open fracture of first metacarpal bone of right hand S62.201B
[2023-05-04 14:01] VITALS: BMI 32.1
== END 2023-05-04 14:53 | disposition home or self-care (01) ==
PROVIDERS: PCP Internal Medicine; Visit Provider Orthopaedic Surgery
DX: S56.321A Laceration of extensor or abductor muscles, fascia and tendons of right thumb at forearm level, initial encounter (principal); S62.201B Unspecified fracture of first metacarpal bone, right hand, initial encounter for open fracture
CPT/HCPCS: 99024

== ENCOUNTER → 2023-05-04 13:55 | Outpatient (BNVA) | payer MEDICARE, OTHER, SELFPAY | PROVIDERS: PCP Internal Medicine; Visit Provider Orthopaedic Surgery ==

== ENCOUNTER 2023-05-12 13:43 | Outpatient (AMB) | payer MEDICARE, OTHER, SELFPAY ==
[2023-05-12 13:58] VITALS: BMI 32.1
--- NOTE | 2023-05-12 13:58 | MHC.OFFVIS ---
Intake Vital Signs 05/12/23 13:58 Height 6 ft 1 in Weight 243 lb BMI 32.1 Intake Visit Reasons: PO-RT thumb w/exten. tend. repair 04/28/23AR Intake Note: Dionne 67 year old male presents today for a post operative suture removal s/p right thumb I&D, extensor tendon repair, DOS 04/28/23. Patient reports he is doing well, he has a little discomfort at incision area. Allergies No Known Allergies [No Known Allergies*] Allergy (Verified 05/12/23 14:23) HPI PO-RT thumb w/exten. tend. repair 04/28/23AR HPI Details 67-year-old male who returns to the office today for post-op right thumb extensor tendon repair, 04/28/[address] Kaufman. He denies having any pain and is doing well overall. He has no concerns today. [facility] Medical History Hx of sleep apnea Quadriceps tendon rupture CAD (coronary artery disease) Obesity (BMI 30-39.9) Hypertension Dyslipidemia Diabetic polyneuropathy associated with type 2 diabetes mellitus Diabetes type 2, uncontrolled Surgical History Hx of surgical procedure (04/14/23) History of knee surgery Hx of umbilical hernia repair Hx of hernia repair H/O wisdom tooth extraction Hx of removal of cyst S/P CABG x 5 Family History Mother Type 2 diabetes mellitus Father H/O heart artery stent Social History Household Members: Family Housing: House Alcohol intake: never Patient Tobacco Use Status: Never used Tobacco e-Cigarette/Vaping Use: Never Used Second Hand Smoke Exposure: No service: Yes Current occupational status: retired Current occupation: Rt handed Cognitive needs: Yes (cane) Hearing needs: No Vision needs: Yes (glasses) Review of Systems Const All systems reviewed & are unremarkable except as noted in HPI and below Physical Exam Vital Signs: BMI result Body Mass Index 32.1 Extrem Other: Right thumb: Incision clean, dry and intact. No erythema, no drainage. Sensation is intact throughout. Office Procedures Casting/Splints 49558-Dmcd/Wrist Cast Application Procedure code (CPT) selection complete Assessment & Plan Assessment & Plan (1) Open fracture of first metacarpal bone of right hand: Code(s): S62.201B - Unspecified fracture of first metacarpal bone, right hand, initial encounter for open fracture Qualifiers: Encounter type: subsequent encounter Fracture healing: with routine healing (2) Laceration of extensor or abductor muscles, fascia and tendons of right thumb at forearm level, subsequent encounter: Code(s): S56.321D - Laceration of extensor or abductor muscles, fascia and tendons of right thumb at forearm level, subsequent encounter Plan Sutures removed today, steri strips applied. He was placed in a thumb spica cast up to the IP joint of the thumb. He will wear this for another 4 weeks at which point he will return to see Dr. Kaufman with new x-rays of the right hand with attention to the thumb out of the cast and reexamination. Patient Instructions: Scribed for Nikia Gomes PA-C, by Baldemar Monroy certified medical records coder, on 05/12/2023 at 1:45 PM EST. I, Nikia Gomes PA-C, have personally reviewed and agree with the information entered by the scribe. Coding Level of Care Code Global (55631) Diagnoses Open fracture of first metacarpal bone of right hand S62.201B Encounter type: subsequent encounter Fracture healing: with routine healing Laceration of extensor or abductor muscles, fascia and tendons of right thumb at forearm level, subsequent encounter S56.321D CPT Codes Casting - CPT: 60499-Qkts/Wrist Cast Application ([id number])
== END 2023-05-12 14:47 | disposition home or self-care (01) ==
PROVIDERS: PCP Internal Medicine; Visit Provider Physician Assistant
DX: S62.201B Unspecified fracture of first metacarpal bone, right hand, initial encounter for open fracture (principal); S56.32 Laceration of extensor or abductor muscles, fascia and tendons of thumb at forearm level
CPT/HCPCS: 29085; 99024

== ENCOUNTER → 2023-05-12 13:43 | Outpatient (BNVA) | payer MEDICARE, OTHER, SELFPAY | PROVIDERS: PCP Internal Medicine; Visit Provider Physician Assistant | DX: S62.201D Unspecified fracture of first metacarpal bone, right hand, subsequent encounter for fracture with routine healing (principal); S56.32 Laceration of extensor or abductor muscles, fascia and tendons of thumb at forearm level | CPT/HCPCS: 29085; 99212 ==

== ENCOUNTER 2023-06-07 13:42 | Outpatient (AMB) | payer MEDICARE, OTHER, SELFPAY ==
--- NOTE | 2023-06-07 13:49 | A.OFFPC_ITS ---
Vital Signs 06/07/23 13:50 Height 6 ft 1 in Weight 238 lb BMI 31.4 BP 142/60 H Blood Pressure Location Lt brachial Position Sitting Pulse 52 Pulse Source Pulse Oximeter Pulse Oximetry (%) 98 Oxygen Delivery Method Room Air Intake Visit Reasons: Sinus infection Professor Of Historical Theology: Not Required per policy Accompanied by: Self / Same As Patient Allergies No Known Allergies [No Known Allergies*] Allergy (Verified 06/07/23 13:50) Tobacco use date assessed: 06/07/23 Fall risk assessment: No Falls in past year Last assessed Fall Risk: 06/07/23 Dental Screening Dental Screen Date: 06/07/23 Did you have a dental visit in the last 12 months?: Yes Did you have a dental problem in the last 6 months where you did not have access to dental care?: No Was dental information given to patient?: Patient has dentist HPI Sinus infection HPI Details 1 week facial pressure and congestion PFSH Medical History Hx of sleep apnea Quadriceps tendon rupture CAD (coronary artery disease) Obesity (BMI 30-39.9) Hypertension Dyslipidemia Diabetic polyneuropathy associated with type 2 diabetes mellitus Diabetes type 2, uncontrolled Surgical History Hx of surgical procedure (04/14/23) History of knee surgery Hx of umbilical hernia repair Hx of hernia repair H/O wisdom tooth extraction Hx of removal of cyst S/P CABG x 5 Family History Mother Type 2 diabetes mellitus Father H/O heart artery stent Social History Household Members: Family Housing: House Alcohol intake: never Patient Tobacco Use Status: Never used Tobacco e-Cigarette/Vaping Use: Never Used Second Hand Smoke Exposure: No service: Yes Current occupational status: retired Current occupation: Rt handed Cognitive needs: Yes (cane) Hearing needs: No Vision needs: Yes (glasses) Questionnaire PHQ-9 Over the last 2 weeks, how often have you been bothered by any of the following problems? 1. Little interest or pleasure in doing things: not at all 2. Feeling down, depressed, or hopeless: not at all 3. Trouble falling or staying asleep, or sleeping too much: not at all 4. Feeling tired or having little energy: not at all 5. Poor appetite or overeating: not at all 6. Feeling bad about yourself - or that you are a failure or have let yourself or your family down: not at all 7. Trouble concentrating on things, such as reading the newspaper or watching television: not at all 8. Moving or speaking so slowly that other people could have noticed. Or the opposite - being so fidgety or restless that you have been moving around a lot more than usual: not at all 9. Thoughts that you would be better off or of hurting yourself in some way: not at all Total score: 0 Depression Screening Interpretation: Negative Depression Screening Done: Yes 03126 - PHQ-9 Billing: Yes Source: Developed by Drs. Tyrel Borrero, Vanna De Dios, Mello Major and colleagues, with an educational shabbir from [employer]. Thrive Questionnaire Date Thrive assessed: 06/07/23 I am a: Patient What is your living situation today?: I have a steady place to live Within the past 12 months, did the food you bought not last and you didn't have the money to get more?: Never true Within the past 12 months, did you worry whether your food would run out before you got money to buy more?: Never true Do you have trouble paying for medicines?: No Do you have trouble getting transportation to medical appointments?: No Do you have trouble paying your heating and electricity bill?: No Do you have trouble taking care of your child, family member or friend?: No Do you have trouble with day-to-day activities such as bathing, preparing meals, shopping, managing finances, etc.?: No Are you currently unemployed and looking for a job?: No Are you interested in more education?: No Please select the resources that you would like help with: None AUDIT C Alcohol Use Questionnaire (AUDIT-C) 1. How often do you have a drink containing alcohol?: Never Total Score: 0 Score Reviewed/Action Taken: Yes IRAIS-7 AMB Questionnaire IRAIS-7 Date IRAIS - 7 assessed: 06/07/23 Feeling nervous, anxious, or on edge: 0 = Not at all Not being able to stop or control worryin = Not at all Worrying too much about different things: 0 = Not at all Trouble relaxin = Not at all Being so restless that it is hard to sit still: 0 = Not at all Becoming easily annoyed or irritable: 0 = Not at all Feeling afraid as if something awful might happen: 0 = Not at all Total IRAIS-7 score (0-4 normal; 5-9 mild; 10-14 moderate; 15-21 severe): 0 Source: Developed by Drs. Tyrel Borrero, Vanna De Dios, Mello Major and colleagues, with an educational shabbir from [employer]. Review of Systems Const Denies chills, Denies headache(s) and Denies weight loss ENT Denies headache(s) Card Denies chest pain, Denies syncope, Denies irregular heart rhythm and Denies dyspnea Resp Denies chest congestion, Denies cough and Denies dyspnea GI Denies abdominal pain, Denies change in stool character, Denies nausea and Denies vomiting Musc Denies deformity and Denies joint swelling Neuro Denies syncope and Denies headache(s) Physical exam (Primary Care) Vital Signs: Last Vital Signs Pulse 52 06/07/23 13:50 BP 142/60 H 06/07/23 13:50 Pulse Ox 98 06/07/23 13:50 Oxygen Delivery Method Room Air 06/07/23 13:50 BMI result Body Mass Index 31.4 Tobacco/Smoking Status: Tobacco use Status Tobacco use date assessed 06/07/23 06/07/23 13:56 Patient Tobacco Use Status Never used Tobacco 06/07/23 13:56 e-Cigarette/Vaping Use Never Used 06/07/23 13:56 PHQ-9: PHQ-9 Score PHQ-9: Total score 0 06/07/23 13:56 Depression Screening Interpretation: Negative Thrive Assessment: Date of Thrive Assessment Date Thrive assessed 06/07/23 06/07/23 13:56 Const General: cooperative, comfortable, no acute distress and alert Neck Neck: Yes no lymphadenopathy Thyroid: Thyroid normal Resp Effort & Inspection: normal respiratory effort Auscultation: clear to auscultation bilaterally Percussion: percussion normal Cardio Jugular venous distension: no JVD Palpation: normal PMI Rate: regular rate Rhythm: regular rhythm Heart sounds: S1 normal heart sound present and S2 normal heart sound present GI Inspection: Yes normal to inspection Palpation (GI): No hepatosplenomegaly present Skin General skin exam: no rashes or lesions noted Extrem General: Yes no clubbing, cyanosis or edema Assessment and Plan Assessment & Plan (1) Sinusitis: Code(s): J32.9 - Chronic sinusitis, unspecified Plan: rx sent Medications: New azithromycin take 500 mg today (day 1), then 250 mg for 4 days (days 2-5) PO 6 tabs 0RF Coding Level of Care Code Est Pt Level 3 (13569) Diagnoses Sinusitis J32.9
[2023-06-07 13:50] VITALS: BP 142/60; PULSE 52; O2SAT 98; BMI 31.4
== END 2023-06-07 14:02 | disposition home or self-care (01) ==
PROVIDERS: PCP Internal Medicine; Visit Provider Internal Medicine
DX: J32.9 Chronic sinusitis, unspecified (principal)
CPT/HCPCS: 99213

== ENCOUNTER 2023-06-08 13:18 | Outpatient (AMB) | payer MEDICARE, OTHER, SELFPAY ==
--- NOTE | 2023-06-08 14:02 | A.OFFVIS_ITS ---
Intake Intake Visit Reasons: PO-RT thumb w/exten. tend. repair 04/28/23AR Intake Note: Dionne is a 67 year old male who presents today for a post operative follow up s/p Right Thumb EPL and EPB tendon repairs and washout of an open 1st metacarpal fracture following a chainsaw injury. Date of surgery 04/28/23. Cast off and xrays updated.Patient reports that he is doing well, he has had little to no pain. Denies numbness and tingling. No concerns. He is happy to have the cast off. Allergies No Known Allergies [No Known Allergies*] Allergy (Verified 06/07/23 13:50) HPI PO-RT thumb w/exten. tend. repair 04/28/23AR HPI Details Dionne is a 67 year old right hand dominant man presents S/P right thumb open fracture I&D, EPL tendon repair, EPB tendon repair, and laceration repair, DOS: 04/28/23. This injury occurred from a chainsaw, DOI: 04/26/23. He says he is doing well and has only minimal discomfort. He denies any numbness or tingling. He wants to know what his activity limitations are. [facility] Medical History Hx of sleep apnea Quadriceps tendon rupture CAD (coronary artery disease) Obesity (BMI 30-39.9) Hypertension Dyslipidemia Diabetic polyneuropathy associated with type 2 diabetes mellitus Diabetes type 2, uncontrolled Surgical History Hx of surgical procedure (04/14/23) History of knee surgery Hx of umbilical hernia repair Hx of hernia repair H/O wisdom tooth extraction Hx of removal of cyst S/P CABG x 5 Family History Mother Type 2 diabetes mellitus Father H/O heart artery stent Social History Household Members: Family Housing: House Alcohol intake: never Patient Tobacco Use Status: Never used Tobacco e-Cigarette/Vaping Use: Never Used Second Hand Smoke Exposure: No service: Yes Current occupational status: retired Current occupation: Rt handed Cognitive needs: Yes (cane) Hearing needs: No Vision needs: Yes (glasses) Physical Exam Const General: cooperative, healthy appearing and no acute distress Orientation/consciousness: patient oriented x3 HEENT Head: Yes normocephalic and Yes atraumatic Eyes EOM: EOMs intact bilaterally Resp Effort & Inspection: normal respiratory effort and able to speak in complete sentences Cardio Jugular venous distension: no JVD Skin General skin exam: turgor normal Rashes: no rashes Neuro General: patient oriented x3 Extrem Other: The patient was alert oriented and in no acute distress The incision is well-healed with no erythema drainage or evidence of infection. Good active flexion and extension of the fingers. Thumb ROM: He is able to demonstrate some early active flexion extension at the IP and MCP joints. He has also started to some circumduction at the thumb. Sensation is intact to the tips of the digits Cap refill is brisk Radiographs: 3 views of his right hand were taken and viewed by me today in clinic. No osteolysis or evidence of bone infection. Psych Appearance: grossly normal Affect: normal affect Attitude: cooperative Assessment & Plan Assessment & Plan (1) Laceration of extensor or abductor muscles, fascia and tendons of right thumb at forearm level, initial encounter: Code(s): S56.321A - Laceration of extensor or abductor muscles, fascia and tendons of right thumb at forearm level, initial encounter (2) Open fracture of first metacarpal bone of right hand: Code(s): S62.201B - Unspecified fracture of first metacarpal bone, right hand, initial encounter for open fracture Qualifiers: Encounter type: subsequent encounter Fracture healing: with routine healing Plan Assessment & Plan: 1. Right thumb 1st metacarpal shaft fracture, open cortical 2. Right thumb EPL tendon laceration 3. Right thumb EPB tendon laceration S/P: a. I&D b. EPL tendon repair c. EPB tendon repair d. Laceration repair DOS: 04/28/23 This was from a chainsaw injury, DOI: 04/26/23 The patient appears to be doing well post-operatively I discussed activity modification, he is able to use his hand for lightweight activities. I cautioned him not to do too much with his thumb for the next few weeks however He will perform wrist and finger ROM exercises at home. I ordered OT hand therapy to work on ROM and normalizing function He should avoid any underwater activities, or areas such as a sauna, for the next 5 days He can follow up in 4-6 weeks, prn Scribed for Shereen Kaufman MD by Alex Samuel, medical records receptionist, on 06/08/23 at 2:30 PM, EST. Orders: Orders OT Evaluation and Treatment Today S56.321A - Laceration of extensor or abductor muscles, fascia and tendons of right thumb at forearm level, initial encounter, S62.201B - Unspecified fracture of first metacarpal bone, right hand, initial encounter for open fracture Coding Level of Care Code Global (34455) Diagnoses Laceration of extensor or abductor muscles, fascia and tendons of right thumb at forearm level, initial encounter S56.321A Open fracture of first metacarpal bone of right hand S62.201B Encounter type: subsequent encounter Fracture healing: with routine healing
== END 2023-06-08 14:57 | disposition home or self-care (01) ==
PROVIDERS: PCP Internal Medicine; Visit Provider Orthopaedic Surgery
DX: S56.321A Laceration of extensor or abductor muscles, fascia and tendons of right thumb at forearm level, initial encounter (principal); S62.201B Unspecified fracture of first metacarpal bone, right hand, initial encounter for open fracture
CPT/HCPCS: 99024

== ENCOUNTER 2023-06-08 13:18 | Outpatient (REF) | payer MEDICARE, OTHER, SELFPAY ==
--- NOTE | ~2023-06-08 | XR_ITS ---
EXAMINATION: XR HAND, RIGHT CLINICAL INFORMATION: Pain in right hand Attention to thumb COMPARISON: None available. TECHNIQUE: PA, lateral, and oblique views of the right hand. FINDINGS: The bones are intact. No fracture. Alignment is anatomic. The radiocarpal joint is narrow. No erosions. 2 small ossific or calcific densities are seen adjacent to the radial base of the first metacarpal. Arterial calcification is noted. XR/XR hand RT min 3V IMPRESSION: 1. Mild degenerative change of the radiocarpal joint. 2. 2 small ossific or calcific densities are seen adjacent to the radial base of the first metacarpal. These are of uncertain etiology.
== END 2023-06-08 13:19 | disposition home or self-care (01) ==
LOC: HO.HOSX 13:18
PROVIDERS: PCP Internal Medicine; Visit Provider Orthopaedic Surgery
DX: S56.32 Laceration of extensor or abductor muscles, fascia and tendons of thumb at forearm level (principal); S62.241D Displaced fracture of shaft of first metacarpal bone, right hand, subsequent encounter for fracture with routine healing
CPT/HCPCS: 73130; 99212

== ENCOUNTER 2023-06-16 14:10 | Outpatient (AMB) | payer MEDICARE, OTHER, SELFPAY ==
[2023-06-16 14:19] VITALS: BP 116/80; PULSE 50; BMI 30.5
--- NOTE | 2023-06-16 14:19 | MHC.OFFVIS ---
Intake Vital Signs 06/16/23 14:19 Height 6 ft 1 in Weight 231 lb 7.766 oz BMI 30.5 BP 116/80 Blood Pressure Location Lt brachial Position Sitting Pulse 50 Intake Visit Reasons: 1 year follow up Intake Note: 1 year follow-up with ekg c/o leg weakness a few months ago got better after exercise Rehabilitation Services Aide Required: No Allergies No Known Allergies [No Known Allergies*] Allergy (Verified 06/07/23 13:50) HPI HPI Comments History of Present Illness Details Dionne comes for follow-up. Overall he has been doing well. Maintains activity with this tolerated. Taking all his medications. Head injury few weeks ago with requiring surgery to the right thumb tendons. Has doing well from that perspective. Back to exercise level with no exertional chest pain or shortness of breath. Taking all his medications. Last LDL well optimized at 56 mg/dL. Taking all his medications. [facility] Medical History Hx of sleep apnea Quadriceps tendon rupture CAD (coronary artery disease) Obesity (BMI 30-39.9) Hypertension Dyslipidemia Diabetic polyneuropathy associated with type 2 diabetes mellitus Diabetes type 2, uncontrolled Surgical History Hx of surgical procedure (04/14/23) History of knee surgery Hx of umbilical hernia repair Hx of hernia repair H/O wisdom tooth extraction Hx of removal of cyst S/P CABG x 5 Family History Mother Type 2 diabetes mellitus Father H/O heart artery stent Social History Household Members: Family Housing: House Alcohol intake: never Patient Tobacco Use Status: Never used Tobacco e-Cigarette/Vaping Use: Never Used Second Hand Smoke Exposure: No service: Yes Current occupational status: retired Current occupation: Rt handed Cognitive needs: Yes (cane) Hearing needs: No Vision needs: Yes (glasses) Review of Systems Const Denies chills, Denies fatigue, Denies fever(s), Denies frequent falls, Denies weakness, Denies weight gain and Denies weight loss ENT Denies dizziness Card Denies chest pain, Denies leg edema, Denies lightheadedness, Denies palpitations, Denies dyspnea, Denies dyspnea on exertion, Denies orthopnea and Denies other (loss of consciousness) Resp Denies cough, Denies dyspnea and Denies dyspnea on exertion GI Denies hematochezia and Denies change in stool character Musc Denies abnormal gait, Denies muscle weakness, Denies numbness, Denies radiating pain into limb and Denies tingling Neuro Denies abnormal gait, Denies dizziness, Denies frequent falls, Denies numbness, Denies tingling and Denies weakness Endo Denies fatigue and Denies palpitations Physical Exam Vital Signs: Last Vital Signs Pulse 50 06/16/23 14:19 BP 116/80 06/16/23 14:19 BMI result Body Mass Index 30.5 Const General: cooperative, comfortable, no acute distress, alert and awake Nutritional Appearance: obese Orientation/consciousness: patient oriented x3 Limitations: no limitations Neck Neck: Yes trachea midline, Yes supple and Yes no JVD Carotids: no bruits Chest Chest palpation & inspection: normal inspection of the chest and other (Well-healed sternotomy scar) Resp Effort & Inspection: normal respiratory effort Auscultation: clear to auscultation bilaterally Cardio Jugular venous distension: no JVD Palpation: normal PMI Rate: regular rate Rhythm: regular rhythm Heart sounds: S1 normal heart sound present, S2 normal heart sound present, no click, no gallops, no murmurs and no rubs Peripheral pulses: Peripheral pulses 2+ throughout GI Auscultation: normal bowel sounds Skin General skin exam: no rashes or lesions noted Neuro General: patient oriented x3 and no focal motor deficits Extrem General: Yes no clubbing, cyanosis or edema Psych Appearance: grossly normal Office Procedures EKG Details: EKG shows sinus bradycardia with first-degree AV block with poor R-wave progression most likely due to lead placement with nonspecific ST changes [id number], Complete Assessment & Plan Assessment & Plan (1) CAD (coronary artery disease): Code(s): I25.10 - Atherosclerotic heart disease of [place] coronary artery without angina pectoris Plan: Coronary artery disease with remote coronary bypass grafting with no recurrent symptoms. Myocardial perfusion imaging 5 years post was within normal limits. No further testing is needed at this point time. Advised to call me with any new symptoms. Continue aggressive medical therapy. Lifelong aspirin therapy is advised. Continue aggressive blood pressure control, see below. Continue aggressive diabetes management goal hemoglobin A1c less than 7%. LDL is well optimized at current point in time. Advised to maintain activity level as tolerated. (2) Hypertension: Code(s): I10 - Essential (primary) hypertension Plan: Hypertension which is currently well optimized advised to monitor blood pressure at home maintain a log. Goal blood pressure less than 130/84. Low-salt diet was discussed. Continue current therapy. Advised to maintain activity level as tolerated. Will follow up in the clinic in 1 year's time, sooner p.r.n.. Thank you for allowing me to partake in his care Coding Level of Care Code Est Pt Level 4 (14192) Diagnoses CAD (coronary artery disease) I25.10 Hypertension I10 CPT Codes EKG - CPT: [id number], Complete ([id number])
== END 2023-06-16 14:47 | disposition home or self-care (01) ==
PROVIDERS: Visit Provider Internal Medicine Cardiovascular Disease
DX: I25.10 Atherosclerotic heart disease of native coronary artery without angina pectoris (principal); I10 Essential (primary) hypertension
CPT/HCPCS: 93010; 99214

== ENCOUNTER → 2023-06-16 14:10 | Outpatient (BNVA) | payer MEDICARE, OTHER, SELFPAY | PROVIDERS: Visit Provider Internal Medicine Cardiovascular Disease | DX: I25.10 Atherosclerotic heart disease of native coronary artery without angina pectoris (principal); I10 Essential (primary) hypertension | CPT/HCPCS: 93005; 99212 ==

== ENCOUNTER 2023-07-27 08:30 | Outpatient (RCR) | payer MEDICARE, OTHER, SELFPAY ==
--- NOTE | 2023-06-22 10:48 | MHC.OT.EP ---
[address] [phone] Occupational Therapy Plan of Care Patient Name: Dionne Haynes Date of Evaluation: 06/22/23 Diagnosis: S/P EPL amd EPB tendon repairs and I+D 1st MC fracture. Pain Location: Denies pain right thumb Pain Score: 0 Pain Scale Used: Numeric (0 - 10) Aggravating Factors: Alleviating Factors: Assessment: Pt is a 67 yo male ,8 wks s/p right thumb MC laceration/fracture and EPL and EPB tendon repairs due to a chain saw injury. Pt presents with impairment in right thumb AROM primarily due to extensor tendons adhesion . Pt also with mild Dupuytrens at middle finger. Pt right dominant hand dextrerity is moderately functional with the FDT. He reports mimimal difficulty with daily activities such as pressing the Krowder button. Pt will benefit from OT to improve thumb AROM and hand dexterity Frequency and Duration: The patient will be seen 2 x wk, x 4 wks Short Term Goals: Demo indep with scar mobilization Demo indep with HEP Thumb radial abd with MCPj and IP jt in neutral FDT to moderately functional Report increased ease with daily activities Mcc Goals: Same as above Treatment Plan: Therapeutic Exercise Therapeutic Activity Home Exercise Program Patient Education Ultrasound Soft Tissue Mobilization Other (see comments) Scar management Electronically Signed By: Adrienne Pires OT CHT CLT Please Sign and return to therapist. Thank you once again for your referral.
--- NOTE | 2023-07-27 09:26 | MHC.OT.DC ---
[address] [phone] F: [phone] Occupational Therapy Discharge Note Patient Name: Dionne Haynes Provider: Shereen Kaufman Diagnosis: S/P EPL amd EPB tendon repairs and I+D 1st MC fracture. Date of Surgery: 04/28/23 Date of Evaluation: 06/22/23 Date of Discharge: 07/27/23 Treatments to Date: 8 Cancellations to Date: No Shows to Date: Discharge Status: Achieved Goals Improved Function Independent with HEP Discharge Summary: Pt is 12 wks s/p EPL and EPB tendon repair. ROM , strength and functional dexterity are all WFL. Con't limitation in thumb ext due to tendon adhesion. Pt is independent with his HEP , including scar mobilization and has begun resistive ex He reports no difficulty with daily activity except unable to hold storm door handle and press button due to limited active extension. Electronically Signed By: Adrienne Pires OT CHT CLT Reviewed/agree with student documentation: N/A Therapist: Please Sign and return to therapist, thank you for your referral.
== END 2023-07-27 09:27 | disposition home or self-care (01) ==
LOC: HO.OT 08:30
PROVIDERS: PCP Internal Medicine; Visit Provider Orthopaedic Surgery
DX: S62.201D Unspecified fracture of first metacarpal bone, right hand, subsequent encounter for fracture with routine healing (principal); S56.32 Laceration of extensor or abductor muscles, fascia and tendons of thumb at forearm level
CPT/HCPCS: 97035; 97110; 97140; 97165

== ENCOUNTER 2023-09-23 08:09 | Outpatient (AMB) | payer MEDICARE, OTHER, SELFPAY ==
[2023-09-23 08:34] VITALS: BP 132/68; PULSE 53; O2SAT 99; BMI 32.1
--- NOTE | 2023-09-23 08:34 | MHC.PC.OV ---
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5 mg 1 tab PO DAILY metformin ER 1,000 mg (2 x 500 mg) PO BID 90 days metoprolol succinate ER (Toprol XL) 100 mg PO DAILY multivitamin 1 tab PO DAILY Tobacco use date assessed: 09/23/23 Fall risk assessment: No Falls in past year Last assessed Fall Risk: 09/23/23 Dental Screening Dental Screen Date: 09/23/23 Did you have a dental visit in the last 12 months?: Yes Did you have a dental problem in the last 6 months where you did not have access to dental care?: No Was dental information given to patient?: Patient has dentist HPI 6mth f/u HPI Details DM HTN and hyperlipidemia; on vacation with dietary indiscretion [facility] Medical History Hx of sleep apnea Quadriceps tendon rupture CAD (coronary artery disease) Obesity (BMI 30-39.9) Hypertension Dyslipidemia Diabetic polyneuropathy associated with type 2 diabetes mellitus Diabetes type 2, uncontrolled Surgical History Hx of surgical procedure (04/14/23) History of knee surgery Hx of umbilical hernia repair Hx of hernia repair H/O wisdom tooth extraction Hx of removal of cyst S/P CABG x 5 Family History Mother Type 2 diabetes mellitus Father H/O heart artery stent Social History Household Members: Family Housing: House Alcohol intake: never Patient Tobacco Use Status: Never used Tobacco e-Cigarette/Vaping Use: Never Used Second Hand Smoke Exposure: No service: Yes Current occupational status: retired Current occupation: Rt handed Cognitive needs: Yes (cane) Hearing needs: No Vision needs: Yes (glasses) Questionnaire PHQ-9 Over the last 2 weeks, how often have you been bothered by any of the following problems? 1. Little interest or pleasure in doing things: not at all 2. Feeling down, depressed, or hopeless: not at all 3. Trouble falling or staying asleep, or sleeping too much: not at all 4. Feeling tired or having little energy: not at all 5. Poor appetite or overeating: not at all 6. Feeling bad about yourself - or that you are a failure or have let yourself or your family down: not at all 7. Trouble concentrating on things, such as reading the newspaper or watching television: not at all 8. Moving or speaking so slowly that other people could have noticed. Or the opposite - being so fidgety or restless that you have been moving around a lot more than usual: not at all 9. Thoughts that you would be better off or of hurting yourself in some way: not at all Total score: 0 Depression Screening Interpretation: Negative Depression Screening Done: Yes 16616 - PHQ-9 Billing: Yes Source: Developed by Drs. Tyrel Borrero, Vanna De Dios, Mello Major and colleagues, with an educational shabbir from [employer]. Thrive Questionnaire Date Thrive assessed: 09/23/23 I am a: Patient What is your living situation today?: I have a steady place to live Within the past 12 months, did the food you bought not last and you didn't have the money to get more?: Never true Within the past 12 months, did you worry whether your food would run out before you got money to buy more?: Never true Do you have trouble paying for medicines?: No Do you have trouble getting transportation to medical appointments?: No Do you have trouble paying your heating and electricity bill?: No Do you have trouble taking care of your child, family member or friend?: No Do you have trouble with day-to-day activities such as bathing, preparing meals, shopping, managing finances, etc.?: No Are you currently unemployed and looking for a job?: No Are you interested in more education?: No Please select the resources that you would like help with: None THRIVE Score: 0 AUDIT C Alcohol Use Questionnaire (AUDIT-C) 1. How often do you have a drink containing alcohol?: Never Total Score: 0 Score Reviewed/Action Taken: Yes IRAIS-7 AMB Questionnaire IRAIS-7 Date IRAIS - 7 assessed: 09/23/23 Feeling nervous, anxious, or on edge: 0 = Not at all Not being able to stop or control worryin = Not at all Worrying too much about different things: 0 = Not at all Trouble relaxin = Not at all Being so restless that it is hard to sit still: 0 = Not at all Becoming easily annoyed or irritable: 0 = Not at all Feeling afraid as if something awful might happen: 0 = Not at all Total IRAIS-7 score (0-4 normal; 5-9 mild; 10-14 moderate; 15-21 severe): 0 Source: Developed by Drs. Tyrel Borrero, Vanna De Dios, Mello Major and colleagues, with an educational shabbir from [employer]. IRAIS-7 Assessment Billing IRAIS-7 Assessment Tool: IRAIS-7 Assessment 88118 Review of Systems Const Denies chills, Denies headache(s) and Denies weight loss ENT Denies headache(s) Card Denies chest pain, Denies syncope, Denies irregular heart rhythm and Denies dyspnea Resp Denies chest congestion, Denies cough and Denies dyspnea GI Denies abdominal pain, Denies change in stool character, Denies nausea and Denies vomiting Musc Denies deformity and Denies joint swelling Neuro Denies syncope and Denies headache(s) Physical exam (Primary Care) Vital Signs: Last Vital Signs Pulse 53 09/23/23 08:34 BP 132/68 09/23/23 08:34 Pulse Ox 99 09/23/23 08:34 Oxygen Delivery Method Room Air 09/23/23 08:34 BMI result Body Mass Index 32.1 Tobacco/Smoking Status: Tobacco use Status Tobacco use date assessed 09/23/23 09/23/23 08:35 Patient Tobacco Use Status Never used Tobacco 09/23/23 08:35 e-Cigarette/Vaping Use Never Used 09/23/23 08:35 PHQ-9: PHQ-9 Score PHQ-9: Total score 0 09/23/23 08:44 Depression Screening Interpretation: Negative Thrive Assessment: Date of Thrive Assessment Date Thrive assessed 09/23/23 09/23/23 08:35 Const General: cooperative, comfortable, no acute distress and alert Neck Neck: Yes no lymphadenopathy Thyroid: Thyroid normal Resp Effort & Inspection: normal respiratory effort Auscultation: clear to auscultation bilaterally Percussion: percussion normal Cardio Jugular venous distension: no JVD Palpation: normal PMI Rate: regular rate Rhythm: regular rhythm Heart sounds: S1 normal heart sound present and S2 normal heart sound present GI Inspection: Yes normal to inspection Palpation (GI): No hepatosplenomegaly present Skin General skin exam: no rashes or lesions noted Extrem General: Yes no clubbing, cyanosis or edema Results AMB Hemoglobin A1c AMB Hemoglobin A1c 10.5 % Last Edit by EVANS Christopher on 09/23/23 08:45 Results Reviewed Results Reviewed: Laboratory Last Values Hgb A1c (Clinic) 10.5 % (4.0-6.0) H 09/23/23 08:35 Assessment and Plan Assessment & Plan (1) Type 2 diabetes mellitus with hyperlipidemia: Code(s): E11.69 - Type 2 diabetes mellitus with other specified complication; E78.5 - Hyperlipidemia, unspecified Plan: will improve diet; no change in rx (2) Dyslipidemia: Code(s): E78.5 - Hyperlipidemia, unspecified Plan: check labs (3) Hypertension: Code(s): I10 - Essential (primary) hypertension Plan: stable Orders: Orders AMB Hemoglobin A1c Today E11.69 - Type 2 diabetes mellitus with other specified complication, E78.5 - Hyperlipidemia, unspecified Complete Blood Count Auto Diff Today D64.9 - Anemia, unspecified Prostate Specific Antigen Scr Today Z00.00 - Encounter for general adult medical examination without abnormal findings Comprehensive [place]. Panel Fast Today N28.9 - Disorder of kidney and ureter, unspecified Lipid Panel Today E78.5 - Hyperlipidemia, unspecified Hemoglobin A1c Today R73.9 - Hyperglycemia, unspecified Referrals Podiatry Referral E11.69 - Type 2 diabetes mellitus with other specified complication, E78.5 - Hyperlipidemia, unspecified Coding Level of Care Code Est Pt Level 4 (74659) Diagnoses Type 2 diabetes mellitus with hyperlipidemia E11.69; E78.5 Dyslipidemia E78.5 Hypertension I10 Additional Codes IRAIS-7 Assessment Billing - IRAIS-7 Assessment Tool: IRAIS-7 Assessment 58856 ([id number])
== END 2023-09-23 08:55 | disposition home or self-care (01) ==
PROVIDERS: PCP Internal Medicine; Visit Provider Internal Medicine
DX: E11.69 Type 2 diabetes mellitus with other specified complication (principal); E78.5 Hyperlipidemia, unspecified; I10 Essential (primary) hypertension
CPT/HCPCS: 83036; 99214

== ENCOUNTER 2023-12-20 09:28 | Outpatient (REF) | payer MEDICARE, OTHER, SELFPAY ==
[2023-12-20 09:54] LABS: MANUAL DIFF FLAG NO
[2023-12-20 10:14] LABS: Basophils Absolute Auto 0.1 X10*3/uL (0.0-0.2); Basophils Percent Auto 1.2 % (0-2); Eosinophils Absolute Auto 0.3 X10*3/uL (0.0-0.4); Eosinophils Percent Auto 5.3 % (0-4); Hematocrit 45.1 % (42.0-52.0); Hemoglobin 15.4 g/dl (14.0-18.0); Imm Gran Abs Auto 0.02 X10*3/uL (0.00-0.03); Imm Gran Pct Auto 0.4 % (0.0-0.4); Lymphocytes Absolute Auto 1.6 X10*3/uL (1.2-4.9); Lymphocytes Percent Auto 31.6 % (20-40); Mean Corpuscular HGB Conc 34.1 g/dl (31.0-36.0); Mean Corpuscular Hemoglobin 28.1 pg (27.0-33.0); Mean Corpuscular Volume 82.1 fL (80.0-98.0); Mean Platelet Volume 10.9 fL (9.4-12.4); Monocytes Absolute Auto 0.5 X10*3/uL (0.1-1.2); Monocytes Percent Auto 9.9 % (2-11); Neutrophils Absolute Auto 2.5 x10*3/uL (2.0-8.3); Neutrophils Percent Auto 51.6 % (45-73); Platelet Count 145 X10*3/uL (160-400); Red Blood Count 5.49 X10*6/uL (4.60-5.80); Red Cell Distribution Width 13.7 % (11.0-16.0); White Blood Count 4.9 X10*3/uL (4.8-10.8)
[2023-12-20 10:20] LABS: Estimated Average Glucose 220 mg/dL; Hemoglobin A1c % 9.3 % (<6.0)
[2023-12-20 11:27] LABS: Creatinine Urine 80.87 mg/dL; Microalbum/Creatinine Ratio Ur 6.1 ug/mg cr (<30)
[2023-12-20 11:28] LABS: Alanine Aminotransferase 31 U/L (0-40); Albumin Level 4.3 g/dL (3.5-5.0); Alkaline Phosphatase 96 U/L (39-117); Anion Gap 16 (12-20); Aspartate Amino Transferase 27 U/L (5-37); Blood Urea Nitrogen 28 mg/dL (9-16); Calcium 9.1 mg/dL (8.4-10.2); Carbon Dioxide 22 mmol/L (22-29); Chloride 106 mmol/L (96-108); Cholesterol 105 mg/dL (<200); Estimated Glomerular Filt Rate 57; Glucose Fasting 153 mg/dL (60-99); HDL Cholesterol 29 mg/dL (>40); LDL Cholesterol Calculated 44 mg/dL (<100); Potassium 4.7 mmol/L (3.3-5.1); Sodium 139 mmol/L (135-145); Total Protein 7.2 g/dL (6.5-8.0); Triglycerides 164 mg/dL (<150)
== END 2023-12-20 09:29 | disposition home or self-care (01) ==
LOC: HO.LAB 09:28
PROVIDERS: PCP Internal Medicine; Visit Provider Internal Medicine
DX: Z00.00 Encounter for general adult medical examination without abnormal findings (principal); D64.9 Anemia, unspecified; N28.9 Disorder of kidney and ureter, unspecified; R73.9 Hyperglycemia, unspecified; E78.5 Hyperlipidemia, unspecified; E11.69 Type 2 diabetes mellitus with other specified complication; E66.01 Morbid (severe) obesity due to excess calories; Z12.5 Encounter for screening for malignant neoplasm of prostate
CPT/HCPCS: 36415; 80053; 80061; 82043; 82570; 83036; 84153; 85025

== ENCOUNTER 2024-02-03 08:58 | Outpatient (AMB) | payer MEDICARE, OTHER, SELFPAY ==
[2024-02-03 09:15] VITALS: BP 120/70; PULSE 53; O2SAT 98; BMI 32.5
--- NOTE | 2024-02-03 09:15 | MHC.PC.OV ---
Vital Signs 02/03/24 09:15 Height 6 ft 1 in Weight 246 lb BMI 32.5 BP 120/70 Blood Pressure Location Lt brachial Position Sitting Pulse 53 Pulse Source Pulse Oximeter Pulse Oximetry (%) 98 Oxygen Delivery Method Room Air Intake Visit Reasons: Check up, follow up Blood work Data Processing Operator Required: No Mercerizing Range Feeder: Not Required per policy Accompanied by: Self / Same As Patient Allergies No Known Allergies [No Known Allergies*] Allergy (Verified 02/03/24 09:16) Medication List - Last Reconciled 02/03/24 by Parker Peace MD acetaminophen 650 mg (2 x 325 mg) PO Q6H PRN 30 days amlodipine 5 mg PO DAILY atorvastatin 80 mg PO BEDTIME blood sugar diagnostic (FreeStyle Lite Strips) 3 times a day empagliflozin (Jardiance) 25 mg PO DAILY 90 days flash glucose sensor (FreeStyle Bo 14 Day Sensor kit) every 14 days garlic 100 mg PO DAILY lancets (FreeStyle Lancets) 3 times a day lisinopril-hydrochlorothiazide 20-12.5 mg 1 tab PO DAILY metformin ER 1,000 mg (2 x 500 mg) PO BID 90 days metoprolol succinate ER (Toprol XL) 100 mg PO DAILY multivitamin 1 tab PO DAILY Tobacco use date assessed: 09/23/23 Fall risk assessment: No Falls in past year Last assessed Fall Risk: 02/03/24 Dental Screening Dental Screen Date: 09/23/23 HPI Check up, follow up Blood work HPI Details diabetes htn and hyperlip; bs improving with diet and exercise; compliant with meds [facility] Medical History Hx of sleep apnea Quadriceps tendon rupture CAD (coronary artery disease) Obesity (BMI 30-39.9) Hypertension Dyslipidemia Diabetic polyneuropathy associated with type 2 diabetes mellitus Diabetes type 2, uncontrolled Surgical History Hx of surgical procedure (04/14/23) History of knee surgery Hx of umbilical hernia repair Hx of hernia repair H/O wisdom tooth extraction Hx of removal of cyst S/P CABG x 5 Family History Mother Type 2 diabetes mellitus Father H/O heart artery stent Social History Household Members: Family Housing: House Alcohol intake: never Patient Tobacco Use Status: Never used Tobacco e-Cigarette/Vaping Use: Never Used Second Hand Smoke Exposure: No service: Yes Current occupational status: retired Current occupation: Rt handed Cognitive needs: Yes (cane) Hearing needs: No Vision needs: Yes (glasses) Questionnaire Thrive Questionnaire Date Thrive assessed: 09/23/23 IRAIS-7 AMB Questionnaire IRAIS-7 Date IRAIS - 7 assessed: 09/23/23 Source: Developed by Drs. Tyrel Borrero, Vanna De Dios, Mello Major and colleagues, with an educational shabbir from [employer]. Review of Systems Const Denies chills, Denies headache(s) and Denies weight loss ENT Denies headache(s) Card Denies chest pain, Denies syncope, Denies irregular heart rhythm and Denies dyspnea Resp Denies chest congestion, Denies cough and Denies dyspnea GI Denies abdominal pain, Denies change in stool character, Denies nausea and Denies vomiting Musc Denies deformity and Denies joint swelling Neuro Denies syncope and Denies headache(s) Physical exam (Primary Care) Vital Signs: Last Vital Signs Pulse 53 02/03/24 09:15 BP 120/70 02/03/24 09:15 Pulse Ox 98 02/03/24 09:15 Oxygen Delivery Method Room Air 02/03/24 09:15 BMI result Body Mass Index 32.5 Tobacco/Smoking Status: Tobacco use Status Tobacco use date assessed 09/23/23 02/03/24 09:17 Patient Tobacco Use Status Never used Tobacco 02/03/24 09:17 e-Cigarette/Vaping Use Never Used 02/03/24 09:17 Thrive Assessment: Date of Thrive Assessment Date Thrive assessed 09/23/23 02/03/24 09:17 Const General: cooperative, comfortable, no acute distress and alert Neck Neck: Yes no lymphadenopathy Thyroid: Thyroid normal Resp Effort & Inspection: normal respiratory effort Auscultation: clear to auscultation bilaterally Percussion: percussion normal Cardio Jugular venous distension: no JVD Palpation: normal PMI Rate: regular rate Rhythm: regular rhythm Heart sounds: S1 normal heart sound present and S2 normal heart sound present GI Inspection: Yes normal to inspection Palpation (GI): No hepatosplenomegaly present Skin General skin exam: no rashes or lesions noted Extrem General: Yes no clubbing, cyanosis or edema Assessment and Plan Assessment & Plan (1) Type 2 diabetes mellitus with hyperlipidemia: Code(s): E11.69 - Type 2 diabetes mellitus with other specified complication; E78.5 - Hyperlipidemia, unspecified Plan: improving; same rx; do labs (2) Dyslipidemia: Code(s): E78.5 - Hyperlipidemia, unspecified Plan: stable; same rx (3) Hypertension: Code(s): I10 - Essential (primary) hypertension Plan: stable; same rx Orders: Orders Lipid Panel Today Z13.220 - Encounter for screening for lipoid disorders Glucose Fasting Today R73.9 - Hyperglycemia, unspecified Hemoglobin A1c Today R73.9 - Hyperglycemia, unspecified Coding Level of Care Code Est Pt Level 4 (45092) Diagnoses Type 2 diabetes mellitus with hyperlipidemia E11.69; E78.5 Dyslipidemia E78.5 Hypertension I10
== END 2024-02-03 09:40 | disposition home or self-care (01) ==
PROVIDERS: PCP Internal Medicine; Visit Provider Internal Medicine
DX: E11.69 Type 2 diabetes mellitus with other specified complication (principal); E78.5 Hyperlipidemia, unspecified; I10 Essential (primary) hypertension
CPT/HCPCS: 99214

== ENCOUNTER 2024-05-08 08:32 | Outpatient (AMB) | payer MEDICARE, OTHER, SELFPAY ==
[2024-05-08 08:33] VITALS: BP 134/64; PULSE 55; O2SAT 98; BMI 31.4
--- NOTE | 2024-05-08 08:33 | MHC.PC.OV ---
Vital Signs 05/08/24 08:33 Height 6 ft 1 in Weight 238 lb BMI 31.4 BP 134/64 Blood Pressure Location Lt brachial Position Sitting Pulse 55 Pulse Source Pulse Oximeter Pulse Oximetry (%) 98 Oxygen Delivery Method Room Air Intake Visit Reasons: 3 mo f/u Hedis Specialist Required: No Accompanied by: Self / Same As Patient Allergies No Known Allergies [No Known Allergies*] Allergy (Verified 02/03/24 09:16) Medication List - Last Reconciled 05/08/24 by Parker Peace MD acetaminophen 650 mg (2 x 325 mg) PO Q6H PRN 30 days amlodipine 5 mg PO DAILY atorvastatin 80 mg PO BEDTIME blood sugar diagnostic (FreeStyle Lite Strips) 3 times a day empagliflozin (Jardiance) 25 mg PO DAILY 90 days flash glucose sensor (FreeStyle Bo 14 Day Sensor kit) every 14 days garlic 100 mg PO DAILY lancets (FreeStyle Lancets) 3 times a day lisinopril-hydrochlorothiazide 20-12.5 mg 1 tab PO DAILY metformin ER 1,000 mg (2 x 500 mg) PO BID 90 days metoprolol succinate ER (Toprol XL) 100 mg PO DAILY multivitamin 1 tab PO DAILY Tobacco use date assessed: 09/23/23 Fall risk assessment: No Falls in past year Last assessed Fall Risk: 05/08/24 Dental Screening Dental Screen Date: 09/23/23 HPI 3 mo f/u HPI Details HTN on Rx; doing well and compliant [facility] Medical History Hx of sleep apnea Quadriceps tendon rupture CAD (coronary artery disease) Obesity (BMI 30-39.9) Hypertension Dyslipidemia Diabetic polyneuropathy associated with type 2 diabetes mellitus Diabetes type 2, uncontrolled Surgical History Hx of surgical procedure (04/14/23) History of knee surgery Hx of umbilical hernia repair Hx of hernia repair H/O wisdom tooth extraction Hx of removal of cyst S/P CABG x 5 Family History Mother Type 2 diabetes mellitus Father H/O heart artery stent Social History Household Members: Family Housing: House Alcohol intake: never Patient Tobacco Use Status: Never used Tobacco Tobacco use type: Cigarette e-Cigarette/Vaping Use: Never Used Second Hand Smoke Exposure: No service: Yes Current occupational status: retired Current occupation: Rt handed Cognitive needs: Yes (cane) Hearing needs: No Vision needs: Yes (glasses) Questionnaire PHQ-9 Over the last 2 weeks, how often have you been bothered by any of the following problems? 1. Little interest or pleasure in doing things: not at all 2. Feeling down, depressed, or hopeless: not at all 3. Trouble falling or staying asleep, or sleeping too much: not at all 4. Feeling tired or having little energy: not at all 5. Poor appetite or overeating: not at all 6. Feeling bad about yourself - or that you are a failure or have let yourself or your family down: not at all 7. Trouble concentrating on things, such as reading the newspaper or watching television: not at all 8. Moving or speaking so slowly that other people could have noticed. Or the opposite - being so fidgety or restless that you have been moving around a lot more than usual: not at all 9. Thoughts that you would be better off or of hurting yourself in some way: not at all Total score: 0 Depression Screening Interpretation: Negative Depression Screening Done: Yes 67504 - PHQ-9 Billing: Yes Source: Developed by Drs. Tyrel Borrero, Vanna De Dios, Mello Major and colleagues, with an educational shabbir from [employer]. Thrive Questionnaire Date Thrive assessed: 09/23/23 Are you currently unemployed and looking for a job?: No AUDIT C Alcohol Use Questionnaire (AUDIT-C) 1. How often do you have a drink containing alcohol?: Never Total Score: 0 Score Reviewed/Action Taken: Yes IRAIS-7 AMB Questionnaire IRAIS-7 Date IRAIS - 7 assessed: 09/23/23 Source: Developed by Drs. Tyrel Borrero, Vanan De Dios, Mello Major and colleagues, with an educational shabbir from [employer]. Review of Systems Const Denies chills, Denies headache(s) and Denies weight loss ENT Denies headache(s) Card Denies chest pain, Denies syncope, Denies irregular heart rhythm and Denies dyspnea Resp Denies chest congestion, Denies cough and Denies dyspnea GI Denies abdominal pain, Denies change in stool character, Denies nausea and Denies vomiting Musc Denies deformity and Denies joint swelling Neuro Denies syncope and Denies headache(s) Physical exam (Primary Care) Vital Signs: Last Vital Signs Pulse 55 05/08/24 08:33 BP 134/64 05/08/24 08:33 Pulse Ox 98 05/08/24 08:33 Oxygen Delivery Method Room Air 05/08/24 08:33 BMI result Body Mass Index 31.4 Tobacco/Smoking Status: Tobacco use Status Tobacco use date assessed 09/23/23 05/08/24 08:42 Patient Tobacco Use Status Never used Tobacco 05/08/24 08:42 Tobacco use type Cigarette 05/08/24 08:42 e-Cigarette/Vaping Use Never Used 05/08/24 08:42 PHQ-9: PHQ-9 Score PHQ-9: Total score 0 05/08/24 08:42 Depression Screening Interpretation: Negative Thrive Assessment: Date of Thrive Assessment Date Thrive assessed 09/23/23 05/08/24 08:42 Const General: cooperative, comfortable, no acute distress and alert Neck Neck: Yes no lymphadenopathy Thyroid: Thyroid normal Resp Effort & Inspection: normal respiratory effort Auscultation: clear to auscultation bilaterally Percussion: percussion normal Cardio Jugular venous distension: no JVD Palpation: normal PMI Rate: regular rate Rhythm: regular rhythm Heart sounds: S1 normal heart sound present and S2 normal heart sound present GI Inspection: Yes normal to inspection Palpation (GI): No hepatosplenomegaly present Skin General skin exam: no rashes or lesions noted Extrem General: Yes no clubbing, cyanosis or edema Results AMB Hemoglobin A1c AMB Hemoglobin A1c 9.5 % Last Edit by Naa Alvarado CMA on 05/08/24 08:45 Results Reviewed Results Reviewed: Laboratory Last Values Hgb A1c (Clinic) 9.5 % (4.0-6.0) H 05/08/24 08:42 Coding Level of Care Code Est Pt Level 3 (02403) Diagnoses Hypertension I10
== END 2024-05-08 09:30 | disposition home or self-care (01) ==
PROVIDERS: PCP Internal Medicine; Visit Provider Internal Medicine
DX: E11.69 Type 2 diabetes mellitus with other specified complication (principal); E78.5 Hyperlipidemia, unspecified; I10 Essential (primary) hypertension

== ENCOUNTER → 2024-05-08 08:32 | Outpatient (BNVA) | payer MEDICARE, OTHER, SELFPAY | PROVIDERS: PCP Internal Medicine; Visit Provider Internal Medicine | DX: I10 Essential (primary) hypertension (principal); E11.42 Type 2 diabetes mellitus with diabetic polyneuropathy; Z79.84 Long term (current) use of oral hypoglycemic drugs | CPT/HCPCS: 83036; 96127; 99212 ==

== ENCOUNTER 2024-06-19 09:28 | Outpatient (AMB) | payer MEDICARE, OTHER, SELFPAY ==
[2024-06-19 09:30] VITALS: BP 134/72; PULSE 55; BMI 31.6
--- NOTE | 2024-06-19 09:30 | MHC.OFFVIS ---
Vital Signs 06/19/24 09:30 Height 6 ft 1 in Weight 239 lb 6.752 oz BMI 31.6 BP 134/72 Blood Pressure Location Lt brachial Position Sitting Pulse 55 Pulse Source Monitor Intake Visit Reasons: 1 year fu Intake Note: 1 yr f/up Protective Signal Superintendent Required: No Accompanied by: Self / Same As Patient Allergies No Known Allergies [No Known Allergies*] Allergy (Verified 02/03/24 09:16) Medication List - Last Reconciled 06/19/24 by Norberto Jacobson MD amlodipine 5 mg PO DAILY aspirin (Adult Low Dose Aspirin) 81 mg PO DAILY atorvastatin 80 mg PO BEDTIME blood sugar diagnostic (FreeStyle Lite Strips) 3 times a day empagliflozin (Jardiance) 25 mg PO DAILY 90 days flash glucose sensor (FreeStyle Ob 14 Day Sensor kit) every 14 days garlic 100 mg PO DAILY lancets (FreeStyle Lancets) 3 times a day lisinopril-hydrochlorothiazide 20-12.5 mg 1 tab PO DAILY metformin ER 1,000 mg (2 x 500 mg) PO BID 90 days metoprolol succinate ER (Toprol XL) 100 mg PO DAILY multivitamin 1 tab PO DAILY HPI Comments Details: Dionne comes for follow-up. He has been doing very well overall from cardiac perspective. Says usually gets tired usually in the truncal muscle after standing for long period time. No clear symptoms suggestive of claudication. Denies any exertional chest pain or shortness of breath. Denies any heart failure symptoms. Denies any prolonged palpitation irregular heartbeat. Takes all his medications. His hemoglobin A1c was elevated and has been prescribed new medications. He is working on his lifestyle modification as well. Takes all his medications. [facility] Medical History Hx of sleep apnea Quadriceps tendon rupture CAD (coronary artery disease) Obesity (BMI 30-39.9) Hypertension Dyslipidemia Diabetic polyneuropathy associated with type 2 diabetes mellitus Diabetes type 2, uncontrolled Surgical History Hx of surgical procedure (04/14/23) History of knee surgery Hx of umbilical hernia repair Hx of hernia repair H/O wisdom tooth extraction Hx of removal of cyst S/P CABG x 5 Family History Mother Type 2 diabetes mellitus Father H/O heart artery stent Social History Household Members: Family Housing: House Alcohol intake: never Patient Tobacco Use Status: Never used Tobacco Tobacco use type: Cigarette e-Cigarette/Vaping Use: Never Used Second Hand Smoke Exposure: No service: Yes Current occupational status: retired Current occupation: Rt handed Cognitive needs: Yes (cane) Hearing needs: No Vision needs: Yes (glasses) Review of Systems Const Denies chills, Denies fatigue, Denies fever(s), Denies frequent falls, Denies weakness, Denies weight gain and Denies weight loss ENT Denies dizziness Card Denies chest pain, Denies leg edema, Denies lightheadedness, Denies palpitations, Denies dyspnea and Denies dyspnea on exertion Resp Denies cough, Denies dyspnea and Denies dyspnea on exertion GI Denies hematochezia Musc Denies abnormal gait, Denies muscle weakness, Denies numbness, Denies radiating pain into limb and Denies tingling Neuro Denies abnormal gait, Denies dizziness, Denies frequent falls, Denies numbness, Denies tingling and Denies weakness Endo Denies fatigue and Denies palpitations Physical Exam Vital Signs: Last Vital Signs Pulse 55 06/19/24 09:30 BP 134/72 06/19/24 09:30 BMI result Body Mass Index 31.6 Const General: cooperative, comfortable, no acute distress, alert and awake Nutritional Appearance: obese Orientation/consciousness: patient oriented x3 Limitations: no limitations Neck Neck: Yes trachea midline, Yes supple and Yes no JVD Carotids: no bruits Chest Chest palpation & inspection: normal inspection of the chest and other (Well-healed sternotomy scar) Resp Effort & Inspection: normal respiratory effort Auscultation: clear to auscultation bilaterally Cardio Jugular venous distension: no JVD Palpation: normal PMI Rate: regular rate Rhythm: regular rhythm Heart sounds: S1 normal heart sound present, S2 normal heart sound present, no click, no gallops, no murmurs and no rubs Peripheral pulses: Peripheral pulses 2+ throughout GI Auscultation: normal bowel sounds Skin General skin exam: no rashes or lesions noted Neuro General: patient oriented x3 and no focal motor deficits Extrem General: Yes no clubbing, cyanosis or edema Psych Appearance: grossly normal Office Procedures EKG Details: EKG shows sinus bradycardia with left posterior fascicular block with poor R-wave progression with nonspecific ST changes [id number], Complete Assessment & Plan Assessment & Plan (1) CAD (coronary artery disease): Code(s): I25.10 - Atherosclerotic heart disease of [place] coronary artery without angina pectoris Category: Medical Plan: Stable coronary artery disease with remote coronary artery bypass grafting with no current concerning symptoms. His functional capacity remains adequate. Continue low-dose aspirin therapy for life. We discussed about long-term management of bypass graft. Continue aggressive risk factor modification. Importance of controlling diabetes was discussed. Goal hemoglobin A1c less than 7%. This is being pursued through your office. Blood pressure is currently well optimized importance of good blood pressure control was discussed. Advised to monitor blood pressure at home maintain a log. Goal blood pressure less than 130/84. Continue aggressive lipid modification goal hemoglobin A1c less than 55 currently at 34 well optimized. Continue high-intensity statin therapy. Encouraged to maintain activity level as tolerated participate in weight loss program. We discussed about various exercise strategies. He understands and agrees. Will follow up in the clinic in 1 year's time, sooner p.r.n.. Thank you for allowing me to partake in his care Coding Level of Care Code Est Pt Level 4 (47207) Complex EM visit Add On G2211 Diagnoses CAD (coronary artery disease) I25.10 CPT Codes EKG - CPT: 33058-[id number], Complete ([id number])
== END 2024-06-19 09:51 | disposition home or self-care (01) ==
PROVIDERS: PCP Internal Medicine; Visit Provider Internal Medicine Cardiovascular Disease
DX: I25.10 Atherosclerotic heart disease of native coronary artery without angina pectoris (principal)
CPT/HCPCS: 93010; 99214; G2211

== ENCOUNTER → 2024-06-19 09:28 | Outpatient (BNVA) | payer MEDICARE, OTHER, SELFPAY | PROVIDERS: PCP Internal Medicine; Visit Provider Internal Medicine Cardiovascular Disease | DX: I25.10 Atherosclerotic heart disease of native coronary artery without angina pectoris (principal) | CPT/HCPCS: 93005; 99212 ==

== ENCOUNTER 2024-08-10 09:18 | Outpatient (AMB) | payer MEDICARE, OTHER, SELFPAY ==
--- NOTE | 2024-08-10 09:23 | MHC.PC.OV ---
Vital Signs 08/10/24 09:26 Height 6 ft 1 in Weight 244 lb 4 oz BMI 32.2 BP 120/70 Blood Pressure Location Lt brachial Position Sitting Pulse 51 Pulse Source Pulse Oximeter Pulse Oximetry (%) 96 Oxygen Delivery Method Room Air Intake Visit Reasons: 3mth f/u Intake Note: Patient is here to follow up on DM, HTN, CAD. Auto Technician Mechanic Required: No Studio Receptionist: Not Required per policy Accompanied by: Self / Same As Patient Allergies No Known Allergies [No Known Allergies*] Allergy (Verified 08/10/24 09:26) Medication List - Last Reconciled 08/10/24 by Parker Peace MD amlodipine 5 mg PO DAILY aspirin (Adult Low Dose Aspirin) 81 mg PO DAILY atorvastatin 80 mg PO BEDTIME blood sugar diagnostic (FreeStyle Lite Strips) 3 times a day empagliflozin (Jardiance) 25 mg PO DAILY 90 days flash glucose sensor (NuScriptRxStyle Bo 14 Day Sensor kit) every 14 days garlic 100 mg PO DAILY lancets (FreeStyle Lancets) 3 times a day lisinopril-hydrochlorothiazide 20-12.5 mg 1 tab PO DAILY metformin ER 1,000 mg (2 x 500 mg) PO BID 90 days metoprolol succinate ER (Toprol XL) 100 mg PO DAILY multivitamin 1 tab PO DAILY Tobacco use date assessed: 08/10/24 Fall risk assessment: No Falls in past year Last assessed Fall Risk: 08/10/24 Dental Screening Dental Screen Date: 08/10/24 Did you have a dental visit in the last 12 months?: Yes Did you have a dental problem in the last 6 months where you did not have access to dental care?: No Was dental information given to patient?: Patient has dentist HPI 3mth f/u HPI Details DM hyperlipidemia hypertension; [facility] History Hx of sleep apnea Quadriceps tendon rupture CAD (coronary artery disease) Obesity (BMI 30-39.9) Hypertension Dyslipidemia Diabetic polyneuropathy associated with type 2 diabetes mellitus Diabetes type 2, uncontrolled Surgical History Hx of surgical procedure (04/14/23) History of knee surgery Hx of umbilical hernia repair Hx of hernia repair H/O wisdom tooth extraction Hx of removal of cyst S/P CABG x 5 Family History Mother Type 2 diabetes mellitus Father H/O heart artery stent Social History Household Members: Family Housing: House Alcohol intake: never Patient Tobacco Use Status: Never used Tobacco Tobacco use type: Cigarette e-Cigarette/Vaping Use: Never Used Second Hand Smoke Exposure: No service: Yes Current occupational status: retired Current occupation: Rt handed Cognitive needs: Yes (cane) Hearing needs: No Vision needs: Yes (glasses) Questionnaire PHQ-9 Over the last 2 weeks, how often have you been bothered by any of the following problems? 1. Little interest or pleasure in doing things: not at all 2. Feeling down, depressed, or hopeless: not at all 3. Trouble falling or staying asleep, or sleeping too much: not at all 4. Feeling tired or having little energy: not at all 5. Poor appetite or overeating: not at all 6. Feeling bad about yourself - or that you are a failure or have let yourself or your family down: not at all 7. Trouble concentrating on things, such as reading the newspaper or watching television: not at all 8. Moving or speaking so slowly that other people could have noticed. Or the opposite - being so fidgety or restless that you have been moving around a lot more than usual: not at all 9. Thoughts that you would be better off or of hurting yourself in some way: not at all Total score: 0 Depression Screening Interpretation: Negative Depression Screening Done: Yes Source: Developed by Drs. Tyrel Borrero, Vanna De Dios, Mello Major and colleagues, with an educational shabbir from [employer]. Thrive Questionnaire Date Thrive assessed: 08/10/24 I am a: Patient What is your living situation today?: I have a steady place to live Within the past 12 months, did the food you bought not last and you didn't have the money to get more?: Never true Within the past 12 months, did you worry whether your food would run out before you got money to buy more?: Never true Do you have trouble paying for medicines?: No Do you have trouble getting transportation to medical appointments?: No Do you have trouble paying your heating and electricity bill?: No Do you have trouble taking care of your child, family member or friend?: No Do you have trouble with day-to-day activities such as bathing, preparing meals, shopping, managing finances, etc.?: No Are you currently unemployed and looking for a job?: No Are you interested in more education?: No Currently or been in a relationship where the following occur: No concerns reported THRIVE Score: 0 AUDIT C Alcohol Use Questionnaire (AUDIT-C) 1. How often do you have a drink containing alcohol?: Never Total Score: 0 IRAIS-7 AMB Questionnaire IRAIS-7 Date IRAIS - 7 assessed: 08/10/24 Feeling nervous, anxious, or on edge: 0 = Not at all Not being able to stop or control worryin = Not at all Worrying too much about different things: 0 = Not at all Trouble relaxin = Not at all Being so restless that it is hard to sit still: 0 = Not at all Becoming easily annoyed or irritable: 0 = Not at all Feeling afraid as if something awful might happen: 0 = Not at all Total IRAIS-7 score (0-4 normal; 5-9 mild; 10-14 moderate; 15-21 severe): 0 Source: Developed by Drs. Tyrel Borrero, Vanna De Dios, Mello Major and colleagues, with an educational shabbir from [employer]. Review of Systems Const Denies chills, Denies headache(s) and Denies weight loss ENT Denies headache(s) Card Denies chest pain, Denies syncope, Denies irregular heart rhythm and Denies dyspnea Resp Denies chest congestion, Denies cough and Denies dyspnea GI Denies abdominal pain, Denies change in stool character, Denies nausea and Denies vomiting Musc Denies deformity and Denies joint swelling Neuro Denies syncope and Denies headache(s) Physical exam (Primary Care) Vital Signs: Last Vital Signs Pulse 51 08/10/24 09:26 BP 120/70 08/10/24 09:26 Pulse Ox 96 08/10/24 09:26 Oxygen Delivery Method Room Air 08/10/24 09:26 BMI result Body Mass Index 32.2 Tobacco/Smoking Status: Tobacco use Status Tobacco use date assessed 08/10/24 08/10/24 09:32 Patient Tobacco Use Status Never used Tobacco 08/10/24 09:25 Tobacco use type Cigarette 08/10/24 09:25 e-Cigarette/Vaping Use Never Used 08/10/24 09:25 PHQ-9: PHQ-9 Score PHQ-9: Total score 0 08/10/24 10:01 Depression Screening Interpretation: Negative Thrive Assessment: Date of Thrive Assessment Date Thrive assessed 08/10/24 08/10/24 09:25 Currently or been in a relationship where the following occur: No concerns reported Const General: cooperative, comfortable, no acute distress and alert Neck Neck: Yes no lymphadenopathy Thyroid: Thyroid normal Resp Effort & Inspection: normal respiratory effort Auscultation: clear to auscultation bilaterally Percussion: percussion normal Cardio Jugular venous distension: no JVD Palpation: normal PMI Rate: regular rate Rhythm: regular rhythm Heart sounds: S1 normal heart sound present and S2 normal heart sound present GI Inspection: Yes normal to inspection Palpation (GI): No hepatosplenomegaly present Skin General skin exam: no rashes or lesions noted Extrem General: Yes no clubbing, cyanosis or edema Results AMB Hemoglobin A1c AMB Hemoglobin A1c 9.5 % Last Edit by EVANS Hill on 08/10/24 10:02 Results Reviewed Results Reviewed: Laboratory Last Values Hgb A1c (Clinic) 9.5 % (4.0-6.0) H 08/10/24 09:25 Coding Level of Care Code Est Pt Level 4 (00074) Diagnoses Type 2 diabetes mellitus with hyperlipidemia E11.69; E78.5 Dyslipidemia E78.5 Hypertension I10 Assessment & Plan Assessment & Plan (1) Type 2 diabetes mellitus with hyperlipidemia: Code(s): E11.69 - Type 2 diabetes mellitus with other specified complication; E78.5 - Hyperlipidemia, unspecified Category: Medical Plan: improve diet (2) Dyslipidemia: Code(s): E78.5 - Hyperlipidemia, unspecified Category: Medical Plan: stable; same rx (3) Hypertension: Code(s): I10 - Essential (primary) hypertension Category: Medical Plan: stable; same rx Orders: Orders AMB Hemoglobin A1c Today E11.69 - Type 2 diabetes mellitus with other specified complication, E78.5 - Hyperlipidemia, unspecified
[2024-08-10 09:26] VITALS: BP 120/70; PULSE 51; O2SAT 96; BMI 32.2
--- OUTSIDE RECORDS SUMMARY | 2024-08-10 09:47 | XMS_ITS | Encounter Summary ---
Author Name [facility] [place] [facility] [place] Address [address] [place] [id number] Care Team Providers Care Environmental Protection Inspector Name Role Phone EJ MEDINA Primary Care Provider Unavaila ble Insurance Providers: All historical and current Section Date Range: From patient's date of to the date document was created. This section includes the names of all active insurance providers for the patient. Insurance Provider Type of Coverage Plan Name Start of Policy Coverage End of Policy Coverage Group Number Member ID Insurance Provider's Telephone Number Policy Byrd's Name Patient's Relationship to Policy Byrd SAMIR SYEDT ION [id number] Aug 08, 2017 [id number] KHARI DAVIS PATIENT MEDICARE (WNR) MEDICARE (M) PART A Jul 08, 2020 PART A [id number] KHARI DAVIS PATIENT MEDICARE (WNR) MEDICARE (M) PART B Jul 08, 2020 PART B [id number] [phone] KHARI DAVIS PATIENT FOR LIFE TFL* Jul 08, 2020 [id number] KHARI DAVIS PATIENT [facility] USP Aug 08, 2017 [facility] [id number] KHARI DAVIS PATIENT [facility] (WNR) KASEY CAMACHO(WN R) Aug 08, 2017 (WNR) [id number] KHARI DAVIS PATIENT Selected Encounter This section includes the information on record at [place] for the Encounter. Date/Time Encounter Type Encounter Description Reason Provider Source Sep 29, 2023 03:35 PM POS AIRWAY PRESSURE FILTER ADMIN PAT ACTIVTIES (MASNONCT) ICD-10-CM G47.[address], [address] [facility] IHE Encounter Template Text not used by [place] Assessments - Encounter Diagnoses This section includes the primary and secondary diagnoses documented for the Encounter. Date/Time Primary/Secondary Diagnosis Diagnosis Name Provider Source Sep 29, 2023 03:41 PM PRIMARY Sleep apnea, unspecified [facility] Social History: Smoking Status (Most current) and Tobacco Use (All prior to encounter date) This section includes the most current, and the historical, smoking and tobacco- related health factors from the [place] facility where the Encounter took place. Current Smoking Status This section includes the most current smoking, or tobacco-related health factor, from the [place] facility where the Encounter took place. Date/Time Current Smoking Status Comment Melony it[place] Jul 04, 2023 10:00 AM [facility]TO[facility]ACCO [facility] USED [facility] [place] [facility] Tobacco Use History This section includes a history of the smoking, or tobacco-related health factors, that were collected on or before the date of the Encounter. The data comes from the [place] facility where the Encounter took place. Date/Time Smoking Status/Tobacco Use Comment F acility Jul 05, 2022 11:00 AM VA-TOBACCO NEVER USED [place] [facility] [place] [facility] Jul 28, 2020 09:30 AM VA-TOBACCO NEVER USED [place] [facility] [place] [facility] Jul 23, 2019 09:45 AM VA-TOBACCO NEVER USED [place] [facility] [place] [facility] Mar 11, 2011 01:33 PM LIFETIME NON-TOBACCO USER [place] [facility] [place] [facility] Encounter Notes: All associated encounter notes This section contains the clinical notes associated to the Encounter. Date/Time Encounter Note(s) Provider Source Sep 29, 2023 03:36 PM RESPIRATORY THERAP Y NOTE: LOCAL TITLE: RESPIRATORY THERAPY NOTE(BLANK) STANDARD TITLE: RESPIRATORY THERAPY NOTE DATE OF NOTE: SEP 29, 2023@15:36 ENTRY DATE: SEP 29, 2023@15:36:16 AUTHOR: JOSSY ESCOBEDO EXP COSIGNER: URGENCY: STATUS: COMPLETED [place] diagnosed with sleep apnea will have Auto-CPAP prescription renewed for 1 year using AirView. [place] is using ResMed Airsense 10 set to APAP @[id number]. AirView data follows note. [place] will be resupplied. Written cleaning, resupply schedule and contact information will be sent. will be scheduled for a follow-up via self-alert system to renew APAP prescription in one year. Vet will be followed in clinic as needed as well as via the Airview program. AirView Compliance Report Usage 09/29/2022 - 09/28/2023 Usage days 267/365 days (73%) >= 4 hours 209 days (57%) < 4 hours 58 days (16%) Usage hours 1,410 hours 0 minutes Average usage (total days) 3 hours 52 minutes Average usage (days used) 5 hours 17 minutes Median usage (days used) 5 hours 40 minutes Total used hours (value since last reset - 09/28/2023) 3,445 hours AirSense 10 AutoSet Serial number [id number] Mode AutoSet Min Pressure 10 cmH2O Max Pressure 18 cmH2O EPR Off Response Soft Therapy Pressure - cmH2O Median: 10.8 95th percentile: 12.4 Maximum: 13.2 Leaks - L/min Median: 26.6 95th percentile: 60.2 Maximum: 75.1 Events per hour AI: 1.6 HI: 1.7 AHI: 3.3 Apnea Index Central: 0.9 Obstructive: 0.3 Unknown: 0.4 RERA Index 1.5 Lei-Beckman respiration (average duration per night) 0 minutes (0%) /carlos eduardo/ JOSSY ESCOBEDO RESPIRATORY THERAPIST Signed: 09/29/2023 15:41 JOSSY ESCOBEDO [place] [facility]
--- OUTSIDE RECORDS SUMMARY | 2024-08-10 09:47 | XMS_ITS | Encounter Summary ---
Author Name [facility] [place] [facility] [place] [place] Address [address] [place] [address] Care Team Providers Care Top Installer Name Role Phone EJ MEDINA Primary Care [...] SYEDT ION [id number] 1 Aug 08, 2017 [id number] KHARI DAVIS PATIENT MEDICARE (WNR) MEDICARE (M) PART A Jul 08, 2020 PART A [id number] KHARI DAVIS PATIENT MEDICARE (WNR) MEDICARE (M) PART B Jul 08, 2020 PART B [id number] KHARI DAVIS PATIENT FOR LIFE TFL* Jul 08, 2020 [id number] KHARI DAVIS PATIENT [facility] USFHP Aug 08, 2017 [facility] [id number] KHARI DAVIS PATIENT [facility] (WNR) KASEY CAMACHO(WN R) Aug 08, 2017 (WNR) [id number] [phone] KHARI DAVIS PATIENT Selected Encounter This section includes the information on record at [place] for the Encounter. Date/Time Encounter Type Encounter Description Reason Pro vider Source Feb 03, 2024 12:00 AM Outpatient Encounter EVENT (HISTORICAL) IHE Encounter Template Text not used by [place] Plan of Treatment: Future Appointments (+ 6 months) and Future Tests (+/- 45 days) The Plan of Treatment section includes future care activities for the patient from all [place] treatmentfacilities. This section includes future appointments and future orders which are active, pending or scheduled. Future Appointments This section includes appointments that were scheduled to occur 6 months from the date of the Encounter, up to a maximum of 20 appointments. The data comes from all [place] treatment facilities. Appointment Date/Time Appointment Type Appointme nt Facility Name Jul 09, 2024 08:30 AM AMBULATORY - MEDICINE [facility] Social History: Smoking Status (Most current) and Tobacco Use (All prior to encounter date) This section includes the most current, and the historical, smoking and tobacco- related health factors from the [place] facility where the Encounter took place. Current Smoking Status This section includes the most current smoking, or tobacco-related health factor, from the [place] facility where the Encounter took place. Date/Time Current Smoking Status Comment [place] Jul 04, 2023 10:00 AM VA-TOBACCO NEVER USED [place] [facility] [place] [facility] Tobacco Use History This section includes a history of the smoking, or tobacco-related health factors, that were collected on or before the date of the Encounter. The data comes from the [place] facility where the Encounter took place. Date/Time Smoking Status/Tobacco Use Comment F acility Jul 05, 2022 11:00 AM [place]-TOBACCO NEVER USED [place] [facility] [place] [facility] Jul 28, 2020 09:30 AM VA-TOBACCO NEVER USED [place] [facility] [place] [facility] Jul 23, 2019 09:45 AM VA-TOBACCO NEVER USED [place] [facility] [place] [facility] Mar 11, 2011 01:33 PM LIFETIME NON-TOBACCO USER [place] [facility] [place] [facility] Encounter Notes: All associated encounter notes This section contains the clinical notes associated to the Encounter. Date/Time Encounter Note(s) Provider Source Feb 03, 2024 12:00 AM NONVA NOTE: LOCAL TITLE: NON-VA OUTPATIENT NOTES STANDARD TITLE: NONVA NOTE DATE OF NOTE: FEB 03, 2024 ENTRY DATE: MAR 28, 2024@11:06:25 AUTHOR: JOE IVY EXP COSIGNER: URGENCY: STATUS: COMPLETED VistA Imaging - Scanned Document SCANNED DOCUMENT SIGNATURE NOT REQUIRED Electronically Filed: 03/28/2024 by: JOE SARAVIA [place] [facility]
--- OUTSIDE RECORDS SUMMARY | 2024-08-10 09:47 | XMS_ITS | Continuity of Care Document ---
Author Name [facility] Organization [facility] Care Team Providers Care Carrier Operator Name Role Phone [facility] Unavailable Unavailable Problems Combined list of problems from Department of Defense and Veterans Affairs facilities. It does not include entries that were removed or entered in error. Problem Status Onset Date Problem Type Date of Resolution Comments Source Achilles bursitis or tendinitis Active Condition [facility] CAD - Coronary Artery Disease (SCT [id number]) Active Condition [facility] Diabetes Mellitus Active Condition [facility] Diabetes mellitus (SNOMED CT 66843025) Active Condition [facility] Ess[facility] hypertension Active Condition [facility] Hyperlipidemia Active Condition [facility]esity Active Condition [facility] Sleep apnea Active Condition [facility] diarrhea Active Condition [facility] Diagnosis: ICD-10-CM I25.10 Athscl heart disease of [place] coronary artery w/o ang pctrs Active Diagnosis [facility] Diagnosis: ICD-10-CM G47.30 Sleep apnea, unspecified Active Diagnosis [facility] Medications Combined list of outpatient medications from Department of Defense and Veterans Affairs facilities.Medications provided include 1) outpatient medications from the last 15 months, and 2) patient-reported medications. Medication Details Route Status Patient Instructions Prescription Expires Prescription Number Last Dispense Date Ordering Provider Order Date Order Qty Source ALBUTEROL SULFATE HFA (albuterol sulfate), 90 MCG, HFA AER AD, INHALATION, [facility], 18 g CANISTER Active [id number] 2023 18 Pharmac y Data Transac tion Service Facilit y AMLODIPINE BESYLATE 5MG TAB TAKE ONE TABLET BY MOUTH ONCE DAILY ORAL ACTIVE [facility] ASPIRIN 81MG TAB,EC TAKE ONE TABLET BY MOUTH DAILY ORAL ACTIVE JOSE LORD 2010 [facility] ATORVASTATI N CA 80MG TAB TAKE ONE TABLET BY MOUTH ONCE DAILY ORAL ACTIVE EJ MEDINA 2019 [facility] ATORVASTATI N CALCIUM (atorvastat in calcium), 80 MG, TABLET, ORAL, [employer] 500 ea. BOTTLE Active [id number] 4 2023 90 Pharmac y Data Transac tion Service Facilit y ATORVASTATI N CALCIUM (atorvastat in calcium), 80 MG, TABLET, ORAL, GABO PHARMACEU, 500 ea. BOTTLE Active [id number] 4 2023 90 Pharmac y Data Transac tion Service Facilit y ATORVASTATI N CALCIUM (atorvastat in calcium), 80 MG, TABLET, ORAL, GABO PHARMACEU, 500 ea. BOTTLE Active [id number] 4 2023 90 Pharmac y Data Transac tion Service Facilit y AZITHROMYCI N (azithromyc in), 250 MG, TABLET, ORAL, LUPIN PHARMACEU, 6 ea. BLIST PACK Active [id number] 2023 6 Pharmac y Data Transac tion Service Facilit y COENZYME Q10 CAP/TAB TAKE 100 MG EVERY OTHER DAY ACTIVE JOSE LORD 2014 [facility] FISH OIL 1000MG (500MG DHA/EPA) CAP,ORAL TAKE 1 CAPSULE BY MOUTH DAILY NEEDED ORAL ACTIVE JOSE LORD 2014 [facility] GARLIC CAP,ORAL TAKE 320 MG BY MOUTH DAILY ORAL ACTIVE JOSE LORD 2013 [facility] HYDROCHLORO THIAZIDE 12.5MG/GEN NOPRIL 20MG TAB TAKE ONE TABLET BY MOUTH ORAL ACTIVE [facility]SE LORD [facility] JARDIANCE (EMPAGLIFLO ZIN), 25 MG, TABLET, ORAL, BOEHRINGER ING., 90 ea. BOTTLE Active [id number] 4 2023 90 Pharmac y Data Transac tion Service Facilit y JARDIANCE (EMPAGLIFLO ZIN), 25 MG, TABLET, ORAL, BOEHRINGER ING., 90 ea. BOTTLE Active [id number] 2023 90 Pharmac y Data Transac tion Service Facilit y METFORMIN HCL 1000MG TAB TAKE ONE TABLET BY MOUTH TWICE DAILY ORAL ACTIVE EJ MEDINA 2019 [facility] METFORMIN HCL ER (metformin HCl), 500 MG, TAB ER 24H, ORAL, AVKARE, 1000 ea. BOTTLE Active [id number] 4 2023 360 Pharmac y Data Transac tion Service Facilit y METFORMIN HCL ER (metformin HCl), 500 MG, TAB ER 24H, ORAL, AVKARE, 90 ea. BOTTLE Active [id number] 4 2023 360 Pharmac y Data Transac tion Service Facilit y METOPROLOL SUCCINATE (metoprolol succinate), 100 MG, TAB ER 24H, ORAL, [employer] 1000 ea. BOTTLE Active [id number] 4 2023 90 Pharmac y Data Transac tion Service Facilit y METOPROLOL SUCCINATE (metoprolol succinate), 100 MG, TAB ER 24H, ORAL, [employer] 1000 ea. BOTTLE Active [id number] 4 2023 90 Pharmac y Data Transac tion Service Facilit y METOPROLOL SUCCINATE 100MG TAB,SA TAKE ONE TABLET BY MOUTH ONCE DAILY ORAL ACTIVE EJ MEDINA 2019 [facility] MULTIVITAMI NS W/MINERALS TAB TAKE ONE TABLET BY MOUTH DAILY ORAL ACTIVE JSOE LORD 2010 [facility] PREDNISONE (prednisone ), 20 MG, TABLET, ORAL, MYLAN, 500 ea. BOTTLE Active [id number] 2023 6 Pharmac y Data Transac tion Service Facilit y Allergies, Adverse Reactions, Alerts Combined list of allergies from Department of Defense and Veterans Affairs facilities. It does not include entries that were removed or entered in error. Substance Category Reaction Severity Reaction type Status Date Reported Comments Source No Known Allergies Drug allergy (disorder) active 01/09/2008 [facility] Immunizations Combined list of available immunizations from the Department of Defense and Veterans Affairs facilities. Immunization Series Date Given Administered By Site Reaction Lot Number CVX Code Drug Digital Field Service Technician Status Comments Source INFLUENZA, HIGH-DOSE, TRIVALENT, PF 2023 AFSHIN MARR SIENNA LEFT DELTO ID [id number] 135 complet ed [facility] influenza, high-dose, quadrivalent 2020 BOGDASARIAN, () Not Given influenza , high-dose , quadrival ent DoD COVID-19 (PFIZER), MRNA, LNP-S, PF, 30 MCG/0.3 ML DOSE 2 2020 208 complet ed PFR; [id number]; 1 [facility] COVID-19 (PFIZER), MRNA, LNP-S, PF, 30 MCG/0.3 ML DOSE 1 2020 208 complet ed PFR; [id number]; 1 [facility] ZOSTER RECOMBINANT 2 2020 187 complet ed [facility] INFLUENZA, INJECTABLE, QUADRIVALENT, PRESERVATIVE FREE 2019 150 complet ed [facility] ZOSTER RECOMBINANT 1 2019 187 complet ed [facility] INFLUENZA, SEASONAL, INJECTABLE 2018 141 complet ed [facility] FLU,3 YRS (HISTORICAL) 2012 88 complet ed [facility] DTAP, UNSPECIFIED FORMULATION 2012 107 complet ed Site: Left Deltoid [facility] FLU,3 YRS (HISTORICAL) 2012 88 complet ed Site: Left Deltoid [facility] PNEUMOCOCCAL, UNSPECIFIED FORMULATION 2012 109 complet ed Site: Left Deltoid [facility] Influenza, seasonal, injectable, preservative free 15 2010 Unknown, Provider [id number] 140 CS [employer] (CSL) complet ed Influenza , seasonal, injectabl e, preservat chayo free DoD FLU,3 YRS (HISTORICAL) 2009 88 complet ed [facility] influenza virus vaccine, split virus (incl. purified surface antigen)-reti red CODE 14 2009 Unknown, Provider [id number] Sanofi Pasteur ([facility]) complet ed influenza virus vaccine, split virus (incl. purified surface antigen)- retired CODE DoD FLU,3 YRS (HISTORICAL) 2009 88 complet ed [facility] anthrax vaccine 2 2009 Unknown, Provider [id number] [employer] Beau ([facility]) complet ed anthrax vaccine DoD typhoid Vi capsular polysaccharid e vaccine 1 2009 Unknown, Provider [id number] Sanofi Pasteur ([facility]) complet ed typhoid Vi capsular polysacch aride vaccine DoD anthrax vaccine 1 2009 Unknown, Provider [id number] [employer] ([facility]) complet ed anthrax vaccine DoD Novel influenza-H1N 1-09, injectable 1 2009 Unknown, Provider [id number] 5P 127 [employer] Jamaal. (NOV) complet ed Novel influenza -[id number], injectabl e DoD influenza virus vaccine, split virus (incl. purified surface antigen)-reti red CODE 1 2008 Unknown, Provider [id number] 15 [facility] [employer] (CSL) complet ed influenza virus vaccine, split virus (incl. purified surface antigen)- retired CODE DoD influenza virus vaccine, split virus (incl. purified surface antigen)-reti red CODE 1 2007 Unknown, Provider [id number] 15 [facility]) complet ed influenza virus vaccine, split virus (incl. purified surface antigen)- retired CODE DoD typhoid Vi capsular polysaccharid e vaccine 1 2007 [id number] Sanofi Pasteur ([facility]) complet ed typhoid Vi capsular polysacch aride vaccine DoD influenza virus vaccine, split virus (incl. purified surface antigen)-reti red CODE 1 2006 [id number] 15 [facility] complet ed influenza virus vaccine, split virus (incl. purified surface antigen)- retired CODE DoD influenza virus vaccine, split virus (incl. purified surface antigen)-reti red CODE 1 2006 [id number] Other (OTH) complet ed influenza virus vaccine, split virus (incl. purified surface antigen)- retired CODE DoD typhoid vaccine, parenteral, other than acetone-kille d, dried 1 2005 [id number] Sanofi Pasteur ([facility]) complet ed typhoid vaccine, parentera l, other than acetone-k illed, dried DoD influenza virus vaccine, split virus (incl. purified surface antigen)-reti red CODE 1 2004 [id number] 15 Sanofi Pasteur ([facility]) complet ed influenza virus vaccine, split virus (incl. purified surface antigen)- retired CODE DoD typhoid vaccine, parenteral, other than acetone-kille d, dried 0 2003 [id number] 41 Sanofi Pasteur ([facility]) complet ed typhoid vaccine, parentera l, other than acetone-k illed, dried DoD influenza virus vaccine, whole virus 0 2002 [id number] 16 Sanofi Pasteur ([facility]) complet ed influenza virus vaccine, whole virus DoD tuberculin skin test; purified protein derivative solution, intradermal 1 2002 Unknown, Provider [id number] 96 [facility]) complet ed tuberculi n skin test; purified protein derivativ e solution, intraderm al DoD influenza virus vaccine, whole virus 0 2001 [id number] 16 AleshaPapi ([facility]) complet ed influenza virus vaccine, whole virus DoD tuberculin skin test; purified protein derivative solution, intradermal 1 2001 Unknown, Provider [id number] 96 Sanofi Pasteur ([facility]) complet ed tuberculi n skin test; purified protein derivativ e solution, intraderm al [facility] tetanus and diphtheria toxoids, adsorbed, preservative free, for adult use (2 Lf of tetanus toxoid and 2 Lf of diphtheria toxoid) 0 2000 [id number] Sanofi Pasteur ([facility]) complet ed tetanus and diphtheri a toxoids, adsorbed, preservat chayo free, for adult use (2 Lf of tetanus toxoid and 2 Lf of diphtheri a toxoid) DoD influenza virus vaccine, whole virus 0 2000 [id number] 16 Sanofi Pasteur ([facility]) complet ed influenza virus vaccine, whole virus DoD typhoid vaccine, parenteral, other than acetone-kille d, dried 0 2000 [id number] 41 [facility] ([facility]) complet ed typhoid vaccine, parentera l, other than acetone-k illed, dried DoD tuberculin skin test; purified protein derivative solution, intradermal 1 2000 Unknown, Provider [id number] [facility] ([facility]) complet ed tuberculi n skin test; purified protein derivativ e solution, intraderm al DoD influenza virus vaccine, whole virus 0 2000 [id number] 16 Alexandrajose ([facility]) complet ed influenza virus vaccine, whole virus DoD typhoid vaccine, parenteral, other than acetone-kille d, dried 0 1999 [id number] 41 Alexandrajose (CON) complet ed typhoid vaccine, parentera l, other than acetone-k illed, dried DoD influenza virus vaccine, whole virus 0 [id number] 16 Nathalie ([facility]) complet ed influenza virus vaccine, whole virus DoD tuberculin skin test; purified protein derivative solution, intradermal 1 1998 Unknown, Provider [id number] 96 Alexandrajose ([facility]) complet ed tuberculi n skin test; purified protein derivativ e solution, intraderm al DoD typhoid vaccine, parenteral, other than acetone-kille d, dried 0 1998 41 () complet ed typhoid vaccine, parentera l, other than acetone-k illed, dried DoD measles, mumps and rubella virus vaccine 0 1997 [id number] Hameed (AB) complet ed measles, mumps and rubella virus vaccine DoD influenza virus vaccine, whole virus 0 [id number] 16 Alexandrajose ([facility]) complet ed influenza virus vaccine, whole virus DoD hepatitis B vaccine, adult dosage 3 1997 [id number] 43 Merck (MSD) complet ed hepatitis B vaccine, adult dosage DoD hepatitis A vaccine, adult dosage 2 1997 [id number] 52 Merck (MSD) complet ed hepatitis A vaccine, adult dosage DoD hepatitis B vaccine, adult dosage 2 1997 [id number] 43 Merck (MSD) complet ed hepatitis B vaccine, adult dosage DoD influenza virus vaccine, whole virus 0 [id number] 16 Nathalie (Inactive) (IA) complet ed influenza virus vaccine, whole virus DoD meningococcal polysaccharid e vaccine (MPSV4) 0 1997 [id number] [place] (CON) complet ed meningoco ccal polysacch aride vaccine (MPSV4) DoD hepatitis B vaccine, adult dosage 1 1997 [id number] 43 Merck (MSD) complet ed hepatitis B vaccine, adult dosage DoD hepatitis A vaccine, adult dosage 1 1997 [id number] 52 Merck (MSD) complet ed hepatitis A vaccine, adult dosage DoD tuberculin skin test; purified protein derivative solution, intradermal 1 1997 Unknown, Provider [id number] [facility] (CON) complet ed tuberculi n skin test; purified protein derivativ e solution, intraderm al DoD typhoid vaccine, parenteral, acetone-kille d, dried ([place].S. ) 2 1995 [id number] 53 Merck (MSD) complet ed typhoid vaccine, parentera l, acetone-k illed, dried ([place].S. ) DoD influenza virus vaccine, whole virus 0 1995 16 () complet ed influenza virus vaccine, whole virus DoD tuberculin skin test; purified protein derivative solution, intradermal 1 1995 Unknown, Provider [id number] [facility] (CON) complet ed tuberculi n skin test; purified protein derivativ e solution, intraderm al DoD yellow fever vaccine 0 1992 [id number] [place] (CON) complet ed yellow fever vaccine DoD tetanus and diphtheria toxoids, adsorbed, preservative free, for adult use (2 Lf of tetanus toxoid and 2 Lf of diphtheria toxoid) 0 1990 09 () complet ed tetanus and diphtheri a toxoids, adsorbed, preservat chayo free, for adult use (2 Lf of tetanus toxoid and 2 Lf of diphtheri a toxoid) DoD vaccinia (smallpox) vaccine 0 1980 75 () complet ed vaccinia (smallpox ) vaccine DoD trivalent poliovirus vaccine, live, oral 0 1980 02 () complet ed trivalent polioviru s vaccine, live, oral [facility] Vital Signs Combined list of inpatient and outpatient Vital Signs from Department of Defense and Veterans Affairs, ranging from 12 months to all on record, depending upon the facility. Vital Sign Value Date Comments Source SYSTOLIC BLOOD PRESSURE 147 07/09/20 24 08:14:18 [facility] DIASTOLIC BLOOD PRESSURE 88 024 08:14:18 [facility] PULSE OXIMETRY 99 07/09/2024 08:14:18 [facility] WEIGHT 247 07/09/2024 08:14:18 [facility] BMI 33kg/m2 07/09/2024 08:14:18 [facility] PAIN 0 07/09/2024 08:14:18 [facility] HEIGHT 73 07/09/2024 08:14:18 [facility] TEMPERATURE 97.5 07/09/2024 08:14:18 [facility] PULSE 57 07/09/2024 08:14:18 [facility] RESPIRATION 20 07/09/2024 08:14:18 [facility] Encounters Combined list of: 1) Encounters from Department of Veterans Affairs facilities going back up to thelast 18 months. 2) Encounters from the Department of Defense facilities going back up to 280 months. Location Location Details Encounter Type Encounter Number Reason For Visit Attending Provider ADM Date DC Date Status Disposition Source [facility]) OUTPATIENT [id number] Possibl e food poisoni LAKHWINDER Mckenzie E 01/07 Released w/o Limitations [facility]( [facility] Encounter [id number] 03/11 [facility] [id number] 06/29 [facility] OFFICE O/P EST LOW 20-29 MIN [id number] Diagnos is: ICD-10- CM I25.10 Athscl heart disease of [place] coronar y artery w/o ang pctrs<b r/> Suki MEDINA 07/04 [facility] POS AIRWAY PRESSURE FILTER [id number] Diagnos is: ICD-10- CM G47.30 Sleep apnea, unspeci fied
[facility]AR[facility] E P 09/29 [facility] [id number] 1.12/19 [facility] Outpatient Encounter [id number] 1[facility]12/19 [facility] Outpatient [facility]counter [id number] 02/02 [facility] Outpatient Encounter [id number] 1.05/10 [facility] OFF[facility] O/P EST MOD 30 MIN [id number] Diagnos is: ICD-10- CM I25.10 Athscl heart disease of [place] coronar y artery w/o ang pctrs<b r/> Suki MEDINA 07/09 [facility] Social History Combined list of available smoking, tobacco, and other social history from Department of Defense and Veterans Affairs facilities. Social History Type Response Date Comment Sour e Tobacco smoking status NHIS VA-TOBACCO NEVER USED 07/04/2023 [facility] History of tobacco use VA-TOBACCO NEVER USED 07/05/2022 [facility] History of tobacco use VA-TOBACCO NEVER USED 07/28/2020 [facility] History of tobacco use VA-TOBACCO NEVER USED 07/23/2019 [facility] History of tobacco use LIFETIME NON-TOBACCO USER 03/11/2011 [facility] This section is an empty social history section. DoD
--- OUTSIDE RECORDS SUMMARY | 2024-08-10 09:48 | XMS_ITS | Encounter Summary ---
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 Name Role Phone EJ MEDINA Primary Care [...] Name Patient's Relationship to Policy Byrd SAMIR PRESCRIPT ION [id number] Aug 08, 2017 [id number] KAHRI DAVIS PATIENT MEDICARE (WNR) MEDICARE (M) PART A Jul 08, 2020 PART A [id number] KHARI DAVIS PATIENT MEDICARE (WNR) MEDICARE (M) PART B Jul 08, 2020 PART B [id number] [phone] KHARI DAVIS PATIENT FOR LIFE TFL* Jul 08, 2020 [id number] KHARI DAVIS PATIENT [facility] USFHP Aug 08, 2017 USP [id number] KHARI DAVIS PATIENT [facility] (WNR) KASEY CAMACHO(WN R) Aug 08, 2017 (WNR) [id number] [phone] KHARI DAVIS PATIENT Selected Encounter This section includes the information on record at [place] for the Encounter. Date/Time Encounter Type Encounter Description Reason Pro vider Source May 10, 2024 04:27 PM Outpatient Encounter TELEPHONE PRIMARY CARE IHE Encounter Template Text not used by [place] Plan of Treatment: Future Appointments (+ 6 months) and Future Tests (+/- 45 days) The Plan of Treatment section includes future care activities for the patient from all [place] treatmentfacilities. This section includes future appointments and future orders which are active, pending or scheduled. Future Appointments This section includes appointments that were scheduled to occur 6 months from the date of the Encounter, up to a maximum of 20 appointments. The data comes from all [place] treatment facilities. Appointment Date/Time Appointment Type Appointme nt Facility Name Jul 09, 2024 08:30 AM AMBULATORY - MEDICINE [facility] Active, Pending, and Scheduled Orders This section includes a listing of several types of active, pending, and scheduled orders, including clinic medications orders, diagnostic test orders, procedure orders and consult orders; where the start date of the order is 45 days before the date of the Encounter or 45 days after the date of theEncounter. The data comes from all [place] treatment facilities. Test Date/Time Test Type Test Details Facility Name May 29, 2024 12:00 AM Laboratory - Chemi stry Order OCCULT BLOOD FIT X1 SCREEN (MFP ONLY) STOOL FECES SP [facility] Social History: Smoking Status (Most current) and Tobacco Use (All prior to encounter date) This section includes the most current, and the historical, smoking and tobacco- related health factors from the [place] facility where the Encounter took place. Current Smoking Status This section includes the most current smoking, or tobacco-related health factor, from the [place] facility where the Encounter took place. Date/Time Current Smoking Status Comment Facil ity Jul 04, 2023 10:00 AM [place]-TOBACCO NEVER USED [facility] Tobacco Use History This section includes a history of the smoking, or tobacco-related health factors, that were collected on or before the date of the Encounter. The data comes from the [place] facility where the Encounter took place. Date/Time Smoking Status/Tobacco Use Comment F acility Jul 05, 2022 11:00 AM VA-TOBACCO NEVER USED [facility] [place] [facility] Jul 28, 2020 09:30 AM VA-TOBACCO NEVER USED [facility] [place] [facility] Jul 23, 2019 09:45 AM VA-TOBACCO NEVER USED [facility] [place] [facility] Mar 11, 2011 01:33 PM LIFETIME NON-TOBACCO USER [place] [facility] [place] [facility] Encounter Notes: All associated encounter notes This section contains the clinical notes associated to the Encounter. Date/Time Encounter Note(s) Provider Source May 10, 2024 04:27 PM PREVENTIVE MEDICIN E NURSING NOTE: LOCAL TITLE: CLINICAL REMINDERS/NURSING STANDARD TITLE: PREVENTIVE MEDICINE NURSING NOTE DATE OF NOTE: MAY 10, 2024@16:27 ENTRY DATE: MAY 10, 2024@16:27:45 AUTHOR: CASSIA MARR EXP COSIGNER: URGENCY: STATUS: COMPLETED Labs received from community PCP Drawn 12/20/23 Hemoglobin A1C: had HBA1C result from another health care site (results required). Date: December 20, 2023 Location: Outside Healthcare Provider Results: 9.3 Lipid Screening: [place] has documentation of outside lipid profile results. Outside Location and date. Date: December 20, 2023 Location: Outside Healthcare Provider Total Cholesterol result: 105 Triglycerides result: 164 HDL result: 29 LDL result: 44 Outside LDL<100. Date: December 20, 2023 Diabetes: Kidney Health Evaluation: Last eGFR: EGFR No data available for: eGFR(CKD-EPI 2020) eGFR Last uACR: No uACR found within the past year eGFR and uACR (estimated Glomerular Filtration Rate and Urine Albumin-Creatinine Ratio)* Previous eGFR completed at a location other than this [place] Previous eGFR with actual (numerical) results Date: December 20, 2023 Location: Outside Healthcare Provider eGFR: 57 mL/min/{1.73_m2} Previous urine creatinine completed at a location other than this [facility]: Date of Test: December 20, 2023 Location: Outside Healthcare Provider Urine Creatinine 80.8 mg/dL /carlos eduardo/ Cassia Marr MSN RN CNL Primary Care RN Signed: 05/10/2024 16:32 [place] [facility]
--- OUTSIDE RECORDS SUMMARY | 2024-08-10 09:48 | XMS_ITS | Encounter Summary ---
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 [id number] KHARI DAVIS PATIENT [facility] (WNR) KASEY CAMACHO(WN R) Aug 08, 2017 (WNR) [id number] [phone] KHARI DAVIS PATIENT Selected Encounter This section includes the information on record at [place] for the Encounter. Date/Time Encounter Type Encounter Description Reason Pro vider Source December 20, 2023 12:00 AM Outpatient Encounter EVENT (HISTORICAL) IHE Encounter Template Text not used by VA Social History: Smoking Status (Most current) and [...] 04, 2023 10:00 AM VA-TOBACCO NEVER USED [place] [facility] Tobacco Use History This section includes a history of the smoking, or tobacco-related health factors, that were collected on or before the date of the Encounter. The data comes from the [place] facility where the Encounter took place. Date/Time Smoking Status/Tobacco Use Comment F acility Jul 05, 2022 11:00 AM VA-TOBACCO NEVER USED [place] [facility] [place] [facility] Jul 28, 2020 09:30 AM VA-TOBACCO NEVER USED [facility] [place] [facility] Jul 23, 2019 09:45 AM VA-TOBACCO NEVER USED [place] [facility] [place] [facility] Mar 11, 2011 01:33 PM LIFETIME NON-TOBACCO USER [place] [facility] [place] [facility]
--- OUTSIDE RECORDS SUMMARY | 2024-08-10 09:48 | XMS_ITS ---
Author Name [place] Address [address] [place] [address] Care Team Providers Care Tractor Trailer Driver Name Role Phone BALDERAS, EJ Primary Care Provider Unavaila ble Insurance Providers: [...] Name Patient's Relationship to Policy Byrd SAMIR GRACE ION [id number] 1 Aug 08, 2017 [id number] KHARI DAVIS PATIENT MEDICARE (WNR) MEDICARE (M) PART B Jul 08, 2020 PART B [id number] KHARI DAVIS PATIENT MEDICARE (WNR) MEDICARE (M) PART A Jul 08, 2020 PART A [id number] KHARI DAVIS PATIENT FOR LIFE TFL* Jul 08, 2020 [id number] KHARI DAVIS PATIENT [facility] USFHP Aug 08, 2017 [facility] [id number] [phone] SUSAN KHARI PATIENT [facility] (WNR) KASEY CAMACHO(WN R) Aug 08, 2017 (WNR) [id number] [phone] KHARI DAVIS PATIENT Selected Encounter This section includes the information on record at [place] for the Encounter. Date/Time Encounter Type Encounter Description Reason Provider Source Jul 09, 2024 08:30 AM OFFICE O/P EST MOD 30 MIN PRIMARY CARE/MEDICINE ICD-10-CM I25.10 Athscl heart disease of mi'kmaq coronary artery w/o ang pctrs RYANN BALDERAS AM IHAnthony Encounter Template Text not used by [place] Assessments - Encounter Diagnoses This section includes the primary and secondary diagnoses documented for the Encounter. Date/Time Primary/Secondary Diagnosis Diagnosis Name Provider Source Jul 09, 2024 08:45 AM PRIMARY Athscl heart disease of mi'kmaq coronary artery w/o mark anthony pctrs AFSHIN MARR [place] [facility] Jul 09, 2024 08:45 AM SECONDARY Encounter for immunization AFSHIN MARR [place] [facility] [place] [facility] Jul 09, 2024 08:45 AM SECONDARY Hypertensive heart disease without heart failure AFSHIN MARR [place] [facility] [place] [facility] Jul 09, 2024 08:45 AM SECONDARY Type 2 diabetes mellitus without complications AFSHIN MARR [facility] Plan of Treatment: Future Appointments (+ 6 months) and Future Tests (+/- 45 days) The Plan of Treatment section includes future care activities for the patient from all [place] treatmentfacilities. This section includes future appointments and future orders which are active, pending or scheduled. Active, Pending, and Scheduled Orders This section includes a listing of several types of active, pending, and scheduled orders, including clinic medications orders, diagnostic test orders, procedure orders and consult orders; where the start date of the order is 45 days before the date of the Encounter or 45 days after the date of theEncounter. The data comes from all [place] treatment facilities. Test Date/Time Test Type Test Details Facility Name May 29, 2024 12:00 AM Laboratory - Chemistry Order OCCULT BLOOD FIT X1 SCREEN (MFP ONLY) STOOL FECES SP [place] [facility] [place] [facility] Jun 25, 2024 12:00 AM Laboratory - Chemistry Order CBC BLOOD (LAV-BLOOD) [facility] Jun 25, 2024 12:00 AM Laboratory - Chemistry Order BASIC METABOLIC PANEL (non-fasting) BLOOD (SST-SERUM) [facility] Jun 25, 2024 12:00 AM Laboratory - Chemistry Order LIPID PANEL, NON FASTING BLOOD (SST-SERUM) [facility] Jun 25, 2024 12:00 AM Laboratory - Chemistry Order LIVER FUNCTION BLOOD (SST-SERUM) [facility] Jun 25, 2024 12:00 AM Laboratory - Chemistry Order HEMOGLOBIN A1C PANEL BLOOD (LAV-BLOOD) [facility] Jun 25, 2024 12:00 AM Laboratory - Chemistry Order PSA BLOOD (SST-SERUM) [facility] Jun 25, 2024 12:00 AM Laboratory - Chemistry Order MICROALBUMIN CREATININE RATIO PANEL URINE (RANDOM) [facility] Vital Signs: All taken on the encounter date This section contains inpatient and outpatient Vital Signs collected on the date of the Encounter. Date/Time Temperature Pulse Blood Pressure Respiratory Rate SP02 Pain Height Weight Body Mass Index Source Jul 09, 2024 08:40 AM 128/68 [facility] Jul 09, 2024 08:14 AM 97.5 57 147/88 20 99 0 73 247 33 [facility] Immunizations: All administered on the encounter date This section contains immunizations associated to the Encounter. Immunization Series Date Issued Reaction Comments INFLUENZA, HIGH-DOSE, TRIVALENT, PF Jul 09 Social History: Smoking Status (Most current) and Tobacco Use (All prior to encounter date) This section includes the most current, and the historical, smoking and tobacco- related health factors from the [place] facility where the Encounter took place. Current Smoking Status This section includes the most current smoking, or tobacco-related health factor, from the [place] facility where the Encounter took place. Date/Time Current Smoking Status Comment [place] Jul 04, 2023 10:00 AM VA-TOBACCO NEVER USED [facility] Tobacco Use History This section includes a history of the smoking, or tobacco-related health factors, that were collected on or before the date of the Encounter. The data comes from the [place] facility where the Encounter took place. Date/Time Smoking Status/Tobacco Use Comment Benny ortiz Jul 05, 2022 11:00 AM VA-TOBACCO NEVER USED [place] [facility] [place] [facility] Jul 28, 2020 09:30 AM VA-TOBACCO NEVER USED [place] [facility] [place] [facility] Jul 23, 2019 09:45 AM VA-TOBACCO NEVER USED [facility] [place] [facility] Mar 11, 2011 01:33 PM LIFETIME [facility]-TOBACCO [facility]ER [facility] Encounter Notes: All associated encounter notes This section contains the clinical notes associated to the Encounter. Date/Time Encounter Note(s) Provider Source Jul 09, 2024 08:40 AM PRIMARY CARE NURSE PRACTITIONER OUTPATIENT NOTE: LOCAL TITLE: NURSE PRACTITIONER OUTPATIENT NOTE STANDARD TITLE: PRIMARY CARE NURSE PRACTITIONER OUTPATIENT NOTE DATE OF NOTE: JUL 09, 2024@08:40 ENTRY DATE: JUL 09, 2024@08:41 AUTHOR: EJ BALDERAS COSIGNER: URGENCY: STATUS: COMPLETED Chief complaint: Patient is a 68 year old . HPI: Pleasant male [place] here to follow up. He comes yearly. He is followed by Dr. Peace PCP and Dr [facility]. Allergies: Patient has answered NKA The following VA and Non-VA meds were reconciled with patient. The patient was educated on the use of the medications including indication and side effects. Active and Recently Outpatient Medications (excluding Supplies): Active Non-VA Medications Status = 1) Non-VA AMLODIPINE BESYLATE 5MG TAB 5MG BY MOUTH ONCE ACTIVE DAILY 2) Non-VA ASPIRIN 81MG EC TAB 81MG BY MOUTH DAILY ACTIVE 3) Non-VA ATORVASTATIN CALCIUM 80MG TAB 80MG BY MOUTH ACTIVE ONCE DAILY 4) Non-VA COENZYME Q10 CAP/TAB 100 MG EVERY OTHER DAY ACTIVE 5) Non-VA FISH OIL 1000MG (500MG DHA/EPA) CAP 1000MG BY ACTIVE MOUTH ONCE DAILY NEEDED 6) Non-VA GARLIC CAP,ORAL 320 MG BY MOUTH DAILY ACTIVE 7) Non-VA HCTZ 12.5/LISINOPRIL 20MG TAB 1 TABLET BY ACTIVE MOUTH 8) Non-VA METFORMIN HCL 1000MG TAB 1000MG BY MOUTH TWICE ACTIVE DAILY 9) Non-VA METOPROLOL SUCCINATE 100MG SA TAB 100MG BY ACTIVE MOUTH ONCE DAILY 10) Non-VA MULTIVITAMIN/MINERALS CAP/TAB 1 TABLET BY ACTIVE MOUTH DAILY Review of Systems: Constitutional: (-)for Fevers, chills, weakness, nights sweats On examination: 97.5 F [36.4 C] (07/09/2024 08:14)128/68 (07/09/2024 08:40)57 (07/09/2024 08:14)20 (07/09/2024 08:14)0 (07/09/2024 08:14)BMI: 32.7247 lb [112.04 kg] (07/09/2024 08:14) is alert and oriented X3 Cardiovasc: 2plus carotids without bruits, no JVD Heart Reguler rate and rhythm NL S1S2 no S3 or murmur Respiration: Normal respiratory effort, lungs clear ABD: Benign normal active bowel sounds no HSM no rebound or referred pain EXT: no clubbing, edema, or cyanosis All diagnostics from past month were reviewed with patient. Assessment/plan: Active problems - Computerized Problem List is the source for the followin. CAD - Coronary Artery Disease (SCT [id number]) - stable 2. Diabetes mellitus (SNOMED CT 76409792) - not controlled, HGB A1C in December was 9.3. He is making efforts to improve diet, continues to take metformin, this is being followed by community PCP. 3. Essential hypertension - Well controlled Health Care Maintenance: flu+ given in clinic Review of medial record = 5mins Time spent with Patient including shared decision making = 20 mins Post visit documentation = 5mins Total time = 30 mins Follow up visit in 12 mos. Assess Statin Use - Lipids (CVD/DM): The patient is still taking the NON-VA statin medication as documented. PAVE Foot Check: A complete foot check was completed at this encounter. VISUAL INSPECTION: Includes inspection for skin breaks, deformity, erythema, trauma, pallor on elevation, dependent rubor, nail deformities, extensive callus and pitting edema. Visual exam results: Normal PEDAL PULSES: Includes palpation of dorsalis and posterior tibial pulses and signs/symptoms of vascular compromise like pain, pallor, parasthesia or paralysis. Present (even if diminished) SENSORY CHECK: Includes 10 gram Monofilament (Hooppole-Mayte) test of sensation. Intact (Greater than or equal to 80% of sites checked) Abnormal (Less than 80% of sites checked): Intact LOW-RISK: LOW RISK INFORMATION PROVIDED: 1. Advised patient not to walk barefoot. 2. Explained the importance of daily foot checks for changes. 3. Stressed the importance of daily foot hygiene, including bathing and complete drying. Sexual Orientation: The patient thinks of their sexual orientation as: Straight or Heterosexual Medication Reconciliation: Outpatient: Has the patient been taking medications as documented in the EMLR? YES: The patient has been taking medications as documented in the EMLR. Essential Medication List for Review used to complete this medication reconciliation. INCLUDED IN THIS LIST: Alphabetical list of active outpatient prescriptions dispensed from this [place] (local) and dispensed from another [place] or [facility] facility (remote) as well as inpatient orders (local, pending and active), local clinic medications, locally documented non-VA medications, and local prescriptions that have or been discontinued in the past 90 days. - All changes in medications, including all non-VA/Herbal/OTC medications were entered into CPRS. - If there were any medications the patient should no longer take, they were discontinued. - The patient/caregiver was instructed to update this list, discard old lists, and take this list to the next appointment, whether with a VA or non-VA provider. /carlos eduardo/ Ej Balderas DNP, DRIVER HELPER-BC, CNL Primary Care Nurse Practitioner Signed: 07/09/2024 08:45 EJ BALDERAS [place] [facility] [facility] Jul 09, 2024 08:15 AM PREVENTIVE MEDICINE NURSING NOTE: LOCAL TITLE: CLINICAL REMINDERS/NURSING STANDARD TITLE: PREVENTIVE MEDICINE NURSING NOTE DATE OF NOTE: JUL 09, 2024@08:15 ENTRY DATE: JUL 09, 2024@08:15:36 AUTHOR: ALEJO,SIMÓN EXP COSIGNER: URGENCY: STATUS: COMPLETED CLINICAL REMINDERS/NURSING Has ADDENDA Advance Directive Screen MH AD: Patient does not have an Advance Directive completed and is requesting more information. A consult was sent to Social Work Services at this visit so that an appointment can be made with the patient to review the advance directive. The patient received education about Advance Directives and written notification of his/her rights. Suicide Screen: C-SSRS Screening [place]-Suicide Severity Rating Scale (C-SSRS Screener) 1. Over the past month, have you wished you were or wished you could go to sleep and not wake up? No 2. Over the past month, have you had any actual thoughts of killing yourself? No 3. Over the past month, have you been thinking about how you might do this? Response not required due to responses to other questions. 4. Over the past month, have you had these thoughts and had some intention of acting on them? Response not required due to responses to other questions. 5. Over the past month, have you started to work out or worked out the details of how to kill yourself? Response not required due to responses to other questions. 6. If yes, at any time in the past month did you intend to carry out this plan? Response not required due to responses to other questions. 7. In your lifetime, have you ever done anything, started to do anything, or prepared to do anything to end your life (for example, collected pills, obtained a gun, gave away valuables, went to the roof but didn't jump)? No 8. If YES, was this within the past 3 months? Response not required due to responses to other questions. Homelessness/Food Insecurity Screen: In the past 2 months, have you been living in stable housing that you own, rent, or stay in as part of a household? Yes - Living in stable housing. Are you worried or concerned that in the next 2 months you may NOT have stable housing that you own, rent, or stay in as part of a household? No - Not worried about housing near future The [place] reports the following: Within the past 12 months, you worried whether your food would run out before you got money to buy more. Never true Within the past 12 months, the food you bought just didn't last and you didn't have money to get more. Never true Depression Screening: Perform PHQ-2 A PHQ-2 screen was performed. The score was 0 which is a negative screen for depression. Over the past two weeks, how often have you been bothered by the following problems? 1. Little interest or pleasure in doing things Not at all 2. Feeling down, depressed, or hopeless Not at all Alcohol Use Screen (AUDIT-C): Alcohol Screen: SCREEN FOR ALCOHOL (AUDIT-C) An alcohol screening test (AUDIT-C) was negative (score=0). 1. How often did you have a drink containing alcohol in the past year? Consider a drink to be a 12 ounce can or bottle of regular beer, 8 ounces of malt liquor, a 5 ounce glass of table wine, or a 1.5 ounce shot of liquor (like scotch, gin, or vodka). Never 2. How many drinks containing alcohol did you have on a typical day when you were drinking in the past year? Response not required due to responses to other questions. 3. How often did you have six or more drinks on one occasion in the past year? Response not required due to responses to other questions. /carlos eduardo/ Simón [facility] Scuba Diver POWERHOUSE MECHANIC APPRENTICE,PRIMARY CARE Signed: 07/09/2024 08:21 07/09/2024 ADDENDUM STATUS: COMPLETED Influenza Immunization: Influenza, High-Dose, Trivalent, Preservative Free (Fluzone-Syringe) Administered: INFLUENZA, HIGH-DOSE, TRIVALENT, PF Date Administered: Jul 09, 2024 08:30 Keymodule Assembly Machine Tender: SANOFI PASTEUR Lot: [id number] Exp Date: Feb 04, [address] [facility]: [id number] Admin Route/Site: INTRAMUSCULAR/LEFT DELTOID Dosage: 0.5mL Vaccine Information Statement(s): INFLUENZA(FLU) VACC(INACTIVATED OR RECOMBINANT)VIS Mar 13, 2021 (UPPER SORBIAN) Order By: Policy Administered By: Cassia Marr The Influenza Vaccine Information Statement (VIS) was reviewed with the patient/caregiver which lists the benefits and risks of the vaccine and the risks of not receiving the Influenza vaccine. The patient/caregiver denied any prior severe reaction to this vaccine or its components or a severe allergic reaction, such as anaphylaxis, to any vaccine or any injectable therapy. The patient/caregiver gave verbal consent to receive the vaccine. /carlos eduardo/ Cassia Marr MSN RN CNL Primary Care RN Signed: 07/09/2024 08:46 SIMÓN DHILLON [facility], IN[facility] [employer] [facility] [facility]
--- OUTSIDE RECORDS SUMMARY | 2024-08-10 09:48 | XMS_ITS ---
Author Name [facility] [place] [facility] [place] Address [address] [place] [id number] Care Team Providers Care Dining Services Manager Name Role Phone EJ MEDINA Primary Care [...] SYEDT ION [id number] 1 Aug 08, 2017 [id number] [phone] KHARI DAVIS PATIENT MEDICARE (WNR) MEDICARE (M) PART B Jul 08, 2020 PART B [id number] KHARI DAVIS PATIENT MEDICARE (WNR) MEDICARE (M) PART A Jul 08, 2020 PART A [id number] KHARI DAVIS PATIENT FOR LIFE TFL* Jul 08, 2020 [id number] KHARI DAVIS PATIENT [facility] Aug 08, 2017 [facility] [id number] KHARI DAVIS PATIENT [facility] (WNR) KASEY CAAMCHO(WN R) Aug 08, 2017 (WNR) [id number] KHARI DAVIS PATIENT Selected Encounter This section includes the information on record at [place] for the Encounter. Date/Time Encounter Type Encounter Description Reason Pro vider Source December 20, 2023 12:00 AM Outpatient Encounter EVENT (HISTORICAL) IHE Encounter Template Text not used by [facility] Social History: Smoking Status (Most current) and Tobacco Use (All prior to encounter date) This section includes the most current, and the historical, smoking and tobacco- related health factors from the [place] facility where the Encounter took place. Current Smoking Status This section includes the most current smoking, or tobacco-related health factor, from the [place] facility where the Encounter took place. Date/Time Current Smoking Status Comment Melony ity Jul 04, 2023 10:00 AM VA-TOBACCO NEVER USED [facility] Tobacco Use History This section includes a history of the smoking, or tobacco-related health factors, that were collected on or before the date of the Encounter. The data comes from the [place] facility where the Encounter took place. Date/Time Smoking Status/Tobacco Use Comment F acility Jul 05, 2022 11:00 AM VA-TOBACCO NEVER USED [place] [facility] [place] [facility] Jul 28, 2020 09:30 AM VA-TOBACCO NEVER USED [place] [facility] [place] [facility] Jul 23, 2019 09:45 AM VA-TOBACCO NEVER USED [place] [facility] [place] [facility] Mar 11, 2011 01:33 PM LIFETIME NON-TOBACCO USER [place] [facility] [place] [facility] Encounter Notes: All associated encounter notes This section contains the clinical notes associated to the Encounter. Date/Time Encounter Note(s) Provider Source December 20, 2023 12:00 AM [facility] [place] REPORT: LOCAL TITLE: NON-VA DIAGNOSTICS STANDARD TITLE: NONVA DIAGNOSTIC STUDY REPORT DATE OF NOTE: DECEMBER 20, 2023 ENTRY DATE: MAY 30, 2024@09:41:30 AUTHOR: CARMELA MASON EXP COSIGNER: URGENCY: STATUS: COMPLETED VistA Imaging - Scanned Document SCANNED DOCUMENT SIGNATURE NOT REQUIRED Electronically Filed: 05/30/2024 by: CARMELA MIMS [facility]
== END 2024-08-10 09:56 | disposition home or self-care (01) ==
PROVIDERS: PCP Internal Medicine; Visit Provider Internal Medicine
DX: E11.69 Type 2 diabetes mellitus with other specified complication (principal); E78.5 Hyperlipidemia, unspecified; I10 Essential (primary) hypertension

== ENCOUNTER 2024-10-17 08:27 | Outpatient (AMB) | payer MEDICARE, OTHER, SELFPAY ==
[2024-10-17 08:28] VITALS: BP 130/70; PULSE 51; O2SAT 80; BMI 31.4
--- NOTE | 2024-10-17 08:28 | A.OFFPC_ITS ---
Vital Signs 10/17/24 08:28 10/17/24 09:37 Height 6 ft 1 in Weight 238 lb 4 oz BMI 31.4 BP 130/70 Blood Pressure Location Lt brachial Position Sitting Pulse 51 Pulse Source Pulse Oximeter Pulse Oximetry (%) 80 L 98 Oxygen Delivery Method Room Air Room Air Intake Visit Reasons: ANN from Dr. Peace Safety Inspector Required: No Accompanied by: Self / Same As Patient Allergies No Known Allergies [No Known Allergies*] Allergy (Verified 10/17/24 08:43) Medication List - Last Reconciled 10/17/24 by Zuleyma Iyer PA-C amlodipine 5 mg PO DAILY aspirin (Adult Low Dose Aspirin) 81 mg PO DAILY atorvastatin 80 mg PO BEDTIME blood sugar diagnostic (FreeStyle Lite Strips) 3 times a day empagliflozin (Jardiance) 25 mg PO DAILY 90 days flash glucose sensor (FreeStyle Bo 14 Day Sensor kit) every 14 days garlic 100 mg PO DAILY lancets (FreeStyle Lancets) 3 times a day lisinopril-hydrochlorothiazide 20-12.5 mg 1 tab PO DAILY metformin ER 1,000 mg (2 x 500 mg) PO BID 90 days metoprolol succinate ER (Toprol XL) 100 mg PO DAILY multivitamin 1 tab PO DAILY Tobacco use date assessed: 10/17/24 Fall risk assessment: No Falls in past year Last assessed Fall Risk: 10/17/24 Dental Screening Dental Screen Date: 10/17/24 Did you have a dental visit in the last 12 months?: Yes Did you have a dental problem in the last 6 months where you did not have access to dental care?: No Was dental information given to patient?: Patient has dentist HPI ANN from Dr. Peace HPI Details 69-year-old with past medical history of hypertension, coronary artery disease, hyperlipidemia, diabetes mellitus uncontrolled last seen by Dr. Peace 08/2024 coming in for transfer of care.? Presenting with Type 2 Diabetes Mellitus management and medication review. His Hemoglobin A1c has persistently been elevated, reaching 9.5% despite ongoing treatment with metformin and Jardiance. Attempts with semaglutide (Rybelsus) in the past showed some effectiveness, achieving an A1c of 7.1% back in 2020. The patient maintains a diet which includes foods that may exacerbate hyperglycemia. He also reports difficulties with occasional numbness and tingling in the feet. Cardiovascular evaluations have remained consistent, with no changes noted in June. The patient shows interest in reinitiating Rybelsus, acknowledging its past benefit. He also is [facility]. Reports having a fungal infection on the foot but declines treatment at this time. [facility] Medical History Hx of sleep apnea Quadriceps tendon rupture CAD (coronary artery disease) Obesity (BMI 30-39.9) Hypertension Dyslipidemia Diabetic polyneuropathy associated with type 2 diabetes mellitus Diabetes type 2, uncontrolled Surgical History Hx of surgical procedure (04/14/23) History of knee surgery Hx of umbilical hernia repair Hx of hernia repair H/O wisdom tooth extraction Hx of removal of cyst S/P CABG x 5 Family History Mother Type 2 diabetes mellitus Father H/O heart artery stent Social History Household Members: Family Housing: House Alcohol intake: never Patient Tobacco Use Status: Never used Tobacco Tobacco use type: Cigarette e-Cigarette/Vaping Use: Never Used Second Hand Smoke Exposure: No service: Yes Current occupational status: retired Current occupation: Rt handed Cognitive needs: Yes (cane) Hearing needs: No Vision needs: Yes (glasses) Questionnaire PHQ-9 Over the last 2 weeks, how often have you been bothered by any of the following problems? 1. Little interest or pleasure in doing things: not at all 2. Feeling down, depressed, or hopeless: not at all 3. Trouble falling or staying asleep, or sleeping too much: not at all 4. Feeling tired or having little energy: not at all 5. Poor appetite or overeating: not at all 6. Feeling bad about yourself - or that you are a failure or have let yourself or your family down: not at all 7. Trouble concentrating on things, such as reading the newspaper or watching television: not at all 8. Moving or speaking so slowly that other people could have noticed. Or the opposite - being so fidgety or restless that you have been moving around a lot more than usual: not at all 9. Thoughts that you would be better off or of hurting yourself in some way: not at all Total score: 0 Depression Screening Interpretation: Negative Depression Screening Done: Yes Source: Developed by Drs. Tyrel Borrero, Vanna De Dios, Mello Major and colleagues, with an educational shabbir from [employer]. Thrive Questionnaire Date Thrive assessed: 10/17/24 I am a: Patient What is your living situation today?: I have a steady place to live Within the past 12 months, did the food you bought not last and you didn't have the money to get more?: Never true Within the past 12 months, did you worry whether your food would run out before you got money to buy more?: Never true Do you have trouble paying for medicines?: No Do you have trouble getting transportation to medical appointments?: No Do you have trouble paying your heating and electricity bill?: No Do you have trouble taking care of your child, family member or friend?: No Do you have trouble with day-to-day activities such as bathing, preparing meals, shopping, managing finances, etc.?: No Are you currently unemployed and looking for a job?: No Are you interested in more education?: No Please select the resources that you would like help with: None Currently or been in a relationship where the following occur: No concerns reported THRIVE Score: 0 AUDIT C Alcohol Use Questionnaire (AUDIT-C) 1. How often do you have a drink containing alcohol?: Never 3. How often do you have six or more drinks on one occasion?: Never Total Score: 0 IRAIS-7 AMB Questionnaire IRAIS-7 Date IRAIS - 7 assessed: 10/17/24 Feeling nervous, anxious, or on edge: 0 = Not at all Not being able to stop or control worryin = Not at all Worrying too much about different things: 0 = Not at all Trouble relaxin = Not at all Being so restless that it is hard to sit still: 0 = Not at all Becoming easily annoyed or irritable: 0 = Not at all Feeling afraid as if something awful might happen: 0 = Not at all Total IRAIS-7 score (0-4 normal; 5-9 mild; 10-14 moderate; 15-21 severe): 0 Source: Developed by Drs. Tyrel Borrero, Vanna De Dios, Mello Major and colleagues, with an educational shabbir from [employer]. Review of Systems Const Denies body aches, Denies chills, Denies fever(s), Denies headache(s) and Denies poor appetite Eyes Reports no additional complaints ENT Denies dizziness and Denies headache(s) Card Denies chest pain, Denies syncope, Denies edema, Denies irregular heart rhythm, Denies lightheadedness and Denies dyspnea Resp Denies cough and Denies dyspnea GI Denies abdominal pain, Denies constipation, Denies diarrhea, Denies nausea and Denies vomiting Reports no additional complaints Musc Reports no additional complaints and Denies abnormal gait Skin/Breast Reports system reviewed and no additional complaints, except as documented Neuro Denies abnormal gait, Denies dizziness, Denies syncope and Denies headache(s) Psych Reports no additional complaints Physical exam (Primary Care) Vital Signs: Last Vital Signs Pulse 51 10/17/24 08:28 BP 130/70 10/17/24 08:28 Pulse Ox 80 L 10/17/24 08:28 Oxygen Delivery Method Room Air 10/17/24 08:28 BMI result Body Mass Index 31.4 Tobacco/Smoking Status: Tobacco use Status Tobacco use date assessed 10/17/24 10/17/24 08:33 Patient Tobacco Use Status Never used Tobacco 10/17/24 08:33 Tobacco use type Cigarette 10/17/24 08:33 e-Cigarette/Vaping Use Never Used 10/17/24 08:33 PHQ-9: PHQ-9 Score PHQ-9: Total score 0 10/17/24 08:33 Depression Screening Interpretation: Negative Thrive Assessment: Date of Thrive Assessment Date Thrive assessed 10/17/24 10/17/24 08:33 Currently or been in a relationship where the following occur: No concerns reported Const General: cooperative, healthy appearing, comfortable and no acute distress Orientation/consciousness: patient oriented x3 HENMT Head: Yes normocephalic Ears: hearing grossly normal bilaterally General nose exam: Normal external nose present Eyes General: appearance normal, both eyes and all related structures Conjunctivae: conjunctivae normal Neck Neck: Yes full ROM and Yes no lymphadenopathy Resp Effort & Inspection: normal respiratory effort Auscultation: clear to auscultation bilaterally, no crackles, no rales, no rhonchi and no wheezes Cardio Rate: regular rate Rhythm: regular rhythm Skin General skin exam: no rashes or lesions noted Neuro General: patient oriented x3 Gait exam (Neuro): Normal gait present Extrem General: Yes normal to inspection, Yes full ROM and No edema Psych Affect: normal affect Attitude: cooperative Insight: Good insight present (Psych) Judgement: Good judgement present (Psych) Coding Level of Care Code Est Pt Level 4 (59706) Diagnoses Type 2 diabetes mellitus with hyperlipidemia E11.69; E78.5 Obesity E66.9 CAD (coronary artery disease) I25.10 Diabetic polyneuropathy associated with type 2 diabetes mellitus E11.42 Dyslipidemia E78.5 Hypertension I10 Decreased hearing H91.90 Assessment & Plan Assessment & Plan (1) Type 2 diabetes mellitus with hyperlipidemia: Comment: Real Arte[place] Ma Code(s): E11.69 - Type 2 diabetes mellitus with other specified complication; E78.5 - Hyperlipidemia, unspecified Category: Medical Plan: Decrease the amount of carbohydrates such as pasta, bread, rice, and potatoes and limit the amount of sweets. Although fruits are generally healthy they should be eaten in moderation as they are still high in sugar. Hemoglobin A1c goal of less than 7%. Continue on metformin and Jardiance. Plan to reinitiate for boluses at a starting dose of 3 mg with careful dose titration as tolerated. Plan to repeat A1c test scheduled in December to evaluate glycemic control. (2) Obesity: Code(s): E66.9 - Obesity, unspecified Category: Medical Plan: Healthy diet and regular exercise is encouraged. (3) CAD (coronary artery disease): Code(s): I25.10 - Atherosclerotic heart disease of [place] coronary artery without angina pectoris Category: Medical Plan: Advised good control of blood pressure, cholesterol and diabetes mellitus. At this time cholesterol and blood pressure has been well controlled for many years and we will continue to work on glycemic control. Plan to repeat blood work in December. Continue to follow with Cardiology (4) Diabetic polyneuropathy associated with type 2 diabetes mellitus: Code(s): E11.42 - Type 2 diabetes mellitus with diabetic polyneuropathy Category: Medical Plan: Advised good glycemic control. Reinitiating rybelsus to achieve this. (5) Dyslipidemia: Code(s): E78.5 - Hyperlipidemia, unspecified Category: Medical Plan: Avoid foods that are high in cholesterol such as red meat, fried foods, eggs and baked goods. Triglyceride goal of less than 150 and LDL goal of less than 70. Continue on atorvastatin 80 mg. Plan to repeat blood work (6) Hypertension: Code(s): I10 - Essential (primary) hypertension Category: Medical Plan: Continue on current blood pressure medication. Avoid salt intake and encourage healthy diet and regular exercise. (7) Decreased hearing: Code(s): H91.90 - Unspecified hearing loss, unspecified ear Category: Medical Plan: [facility] Plan This note was constructed using voice recognition software. While every effort has been made to ensure accuracy and inspector packager, still areas may have been included sometimes these areas may affect the content or meeting of the given symptoms. Total time spent caring for the patient today was 20 minutes. This includes time spent before the visit reviewing the chart, time spent during the visit, and time spent after the visit and documentation. Patient was informed and verbally consented to the use of an ambient scribe for clinic note documentation during this visit. Medications: Refilled metformin ER 1,000 mg (2 x 500 mg) PO BID 90 days 360 tabs 1RF
--- OUTSIDE RECORDS SUMMARY | 2024-10-17 08:55 | XMS_ITS | Continuity of Care Document ---
Author Name [facility] Organization [facility] Care Team Providers Care Games Manager Name Role Phone [facility] Unavailable Unavailable Problems Combined list of problems from Department of Defense and Veterans Affairs facilities. It does not include entries that were removed or entered in error. Problem Status Onset Date Problem Type Date of Resolution Comments Source Achilles bursitis or tendinitis Active Condition [facility] CAD - Coronary Artery Disease (SCT [id number]) Active Condition [facility] Diabetes Mellitus Active [facility] Diabetes mellitus (SNOMED CT [id number]) Active Condition [facility] Essential hypertension Active Condition [facility] Hyperlipidemia Active Condition [facility] Obesity Active Condition [facility] Sleep apnea Active Condition [facility] diarrhea Active Condition [facility] Diagnosis: ICD-10-CM I25.10 Athscl heart disease of [place] coronary artery w/o ang pctrs Active Diagnosis [...] INHALATION, PRASCO LABS, 18 g CANISTER Active [id number] 2023 18 Pharmac y Data Transac tion Service Facilit y AMLODIPINE BESYLATE 5MG TAB TAKE ONE TABLET BY MOUTH ONCE DAILY ORAL ACTIVE EJ MEDINA 2019 [facility] ASPIRIN 81MG TAB,EC TAKE ONE TABLET BY MOUTH DAILY ORAL ACTIVE JOSE LORD 2010 [facility] ATORVASTATI N CA 80MG TAB TAKE ONE TABLET BY MOUTH ONCE DAILY ORAL ACTIVE EJ MEDINA 2019 [facility] ATORVASTATI N CALCIUM (atorvastat in calcium), 80 MG, TABLET, ORAL, [employer] 500 ea. BOTTLE Active [id number] 2023 90 Pharmac y Data Transac tion Service Facilit y ATORVASTATI N CALCIUM (atorvastat in calcium), 80 MG, TABLET, ORAL, GABO PHARMACEU, 500 ea. BOTTLE Active [id number] 4 2023 90 Pharmac y Data Transac tion Service Facilit y ATORVASTATI N CALCIUM (atorvastat in calcium), 80 MG, TABLET, ORAL, GABO PHARMACEU, 500 ea. BOTTLE Active [id number] 2023 90 Pharmac y Data Transac tion Service Facilit y AZITHROMYCI N (azithromyc in), 250 MG, TABLET, ORAL, LUPIN PHARMACEU, 6 ea. BLIST PACK Active [id number] 4 2023 6 Pharmac y Data Transac tion Service Facilit y COENZYME Q10 CAP/TAB TAKE 100 MG EVERY OTHER DAY ACTIVE JOSE LORD 2014 [facility] FISH OIL 1000MG (500MG DHA/EPA) CAP,ORAL TAKE 1 CAPSULE BY MOUTH DAILY NEEDED ORAL ACTIVE JOSE LORD 2014 [facility] GARLIC CAP,ORAL TAKE 320 MG BY MOUTH DAILY ORAL ACTIVE JOSE LORD 2013 [facility] HYDROCHLORO THIAZIDE 12.5MG/GEN NOPRIL 20MG TAB TAKE ONE TABLET BY MOUTH ORAL ACTIVE JOSE LORD 2010 [facility] JARDIANCE (EMPAGLIFLO ZIN), 25 MG, TABLET, ORAL, BOEHRINGER ING., 90 ea. BOTTLE Active [id number] 4 2023 90 Pharmac y Data Transac tion Service Facilit y JARDIANCE (EMPAGLIFLO ZIN), 25 MG, TABLET, ORAL, BOEHRINGER ING., 90 ea. BOTTLE Active [id number] 2023 90 Pharmac y Data Transac tion Service Facilit y METFORMIN HCL 1000MG TAB TAKE ONE TABLET BY MOUTH TWICE DAILY ORAL ACTIVE EJ MEDINA 2019 [facility] METOPROLOL SUCCINATE (metoprolol succinate), 100 MG, TAB ER 24H, ORAL, [employer] 1000 ea. BOTTLE Active [id number] 2023 90 Pharmac y Data Transac tion Service Facilit y METOPROLOL SUCCINATE (metoprolol succinate), 100 MG, TAB ER 24H, ORAL, [employer] 1000 ea. BOTTLE Active [id number] 4 2023 90 Pharmac y Data Transac tion Service Facilit y METOPROLOL SUCCINATE 100MG TAB,SA TAKE ONE TABLET BY MOUTH ONCE DAILY ORAL ACTIVE EJ MEDINA 2019 [facility] MULTIVITAMI NS W/MINERALS TAB TAKE ONE TABLET BY MOUTH DAILY ORAL ACTIVE JOSE LORD S 2010 [facility] PREDNISONE (prednisone ), 20 MG, TABLET, ORAL, MYLAN, 500 ea. BOTTLE Active [id number] 2023 6 Pharmac y Data Transac tion Service Facilit y Allergies, Adverse Reactions, Alerts Combined list of allergies from Department of Defense and Veterans Affairs facilities. It does not include entries that were removed or entered in error. Substance Category Reaction Severity Reaction type Status Date Reported Comments Source No Known Allergies Drug allergy (disorder) active 01/09/2008 [facility] Immunizations Combined list of available immunizations from the Department of Defense and Veterans Affairs facilities. 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 Status Comments Source INFLUENZA, HIGH-DOSE, TRIVALENT, PF 2023 AFSHIN MARR LEFT DELTO ID [id number] 135 complet ed [facility] influenza, high-dose, quadrivalent 2020 DOUG, () Not Given influenza , high-dose , quadrival ent DoD COVID-19 (PFIZER), MRNA, LNP-S, PF, 30 MCG/0.3 ML DOSE 2 2020 208 complet ed PFR; [id number]; 1 [facility] COVID-19 (PFIZER), MRNA, LNP-S, PF, 30 MCG/0.3 ML DOSE 1 2020 208 complet ed PFR; [id number]; 1 [facility] [...] 2012 109 complet ed Site: Left Deltoid [facility] Influenza, seasonal, injectable, preservative free 15 2010 Unknown, Provider [id number] [facility] [employer] ([facility]) complet ed Influenza , seasonal, injectabl e, preservat chayo free DoD FLU,3 YRS (HISTORICAL) 2009 88 complet ed [facility] influenza virus vaccine, split virus (incl. purified surface antigen)-reti red CODE 14 2009 Unknown, Provider [id number] 15 Sanofi Pasteur ([facility]) complet ed influenza virus vaccine, split virus (incl. purified surface antigen)- retired CODE DoD FLU,3 YRS (HISTORICAL) 2009 88 complet ed [facility] anthrax vaccine 2 2009 Unknown, Provider [id number] [employer] [place] ([facility]) complet ed anthrax vaccine DoD typhoid Vi capsular polysaccharid e vaccine 1 2009 Unknown, Provider [id number] 101 Sanofi Pasteur ([facility]) complet ed typhoid Vi capsular polysacch aride vaccine DoD anthrax vaccine 1 2009 Unknown, Provider [id number] [employer] [place] ([facility]) complet ed anthrax vaccine DoD Novel influenza-H1N 1-09, injectable 1 2009 Unknown, Provider [id number] 127 [employer]is Nukonatica l Jamaal. (NOV) complet ed Novel influenza -F3Y2-23, injectabl e DoD influenza virus vaccine, split virus (incl. purified surface antigen)-reti red CODE 1 2008 Unknown, Provider [id number] 15 [employer] ([facility]) complet ed influenza virus vaccine, split virus (incl. purified surface antigen)- retired CODE DoD influenza virus vaccine, split virus (incl. purified surface antigen)-reti red CODE 1 2007 Unknown, Provider [id number] 15 [facility] ([facility]) complet ed influenza virus vaccine, split virus (incl. purified surface antigen)- retired CODE DoD typhoid Vi capsular polysaccharid e vaccine 1 2007 [id number] Sanofi Pasteur ([facility]) complet ed typhoid Vi capsular polysacch aride vaccine DoD influenza virus vaccine, split virus (incl. purified surface antigen)-reti red CODE 1 2006 [id number] 15 [employer] ([facility]) complet ed influenza virus vaccine, split virus (incl. purified surface antigen)- retired CODE DoD influenza virus vaccine, split virus (incl. purified surface antigen)-reti red CODE 1 2006 [id number] Other (OTH) complet ed influenza virus vaccine, split virus (incl. purified surface antigen)- retired CODE DoD typhoid vaccine, parenteral, other than acetone-kille d, dried 1 2005 [id number] Sanofi Pasteur ([facility]) complet ed typhoid vaccine, parentera l, other than acetone-k illed, dried DoD influenza virus vaccine, split virus (incl. purified surface antigen)-reti red CODE 1 2004 [id number] 15 Sanofi Pasteur ([facility]) complet ed influenza virus vaccine, split virus (incl. purified surface antigen)- retired CODE DoD typhoid vaccine, parenteral, other than acetone-kille d, dried 0 2003 [id number] 41 Sanofi Pasteur ([facility]) complet ed typhoid vaccine, parentera l, other than acetone-k illed, dried DoD influenza virus vaccine, whole virus 0 2002 [id number] 16 Sanofi Pasteur ([facility]) complet ed influenza virus vaccine, whole virus DoD tuberculin skin test; purified protein derivative solution, intradermal 1 2002 Unknown, Provider [id number] [facility] ([facility]) complet ed tuberculi n skin test; purified protein derivativ e solution, intraderm al DoD influenza virus vaccine, whole virus 0 2001 [id number] 16 [employer] ([facility]) complet ed influenza virus vaccine, whole virus DoD tuberculin skin test; purified protein derivative solution, intradermal 1 2001 Unknown, Provider [id number] [facility] ([facility]) complet ed tuberculi n skin test; purified protein derivativ e solution, intraderm al DoD tetanus and diphtheria toxoids, adsorbed, preservative free, for adult use (2 Lf of tetanus toxoid and 2 Lf of diphtheria toxoid) 0 2000 [id number] Sanofi Pasteur ([facility]) complet ed tetanus and diphtheri a toxoids, adsorbed, preservat chayo free, for adult use (2 Lf of tetanus toxoid and 2 Lf of diphtheri a toxoid) DoD influenza virus vaccine, whole virus 0 2000 [id number] 16 Sanofi Pasteur ([facility]) complet ed influenza virus vaccine, whole virus DoD typhoid vaccine, parenteral, other than acetone-kille d, dried 0 2000 [id number] Sanofi Pasteur ([facility]) complet ed typhoid vaccine, parentera l, other than acetone-k illed, dried DoD tuberculin skin test; purified protein derivative solution, intradermal 1 2000 Unknown, Provider [id number] 96 Sanofi Pasteur ([facility]) complet ed tuberculi n skin test; purified protein derivativ e solution, intraderm al DoD influenza virus vaccine, whole virus 0 2000 [id number] 16 Alexandrajose (CON) complet ed influenza virus vaccine, whole virus DoD typhoid vaccine, parenteral, other than acetone-kille d, dried 0 1999 [id number] [facility] typhoid vaccine, parentera l, other than acetone-k illed, dried DoD influenza virus vaccine, whole virus 0 [id number] 16 Alesha-Papi ([place]) complet ed influenza virus vaccine, whole virus DoD tuberculin skin test; purified protein derivative solution, intradermal 1 1998 Unknown, Provider [id number] [facility] complet ed tuberculi n skin test; purified protein derivativ e solution, intraderm al DoD typhoid vaccine, parenteral, other than acetone-kille d, dried 0 1998 41 () complet ed typhoid vaccine, parentera l, other than acetone-k illed, dried DoD measles, mumps and rubella virus vaccine 0 1997 [id number] Hameed (AB) complet ed measles, mumps and rubella virus vaccine DoD influenza virus vaccine, whole virus 0 [id number] 16 Alexandrajose (CON) complet ed influenza virus vaccine, whole virus [...] DoD influenza virus vaccine, whole virus 0 [id number] 16 Wyeth-Ayerst (Inactive) ([place]) complet ed influenza virus vaccine, whole virus DoD meningococcal polysaccharid e vaccine (MPSV4) 0 1997 [id number] Alexandrajose (CON) complet ed meningoco ccal polysacch aride vaccine (MPSV4) DoD hepatitis B vaccine, adult dosage 1 1997 [id number] Merck (MSD) complet ed hepatitis B vaccine, adult dosage DoD hepatitis A vaccine, adult dosage 1 1997 [id number] 52 Merck (MSD) complet ed hepatitis A vaccine, adult dosage DoD tuberculin skin test; purified protein derivative solution, intradermal 1 1997 Unknown, Provider [id number] 96 Alexandrajose (CON) complet ed tuberculi n skin test; [...] derivative solution, intradermal 1 1995 Unknown, Provider [id number] 96 Alexandrajose (CON) complet ed tuberculi n skin test; purified protein derivativ e solution, intraderm al DoD yellow fever vaccine 0 1992 [id number] Alexandrajose (CON) complet ed yellow fever vaccine DoD [...] ed trivalent polioviru s vaccine, live, oral DoD Vital Signs Combined list of inpatient and outpatient Vital Signs from Department of Defense and Veterans Affairs, ranging from 12 months to all on record, depending upon the facility. Vital Sign Value Date Comments Source SYSTOLIC BLOOD PRESSURE 147 07/09/20 24 08:14:18 [facility] [place] [facility] DIASTOLIC BLOOD PRESSURE 88 024 08:14:18 [facility] PULSE OXIMETRY 99 07/09/2024 08:14:18 [facility] WEIGHT 247 07/09/2024 08:14:18 [facility] BMI 33 kg/m2 07/09/2024 08:14:18 [facility] [...] from Department of Veterans Affairs facilities going backup to the last 18 months, not all VA inpatient encounters are included; 2) Encounters from the Department of Defense facilities going backup to 280 months. Location Location Details Encounter Type Encounter Number Reason For Visit Attending Provider ADM Date DC Date Status Disposition Source [facility]) OUTPATIENT [id number] Possibl e food poisoni ng BRANDI LAKHWINDER E 01/07 Released w/o Limitations [facility]( [facility]) [facility] Outpatient Encounter [id number] 06/29 [facility] OFFICE O/P EST LOW 20-29 MIN [id number] Diagnos is: ICD-10- CM I25.10 Athscl heart disease of [place] coronar y artery w/o ang pctrs Suki MEDINA 07/04 [facility] POS AIRWAY PRESSURE FILTER [id number] Diagnos is: ICD-10- CM G47.30 Sleep apnea, unspeci fied ST INA [place] E P 09/29 [facility] En[facility] [id number] 1.12/19 [facility] En[facility] [id number] 1.12/19 [facility] [id number] 02/02 [facility] En[facility] [id number] 1.05/10 [facility] OFFICE O/P EST MOD 30 MIN [id number] Diagnos is: ICD-10- CM I25.10 Athscl heart disease of [place] coronar y artery w/o ang pctSuki Jones 07/09 [facility] En[facility] [id number] 08/10 [facility] Outpatient Encounter [id number] 10/16 [facility] Social History Combined list of available smoking, tobacco, and other social history from Department of Defense and Veterans Affairs facilities. Social History Type Response Date Comment Sourc e Tobacco smoking status [facility] VA-TOBACCO NEVER USED 07/04/2023 [facility] History of tobacco use VA-TOBACCO NEVER USED 07/05/2022 [facility] History of tobacco use VA-TOBACCO NEVER USED 07/28/2020 [facility] History of tobacco use OR-TOBACCO NEVER USED 07/23/2019 [facility] History of tobacco use LIFETIME NON-TOBACCO USER 03/11/2011 [facility] This section is an empty social history section. DoD
--- OUTSIDE RECORDS SUMMARY | 2024-10-17 08:55 | XMS_ITS | Encounter Summary ---
Author Name [facility] [place] [facility] [place] Address [address] [place] [address] Care Team Providers Care Plasma Table Operator Name Role Phone EJ MEDINA Primary [...] Byrd's Name Patient's Relationship to Policy Byrd MEDICARE (WNR) MEDICARE (M) PART A Jul 08, 2020 PART A [id number] [phone] KHARI DAVIS PATIENT MEDICARE (WNR) MEDICARE (M) PART B Jul 08, 2020 PART B [id number] KHARI DAVIS PATIENT FOR LIFE TFL* Jul 08, 2020 [id number] [phone] KHARI DAVIS PATIENT [facility] (WNR) TRICA RE(WN R) Aug 08, 2017 (WNR) [id number] [phone] KHARI DAVIS PATIENT Selected Encounter This section includes the information on record at [place] for the Encounter. Date/Time Encounter Type Encounter Description Reason Pro vider Source Oct 16, 2024 02:30 PM Outpatient Encounter TELEPHONE PRIMARY CARE IHE Encounter Template Text not used by [place] Social History: Smoking Status (Most current) and Tobacco Use (All prior to encounter date) This section includes the most current, and the historical, smoking and tobacco- related health factors from the [place] facility where the Encounter took place. Current Smoking Status This section includes the most current smoking, or tobacco-related health factor, from the [place] facility where the Encounter took place. Date/Time Current Smoking Status Comment Facil ity Jul 04, 2023 10:00 AM VA-TOBACCO NEVER USED [facility] [place] [facility] Tobacco Use History This section includes a history of the smoking, or tobacco-related health factors, that were collected on or before the date of the Encounter. The data comes from the [place] facility where the Encounter took place. Date/Time Smoking Status/Tobacco Use Comment F acility Jul 05, 2022 11:00 AM VA-TOBACCO NEVER USED [facility] [place] [facility] Jul 28, 2020 09:30 AM VA-TOBACCO NEVER USED [facility] [place] [facility] Jul 23, 2019 09:45 AM VA-TOBACCO NEVER USED [facility] [place] [facility] Mar 11, 2011 01:33 PM LIFETIME NON-TOBACCO USER [facility] [place] [facility] Encounter Notes: All associated encounter notes This section contains the clinical notes associated to the Encounter. Date/Time Encounter Note(s) Provider Source Oct 16, 2024 02:30 PM PREVENTIVE MEDICIN E NURSING NOTE: LOCAL TITLE: CLINICAL REMINDERS/NURSING STANDARD TITLE: PREVENTIVE MEDICINE NURSING NOTE DATE OF NOTE: OCT 16, 2024@14:30 ENTRY DATE: OCT 16, 2024@14:30:19 AUTHOR: DEANGELO MARR EXP COSIGNER: URGENCY: STATUS: COMPLETED Hemoglobin A1C: had HBA1C result from another health care site (results required). Date: August 10, 2024 Location: Outside Healthcare Provider Results: 9.5 /carlos eduardo/ DEANGELO MARR MSN, RN, CNL Primary Care RN Signed: 10/16/2024 14:32 DE[facility]ELO MARR [facility]
[2024-10-17 09:37] VITALS: O2SAT 98
== END 2024-10-17 09:17 | disposition home or self-care (01) ==
LOC: HO.HMCH 08:28
PROVIDERS: PCP Internal Medicine
DX: E11.69 Type 2 diabetes mellitus with other specified complication (principal); E11.42 Type 2 diabetes mellitus with diabetic polyneuropathy; E66.9 Obesity, unspecified; Z68.31 Body mass index [BMI] 31.0-31.9, adult; E78.5 Hyperlipidemia, unspecified; I25.10 Atherosclerotic heart disease of native coronary artery without angina pectoris; I10 Essential (primary) hypertension

== ENCOUNTER → 2024-10-17 08:27 | Outpatient (BNVA) | payer MEDICARE, OTHER, SELFPAY | PROVIDERS: PCP Internal Medicine | DX: E11.69 Type 2 diabetes mellitus with other specified complication (principal); E78.5 Hyperlipidemia, unspecified; E66.9 Obesity, unspecified; E11.42 Type 2 diabetes mellitus with diabetic polyneuropathy; I25.10 Atherosclerotic heart disease of native coronary artery without angina pectoris; I10 Essential (primary) hypertension; H91.90 Unspecified hearing loss, unspecified ear | CPT/HCPCS: 99212 ==

== ENCOUNTER 2024-12-20 08:58 | Outpatient (REF) | payer MEDICARE, OTHER, SELFPAY ==
[2024-12-20 09:09] LABS: MANUAL DIFF FLAG NO
[2024-12-20 09:29] LABS: Basophils Percent Auto 0.7 % (0-2); Eosinophils Absolute Auto 0.2 X10*3/uL (0.0-0.4); Hemoglobin 15.6 g/dl (14.0-18.0); Imm Gran Abs Auto 0.04 X10*3/uL (0.00-0.03); Imm Gran Pct Auto 0.7 % (0.0-0.4); Lymphocytes Absolute Auto 1.7 X10*3/uL (1.2-4.9); Lymphocytes Percent Auto 29.7 % (20-40); Mean Corpuscular HGB Conc 34.7 g/dl (31.0-36.0); Mean Corpuscular Hemoglobin 28.5 pg (27.0-33.0); Mean Corpuscular Volume 82.3 fL (80.0-98.0); Mean Platelet Volume 10.2 fL (9.4-12.4); Monocytes Absolute Auto 0.6 X10*3/uL (0.1-1.2); Monocytes Percent Auto 9.8 % (2-11); Neutrophils Absolute Auto 3.2 x10*3/uL (2.0-8.3); Neutrophils Percent Auto 55.1 % (45-73); Platelet Count 158 X10*3/uL (160-400); Red Blood Count 5.47 X10*6/uL (4.60-5.80); Red Cell Distribution Width 13.4 % (11.0-16.0); White Blood Count 5.7 X10*3/uL (4.8-10.8)
[2024-12-20 09:30] LABS: Estimated Average Glucose 229 mg/dL; Hemoglobin A1C 321.3564 umol/L; Hemoglobin A1c % 9.6 % (<6.0); Total Hemoglobin (HGBA1C) 3960.4634 umol/L
--- OUTSIDE RECORDS SUMMARY | 2024-12-20 09:30 | XMS_ITS | Continuity of Care Document ---
Author Name [facility] Organization [facility] Care Team Providers Care Innovation Manager Name Role Phone [facility] Unavailable Unavailable Problems Combined list of problems from Department of Defense and Veterans Affairs facilities. It does not include entries that were removed or entered in error. Problem Status Onset Date Problem Type Date of Resolution Comments Source Achilles bursitis or tendinitis Active Condition [facility] CAD - Coronary Artery Disease (SCT 75063669) Active Condition [facility] Diabetes Mellitus Active Condition [facility] Diabetes mellitus (SNOMED CT 27494779) Active Condition [facility] Essential hypertension Active Condition [facility] Hyperlipidemia Active Condition [facility] Obesity Active Condition [facility] Sleep apnea Active Condition [facility] diarrhea Active Condition [facility] Diagnosis: ICD-10-CM I25.10 Athscl heart disease of [place] coronary artery w/o ang pctrs Active Diagnosis [...] Ordering Provider Order Date Order Qty Source AMLODIPINE BESYLATE 5MG TAB TAKE ONE TABLET BY MOUTH ONCE DAILY ORAL ACTIVE EJ MEDINA 2019 [facility] ASPIRIN 81MG TAB,EC TAKE ONE TABLET BY MOUTH DAILY ORAL ACTIVE JOSE LORD 2010 [facility] ATORVASTATI N CA 80MG TAB TAKE ONE TABLET BY MOUTH ONCE DAILY ORAL ACTIVE EJ MEDINA 2019 [facility] COENZYME Q10 CAP/TAB TAKE 100 MG EVERY OTHER DAY ACTIVE CUTJOSE MCDOWELL S 2014 [facility] FISH OIL 1000MG (500MG DHA/EPA) CAP,ORAL TAKE 1 CAPSULE BY MOUTH DAILY NEEDED ORAL ACTIVE CUTJOSE MCDOWELL ALENA S 2014 [facility] GARLIC CAP,ORAL TAKE 320 MG BY MOUTH DAILY ORAL ACTIVE CUTJOSE MCDOWELL ALENA S 2013 [facility] HYDROCHLORO THIAZIDE 12.5MG/GEN NOPRIL 20MG TAB TAKE ONE TABLET BY MOUTH ORAL ACTIVE CUTJOSE MCDOWELL ALENA S 2010 [facility] JARDIANCE (EMPAGLIFLO ZIN), 25 MG, TABLET, ORAL, BOEHRINGER ING., 90 ea. BOTTLE Active [id number] 2023 90 Pharmac y Data [facility] tion Service Facilit y JARDIANCE (EMPAGLIFLO ZIN), 25 MG, TABLET, ORAL, BOEHRINGER ING., 90 ea. BOTTLE Active [id number] 2023 90 Pharmac y Data Transac tion Service Facilit y METFORMIN HCL 1000MG TAB TAKE ONE TABLET BY MOUTH TWICE DAILY ORAL ACTIVE EJ MEDINA 2019 [facility] METOPROLOL SUCCINATE 100MG TAB,SA TAKE ONE TABLET BY MOUTH ONCE DAILY ORAL ACTIVE EJ MEDINA 2019 [facility] MULTIVITAMI NS W/MINERALS TAB TAKE ONE TABLET BY MOUTH DAILY ORAL ACTIVE JOSE LORD ALENA S 2010 [facility] Allergies, Adverse Reactions, Alerts Combined list of allergies from Department of Defense and Veterans Affairs facilities. It does not include entries that were removed or entered in error. Substance Category Reaction Severity Reaction type Status Date Reported Comments Source No Known Allergies Drug allergy (disorder) active 01/09/2008 [facility] Immunizations Combined list of available immunizations from the Department of Defense and Veterans Affairs facilities. Immunization Series Date Given Administered By Site Reaction Lot Number CVX Code Drug Tax Associate Attorney Status Comments Source INFLUENZA, HIGH-DOSE, TRIVALENT, PF 2023 AFSHIN MARR LEFT DELTO ID [id number] complet ed ADMINISTE RED AT [place], [facility] influenza, high-dose, quadrivalent 2020 DOUG, () Not Given influenza , high-dose , quadrival ent [facility] COVID-19 (PFIZER), MRNA, LNP-S, PF, 30 MCG/0.3 ML DOSE 2 2020 208 complet ed PFR; [id number]; 1 [facility] COVID-19 (PFIZER), MRNA, LNP-S, PF, 30 MCG/0.3 ML DOSE 1 2020 208 complet ed PFR; [id number]; 1 [facility] [...] injectable, preservative free 15 2010 Unknown, Provider [id number] 140 [employer] ([facility]) complet ed Influenza , seasonal, injectabl e, preservat chayo free DoD FLU,3 YRS (HISTORICAL) 2009 88 complet ed [facility] influenza virus vaccine, split virus (incl. purified surface antigen)-reti red CODE 14 2009 Unknown, Provider [id number] [facility] ([facility]) complet ed influenza virus vaccine, split virus (incl. purified surface antigen)- retired CODE DoD FLU,3 YRS (HISTORICAL) 2009 88 complet ed [facility] anthrax vaccine 2 2009 Unknown, Provider [id number] [employer] [place] ([facility]) complet ed anthrax vaccine DoD typhoid Vi capsular polysaccharid e vaccine 1 2009 Unknown, Provider [id number] [facility] ([facility]) complet ed typhoid Vi capsular polysacch aride vaccine DoD anthrax vaccine 1 2009 Unknown, Provider [id number] 24 [employer] [place] ([facility]) complet ed anthrax vaccine DoD Novel influenza-H1N 1-09, injectable 1 2009 Unknown, Provider [id number] [employer] (NOV) complet ed Novel influenza -[id number], injectabl e DoD influenza virus vaccine, split virus (incl. purified surface antigen)-reti red CODE 1 2008 Unknown, Provider [id number] 2A 15 [facility] [employer] (L) complet ed influenza virus vaccine, split virus (incl. purified surface antigen)- retired CODE DoD influenza virus vaccine, split virus (incl. purified surface antigen)-reti red CODE 1 2007 Unknown, Provider [id number] 15 [facility] ([facility]) complet ed influenza virus vaccine, split virus (incl. purified surface antigen)- retired CODE DoD typhoid Vi capsular polysaccharid e vaccine 1 2007 [id number] [employer] ([facility]) complet ed typhoid Vi capsular polysacch aride vaccine DoD influenza virus vaccine, split virus (incl. purified surface antigen)-reti red CODE 1 2006 [id number] 15 [facility] ([facility]) complet ed influenza virus vaccine, split virus (incl. purified surface antigen)- retired CODE DoD influenza virus vaccine, split virus (incl. purified surface antigen)-reti red CODE 1 2006 [id number] Other (OTH) complet ed influenza virus vaccine, split virus (incl. purified surface antigen)- retired CODE DoD typhoid vaccine, parenteral, other than acetone-kille d, dried 1 2005 [id number] [employer] P[employer] ([facility]) complet ed typhoid vaccine, parentera l, other than acetone-k illed, dried DoD influenza virus vaccine, split virus (incl. purified surface antigen)-reti red CODE 1 2004 [id number] 15 [employer] Paste[employer] ([facility]) complet ed influenza virus vaccine, split virus (incl. purified surface antigen)- retired CODE DoD typhoid vaccine, parenteral, other than acetone-kille d, dried 0 2003 [id number] 41 [employer] Paste[employer] ([facility]) complet ed typhoid vaccine, parentera l, other than acetone-k illed, dried DoD influenza virus vaccine, whole virus 0 2002 [id number] 16 [employer] Paste[employer] ([facility]) complet ed influenza virus vaccine, whole virus DoD tuberculin skin test; purified protein derivative solution, intradermal 1 2002 Unknown, Provider [id number] [employer] Paste[employer] ([facility]) complet ed tuberculi n skin test; purified protein derivativ e solution, intraderm al DoD influenza virus vaccine, whole virus 0 2001 [id number] 16 Nathalie ([facility]) complet ed influenza virus vaccine, whole virus DoD tuberculin skin test; purified protein derivative solution, intradermal 1 2001 Unknown, Provider [id number] [employer] Paste[employer] ([facility]) complet ed tuberculi n skin test; purified protein derivativ e solution, intraderm al DoD tetanus and diphtheria toxoids, adsorbed, preservative free, for adult use (2 Lf of tetanus toxoid and 2 Lf of diphtheria toxoid) 0 2000 [id number] San[employer] Paste[employer] ([facility]) complet ed tetanus and diphtheri a toxoids, adsorbed, preservat chayo free, for adult use (2 Lf of tetanus toxoid and 2 Lf of diphtheri a toxoid) DoD influenza virus vaccine, whole virus 0 2000 [id number] 16 San[employer]i Paste[employer] ([facility]) complet ed influenza virus vaccine, whole virus DoD typhoid vaccine, parenteral, other than acetone-kille d, dried 0 2000 [id number] 41 [employer]i Paste[employer] ([facility]) complet ed typhoid vaccine, parentera l, other than acetone-k illed, dried DoD tuberculin skin test; purified protein derivative solution, intradermal 1 2000 Unknown, Provider [id number] 96 Sanofi Paste[employer] ([facility]) complet ed tuberculi n skin test; purified protein derivativ e solution, intraderm al DoD influenza virus vaccine, whole virus 0 2000 [id number] 16 [facility] (CON) complet ed influenza virus vaccine, whole virus DoD typhoid vaccine, parenteral, other than acetone-kille d, dried 0 1999 [id number] [facility] (CON) complet ed typhoid vaccine, parentera l, other than acetone-k illed, dried DoD influenza virus vaccine, whole virus 0 [id number] 16 N[place]alie ([place]) complet ed influenza virus vaccine, whole virus DoD tuberculin skin test; purified protein derivative solution, intradermal 1 1998 Unknown, Provider [id number] [facility] ([facility]) complet ed tuberculi n skin test; purified protein derivativ e solution, intraderm al DoD typhoid vaccine, parenteral, other than acetone-kille d, dried 0 1998 41 () complet ed typhoid vaccine, parentera l, other than acetone-k illed, dried DoD measles, mumps and rubella virus vaccine 0 1997 [id number] Hameed (AB) complet ed measles, mumps and rubella virus vaccine DoD influenza virus vaccine, whole virus 0 [id number] 16 [facility] complet ed influenza virus vaccine, whole [...] DoD influenza virus vaccine, whole virus 0 [id number] 16 Nathalie (Inactive) ([place]) complet ed influenza virus vaccine, whole virus DoD meningococcal polysaccharid e vaccine (MPSV4) 0 1997 [id number] 32 Jamie (CON) complet ed meningoco ccal polysacch aride vaccine (MPSV4) DoD hepatitis B vaccine, adult dosage 1 1997 [id number] Mer[employer] (MSD) complet ed hepatitis B vaccine, adult dosage DoD hepatitis A vaccine, adult dosage 1 1997 [id number] [employer] (MSD) complet ed hepatitis A vaccine, adult dosage DoD tuberculin skin test; purified protein derivative solution, intradermal 1 1997 Unknown, Provider [id number] 96 Jamie (CON) complet ed tuberculi n skin test; [...] intradermal 1 1995 Unknown, Provider [id number] Jamie (CON) complet ed tuberculi n skin test; purified protein derivativ e solution, intraderm al DoD yellow fever vaccine 0 1992 [id number] Jamie (CON) complet ed yellow fever vaccine DoD [...] ADM Date DC Date Status Disposition Source [facility]( mediate Care Cln) OUTPATIENT [id number] Possibl e food poisoni ng MINEIRO, LAKHWINDER E 01/07 Released w/o Limitations [facility]( Immedia te Care Cln) [facility] Encounter [id number] 06/29 [facility] OFFICE O/P EST LOW 20-29 MIN [id number] Diagnos is: ICD-10- CM I25.10 Athscl heart disease of [place] coronar y artery w/o ang pctrs Suki MEDINA 07/04 [facility] POS AIRWAY PRESSURE FILTER [id number] Diagnos is: ICD-10- CM G47.30 Sleep apnea, unspeci fied ST AMPORTIA,INA E P 09/29 [facility] Out[facility] Encounter [id number] 1.12/19 [facility] En[facility] [id number] 1.12/19 [facility] Out[facility] Encounter [id number] 02/02 [facility] Out[facility] Encounter [id number] 1.05/10 [facility] OFF[facility] O/P EST MOD 30 MIN [id number] Diagnos is: ICD-10- CM I25.10 Athscl heart disease of [place] coronar y artery w/o ang pctSuki Jones 07/09 [facility] En[facility] [id number] 08/10 [facility] Out[facility] Encounter [id number] 10/16 [facility] En[facility] [id number] 12/10 [facility] Outpatient Encounter [id number] 12/10 [facility] [place] Social History Combined list of available smoking, tobacco, and other social history from Department of Defense and Veterans Affairs facilities. Social History Type Response Date Comment [facility] e Tobacco smoking status NHIS VA-TOBACCO NEVER USED 07/04/2023 [facility] [place] [facility] History of tobacco use IA-TOBACCO NEVER USED 07/05/2022 [facility] [place] [facility] History of tobacco use IA-TOBACCO NEVER USED 07/28/2020 [facility] [place] [facility] History of tobacco use VA-TOBACCO NEVER USED 07/23/2019 [facility] [place] [facility] History of tobacco use LIFETIME NON-TOBACCO USER 03/11/2011 [facility] This section is an empty social history section. DoD
--- OUTSIDE RECORDS SUMMARY | 2024-12-20 09:30 | XMS_ITS | Encounter Summary ---
Author Name [facility] Organization [facility] Address [address] [place] [address] Care Team Providers Care Tool Filer Hand Name Role Phone BALDERAS EDWARD Primary Care Provider Unavaila ble Insurance Providers: [...] PART A Jul 08, 2020 PART A [id number] [phone] KHARI DAVIS PATIENT MEDICARE (WNR) MEDICARE (M) PART B Jul 08, 2020 PART B [id number] KHARI DAVIS PATIENT FOR LIFE TFL* Jul 08, 2020 [id number] KHARI DAVIS PATIENT [facility] (WNR) TRICA RE(WN R) Aug 08, 2017 (WNR) [id number] KHARI DAVIS PATIENT Selected Encounter This section includes the information on record at [place] for the Encounter. Date/Time Encounter Type Encounter Description Reason Provider Source Jul 09, 2024 08:30 AM OFFICE O/P EST MOD 30 MIN PRIMARY CARE/MEDICINE ICD-10-CM I25.10 Athscl heart disease of [place] coronary artery w/o ang pctrs RYANN BALDERAS AM Encounter Template Text not used by [place] Assessments - Encounter Diagnoses This section includes the primary and secondary diagnoses documented for the Encounter. Date/Time Primary/Secondary Diagnosis Diagnosis Name Provider Source Jul 09, 2024 08:45 AM PRIMARY Athscl heart disease of [place] coronary artery w/o mark anthony pctrs [facility]IN MARR [facility] Jul 09, 2024 08:45 AM SECONDARY Encounter for [facility] Jul 09, 2024 08:45 AM SECONDARY Hypertensive heart disease without heart failure AF[facility]IN MARR [facility] Jul 09, 2024 08:45 AM SECONDARY Type 2 diabetes mellitus without complications MINIAFSHIN MURO [facility] Plan of Treatment: Future Appointments (+ 6 months) and Future Tests (+/- 45 days) The Plan of Treatment section includes [facility] care [facility] the [facility] This section includes future appointments and future [...] of theEncounter. The data comes from all [place] treatment facilities. Test Date/Time Test Type Test Details Facility Name May 29, 2024 12:00 AM Laboratory - Chemistry Order OCCULT BLOOD FIT X1 SCREEN (MFP ONLY) [facility] Jun 25, 2024 12:00 AM Laboratory - Chemistry Order CBC BLOOD (LAV-BLOOD) [facility] Jun 25, 2024 12:00 AM Laboratory - Chemistry Order BASIC METABOLIC PANEL (non-fasting) BLOOD (SST-SERUM) [facility] Jun 25, 2024 12:00 AM Laboratory - Chemistry Order LIPID PANEL, NON FASTING BLOOD (SST-SERUM) [facility] Jun 25, 2024 12:00 AM Laboratory - Chemistry Order HEMOGLOBIN A1C PANEL BLOOD (LAV-BLOOD) [facility] Jun 25, 2024 12:00 AM Laboratory - Chemistry Order MICROALBUMIN CREATININE RATIO PANEL URINE (RANDOM) [facility] Jun 25, 2024 12:00 AM Laboratory - Chemistry Order LIVER FUNCTION BLOOD (SST-SERUM) [facility] Jun 25, 2024 12:00 AM Laboratory - Chemistry Order PSA BLOOD (SST-SERUM) [facility] Vital Signs: All taken on the encounter date This section contains inpatient and outpatient Vital Signs collected on the date of the Encounter. Date/Time Temperature Pulse Blood Pressure Respiratory Rate SP02 Pain Height Weight Body Mass Index Source Jul 09, 2024 08:40 AM 128/68 [facility] Jul 09, 2024 08:14 AM 97.5 57 147/88 20 99 0 73 247 33 [facility] Immunizations: All administered on the encounter date This section contains immunizations associated to the Encounter. Immunization Series Date Issued Administered By Site Reaction Lot Number CVX Code Drug Nurse Epidemiologist Comment(s) Source INFLUENZA, HIGH-DOSE, TRIVALENT, PF Jul 09, 2024 AFSHIN MARR LEFT DELTO ID [id number] SANOFI PASTEUR ADMINISTERE D AT [place], [facility] Social History: Smoking Status (Most current) and Tobacco Use (All prior to encounter date) This section includes the most current, and the historical, smoking and tobacco- related health factors from the [place] facility where the Encounter took place. Current Smoking Status This section includes the most current smoking, or tobacco-related health factor, from the [place] facility where the Encounter took place. Date/Time Current Smoking Status Comment [place]ony [place] Jul 04, 2023 10:00 AM [place]-TOBACCO NEVER USED [facility] Tobacco Use History This section includes a history of the smoking, or tobacco-related health factors, that were collected on or before the date of the Encounter. The data comes from the [place] facility where the Encounter took place. Date/Time Smoking Status/Tobacco Use Comment Benny ortiz Jul 05, 2022 11:00 AM VA-TOBACCO NEVER USED [facility] [place] [facility] Jul 28, 2020 09:30 AM VA-TOBACCO NEVER USED [facility] [place] [facility] Jul 23, 2019 09:45 AM VA-TOBACCO NEVER USED [facility] [place] [facility] Mar 11, 2011 01:33 PM LIFETIME NON-TOBACCO USER [facility] [place] [facility] Encounter Notes: All associated encounter notes This section contains the clinical notes associated to the Encounter. Date/Time Encounter Note(s) Provider Source Jul 09, 2024 08:40 AM PRIMARY CARE NURSE PRACTITIONER OUTPATIENT NOTE: LOCAL TITLE: NURSE PRACTITIONER OUTPATIENT NOTE STANDARD TITLE: PRIMARY CARE NURSE PRACTITIONER OUTPATIENT NOTE DATE OF NOTE: JUL 09, 2024@08:40 ENTRY DATE: JUL 09, 2024@08:41 AUTHOR: EDWARD BALDERAS COSIGNER: URGENCY: STATUS: COMPLETED Chief complaint: Patient is a 68 year old [place]. HPI: Pleasant male here to follow up. He comes yearly. [...] 08:14)BMI: 32.7247 lb [112.04 kg] (07/09/2024 08:14) [place] is alert and oriented X3 Cardiovasc: 2plus [...] followin. CAD - Coronary Artery Disease (SCT [id number]) - stable 2. Diabetes mellitus (SNOMED CT 29757763) - not controlled, HGB A1C in December [...] diminished) SENSORY CHECK: Includes 10 gram Monofilament (Fulton-Mayte) test of sensation. Intact (Greater than or [...] of active outpatient prescriptions dispensed from this [place] (local) and dispensed from another [place] or [facility] facility (remote) as well as inpatient orders [...] a VA or non-VA provider. /carlos eduardo/ Edward Balderas [place], AQUATICS SPECIALIST-BC, CNL Primary Care Nurse Practitioner Signed: 07/09/2024 08:45 EDWARD BALDERAS [facility] [place] [facility] Jul 09, 2024 08:15 AM PREVENTIVE MEDICINE NURSING NOTE: LOCAL TITLE: CLINICAL REMINDERS/NURSING STANDARD TITLE: PREVENTIVE MEDICINE NURSING NOTE DATE OF NOTE: JUL 09, 2024@08:15 ENTRY DATE: JUL 09, 2024@08:15:36 AUTHOR: SIMÓN DHILLON COSIGNER: URGENCY: STATUS: COMPLETED CLINICAL REMINDERS/NURSING Has [...] of his/her rights. Suicide Screen: C-SSRS Screening [place]-Suicide Severity Rating Scale (C-SSRS Screener) 1. Over [...] Not worried about housing near future The reports the following: Within the past 12 [...] other questions. /carlos eduardo/ Simón Dhillon [facility] Photo Colorer MANAGER RETENTION,PRIMARY CARE Signed: 07/09/2024 08:21 07/09/2024 ADDENDUM STATUS: COMPLETED Influenza Immunization: Influenza, High-Dose, Trivalent, Preservative Free (Fluzone-Syringe) Administered: INFLUENZA, HIGH-DOSE, TRIVALENT, PF Date Administered: Jul 09, 2024 08:30 Nurse Epidemiologist: SANOFI PASTEUR Lot: [id number] Exp Date: Feb 04, 2025 [facility]: [id number] Admin Route/Site: INTRAMUSCULAR/LEFT DELTOID Dosage: 0.5mL Vaccine Information Statement(s): INFLUENZA(FLU) VACC(INACTIVATED OR RECOMBINANT)VIS Mar 13, 2021 (SOMALI) Order By: Policy Administered By: Cassia Marr [...] Care RN Signed: 07/09/2024 08:46 [facility]
[2024-12-20 09:57] LABS: Glucose Fasting 173 mg/dL (60-99)
[2024-12-20 10:11] LABS: Alanine Aminotransferase 32 U/L (0-40); Albumin Level 4.3 g/dL (3.5-5.0); Alkaline Phosphatase 104 U/L (39-117); Anion Gap 11 (12-20); Aspartate Amino Transferase 30 U/L (5-37); Bilirubin Total 0.8 mg/dL (0.0-1.0); Blood Urea Nitrogen 20 mg/dL (9-16); Calcium 9.3 mg/dL (8.4-10.2); Carbon Dioxide 26 mmol/L (22-29); Chloride 107 mmol/L (96-108); Cholesterol 118 mg/dL (<200); Estimated Glomerular Filt Rate 52; Glucose Random 169 mg/dL (60-115); HDL Cholesterol 29 mg/dL (>40); LDL Cholesterol Calculated 58 mg/dL (<100); Potassium 4.2 mmol/L (3.3-5.1); Sodium 140 mmol/L (135-145); Triglycerides 155 mg/dL (<150)
[2024-12-20 10:17] LABS: Free T4 (Free Thyroxine) 0.93 ng/dL (0.71-1.85); TSH reflex Free T4 3.07 uIU/mL (0.32-4.0); Vitamin D 25-OH Total 40.5 ng/mL (>30)
[2024-12-20 10:31] LABS: Vitamin B12 717 pg/mL (200-900)
== END 2024-12-20 08:59 | disposition home or self-care (01) ==
LOC: HO.LAB 08:58
PROVIDERS: Internal Medicine
DX: Z00.00 Encounter for general adult medical examination without abnormal findings (principal); I25.10 Atherosclerotic heart disease of native coronary artery without angina pectoris; E11.65 Type 2 diabetes mellitus with hyperglycemia; E78.00 Pure hypercholesterolemia, unspecified
CPT/HCPCS: 36415; 80053; 80061; 82306; 82607; 82746; 82947; 83036; 84439; 84443; 85025

== ENCOUNTER 2024-12-21 08:46 | Outpatient (AMB) | payer MEDICARE, OTHER, SELFPAY ==
--- NOTE | 2024-12-21 08:48 | A.OFFPC_ITS ---
Vital Signs 12/21/24 08:49 Height 6 ft 1 in Weight 234 lb 4 oz BMI 30.9 BP 130/60 Blood Pressure Location Rt brachial Position Sitting Pulse 52 Pulse Source Pulse Oximeter Temp 97.1 F Temp Source Temporal Artery Scan Pulse Oximetry (%) 97 Oxygen Delivery Method Room Air Intake Visit Reasons: f/u DM and CAD Intake Note: Patient is here to follow up on DM, CAD. Food Equipment Service Technician Required: No Translator/Interpreter: Not Required per policy Accompanied by: Self / Same As Patient Allergies No Known Allergies [No Known Allergies*] Allergy (Verified 12/21/24 09:04) Medication List - Last Reconciled 12/21/24 by Zuleyma Iyer PA-C amlodipine 5 mg PO DAILY aspirin (Adult Low Dose Aspirin) 81 mg PO DAILY atorvastatin 80 mg PO BEDTIME blood sugar diagnostic (FreeStyle Lite Strips) 3 times a day empagliflozin (Jardiance) 25 mg PO DAILY 90 days flash glucose sensor (FreeStyle Bo 14 Day Sensor kit) every 14 days garlic 100 mg PO DAILY lancets (FreeStyle Lancets) 3 times a day lisinopril-hydrochlorothiazide 20-12.5 mg 1 tab PO DAILY metformin ER 1,000 mg (2 x 500 mg) PO BID 90 days metoprolol succinate ER (Toprol XL) 100 mg PO DAILY multivitamin 1 tab PO DAILY semaglutide (Rybelsus) 3 mg PO DAILY Tobacco use date assessed: 12/21/24 Fall risk assessment: No Falls in past year Last assessed Fall Risk: 12/21/24 Dental Screening Dental Screen Date: 10/17/24 HPI f/u DM and CAD HPI Details 69-year-old male with past medical histo ry of diabetes mellitus, hypercholesterolemia, hypertension, coronary artery disease last seen 10/2024 coming in for follow up. Presenting for follow-up on Diabetes Mellitus Type 2 management. His recent Hemoglobin A1c has slightly increased, remaining poorly controlled as the patient did not commence with the prescribed Rybelsus medication due to personal or insurance issues. Recently suffered from a severe cold lasting approximately 12 days with symptoms associated with respiratory allergies. Reports muscular pain localized in the region of his right lower back, noticed in the last two to three days, worsening with movement but not radiating. He denies any known injury or fall but does mentioned repetitive moment that may have caused the back injury. [facility] Medical History Hx of sleep apnea Quadriceps tendon rupture CAD (coronary artery disease) Obesity (BMI 30-39.9) Hypertension Dyslipidemia Diabetic polyneuropathy associated with type 2 diabetes mellitus Diabetes type 2, uncontrolled Surgical History Hx of surgical procedure (04/14/23) History of knee surgery Hx of umbilical hernia repair Hx of hernia repair H/O wisdom tooth extraction Hx of removal of cyst S/P CABG x 5 Family History Mother Type 2 diabetes mellitus Father H/O heart artery stent Social History Household Members: Family Housing: House Alcohol intake: never Patient Tobacco Use Status: Never used Tobacco Tobacco use type: Cigarette e-Cigarette/Vaping Use: Never Used Second Hand Smoke Exposure: No service: Yes Current occupational status: retired Current occupation: Rt handed Cognitive needs: Yes (cane) Hearing needs: No Vision needs: Yes (glasses) Questionnaire PHQ-9 Over the last 2 weeks, how often have you been bothered by any of the following problems? 1. Little interest or pleasure in doing things: several days 2. Feeling down, depressed, or hopeless: not at all 3. Trouble falling or staying asleep, or sleeping too much: not at all 4. Feeling tired or having little energy: several days 5. Poor appetite or overeating: not at all 6. Feeling bad about yourself - or that you are a failure or have let yourself or your family down: not at all 7. Trouble concentrating on things, such as reading the newspaper or watching television: not at all 8. Moving or speaking so slowly that other people could have noticed. Or the opposite - being so fidgety or restless that you have been moving around a lot more than usual: not at all 9. Thoughts that you would be better off or of hurting yourself in some way: not at all Total score: 2 Depression Screening Interpretation: Negative Depression Screening Done: Yes Source: Developed by Drs. Tyrel Borrero, Vanna De Dios, Mello Major and colleagues, with an educational shabbir from [employer]. Thrive Questionnaire Date Thrive assessed: 10/17/24 I am a: Patient What is your living situation today?: I have a steady place to live Within the past 12 months, did the food you bought not last and you didn't have the money to get more?: Never true Within the past 12 months, did you worry whether your food would run out before you got money to buy more?: Never true Do you have trouble paying for medicines?: No Do you have trouble getting transportation to medical appointments?: No Do you have trouble paying your heating and electricity bill?: No Do you have trouble taking care of your child, family member or friend?: No Do you have trouble with day-to-day activities such as bathing, preparing meals, shopping, managing finances, etc.?: No Are you currently unemployed and looking for a job?: No Are you interested in more education?: No Please select the resources that you would like help with: None Currently or been in a relationship where the following occur: No concerns reported THRIVE Score: 0 AUDIT C Alcohol Use Questionnaire (AUDIT-C) 1. How often do you have a drink containing alcohol?: Never Total Score: 0 IRAIS-7 AMB Questionnaire IRAIS-7 Date IRAIS - 7 assessed: 12/21/24 Feeling nervous, anxious, or on edge: 0 = Not at all Not being able to stop or control worryin = Not at all Worrying too much about different things: 0 = Not at all Trouble relaxin = Not at all Being so restless that it is hard to sit still: 0 = Not at all Becoming easily annoyed or irritable: 0 = Not at all Feeling afraid as if something awful might happen: 0 = Not at all Total IRAIS-7 score (0-4 normal; 5-9 mild; 10-14 moderate; 15-21 severe): 0 Source: Developed by Drs. Tyrel Borrero, Vanna De Dios, Mello Major and colleagues, with an educational shabbir from [employer]. Review of Systems Const Denies body aches, Denies chills, Denies fever(s), Denies headache(s) and Denies poor appetite Eyes Reports no additional complaints ENT Denies dizziness, Denies headache(s) and Denies odynophagia Card Denies chest pain, Denies lightheadedness and Denies dyspnea Resp Denies cough and Denies dyspnea GI Denies diarrhea, Denies nausea, Denies odynophagia and Denies vomiting Reports no additional complaints Musc Reports no additional complaints and Denies abnormal gait Skin/Breast Reports system reviewed and no additional complaints, except as documented Neuro Denies abnormal gait, Denies dizziness and Denies headache(s) Psych Reports no additional complaints Physical exam (Primary Care) Vital Signs: Last Vital Signs Temp 97.1 F 12/21/24 08:49 Pulse 52 12/21/24 08:49 BP 130/60 12/21/24 08:49 Pulse Ox 97 12/21/24 08:49 Oxygen Delivery Method Room Air 12/21/24 08:49 BMI result Body Mass Index 30.9 Tobacco/Smoking Status: Tobacco use Status Tobacco use date assessed 12/21/24 12/21/24 08:53 Patient Tobacco Use Status Never used Tobacco 12/21/24 08:53 Tobacco use type Cigarette 12/21/24 08:53 e-Cigarette/Vaping Use Never Used 12/21/24 08:53 PHQ-9: PHQ-9 Score PHQ-9: Total score 2 12/21/24 08:53 Depression Screening Interpretation: Negative Thrive Assessment: Date of Thrive Assessment Date Thrive assessed 10/17/24 12/21/24 08:53 Currently or been in a relationship where the following occur: No concerns reported Const General: cooperative, healthy appearing, comfortable and no acute distress Orientation/consciousness: patient oriented x3 HENMT Head: Yes normocephalic Ears: hearing grossly normal bilaterally General nose exam: Normal external nose present Eyes General: appearance normal, both eyes and all related structures Conjunctivae: conjunctivae normal Neck Neck: Yes full ROM and Yes no lymphadenopathy Resp Effort & Inspection: normal respiratory effort Auscultation: clear to auscultation bilaterally, no crackles, no rales, no rhonchi and no wheezes Cardio Rate: regular rate Rhythm: regular rhythm Back/Spine/Pelvis Other: No tenderness to palpation over entirety of back and spine Skin General skin exam: no rashes or lesions noted Neuro General: patient oriented x3 Gait exam (Neuro): Normal gait present Extrem General: Yes normal to inspection, Yes full ROM and No edema Psych Affect: normal affect Attitude: cooperative Insight: Good insight present (Psych) Judgement: Good judgement present (Psych) Coding Level of Care Code Est Pt Level 3 (24344) Diagnoses Type 2 diabetes mellitus with hyperlipidemia E11.69; E78.5 Obesity E66.9 CAD (coronary artery disease) I25.10 Dyslipidemia E78.5 Hypertension I10 Back pain M54.9 Assessment & Plan Assessment & Plan (1) Type 2 diabetes mellitus with hyperlipidemia: Comment: Real [place] Ma Code(s): E11.69 - Type 2 diabetes mellitus with other specified complication; E78.5 - Hy perlipidemia, unspecified Category: Medical Plan: Decrease the amount of carbohydrates such as pasta, bread, rice, and potatoes and limit the amount of sweets. Although fruits are generally healthy they should be eaten in moderation as they are still high in sugar. Hemoglobin A1c goal of less than 7%. Continue on metformin and Jardiance. Patient was restarted on Rybelsus at last visit states he did not receive this medication and did not reach out to the office. Discussed the importance of restart this medication as A1c is 9.6% today in the office. Discussed with patient next step would be insulin. (2) Obesity: Code(s): E66.9 - Obesity, unspecified Category: Medical Plan: Healthy diet and regular exercise is encouraged. (3) CAD (coronary artery disease): Code(s): I25.10 - Atherosclerotic heart disease of [place] coronary artery without angina pectoris Category: Medical Plan: Advised good control of blood pressure, cholesterol and diabetes mellitus. At this time cholesterol and blood pressure has been well controlled for many years and we will continue to work on glycemic control. Continue to follow with Cardiology (4) Dyslipidemia: Code(s): E78.5 - Hyperlipidemia, unspecified Category: Medical Plan: Avoid foods that are high in cholesterol such as red meat, fried foods, eggs and baked goods. Triglyceride goal of less than 150 and LDL goal of less than 70. Continue on atorvastatin 80 mg. Blood work at goal on last labs (5) Hypertension: Code(s): I10 - Essential (primary) hypertension Category: Medical Plan: Continue on current blood pressure medication. Avoid salt intake and encourage healthy diet and regular exercise. (6) Back pain: Code(s): M54.9 - Dorsalgia, unspecified Category: Medical Plan: Patient reporting back pain for the last couple of days that is intermittent in nature and worse with certain movements. Likely musculoskeletal recommended use of Tylenol and heating pad. Advised patient to continue to monitor his symptoms and reach out to the office if they should become worsen or more persistent. Plan The patient is advised to restart the Rybelsus medication, as the elevated Hemoglobin A1c suggests inadequate glycemic control. It is critical to manage this to mitigate the risk of complications inherent in coronary artery disease. Should Glycemic control not improve, further interventions such as insulin therapy may be required, emphasizing adherence to prescribed medication and monitoring blood glucose levels. The back discomfort is addressed through tylenol and applications of heat, aiming to reduce any musculoskeletal inflammation. Continuation of supportive care for the recent upper respiratory infection is advised as symptoms are improving. The patient has understood these recommendations. This note was constructed using voice recognition software. While every effort has been made to ensure accuracy and curtain hemmer automatic, still areas may have been included sometimes these areas may affect the content or meeting of the given symptoms. Total time spent caring for the patient today was 20 minutes. This includes time spent before the visit reviewing the chart, time spent during the visit, and time spent after the visit and documentation. Patient was informed and verbally consented to the use of an ambient scribe for clinic note documentation during this visit. Medications: Refilled semaglutide (Rybelsus) 3 mg PO DAILY 90 tabs 0RF blood sugar diagnostic (FreeStyle Lite Strips) 3 times a day 100 ea 6RF E11.65 - Type 2 diabetes mellitus with hyperglycemia lancets (FreeStyle Lancets) 3 times a day 100 ea 5RF E11.65 - Type 2 diabetes mellitus with hyperglycemia
[2024-12-21 08:49] VITALS: BP 130/60; PULSE 52; TEMP 36.2; O2SAT 97; BMI 30.9
--- OUTSIDE RECORDS SUMMARY | 2024-12-21 09:00 | XMS_ITS | Continuity of Care Document ---
Author Name [facility] Organization [facility] Care Team Providers Care Skiagrapher Name Role Phone [facility] Unavailable Unavailable Problems Combined list of problems from Department of Defense and Veterans Affairs facilities. It does not include entries that were removed or entered in error. Problem Status Onset Date Problem Type Date of Resolution Comments Source diarrhea Active Condition [facility] Achilles bursitis or tendinitis Active Condition [facility] CAD - Coronary Artery Disease (SCT [id number]) Active Condition [facility] Diabetes Mellitus Active Condition [facility] Diabetes mellitus (SNOMED CT [id number]) Active Condition [facility] Essential hypertension Active Condition [facility] Hyperlipidemia Active Condition [facility] Obesity Active Condition [facility] Sleep apnea Active Condition [facility] Diagnosis: ICD-10-CM I25.10 Athscl heart disease of citizen [place] coronary artery w/o ang pctrs Active Diagnosis [...] ONCE DAILY ORAL ACTIVE EJ MEDINA 2019 [facility] COENZYME Q10 CAP/TAB TAKE 100 MG EVERY OTHER DAY ACTIVE CUTJOSE MCDOWELL S 2014 [facility] FISH OIL 1000MG (500MG DHA/EPA) CAP,ORAL TAKE 1 CAPSULE BY MOUTH DAILY NEEDED ORAL ACTIVE CUTJOSE MCDOWELL ALENA S 2014 [facility] GARLIC CAP,ORAL TAKE 320 MG BY MOUTH DAILY ORAL ACTIVE CUTJOSE MCDOWELL ALENA S 2013 [facility] HYDROCHLORO THIAZIDE 12.5MG/GEN NOPRIL 20MG TAB TAKE ONE TABLET BY MOUTH ORAL ACTIVE CUTJOSE MCDOWELL ALENA S 2010 [facility] JARDIANCE (EMPAGLIFLO ZIN), 25 MG, TABLET, ORAL, BOEHRINGER ING., 90 ea. BOTTLE Active [id number] 2023 90 [facility] JARDIANCE (EMPAGLIFLO ZIN), 25 MG, TABLET, ORAL, BOEHRINGER ING., 90 ea. BOTTLE Active [id number] 2023 90 [facility] METFORMIN HCL 1000MG TAB TAKE ONE TABLET BY MOUTH TWICE DAILY ORAL ACTIVE EJ MEDINA 2019 [facility] METOPROLOL SUCCINATE 100MG TAB,SA TAKE ONE TABLET BY MOUTH ONCE DAILY ORAL ACTIVE EJ MEDINA 2019 [facility] MULTIVITAMI NS W/MINERALS TAB TAKE ONE TABLET BY MOUTH DAILY ORAL ACTIVE JOSE LORD ALENA S 2010 [facility] Allergies, Adverse Reactions, Alerts Combined list of allergies from Department of Defense and Veterans Affairs facilities. It does not include entries that were removed or entered in error. Substance Category Reaction Severity Reaction type Status Date Reported Comments Source No Known Allergies Drug allergy (disorder) active 01/09/2008 [facility] Immunizations Combined list of available immunizations from the Department of Defense and Veterans Affairs facilities. Immunization Series Date Given Administered By Site Reaction Lot Number CVX Code Drug Laster Hand Status Comments Source INFLUENZA, HIGH-DOSE, TRIVALENT, PF 2023 AFSHIN MARR LEFT DELTO ID [id number] 135 complet ed [facility] [place], [facility] influenza, high-dose, quadrivalent 2020 DOUG, () Not Given influenza , high-dose , quadrival ent [facility] COVID-19 (PFIZER), MRNA, LNP-S, PF, 30 MCG/0.3 ML DOSE 2 2020 208 complet ed PFR; [id number]; 1 [facility] COVID-19 (PFIZER), MRNA, LNP-S, PF, 30 MCG/0.3 ML DOSE 1 2020 208 complet ed PFR; [id number]; 1 [facility] [...] injectable, preservative free 15 2010 Unknown, Provider [id number] [employer] ([facility]) complet ed Influenza , seasonal, injectabl e, preservat chayo free DoD FLU,3 YRS (HISTORICAL) 2009 88 complet ed [facility] influenza virus vaccine, split virus (incl. purified surface antigen)-reti red CODE 14 2009 Unknown, Provider [id number] [place] [facility] [employer] ([facility]) complet ed influenza virus vaccine, split virus (incl. purified surface antigen)- retired CODE DoD FLU,3 YRS (HISTORICAL) 2009 88 complet ed [facility] anthrax vaccine 2 2009 Unknown, Provider [id number] [employer] [place] ([facility]) complet ed anthrax vaccine DoD typhoid Vi capsular polysaccharid e vaccine 1 2009 Unknown, Provider [id number] [facility] ([facility]) complet ed typhoid Vi capsular polysacch aride vaccine DoD anthrax vaccine 1 2009 Unknown, Provider [id number] [employer] [place] ([facility]) complet ed anthrax vaccine DoD Novel influenza-H1N 1-09, injectable 1 2009 Unknown, Provider [id number] [employer] (NOV) complet ed Novel influenza -P9N7-11, injectabl e DoD influenza virus vaccine, split virus (incl. purified surface antigen)-reti red CODE 1 2008 Unknown, Provider [id number] 15 [facility] [employer] (L) complet ed influenza virus vaccine, split virus (incl. purified surface antigen)- retired CODE DoD influenza virus vaccine, split virus (incl. purified surface antigen)-reti red CODE 1 2007 Unknown, Provider [id number] 15 [facility] ([facility]) complet ed influenza virus vaccine, split virus (incl. purified surface antigen)- retired CODE DoD typhoid Vi capsular polysaccharid e vaccine 1 2007 [id number] [employer] ([facility]) complet ed typhoid Vi capsular polysacch aride vaccine DoD influenza virus vaccine, split virus (incl. purified surface antigen)-reti red CODE 1 2006 [id number] 15 [facility] ([facility]) complet ed influenza virus vaccine, split virus (incl. purified surface antigen)- retired CODE DoD influenza virus vaccine, split virus (incl. purified surface antigen)-reti red CODE 1 2006 [id number] Other (OTH) complet ed influenza virus vaccine, split virus (incl. purified surface antigen)- retired CODE DoD typhoid vaccine, parenteral, other than acetone-kille d, dried 1 2005 [id number] [employer] ([facility]) complet ed typhoid vaccine, parentera l, other than acetone-k illed, dried DoD influenza virus vaccine, split virus (incl. purified surface antigen)-reti red CODE 1 2004 [id number] [employer] ([facility]) complet ed influenza virus vaccine, split virus (incl. purified surface antigen)- retired CODE DoD typhoid vaccine, parenteral, other than acetone-kille d, dried 0 2003 [id number] 41 [employer] ([facility]) complet ed typhoid vaccine, parentera l, other than acetone-k illed, dried DoD influenza virus vaccine, whole virus 0 2002 [id number] 16 [employer] ([facility]) complet ed influenza virus vaccine, whole virus DoD tuberculin skin test; purified protein derivative solution, intradermal 1 2002 Unknown, Provider [id number] 96 [employer] ([facility]) complet ed tuberculi n skin test; purified protein derivativ e solution, intraderm al DoD influenza virus vaccine, whole virus 0 2001 [id number] 16 [place] ([facility]) complet ed influenza virus vaccine, whole virus DoD tuberculin skin test; purified protein derivative solution, intradermal 1 2001 Unknown, Provider [id number] 96 [employer] ([facility]) complet ed tuberculi n skin test; purified protein derivativ e solution, intraderm al DoD tetanus and diphtheria toxoids, adsorbed, preservative free, for adult use (2 Lf of tetanus toxoid and 2 Lf of diphtheria toxoid) 0 2000 [id number] [employer] ([facility]) complet ed tetanus and diphtheri a toxoids, adsorbed, preservat chayo free, for adult use (2 Lf of tetanus toxoid and 2 Lf of diphtheri a toxoid) DoD influenza virus vaccine, whole virus 0 2000 [id number] 16 [employer] ([facility]) complet ed influenza virus vaccine, whole virus DoD typhoid vaccine, parenteral, other than acetone-kille d, dried 0 2000 [id number] 41 [employer] ([facility]) complet ed typhoid vaccine, parentera l, other than acetone-k illed, dried DoD tuberculin skin test; purified protein derivative solution, intradermal 1 2000 Unknown, Provider [id number] 96 [employer] P[employer] ([facility]) complet ed tuberculi n skin test; purified protein derivativ e solution, intraderm al DoD influenza virus vaccine, whole virus 0 2000 [id number] 16 [facility] (CON) complet ed influenza virus vaccine, whole virus DoD typhoid vaccine, parenteral, other than acetone-kille d, dried 0 1999 [id number] 41 [facility] (CON) complet ed typhoid vaccine, parentera l, other than acetone-k illed, dried DoD influenza virus vaccine, whole virus 0 [id number] 16 [place] ([facility]) complet ed influenza virus vaccine, whole virus DoD tuberculin skin test; purified protein derivative solution, intradermal 1 1998 Unknown, Provider [id number] [facility] ([facility]) complet ed tuberculi n skin test; purified protein derivativ e solution, intraderm al DoD typhoid vaccine, parenteral, other than acetone-kille d, dried 0 1998 41 () complet ed typhoid vaccine, parentera l, other than acetone-k illed, dried DoD measles, mumps and rubella virus vaccine 0 1997 [id number] [employer] (AB) complet ed measles, mumps and rubella virus vaccine DoD influenza virus vaccine, whole virus 0 [id number] 16 [employer] (CON) complet ed influenza virus vaccine, whole [...] DoD influenza virus vaccine, whole virus 0 [id number] [id number] 16 [place] (Inactive) (IN) complet ed influenza virus vaccine, whole virus DoD meningococcal polysaccharid e vaccine (MPSV4) 0 1997 [id number] Jamie (CON) complet ed meningoco ccal polysacch aride vaccine (MPSV4) DoD hepatitis B vaccine, adult dosage 1 1997 [id number] 43 [employer] (MSD) complet ed hepatitis B vaccine, adult dosage DoD hepatitis A vaccine, adult dosage 1 1997 [id number] [employer] (MSD) complet ed hepatitis A vaccine, adult dosage DoD tuberculin skin test; purified protein derivative solution, intradermal 1 1997 Unknown, Provider [id number] 96 Jamie (CON) complet ed tuberculi n [...] al DoD yellow fever vaccine 0 1992 [id number] Jamie (CON) complet ed yellow fever [...] ADM Date DC Date Status Disposition Source [facility]( mediate Care Cln) OUTPATIENT [id number] Possibl e food poisoni ng MINEIRO, LAKHWINDER E 01/07 Released w/o Limitations [facility]( Im[facility]) [facility] En[facility] [id number] 06/29 [facility] OFFICE O/P EST LOW 20-29 MIN [id number] Diagnos is: ICD-10- CM I25.10 Athscl heart disease of citizen [place] coronar y artery w/o ang pctrs Suki MEDINA 07/04 [facility] POS AIRWAY PRESSURE FILTER [id number] Diagnos is: ICD-10- CM G47.30 Sleep apnea, unspeci fied ST AMPORTIA,INA E P 09/29 [facility] En[facility] [id number] 1.12/19 [facility] [id number] 1[facility]12/19 [facility] En[facility] [id number] 02/02 [facility] Out[facility] En[facility] [id number] 1.05/10 [facility] OFF[facility] O/P EST MOD 30 MIN [id number] Diagnos is: ICD-10- CM I25.10 Athscl heart disease of citizen [place] coronar y artery w/o ang pctSuki Jones 07/09 [facility] En[facility] [id number] 08/10 [facility] En[facility] [id number] 10/16 [facility] [id number] 12/10 [facility] Outpatient Encounter [id number] 12/10 [facility] Social History Combined list of available smoking, tobacco, and other social history from Department of Defense and Veterans Affairs facilities. Social History Type Response Date Comment [facility] e Tobacco smoking status NHIS VA-TOBACCO NEVER USED 07/04/2023 [facility] [place] History of tobacco use NC-TOBACCO NEVER USED 07/05/2022 [facility] [place] [facility] History of tobacco use NC-TOBACCO NEVER USED 07/28/2020 [facility] [place] [facility] History of tobacco use VA-TOBACCO NEVER USED 07/23/2019 [facility] [place] [facility] History of tobacco use LIFETIME NON-TOBACCO USER 03/11/2011 [facility] [place] [facility] This section is an empty social history section. DoD
== END 2024-12-21 09:24 | disposition home or self-care (01) ==
LOC: HO.HMCH 08:46
PROVIDERS: PCP Internal Medicine
DX: E11.69 Type 2 diabetes mellitus with other specified complication (principal); E78.5 Hyperlipidemia, unspecified; E66.9 Obesity, unspecified; Z68.30 Body mass index [BMI] 30.0-30.9, adult; I25.10 Atherosclerotic heart disease of native coronary artery without angina pectoris; I10 Essential (primary) hypertension; M54.9 Dorsalgia, unspecified

== ENCOUNTER → 2024-12-21 08:46 | Outpatient (BNVA) | payer MEDICARE, OTHER, SELFPAY | PROVIDERS: PCP Internal Medicine | DX: E11.69 Type 2 diabetes mellitus with other specified complication (principal); E78.5 Hyperlipidemia, unspecified; E66.9 Obesity, unspecified; I10 Essential (primary) hypertension; I25.10 Atherosclerotic heart disease of native coronary artery without angina pectoris; M54.9 Dorsalgia, unspecified | CPT/HCPCS: 99212 ==

== ENCOUNTER 2025-03-26 09:29 | Outpatient (AMB) | payer MEDICARE, OTHER, SELFPAY ==
--- NOTE | 2025-03-26 09:35 | A.OFFPC_ITS ---
Vital Signs 03/26/25 09:36 03/26/25 10:02 Height 6 ft 1 in Weight 234 lb BMI 30.9 BP 142/58 H 128/70 Blood Pressure Location Lt brachial Lt brachial Position Sitting Sitting Pulse 72 Pulse Source Pulse Oximeter Pulse Oximetry (%) 96 Oxygen Delivery Method Room Air Intake Visit Reasons: f/u DM and BP [employer] Consultant Required: No Accompanied by: Self / Same As Patient Allergies No Known Allergies (No Known Allergies*) Allergy (Verified 03/26/25 09:45) Medication List - Last Reconciled 03/26/25 by Zuleyma Iyer PA-C amlodipine 5 mg PO DAILY aspirin (Adult Low Dose Aspirin) 81 mg PO DAILY atorvastatin 80 mg PO BEDTIME blood sugar diagnostic (FreeStyle Lite Strips) 3 times a day empagliflozin (Jardiance) 25 mg PO DAILY 90 days flash glucose sensor (FreeStyle Bo 14 Day Sensor kit) every 14 days lancets (FreeStyle Lancets) 3 times a day lisinopril-hydrochlorothiazide 20-12.5 mg 1 tab PO DAILY metformin ER 1,000 mg (2 x 500 mg) PO BID 90 days metoprolol succinate ER (Toprol XL) 100 mg PO DAILY multivitamin 1 tab PO DAILY semaglutide (Rybelsus) 3 mg PO DAILY Tobacco use date assessed: 03/26/25 Fall risk assessment: No Falls in past year Last assessed Fall Risk: 03/26/25 Dental Screening Dental Screen Date: 03/26/25 Did you have a dental visit in the last 12 months?: No Did you have a dental problem in the last 6 months where you did not have access to dental care?: No Was dental information given to patient?: No HPI f/u DM and BP HPI Details 69-year-old male with past medical histo ry of diabetes mellitus, hypercholesterolemia, hypertension, coronary artery disease last seen 12/2024 coming in for follow up.? Presenting with Type 2 Diabetes Mellitus management. He has been prescribed Rybelsus, Jardiance, and metformin for diabetes management. The patient delayed starting Rybelsus, beginning in March despite receiving it in January. Morning blood glucose levels have been around 140 mg/dL, higher than previous readings. The patient has not been monitoring blood pressure at home but denies headaches. He consumes a significant amount of Diet Coke, which may affect blood glucose levels. The patient reports a decrease in A1c from 9.6% to 8.2% since the last visit. ON LICENSE OF [facility] Medical History Hx of sleep apnea Quadriceps tendon rupture CAD (coronary artery disease) Obesity (BMI 30-39.9) Hypertension Dyslipidemia Diabetic polyneuropathy associated with type 2 diabetes mellitus Diabetes type 2, uncontrolled Surgical History Hx of surgical procedure (04/14/23) History of knee surgery Hx of umbilical hernia repair Hx of hernia repair H/O wisdom tooth extraction Hx of removal of cyst S/P CABG x 5 Family History Mother Type 2 diabetes mellitus Father H/O heart artery stent Social History Household Members: Family Housing: House Alcohol intake: never Patient Tobacco Use Status: Never used Tobacco Tobacco use type: Cigarette e-Cigarette/Vaping Use: Never Used Second Hand Smoke Exposure: No service: Yes Current occupational status: retired Current occupation: [employer] Cognitive needs: Yes (cane) Hearing needs: No Vision needs: Yes (glasses) Questionnaire Thrive Questionnaire Date Thrive assessed: 03/26/25 I am a: Patient What is your living situation today?: I have a steady place to live Within the past 12 months, did the food you bought not last and you didn't have the money to get more?: Never true Within the past 12 months, did you worry whether your food would run out before you got money to buy more?: Never true Do you have trouble paying for medicines?: No Do you have trouble getting transportation to medical appointments?: No Do you have trouble paying your heating and electricity bill?: No Do you have trouble taking care of your child, family member or friend?: No Do you have trouble with day-to-day activities such as bathing, preparing meals, shopping, managing finances, etc.?: No Are you currently unemployed and looking for a job?: No Are you interested in more education?: No Please select the resources that you would like help with: None Currently or been in a relationship where the following occur: No concerns reported THRIVE Score: 0 IRAIS-7 AMB Questionnaire IRAIS-7 Date IRAIS - 7 assessed: 03/26/25 Source: Developed by Drs. Tyrel Borrero, Vanna De Dios, Mello Major and colleagues, with an educational shabbir from [employer]. Review of Systems Const Denies body aches, Denies chills, Denies fever(s), Denies headache(s) and Denies poor appetite Eyes Reports no additional complaints ENT Denies dizziness and Denies headache(s) Card Denies chest pain, Denies syncope, Denies edema, Denies lightheadedness and Denies dyspnea Resp Denies dyspnea GI Denies diarrhea, Reports loose stools, Denies nausea and Denies vomiting Reports no additional complaints Musc Reports no additional complaints and Denies abnormal gait Skin/Breast Reports system reviewed and no additional complaints, except as documented Neuro Denies abnormal gait, Denies dizziness, Denies syncope and Denies headache(s) Psych Reports no additional complaints Physical exam (Primary Care) Vital Signs: Last Vital Signs Pulse 72 03/26/25 09:36 BP 128/70 03/26/25 10:02 Pulse Ox 96 03/26/25 09:36 Oxygen Delivery Method Room Air 03/26/25 09:36 BMI result Body Mass Index 30.9 Tobacco/Smoking Status: Tobacco use Status Tobacco use date assessed 03/26/25 03/26/25 09:41 Patient Tobacco Use Status Never used Tobacco 03/26/25 09:41 Tobacco use type Cigarette 03/26/25 09:41 e-Cigarette/Vaping Use Never Used 03/26/25 09:41 Thrive Assessment: Date of Thrive Assessment Date Thrive assessed 03/26/25 03/26/25 09:41 Currently or been in a relationship where the following occur: No concerns reported Const General: cooperative, healthy appearing, comfortable and no acute distress Orientation/consciousness: patient oriented x3 HENMT Head: Yes normocephalic Ears: hearing grossly normal bilaterally General nose exam: Normal external nose present Eyes General: appearance normal, both eyes and all related structures Conjunctivae: conjunctivae normal Neck Neck: Yes full ROM and Yes no lymphadenopathy Resp Effort & Inspection: normal respiratory effort Auscultation: clear to auscultation bilaterally, no crackles, no rales, no rhonchi and no wheezes Cardio Rate: regular rate Rhythm: regular rhythm Skin General skin exam: no rashes or lesions noted Neuro General: patient oriented x3 Gait exam (Neuro): Normal gait present Extrem General: Yes normal to inspection, Yes full ROM and No edema Psych Affect: normal affect Attitude: cooperative Insight: Good insight present (Psych) Judgement: Good judgement present (Psych) Results AMB Hemoglobin A1c AMB Hemoglobin A1c 8.2 % Last Edit by Sharon Romero MA on 03/26/25 10:03 Results Reviewed Results Reviewed: Laboratory Last Values Hgb A1c (Clinic) 8.2 % (4.0-6.0) H 03/26/25 09:53 Coding Level of Care Code Est Pt Level 4 (48457) Diagnoses Type 2 diabetes mellitus with hyperlipidemia E11.69; E78.5 Obesity E66.9 CAD (coronary artery disease) I25.10 Dyslipidemia E78.5 Hypertension I10 Assessment & Plan Assessment & Plan (1) Type 2 diabetes mellitus with hyperlipidemia: Comment: Real [place] Ma Code(s): E11.69 - Type 2 diabetes mellitus with other specified complication; E78.5 - Hyperlipidemia, unspecified Category: Medical Plan: Decrease the amount of carbohydrates such as pasta, bread, rice, and potatoes and limit the amount of sweets. Although fruits are generally healthy they should be eaten in moderation as they are still high in sugar. Hemoglobin A1c goal of less than 7%. Continue on metformin and Jardiance as well as Rybelsus. He does mention he was not taking the Rybelsus from January-March and just recently has been taking it starting the last few weeks. A1c in the clinic today 8.2% which is an improvement from last A1c 9.6%. He has not been taking the Rybelsus scheduled regularly advised patient to take this every single day and plan to repeat A1c in 3 months. (2) Obesity: Code(s): E66.9 - Obesity, unspecified Category: Medical Plan: Healthy diet and regular exercise is encouraged. (3) CAD (coronary artery disease): Code(s): I25.10 - Atherosclerotic heart disease of [place] coronary artery without angina pectoris Category: Medical Plan: Advised good control of blood pressure, cholesterol and diabetes mellitus. At this time cholesterol and blood pressure has been well controlled for many years and we will continue to work on glycemic control. Continue to follow with Cardiology (4) Dyslipidemia: Code(s): E78.5 - Hyperlipidemia, unspecified Category: Medical Plan: Avoid foods that are high in cholesterol such as red meat, fried foods, eggs and baked goods. Triglyceride goal of less than 150 and LDL goal of less than 70. Continue on atorvastatin 80 mg. Blood work at goal on last labs (5) Hypertension: Code(s): I10 - Essential (primary) hypertension Category: Medical Plan: Continue on current blood pressure medication. Avoid salt intake and encourage healthy diet and regular exercise. Plan The patient will continue on Rybelsus at 3 mg, with a plan to reassess its effectiveness in managing blood glucose levels. A 90-day supply has been prescribed to ensure adherence and convenience. Dietary modifications are advised, including reducing Diet Coke consumption to manage blood glucose levels effectively. The patient is encouraged to monitor blood pressure at home to ensure it remains controlled. A referral to Gastroenterology has been made for a colonoscopy, as the patient is overdue for this preventative screening. Additionally, the patient is advised to seek evaluation for hearing loss through the [place]. This note was constructed using voice recognition software. While every effort has been made to ensure accuracy and sales assistants and salespersons, still areas may have been included sometimes these areas may affect the content or meeting of the given symptoms. Total time spent caring for the patient today was 20 minutes. This includes time spent before the visit reviewing the chart, time spent during the visit, and time spent after the visit and documentation. Patient was informed and verbally consented to the use of an ambient scribe for clinic note documentation during this visit. Orders: Orders Hemoglobin A1c Today E11.65 - Type 2 diabetes mellitus with hyperglycemia AMB Hemoglobin A1c Today Z13.9 - Encounter for screening, unspecified Lipid Panel Today E78.00 - Pure hypercholesterolemia, unspecified Comprehensive Met. Panel Today E11.69 - Type 2 diabetes mellitus with other specified complication, E78.5 - Hyperlipidemia, unspecified, Z00.00 - Encounter for general adult medical examination without abnormal findings Referrals Gastroenterology Referral Z12.11 - Encounter for screening for malignant neoplasm of colon, Z12.12 - Encounter for screening for malignant neoplasm of rectum Medications: Refilled semaglutide (Rybelsus) 3 mg PO DAILY 90 tabs 1RF atorvastatin 80 mg PO BEDTIME 90 tabs 3RF empagliflozin (Jardiance) 25 mg PO DAILY 90 tabs 3RF 90 days E11.65 - Type 2 diabetes mellitus with hyperglycemia metformin ER 1,000 mg (2 x 500 mg) PO BID 360 tabs 1RF 90 days amlodipine 5 mg PO DAILY 90 tabs 3RF lisinopril-hydrochlorothiazide 20-12.5 mg 1 tab PO DAILY 90 tabs 3RF metoprolol succinate ER (Toprol XL) 100 mg PO DAILY 90 tabs 3RF
[2025-03-26 09:36] VITALS: BP 142/58; PULSE 72; O2SAT 96; BMI 30.9
[2025-03-26 10:02] VITALS: BP 128/70
--- OUTSIDE RECORDS SUMMARY | 2025-03-26 10:32 | XMS_ITS | Continuity of Care Document ---
Author Name [facility] Organization [facility] Care Team Providers Care Food And Beverage Intern Name Role Phone [facility] Unavailable Unavailable Problems Combined list of problems from Department of Defense and Veterans Affairs facilities. It does not include entries that were removed or entered in error. Problem Status Onset Date Problem Type Date of Resolution Comments Source Achilles bursitis or tendinitis Active Condition [facility] CAD - Coronary Artery Disease (SCT [id number]) Active Condition [facility] Diabetes Mellitus Active Condition [facility] Diabetes mellitus (SNOMED CT [id number]) Active Condition [facility] Essential hypertension Active Condition [facility] Hyperlipidemia Active Condition [facility] Obesity Active Condition [facility] Sleep apnea Active Condition [facility] diarrhea Active Condition [facility] Diagnosis: ICD-10-CM I25.10 Athscl heart disease of [place] coronary artery w/o ang pctrs Active Diagnosis [...] ONCE DAILY ORAL ACTIVE EJ MEDINA 2019 [facility] COENZYME Q10 CAP/TAB TAKE 100 MG EVERY OTHER DAY ACTIVE CUTJOSE MCDOWELL Jorge 2014 [facility] FISH OIL 1000MG (500MG DHA/EPA) CAP,ORAL TAKE 1 CAPSULE BY MOUTH DAILY NEEDED ORAL ACTIVE CUTJOSE MCDOWELL JENNIFERBECCA S 2014 [facility] GARLIC CAP,ORAL TAKE 320 MG BY MOUTH DAILY ORAL ACTIVE CUTJOSE MCDOWELL JENNIFERBECCA S 2013 [facility] HYDROCHLORO THIAZIDE 12.5MG/GEN NOPRIL 20MG TAB TAKE ONE TABLET BY MOUTH ORAL ACTIVE CUTJOSE MCDOWELL Jorge 2010 [facility] METFORMIN HCL 1000MG TAB TAKE ONE TABLET BY MOUTH TWICE DAILY ORAL ACTIVE EJ MEDINA 2019 [facility] METOPROLOL SUCCINATE 100MG TAB,SA TAKE ONE TABLET BY MOUTH ONCE DAILY ORAL ACTIVE EJ MEDINA 2019 [facility] MULTIVITAMI NS W/MINERALS TAB TAKE ONE TABLET BY MOUTH DAILY ORAL ACTIVE CUTJOSE MCDOWELL ALENA Jorge 2010 [facility] Allergies, Adverse Reactions, Alerts Combined list of allergies from Department of Defense and Veterans Affairs facilities. It does not include entries that were removed or entered in error. Substance Category Reaction Severity Reaction type Status Date Reported Comments Source No Known Allergies Drug allergy (disorder) active 01/09/2008 [facility] Immunizations Combined list of available immunizations from the Department of Defense and Veterans Affairs facilities. Immunization Series Date Given Administered By Site Reaction Lot Number CVX Code Drug Registered Nurse Surgical Services Status Comments Source INFLUENZA, HIGH-DOSE, TRIVALENT, PF 2023 AFSHIN MARRA LEFT DELTO ID [id number] complet ed [facility] influenza, high-dose, quadrivalent 2020 BOGDASARIAN, () Not Given influenza , high-dose , quadrival ent DoD COVID-19 (PFIZER), MRNA, LNP-S, PF, 30 MCG/0.3 ML DOSE 2 2020 208 complet ed PFR; [id number]; 1 [facility] COVID-19 (PFIZER), MRNA, LNP-S, PF, 30 MCG/0.3 ML DOSE 1 2020 208 complet ed PFR; [id number]; 1 [facility] [...] injectable, preservative free 15 2010 Unknown, Provider [id number] 140 CS [employer] (CS) complet ed Influenza , seasonal, injectabl e, preservat chayo free DoD FLU,3 YRS (HISTORICAL) 2009 88 complet ed [facility] influenza virus vaccine, split virus (incl. purified surface antigen)-reti red CODE 14 2009 Unknown, Provider [id number] Sanofi Pasteur ([facility]) complet ed influenza virus vaccine, split virus (incl. purified surface antigen)- retired CODE DoD FLU,3 YRS (HISTORICAL) 2009 88 complet ed [facility] anthrax vaccine 2 2009 Unknown, Provider [id number] [employer] [place] ([facility]) complet ed anthrax vaccine DoD typhoid Vi capsular polysaccharid e vaccine 1 2009 Unknown, Provider [id number] Sanofi Pasteur ([facility]) complet ed typhoid Vi capsular polysacch aride vaccine DoD anthrax vaccine 1 2009 Unknown, Provider [id number] [employer] [place] ([facility]) complet ed anthrax vaccine DoD Novel influenza-H1N 1-09, injectable 1 2009 Unknown, Provider [id number] [employer] [place]. (NOV) complet ed Novel influenza -A7G0-19, injectabl e DoD influenza virus vaccine, split virus (incl. purified surface antigen)-reti red CODE 1 2008 Unknown, Provider [id number] 15 [employer]. ([facility]) complet ed influenza virus vaccine, split virus (incl. purified surface antigen)- retired CODE DoD influenza virus vaccine, split virus (incl. purified surface antigen)-reti red CODE 1 2007 Unknown, Provider [id number] [facility] ([facility]) complet ed influenza virus vaccine, split virus (incl. purified surface antigen)- retired CODE DoD typhoid Vi capsular polysaccharid e vaccine 1 2007 [id number] Sanofi Pasteur ([facility]) complet ed typhoid Vi capsular polysacch aride vaccine DoD influenza virus vaccine, split virus (incl. purified surface antigen)-reti red CODE 1 2006 [id number] 15 [facility] ([facility]) complet ed influenza virus vaccine, split virus (incl. purified surface antigen)- retired CODE DoD influenza virus vaccine, split virus (incl. purified surface antigen)-reti red CODE 1 2006 [id number] Other ([facility]) complet ed influenza virus vaccine, split virus (incl. purified surface antigen)- retired CODE DoD typhoid vaccine, parenteral, other than acetone-kille d, dried 1 2005 [id number] Sanofi Pasteur ([facility]) complet ed typhoid vaccine, parentera l, other than acetone-k illed, dried DoD influenza virus vaccine, split virus (incl. purified surface antigen)-reti red CODE 1 2004 [id number] 15 Sanofi Pasteur ([facility]) complet ed influenza virus vaccine, split virus (incl. purified surface antigen)- retired CODE DoD typhoid vaccine, parenteral, other than acetone-kille d, dried 0 2003 [id number] 41 Sanofi Pasteur ([facility]) complet ed typhoid vaccine, parentera l, other than acetone-k illed, dried DoD influenza virus vaccine, whole virus 0 2002 [id number] 16 Sanofi Pasteur ([facility]) complet ed influenza virus vaccine, whole virus DoD tuberculin skin test; purified protein derivative solution, intradermal 1 2002 Unknown, Provider [id number] [facility] ([facility]) complet ed tuberculi n skin test; purified protein derivativ e solution, intraderm al DoD influenza virus vaccine, whole virus 0 2001 [id number] 16 Nathalie ([facility]) complet ed influenza virus vaccine, whole virus DoD tuberculin skin test; purified protein derivative solution, intradermal 1 2001 Unknown, Provider [id number] 96 [facility] ([facility]) complet ed tuberculi n skin test; purified protein derivativ e solution, intraderm al DoD tetanus and diphtheria toxoids, adsorbed, preservative free, for adult use (2 Lf of tetanus toxoid and 2 Lf of diphtheria toxoid) 0 2000 [id number] Sanofi Pasteur ([facility]) complet ed tetanus and diphtheri a toxoids, adsorbed, preservat chayo free, for adult use (2 Lf of tetanus toxoid and 2 Lf of diphtheri a toxoid) DoD influenza virus vaccine, whole virus 0 2000 [id number] 16 Sanofi Pasteur ([facility]) complet ed influenza virus vaccine, whole virus DoD typhoid vaccine, parenteral, other than acetone-kille d, dried 0 2000 [id number] 41 Sanofi Pasteur ([facility]) complet ed typhoid vaccine, parentera l, other than acetone-k illed, dried DoD tuberculin skin test; purified protein derivative solution, intradermal 1 2000 Unknown, Provider [id number] 96 [facility] ([facility]) complet ed tuberculi n skin test; purified protein derivativ e solution, intraderm al DoD influenza virus vaccine, whole virus 0 2000 [id number] 16 [facility] complet ed influenza virus vaccine, whole virus DoD typhoid vaccine, parenteral, other than acetone-kille d, dried 0 1999 [id number] [facility] ([facility]) complet ed typhoid vaccine, parentera l, other than acetone-k illed, dried DoD influenza virus vaccine, whole virus 0 [id number] 16 Alesha-Ayerst ([place]) complet ed influenza virus vaccine, whole virus DoD tuberculin skin test; purified protein derivative solution, intradermal 1 1998 Unknown, Provider [id number] [facility] ([facility]) complet ed tuberculi n skin test; purified protein derivativ e solution, intraderm al DoD typhoid vaccine, parenteral, other than acetone-kille d, dried 0 1998 41 () complet ed typhoid vaccine, parentera l, other than acetone-k illed, dried DoD measles, mumps and rubella virus vaccine 0 1997 [id number] 03 Hameed (AB) complet ed measles, mumps and rubella virus vaccine DoD influenza virus vaccine, whole virus 0 [id number] 16 [facility] ([facility]) complet ed influenza virus vaccine, whole [...] DoD influenza virus vaccine, whole virus 0 [id number] 16 Wyeth-Ayerst (Inactive) ([place]) complet ed influenza virus vaccine, whole virus DoD meningococcal polysaccharid e vaccine (MPSV4) 0 1997 [id number] Alexandrajose (CON) complet ed meningoco ccal [...] intradermal 1 1997 Unknown, Provider [id number] 96 Jamie (VIKI) complet ed tuberculi n skin test; purified [...] 1 1995 Unknown, Provider [id number] 96 Jamie (VIKI) complet ed tuberculi n skin test; purified protein derivativ e solution, intraderm al DoD yellow fever vaccine 0 1992 [id number] Jamie (CON) complet ed yellow fever [...] SYSTOLIC BLOOD PRESSURE 147 07/09/20 24 08:14:18 [facility] [place] [facility] DIASTOLIC BLOOD PRESSURE 88 024 08:14:18 [facility] [place] [facility] PULSE OXIMETRY 99 07/09/2024 08:14:18 [facility] [place] [facility] WEIGHT 247 07/09/2024 08:14:18 [facility] [...] ADM Date DC Date Status Disposition Source [facility] Care [facility]) OUTPATIENT [id number] Possibl e food poisoni ng BRANDI LAKHWINDER E 01/07 Released w/o Limitations [facility]( [facility]) [facility] POS AIRWAY PRESSURE FILTER [id number] Diagnos is: ICD-10- CM G47.30 Sleep apnea, unspeci fied ST INA TOLEDO E P 09/29 [facility] Out[facility] Encounter [id number] 1.12/19 [facility] [id number] 1.12/19 [facility] En[facility] [id number] 02/02 [facility] En[facility] [id number] 05/10 [facility] OFFICE O/P EST MOD 30 MIN [id number] Diagnos is: ICD-10- CM I25.10 Athscl heart disease of [place] coronar y artery w/o ang pctSuki Jones 07/09 [facility] En[facility] [id number] 08/10 [facility] En[facility] [id number] 10/16 [facility] En[facility] [id number] 12/10 [facility] Out[facility] Encounter [id number]/10 [facility] Outpatient Encounter [id number] DEANGELO MARR 12/21 [facility] Social History Combined list of available smoking, tobacco, and other social history from Department of Defense and Veterans Affairs facilities. Social History Type Response Date Comment [facility] e Tobacco smoking status NHIS VA-TOBACCO NEVER USED 07/04/2023 [facility] History of tobacco use VA-TOBACCO NEVER USED 07/05/2022 [facility] History of tobacco use VA-TOBACCO NEVER USED 07/28/2020 [facility] History of tobacco use VA-TOBACCO NEVER USED 07/23/2019 [facility] History of tobacco use LIFETIME NON-TOBACCO USER 03/11/2011 [facility] This section is an empty social history section. [facility] Plan of Care List of future care activities from Department of Veterans Affairs facilities. Additional future care activities may be listed in the Assessment and Plan section. Date/Time Care Activity Care Activity Detail Facili ty 07/10/2025 AMBULATORY - MEDICINE AMBULATORY - MEDICI [facility]
== END 2025-03-26 10:14 | disposition home or self-care (01) ==
LOC: HO.HMCH 09:30
DX: E11.69 Type 2 diabetes mellitus with other specified complication (principal); E78.5 Hyperlipidemia, unspecified; E66.9 Obesity, unspecified; Z68.30 Body mass index [BMI] 30.0-30.9, adult; I25.10 Atherosclerotic heart disease of native coronary artery without angina pectoris; I10 Essential (primary) hypertension

== ENCOUNTER → 2025-03-26 09:29 | Outpatient (BNVA) | payer MEDICARE, OTHER, SELFPAY | PROVIDERS: PCP Internal Medicine | DX: E11.69 Type 2 diabetes mellitus with other specified complication (principal); E78.5 Hyperlipidemia, unspecified; I10 Essential (primary) hypertension; I25.10 Atherosclerotic heart disease of native coronary artery without angina pectoris; E66.9 Obesity, unspecified; Z68.30 Body mass index [BMI] 30.0-30.9, adult; Z71.3 Dietary counseling and surveillance | CPT/HCPCS: 83036; 99212 ==

== ENCOUNTER 2025-06-25 10:43 | Outpatient (AMB) | payer MEDICARE, OTHER, SELFPAY ==
[2025-06-25 10:45] VITALS: BP 110/70; PULSE 60; BMI 31.4
--- NOTE | 2025-06-25 10:45 | MHC.OFFVIS ---
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 Allergies No Known Allergies (No Known Allergies*) Allergy (Verified 03/26/25 09:45) Medication List - Last Reconciled 06/25/25 by Norberto Jacobson MD amlodipine 5 mg PO DAILY aspirin (Adult Low Dose Aspirin) 81 mg PO DAILY atorvastatin 80 mg PO BEDTIME blood sugar diagnostic (FreeStyle Lite Strips) 3 times a day empagliflozin (Jardiance) 25 mg PO DAILY 90 days flash glucose sensor (VoicePrism InnovationsStyle Bo 14 Day Sensor kit) every 14 days lancets (FreeStyle Lancets) 3 times a day lisinopril-hydrochlorothiazide 20-12.5 mg 1 tab PO DAILY metformin ER 1,000 mg (2 x 500 mg) PO BID 90 days metoprolol succinate ER (Toprol XL) 100 mg PO DAILY multivitamin 1 tab PO DAILY semaglutide (Rybelsus) 3 mg PO DAILY HPI Comments Details: Dionne comes for follow-up. Overall he has been doing well. However said he can not walk long distances because of bilateral thigh discomfort and weakness. He said the symptoms has been going off for some time and he has resorted to biking. He does not get these symptoms when he does short distance walks. However he gets these symptoms when he is standing upright on a concrete floor. Could represent spinal stenosis and neurogenic claudication although vascular claudications also likely. Does not get any exertional chest pain. No shortness of breath. No orthopnea, PND. Overall doing well. Taking all his medications. Last LDL is extremely well optimized although triglycerides are elevated. He is currently working to manage his diabetes. [facility] Medical History Hx of sleep apnea Quadriceps tendon rupture CAD (coronary artery disease) Obesity (BMI 30-39.9) Hypertension Dyslipidemia Diabetic polyneuropathy associated with type 2 diabetes mellitus Diabetes type 2, uncontrolled Surgical History Hx of surgical procedure (04/14/23) History of knee surgery Hx of umbilical hernia repair Hx of hernia repair H/O wisdom tooth extraction Hx of removal of cyst S/P CABG x 5 Family History Mother Type 2 diabetes mellitus Father H/O heart artery stent Social History Household Members: Family Housing: House Alcohol intake: never Patient Tobacco Use Status: Never used Tobacco Tobacco use type: Cigarette e-Cigarette/Vaping Use: Never Used Second Hand Smoke Exposure: No service: Yes Current occupational status: retired Current occupation: Rt handed Cognitive needs: Yes (cane) Hearing needs: No Vision needs: Yes (glasses) Review of Systems Const Denies chills, Denies fatigue, Denies fever(s), Denies frequent falls, Denies weakness, Denies weight gain and Denies weight loss ENT Denies dizziness Card Denies chest pain, Denies leg edema, Denies lightheadedness, Denies palpitations, Denies dyspnea, Denies dyspnea on exertion, Denies orthopnea and Denies other (loss of consciousness) Resp Denies cough, Denies dyspnea and Denies dyspnea on exertion GI Denies hematochezia and Denies change in stool character Musc Denies abnormal gait, Denies muscle weakness, Denies numbness, Denies radiating pain into limb and Denies tingling Neuro Denies abnormal gait, Denies dizziness, Denies frequent falls, Denies numbness, Denies tingling and Denies weakness Endo Denies fatigue and Denies palpitations Physical Exam Vital Signs: Last Vital Signs Pulse 60 06/25/25 10:45 BP 110/70 06/25/25 10:45 BMI result Body Mass Index 31.4 Const General: cooperative, comfortable, no acute distress, alert and awake Nutritional Appearance: obese Orientation/consciousness: patient oriented x3 Limitations: no limitations Neck Neck: Yes trachea midline, Yes supple and Yes no JVD Carotids: no bruits Chest Chest palpation & inspection: normal inspection of the chest and other (Well-healed sternotomy scar) Resp Effort & Inspection: normal respiratory effort Auscultation: clear to auscultation bilaterally Cardio Jugular venous distension: no JVD Palpation: normal PMI Rate: regular rate Rhythm: regular rhythm Heart sounds: S1 normal heart sound present, S2 normal heart sound present, no click, no gallops, no murmurs and no rubs Peripheral pulses: Peripheral pulses 2+ throughout GI Auscultation: normal bowel sounds Skin General skin exam: no rashes or lesions noted Neuro General: patient oriented x3 and no focal motor deficits Extrem General: Yes no clubbing, cyanosis or edema Psych Appearance: grossly normal Office Procedures EKG Details: EKGs shows normal sinus rhythm with first-degree AV block with left posterior fascicular block with poor R-wave progression most likely lead placement and body habitus [id number], Complete Assessment & Plan Assessment & Plan (1) CAD (coronary artery disease): Code(s): I25.10 - Atherosclerotic heart disease of [place] coronary artery without angina pectoris Category: Medical Plan: CAD with remote coronary artery bypass grafting 9 years ago with no obvious symptoms although no significant symptoms would present at the time of his coronary artery bypass grafting except for vague fatigue. He is currently on good medical therapy except for elevated triglycerides. I would suggest to continue lifelong aspirin therapy. Continue aggressive blood pressure control as well as diabetes control. This is being pursue through your office. Goal hemoglobin A1c less than 7%. His LDL is well optimized. However if triglycerides remain elevated despite aggressive diabetes management I would consider adding either fibrate therapy or Vascepa to his regimen. This was discussed with him. Continue participate in weight loss program will also help with triglycerides. He understands and agrees. Next year will be 10 year anniversary and would check exercise myocardial perfusion imaging to assess for graft patency. Also an echocardiogram will be performed. Given his symptoms suggestive of claudication in his both lower extremity would suggest a lower extremity duplex to assess for peripheral vascular disease. (2) Hypertension: Code(s): I10 - Essential (primary) hypertension Category: Medical Plan: Hypertension which is currently well optimized. Advised to monitor blood pressure at home maintain a log. Continue current therapy including amlodipine, lisinopril hydrochlorothiazide combination as well as metoprolol. Importance of good blood pressure control was discussed. Low-salt diet was discussed. Participate in regular physical activity. Will follow up in the clinic in 1 year's time, sooner PRN. Thank you for allowing me to partake in his care Orders: Orders CA echo transthoracic complete 10 Months I25.10 - Atherosclerotic heart disease of [place] coronary artery without angina pectoris CA stress test 10 Months I25.10 - Atherosclerotic heart disease of [place] coronary artery without angina pectoris, Z95.1 - Presence of aortocoronary bypass graft NM cardiolite stress test 10 Months I25.10 - Atherosclerotic heart disease of [place] coronary artery without angina pectoris US arterial duplex LE BI Today I73.9 - Peripheral vascular disease, unspecified Coding Level of Care Code Est Pt Level 4 (11557) Complex EM visit Add On G2211 Diagnoses CAD (coronary artery disease) I25.10 Hypertension I10 CPT Codes EKG - CPT: 12443-[id number], Complete ([id number])
== END 2025-06-25 11:04 | disposition home or self-care (01) ==
LOC: HO.HCS 10:44
PROVIDERS: PCP Internal Medicine; Visit Provider Internal Medicine Cardiovascular Disease
DX: I25.10 Atherosclerotic heart disease of native coronary artery without angina pectoris (principal); I10 Essential (primary) hypertension
CPT/HCPCS: 93010; 99214; G2211

== ENCOUNTER → 2025-06-25 10:43 | Outpatient (BNVA) | payer MEDICARE, OTHER, SELFPAY | PROVIDERS: PCP Internal Medicine; Visit Provider Internal Medicine Cardiovascular Disease | DX: I25.10 Atherosclerotic heart disease of native coronary artery without angina pectoris (principal); I10 Essential (primary) hypertension; I44.0 Atrioventricular block, first degree; I44.5 Left posterior fascicular block; Z95.1 Presence of aortocoronary bypass graft | CPT/HCPCS: 93005; 99212 ==

== ENCOUNTER 2025-06-26 09:30 | Outpatient (AMB) | payer MEDICARE, OTHER, SELFPAY ==
[2025-06-26 09:52] VITALS: BP 138/70; PULSE 57; TEMP 36.3; O2SAT 98; BMI 31.7
--- NOTE | 2025-06-26 09:52 | A.OFFPC_ITS ---
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 Accompanied by: Self / Same As Patient Allergies No Known Allergies (No Known Allergies*) Allergy (Verified 06/26/25 10:06) Medication List - Last Reconciled 06/26/25 by Zuleyma Iyer PA-C amlodipine 5 mg PO DAILY aspirin (Adult Low Dose Aspirin) 81 mg PO DAILY atorvastatin 80 mg PO BEDTIME blood sugar diagnostic (FreeStyle Lite Strips) 3 times a day empagliflozin (Jardiance) 25 mg PO DAILY 90 days flash glucose sensor (FreeStyle Bo 14 Day Sensor kit) every 14 days lancets (FreeStyle Lancets) 3 times a day lisinopril-hydrochlorothiazide 20-12.5 mg 1 tab PO DAILY metformin ER 1,000 mg (2 x 500 mg) PO BID 90 days metoprolol succinate ER (Toprol XL) 100 mg PO DAILY multivitamin 1 tab PO DAILY semaglutide (Rybelsus) 3 mg PO DAILY Tobacco use date assessed: 03/26/25 Fall risk assessment: No Falls in past year Last assessed Fall Risk: 03/26/25 Dental Screening Dental Screen Date: 03/26/25 Did you have a dental visit in the last 12 months?: Yes Did you have a dental problem in the last 6 months where you did not have access to dental care?: No Was dental information given to patient?: Patient has dentist HPI f/u DM and HTN HPI Details 69-year-old male with past medical histo ry of diabetes mellitus, hypercholesterolemia, hypertension, coronary artery disease last seen 03/2025 coming in for follow up. In review of the notes, patient was seen by Cardiology 06/2025 continued on aspirin therapy lifelong and aggressive blood pressure and diabetic control.?Recommending fenofibrate to medication regimen as triglycerides are not well controlled. Presenting for management of chronic conditions and discussion of recent lab results. Regarding his diabetes, his most recent HbA1c was 8.4%, which is an increase from 8.2% in December. He is on the maximum dose of metformin, the highest dose of Jardiance, and has been taking Rybelsus consistently every morning. The patient's triglycerides have always been high, but a recent lab test showed they were 284 mg/dL, a significant increase from 155 mg/dL in December. He admits his diet has included more thai fries and has been irregular since the time change. The patient reports new bilateral hip pain, which occurs in the same spots on both sides and is worse after sleeping but improves with movement. He also expe riences muscle fatigue in both legs when standing still, especially on concrete, which is relieved by moving. His ccna is scheduling an ultrasound to evaluate circulation. Relevant past medical history includes bilateral quadriceps tendon ruptures from snow-related injuries approximately 10 years apart; the first surgery was delayed, resulting in a poorer recovery and less range of motion compared to the second. [facility] Medical History Hx of sleep apnea Quadriceps tendon rupture CAD (coronary artery disease) Obesity (BMI 30-39.9) Hypertension Dyslipidemia Diabetic polyneuropathy associated with type 2 diabetes mellitus Diabetes type 2, uncontrolled Surgical History Hx of surgical procedure (04/14/23) History of knee surgery Hx of umbilical hernia repair Hx of hernia repair H/O wisdom tooth extraction Hx of removal of cyst S/P CABG x 5 Family History Mother Type 2 diabetes mellitus Father H/O heart artery stent Social History Household Members: Family Housing: House Alcohol intake: never Patient Tobacco Use Status: Never used Tobacco Tobacco use type: Cigarette e-Cigarette/Vaping Use: Never Used Second Hand Smoke Exposure: No service: Yes Current occupational status: retired Current occupation: Rt handed Cognitive needs: Yes (cane) Hearing needs: No Vision needs: Yes (glasses) Questionnaire PHQ-9 Over the last 2 weeks, how often have you been bothered by any of the following problems? 1. Little interest or pleasure in doing things: several days 2. Feeling down, depressed, or hopeless: not at all 3. Trouble falling or staying asleep, or sleeping too much: not at all 4. Feeling tired or having little energy: several days 5. Poor appetite or overeating: not at all 6. Feeling bad about yourself - or that you are a failure or have let yourself or your family down: not at all 7. Trouble concentrating on things, such as reading the newspaper or watching television: not at all 8. Moving or speaking so slowly that other people could have noticed. Or the opposite - being so fidgety or restless that you have been moving around a lot more than usual: not at all 9. Thoughts that you would be better off or of hurting yourself in some way: not at all Total score: 2 Depression Screening Interpretation: Negative Depression Screening Done: Yes Source: Developed by Drs. Tyrel Borrero, Vanna De Dios, Mello Major and colleagues, with an educational shabbir from [employer]. Thrive Questionnaire Date Thrive assessed: 12/21/24 I am a: Patient What is your living situation today?: I have a steady place to live Within the past 12 months, did the food you bought not last and you didn't have the money to get more?: Never true Within the past 12 months, did you worry whether your food would run out before you got money to buy more?: Never true Do you have trouble paying for medicines?: No Do you have trouble getting transportation to medical appointments?: No Do you have trouble paying your heating and electricity bill?: No Do you have trouble taking care of your child, family member or friend?: No Do you have trouble with day-to-day activities such as bathing, preparing meals, shopping, managing finances, etc.?: No Are you currently unemployed and looking for a job?: No Are you interested in more education?: No Please select the resources that you would like help with: None Currently or been in a relationship where the following occur: No concerns reported THRIVE Score: 0 AUDIT C Alcohol Use Questionnaire (AUDIT-C) 1. How often do you have a drink containing alcohol?: Never Total Score: 0 IRAIS-7 AMB Questionnaire IRAIS-7 Date IRAIS - 7 assessed: 03/26/25 Feeling nervous, anxious, or on edge: 0 = Not at all Not being able to stop or control worryin = Several days Worrying too much about different things: 1 = Several days Trouble relaxin = Not at all Being so restless that it is hard to sit still: 0 = Not at all Becoming easily annoyed or irritable: 0 = Not at all Feeling afraid as if something awful might happen: 0 = Not at all Total IRAIS-7 score (0-4 normal; 5-9 mild; 10-14 moderate; 15-21 severe): 2 Source: Developed by Drs. Tyrel Borrero, Vanna De Dios, Mello Major and colleagues, with an educational shabbir from [employer]. Review of Systems Const Denies body aches, Denies chills, Denies fever(s), Denies headache(s) and Denies poor appetite Eyes Reports no additional complaints ENT Denies dysphagia, Denies dizziness, Denies headache(s) and Denies odynophagia Card Denies chest pain, Denies syncope, Denies edema, Denies irregular heart rhythm, Denies lightheadedness and Denies dyspnea Resp Denies cough and Denies dyspnea GI Denies abdominal pain, Denies constipation, Denies dysphagia, Denies diarrhea, Denies nausea, Denies odynophagia and Denies vomiting Reports no additional complaints Musc Reports no additional complaints and Denies abnormal gait Skin/Breast Reports system reviewed and no additional complaints, except as documented Neuro Denies abnormal gait, Denies dizziness, Denies syncope and Denies headache(s) Psych Reports no additional complaints Physical exam (Primary Care) Vital Signs: Last Vital Signs Temp 97.3 F 06/26/25 09:52 Pulse 57 06/26/25 09:52 BP 138/70 06/26/25 09:52 Pulse Ox 98 06/26/25 09:52 Oxygen Delivery Method Room Air 06/26/25 09:52 BMI result Body Mass Index 31.7 Tobacco/Smoking Status: Tobacco use Status Tobacco use date assessed 03/26/25 06/26/25 09:54 Patient Tobacco Use Status Never used Tobacco 06/26/25 09:54 Tobacco use type Cigarette 06/26/25 09:54 e-Cigarette/Vaping Use Never Used 06/26/25 09:54 PHQ-9: PHQ-9 Score PHQ-9: Total score 2 06/26/25 10:29 Depression Screening Interpretation: Negative Thrive Assessment: Date of Thrive Assessment Date Thrive assessed 12/21/24 06/26/25 09:54 Currently or been in a relationship where the following occur: No concerns reported Const General: cooperative, healthy appearing, comfortable and no acute distress Orientation/consciousness: patient oriented x3 HENMT Head: Yes normocephalic Ears: hearing grossly normal bilaterally General nose exam: Normal external nose present Eyes General: appearance normal, both eyes and all related structures Conjunctivae: conjunctivae normal Neck Neck: Yes full ROM and Yes no lymphadenopathy Resp Effort & Inspection: normal respiratory effort Auscultation: clear to auscultation bilaterally, no crackles, no rales, no rhonchi and no wheezes Cardio Rate: regular rate Rhythm: regular rhythm Back/Spine/Pelvis Other: no TTP of lumbar spine, paraspinal muscles or hips Skin General skin exam: no rashes or lesions noted Neuro General: patient oriented x3 Gait exam (Neuro): Normal gait present Extrem Other: Intact strength, sensation and pulses in samuel LE General: Yes normal to inspection, Yes full ROM and No edema Psych Affect: normal affect Attitude: cooperative Insight: Good insight present (Psych) Judgement: Good judgement present (Psych) Results AMB Hemoglobin A1c AMB Hemoglobin A1c 8.9 % Last Edit by Sintia Cardenas MA on 06/26/25 10:35 Results Reviewed Results Reviewed: Laboratory Last Values Hgb A1c (Clinic) 8.9 % (4.0-6.0) H 06/26/25 10:32 Coding Level of Care Code Est Pt Level 4 (65184) Diagnoses Type 2 diabetes mellitus with hyperlipidemia E11.69; E78.5 Obesity E66.9 CAD (coronary artery disease) I25.10 Dyslipidemia E78.5 Hypertension I10 Back pain M54.9 Assessment & Plan Assessment & Plan (1) Type 2 diabetes mellitus with hyperlipidemia: Comment: Real Arte[place] Ma Code(s): E11.69 - Type 2 diabetes mellitus with other specified complication; E78.5 - Hyperlipidemia, unspecified Category: Medical Plan: Decrease the amount of carbohydrates such as pasta, bread, rice, and potatoes and limit the amount of sweets. Although fruits are generally healthy they should be eaten in moderation as they are still high in sugar. Hemoglobin A1c goal of less than 7%. Continue on metformin and Jardiance as well as Rybelsus. PLan to increase Rybelsus to 7 mg daily. (2) Obesity: Code(s): E66.9 - Obesity, unspecified Category: Medical Plan: Healthy diet and regular exercise is encouraged. (3) CAD (coronary artery disease): Code(s): I25.10 - Atherosclerotic heart disease of [place] coronary artery without angina pectoris Category: Medical Plan: Advised good control of blood pressure, cholesterol and diabetes mellitus. At this time cholesterol and blood pressure has been well controlled for many years and we will continue to work on glycemic control. Recently seen by cardiology and advised lifelong ASA. Continue to follow with Cardiology (4) Dyslipidemia: Code(s): E78.5 - Hyperlipidemia, unspecified Category: Medical Plan: Avoid foods that are high in cholesterol such as red meat, fried foods, eggs and baked goods. Triglyceride goal of less than 150 and LDL goal of less than 70. Continue on atorvastatin 80 mg. Last LDL at goal but Triglycerides not at goal. Per cardiology consideration for fenofibrate was made. Discussed medication management however patient would like to work on diet modification first. Plan to repeat blood work and consider medication. (5) Hypertension: Code(s): I10 - Essential (primary) hypertension Category: Medical Plan: Continue on current blood pressure medication. Avoid salt intake and encourage healthy diet and regular exercise. (6) Back pain: Code(s): M54.9 - Dorsalgia, unspecified Category: Medical Plan: The patient reports chronic, stable numbness and tingling in the feet, as well as bilateral leg muscle fatigue with prolonged standing. The differential diagnosis includes peripheral neuropathy, vascular insufficiency, and lumbar spinal stenosis, given his father's history. His ccna has scheduled a leg ultrasound to assess circulation. A lower back x-ray has been ordered to evaluate for spinal narrowing. For symptomatic relief of muscular discomfort, he was advised to use heating pads and Tylenol. Plan This note was constructed using voice recognition software. While every effort has been made to ensure accuracy and computer system validation specialist, still areas may have been included sometimes these areas may affect the content or meeting of the given symptoms. Total time spent caring for the patient today was 20 minutes. This includes time spent before the visit reviewing the chart, time spent during the visit, and time spent after the visit and documentation. Patient was informed and verbally consented to the use of an ambient scribe for clinic note documentation during this visit. Orders: Orders XR lumbar spine 2-3V Today M54.9 - Dorsalgia, unspecified Lipid Panel 3 Months E78.00 - Pure hypercholesterolemia, unspecified Hemoglobin A1c 3 Months E11.65 - Type 2 diabetes mellitus with hyperglycemia AMB Hemoglobin A1c Today Z13.9 - Encounter for screening, unspecified Medications: New semaglutide (Rybelsus) 7 mg PO DAILY 90 tabs 0RF Discontinued semaglutide (Rybelsus) Discontinued Reason: Patient no longer taking 3 mg PO DAILY 90 tabs 1RF
--- OUTSIDE RECORDS SUMMARY | 2025-06-26 17:32 | XMS_ITS | Clinical Summary ---
Author Organization [facility] Address [address] [place], [place] [address] Phone Care Team Providers Care Residential Leasing Manager Name Role Phone Parker Peace MD Primary Care Provider [phone] Allergies No known active allergies Medications amLODIPine (NORVASC) 5 MG tablet 3 Active atorvastatin (LIPITOR) 80 MG tablet 3 Active metFORMIN (GLUCOPHAGE-XR) 500 MG 24 hr tablet 3 Active lisinopril-hydr oCHLOROthiazide (PRINZIDE,ZESTO RETIC) 20-12.5 mg per tablet 3 Active metoprolol succinate (TOPROL-XL) 100 MG 24 hr tablet 3 Active albuterol (PROAIR HFA) 90 mcg/actuation inhaler Inhale 2 puffs into the lungs every 4 (four) hours as needed for wheezing. 18 g 4 Active predniSONE (DELTASONE) 20 MG tablet Prednisone 20 mg. Dispense #6. Directions 2 pills each day x 3. No refills. Take small meal 30 minutes before and with each dose. Take dose early in the day. 6 tablet 4 Active Additional Information Patient not taking.Reported on 01/15/2025 Active Problems No known active problems Immunizations Immunization Administration Dates Next Due Tdap 08/05/2020 Social History Tobacco Use Types Packs/Day Years Used Date Smoking Tobacco: Never Passive Smoke Exposure: Never Smokeless Tobacco: Never Alcohol Use Standard Drinks/Week Comments Not Currently 0 (1 standard drink = 0.6 oz pur e alcohol) Education Answer Date Recorded Are you interested in more education? Not on robert e 12/03/2022 Are you concerned about learning? Not on file 12/03/2022 No 12/03/2022 No 12/03/2022 Digital Access Answer Date Recorded No 01/01/2023 No 01/01/2023 Reliable internet access at home? Not on file 01/01/2023 Device with a working camera? Not on file Sex and Gender Information Value Date Recorded Sex Assigned at Not on file Legal Sex Male 9:55 PM EDT Gender Identity Not on file Sexual Orientation Not on file Last Filed Vital Signs Vital Sign Reading Time Taken Comments Blood Pressure 150/69 01/15/2025 2:26 PM EDT Pulse 54 01/15/2025 2:26 PM EDT Temperature 36.8 C (98.3 F) 08/08/2023 3:26 PM EST Respiratory Rate 16 01/15/2025 2:26 PM EDT Oxygen Saturation 97% 01/15/2025 2:26 PM EDT Inhaled Oxygen Concentration - - Weight 108.9 kg (240 lb) 01/15/2025 2:26 PM EDT Height 185.4 cm (6' 1 ) 01/15/2025 2:26 PM EDT Body Mass Index 31.66 01/15/2025 2:26 PM EDT Plan of Treatment Health Maintenance Due Date Last Done Comments CREATININE LEVEL 1955 LIPID PANEL 1955 POTASSIUM LEVEL 1955 DEPRESSION SCREENING 1967 HEPATITIS C SCREENING 1973 SCREENING FOR DIABETES 1990 COLOGUARD 2000 COLONOSCOPY 2000 COLORECTAL CANCER SCREENING 2000 FIT TEST 2000 FOBT 2000 SIGMOIDOSCOPY 2000 VIRTUAL COLONOSCOPY 2000 PNEUMOCOCCAL VACCINES (50+ years) (1 of 1 - PCV) 2005 INFLUENZA VACCINE (#1) 2025 , 05/13/2022, 04/26/2021, Additional history exists COVID-19 VACCINE (4 - 2024- season) 2025 07/14/2021, 11/17/2020, 10/24/2020 RSV VACCINE (1 - 1-dose 75+ series) 2030 Adult Td,Tdap Booster 08/05/2030 08/05/2020, 020 ZOSTER VACCINES Completed 09/25/2020, 05/09, 07/26/2016 SMOKING STATUS SCREENING (Once After 26 Yrs) Completed 01/15/2025 HEPATITIS A VACCINES Aged Out No long er eligible based on patient's age to complete this topic HIB VACCINES Aged Out No longer eligi ble based on patient's age to complete this topic MENINGOCOCCAL VACCINES (ACWY) Aged Out No longer eligible based on patient's age to complete this topic MENINGOCOCCAL VACCINES (B) Aged Out N o longer eligible based on patient's age to complete this topic Medical Devices Not on file Insurance [employer] MEDICARE SUPPLEMENT MEDICARE PART A & B [place] MEDICARE SUPPLEMENT MEDICARE PART A & B [place] MEDICARE SUPPLEMENT MEDICARE PART A & B FOR LIFE MEDICARE SUPPLEMENT MEDICARE PART A & B FOR LIFE MEDICARE SUPPLEMENT MEDICARE PART A & [place] [address] [place] [address] FOR LIFE MEDICARE SUPPLEMENT MEDICARE PART A & B [facility] FOR LIFE MEDICARE SUPPLEMENT MEDICARE PART A & B FOR LIFE MEDICARE SUPPLEMENT MEDICARE PART A & B FOR LIFE MEDICARE SUPPLEMENT MEDICARE PART A & B Care Teams Residential Leasing Manager Relationship Specialty Start Date End Date Parker Peace MD [address] [place] [address] [place] [address] PCP - General 05/24/17 Additional Source Comments The information contained in this document represents components of the legal health record. It is not the complete legal health record.[facility]
--- OUTSIDE RECORDS SUMMARY | 2025-06-26 17:33 | XMS_ITS | Encounter Summary ---
Author Organization [facility] Address [address] [facility] [address] [place] [address] Phone Care Team Providers Care Polysilicon Preparation Worker Name Role Phone Parker Peace MD Primary Care Provider [phone] Reason for Visit * Reason Comments Medication Refill Encounter Details Date Type Department Care Team (Late st Contact Info) Description 09/04/2023 Refill [facility] at [address] [place] [address] Maribell Garza PA-C [address] [place] [id number] [email or web address] Medication Refill Social History Tobacco Use Types Packs/Day Years [...] on file Sexual Orientation Not on file documented as of this encounter Plan of Treatment Not on file documented as of this encounter Visit Diagnoses Not on filedocumented in this encounter Care Teams Polysilicon Preparation Worker Relationship Specialty Start Date End Date Parker Peace MD [address] [place] [address] [place] [address] PCP - General 05/24/17 documented as of this encounter Additional Source Comments The information contained in this document represents components of the legal health record. It is not the complete legal health record.[facility]
--- OUTSIDE RECORDS SUMMARY | 2025-06-26 17:33 | XMS_ITS | Patient Health Record ---
Author Organization [facility] Address [address] [place] [address] Care Team Providers Care Tax Adjuster Name Role Phone Zuleyma Alvarez Primary Care Provider Tyrel Zheng Unavailable [phone] Reason For Referral No Information Medications Medication SIG (Take, Route, Frequency, Duration) Notes Start Date End Date Status Metoprolol Succinate 100 MG Capsule ER 24 Hour Sprinkle 1 capsule Orally Once a day; Duration: 30 day(s) Active Aspirin Adult Low Dose 81 MG Tablet Delayed Release 1 tablet Orally Once a day; Duration: 30 day(s) Active amLODIPine Besylate 5 MG Tablet 1 tablet Orally Once a day; Duration: 30 day(s) Active Atorvastatin Calcium 80 MG Tablet 1 tablet Orally Once a day; Duration: 30 day(s) Active Jardiance 10 MG Tablet 1 tablet Orally O nce a day Active glyBURIDE 5 MG Tablet 1 tablet with bib kfast or the first main meal of the day Orally Once a day; Duration: 30 day(s) Active metFORMIN HCl 500 MG Tablet 1 tablet wit h a meal Orally times 4 Active Immunizations Vaccine Route Administration Date Status Comme nts Influenza Unknown 04/08/2018 Administered Social History Tobacco Use: Social History Observation Description Date Details (start date - stop date) Never Smoker NA - NA Social History Drugs/Alcohol: Social Info Question Answer Notes Alcohol Screen Did you have a drink containing alcohol in the past year? 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 [employer] Section Notes: Nonsmoker; no sig alcohol Problems Problem Type SNOMED Code ICD Code Onset Dates Problem Status W/U Status Risk Notes Problem Screening for malignant neoplasm of colon (970782784) Encounter for screening for malignant neoplasm of colon (Z12.11) Active confirmed Problem Preprocedural examination (943701050358442) Preprocedural examination (Z01.818) Active confirmed Problem History of adenomatous polyp of colon (511145078) Hx of adenomatous colonic polyps (Z86.010) Active confirmed Plan Of Treatment Pending Test Test Name Order Date GI BIOPSY 11/01/2018 Future Test Test Name Order Date COLONOSCOPY 09/01/2018 Next Appt Details Provider Name:Tyrel Lopez , 07/31/2025 09:40:00 AM, [address] [facility], [address], [place], [address], Insurance Providers Payer Name Payer Address Payer Phone Subscriber Number Group Number Insured Name Patient Relationship to Insured Coverage Start Date Coverage End Date MEDICARE OF [place] [address] [place] [address] [id number] KHARI DAVIS Self - patient is the insured FOR LIFE [address] [place] [address] [phone] [id number] KHARI DAVIS Self - patient is the insured Medical (General) History Medical History History ICD Code Screening colonoscopy 07-09-2008--approx 2cm tubular adenoma removed Elevated LFT's(minimal) and fatty liver--neg. w/u otherwise in 2007--no biopsy was done--03/2016 labs showed AST of 39 and ALT of 69 with an otherwise completely normal liver profile Sleep apnea--uses CPAP NIDDM Hypertension Kidney stone Denies [place],DM,CVA,Lung disease,renal dise ase Surgical History Surgery Date(Month/Year) 4 V CABG in 2016 05/2016 [place] teeth extraction Left leg surgery torn quadricep Inguinal hernia age 4 Pilonidal cyst
== END 2025-06-26 10:39 | disposition home or self-care (01) ==
LOC: HO.HMCH 09:31
PROVIDERS: PCP Internal Medicine
DX: E11.69 Type 2 diabetes mellitus with other specified complication (principal); E78.5 Hyperlipidemia, unspecified; I25.10 Atherosclerotic heart disease of native coronary artery without angina pectoris; I10 Essential (primary) hypertension; M54.9 Dorsalgia, unspecified; Z13.9 Encounter for screening, unspecified

== ENCOUNTER → 2025-06-26 09:30 | Outpatient (BNVA) | payer MEDICARE, OTHER, SELFPAY | PROVIDERS: PCP Internal Medicine | DX: E11.69 Type 2 diabetes mellitus with other specified complication (principal); E78.5 Hyperlipidemia, unspecified; I10 Essential (primary) hypertension; M54.9 Dorsalgia, unspecified; E66.9 Obesity, unspecified; Z68.31 Body mass index [BMI] 31.0-31.9, adult; Z71.3 Dietary counseling and surveillance | CPT/HCPCS: 83036; 99212 ==

== ENCOUNTER 2025-07-01 08:39 | Outpatient (REF) | payer MEDICARE, OTHER, SELFPAY ==
--- NOTE | ~2025-07-01 | XR_ITS ---
EXAMINATION: XR LUMBOSACRAL SPINE CLINICAL INFORMATION: M54.9 - Dorsalgia, unspecified COMPARISON: Previous x-ray September 2011 TECHNIQUE: Three views of the lumbosacral spine. FINDINGS: Mild 5 mm anterior subluxation of L4 with respect to L5. Bone alignment otherwise normal. No fracture or dislocation. Multilevel degenerative spondylosis and degenerative disc disease. Lower lumbar spine facet arthritis. Atherosclerotic disease. XR/XR lumbar spine 2-3V IMPRESSION: Multilevel degenerative changes increased from 2012 exam. Mild anterior subluxation of L4 with respect to L5 probably secondary to facet arthritis. Electronically signed by: Nano Lechuga MD 07/01/2025 11:58 AM [facility]
--- OUTSIDE RECORDS SUMMARY | 2025-07-01 09:02 | XMS_ITS | Encounter Summary ---
Author Organization [facility] Address [address] [facility] [address] [place] [address] Phone Care Team Providers Care Conditioner Tender Name Role Phone Parker Peace MD Primary Care Provider [phone] Reason for Visit * Reason Comments Medication Refill Encounter Details Date Type Department Care Team (Late st Contact Info) Description 09/04/2023 Refill [facility] at [address] [place] [address] Maribell Garza PA-C [address] [place] [phone] [email or web address] Medication Refill Social History Tobacco Use Types [...] on filedocumented in this encounter Care Teams Conditioner Tender Relationship Specialty Start Date End Date Parker Peace MD [address] [place] [address] [place] [address] PCP - General 05/24/17 documented as of this encounter Additional Source Comments The information contained in this document represents components of the legal health record. It is not the complete legal health record.[facility]
--- OUTSIDE RECORDS SUMMARY | 2025-07-01 09:02 | XMS_ITS | Clinical Summary ---
Author Organization [facility] Address [address] [place], [place] [id number] Phone Care Team Providers Care Design Maker Name Role Phone Parker Peace MD Primary Care Provider [phone] Allergies No known active allergies Medications amLODIPine [...] topic Medical Devices Not on file Insurance [employer] MEDICARE SUPPLEMENT MEDICARE PART A & B [employer] MED[employer]ARE SUPPLEMENT MEDICARE PART A & B [employer] MED[employer]ARE SUPPLEMENT MEDICARE PART A & B [employer] MEDICARE SUPPLEMENT MEDICARE PART A & B [employer] MEDICARE SUPPLEMENT MEDICARE PART A & [place] [address] [place] [address] FOR LIFE MEDICARE SUPPLEMENT MEDICARE PART A & B [facility] [place] FOR LIFE MEDICARE SUPPLEMENT MEDICARE PART A & B [employer] MEDICARE SUPPLEMENT MEDICARE PART A & B [employer] MEDICARE SUPPLEMENT MEDICARE PART A & B Care Teams Design Maker Relationship Specialty Start Date End Date Parker Peace MD [address] [place] [address] [place] [address] PCP - General 05/24/17 Additional Source Comments The information contained in this document represents components of the legal health record. It is not the complete legal health record.[facility]
--- OUTSIDE RECORDS SUMMARY | 2025-07-01 09:02 | XMS_ITS | Patient Health Record ---
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 Section Notes: Nonsmoker; no sig alcohol Problems Problem Type SNOMED Code ICD Code Onset Dates Problem Status W/U Status Risk Notes Problem Screening for malignant neoplasm of colon (154647306) Encounter for screening for malignant neoplasm of colon (Z12.11) Active confirmed Problem Preprocedural examination (431730829227874) Preprocedural examination (Z01.818) Active confirmed Problem History of adenomatous polyp of colon (706432219) Hx of adenomatous colonic polyps (Z86.010) Active confirmed Plan Of Treatment Pending Test Test Name Order Date GI BIOPSY 11/01/2018 Future Test Test Name Order Date COLONOSCOPY 09/01/2018 Next Appt Details Provider Name:Tyrel Lopez , 07/31/2025 09:40:00 AM, [address] [facility], [address], [place], [address], Insurance Providers Payer Name Payer Address Payer Phone Subscriber Number Group Number Insured Name Patient Relationship to Insured Coverage Start Date Coverage End Date MEDICARE OF [place] [address] [place] [address] [phone] [id number] KHARI DAVIS Self - patient is the insured FOR LIFE [address] [place] [address] [id number] KHARI DAVIS Self - patient is the insured Medical (General) History Medical History History ICD Code Screening colonoscopy 07-09-2008--approx 2cm tubular adenoma removed Elevated LFT's(minimal) and fatty liver--neg. w/u otherwise in 2007--no biopsy was done--03/2016 labs showed AST of 39 and ALT of 69 with an otherwise completely normal liver profile Sleep apnea--uses CPAP NIDDM Hypertension Kidney stone Denies DC,DM,CVA,Lung disease,renal dise ase Surgical History Surgery Date(Month/Year) 4 V CABG in 2016 05/2016 [place] teeth extraction Left leg surgery torn quadricep Inguinal hernia age 4 Pilonidal cyst
== END 2025-07-01 08:40 | disposition home or self-care (01) ==
LOC: HO.XRAY 08:39
DX: M54.9 Dorsalgia, unspecified (principal)
CPT/HCPCS: 72100

== ENCOUNTER → 2025-07-01 08:45 | Outpatient (BNV) | payer MEDICARE, OTHER, SELFPAY | PROVIDERS: Visit Provider Radiology Diagnostic Radiology | DX: M47.812 Spondylosis without myelopathy or radiculopathy, cervical region (principal) | CPT/HCPCS: 72100 ==